=== PATIENT | female | born 1960 | race Caucasian/White ===

== ENCOUNTER → 2018-05-03 07:54 | Outpatient (CLI) | payer OTHER, SELFPAY ==
--- NOTE | 2018-05-03 07:56 | BI_ITS ---
MAMMOGRAPHY - BILATERAL SCREENING REASON FOR EXAM: Female, 57 years old. Routine annual screening examination. PERTINENT HISTORY: Non-contributory. Bilateral breast implants. TECHNIQUE: Digital bilateral breast ariella (3D mammographic acquisition) in the CC and MLO projections. 2-D mediolateral oblique (MLO) and craniocaudad (CC) views of both breasts were obtained. CAD: Full Field Digital Mammography with Computer Added Detection was performed. COMPARISON: Comparison is made with prior examination is March 18, 2017 and July 04, 2015. FINDINGS: Breast Composition: The breasts are heterogeneously dense, which may obscure small masses. There are no dominant masses or suspicious calcifications. Stable appearance of the bilateral breast implants. No other significant abnormalities are identified. There has been no significant change since the prior study. BI/SCREENING MAMM (CAD), BILAT IMPRESSION: Stable bilateral screening mammogram. Yearly follow-up mammogram recommended. (A) ASSESSMENT CATEGORY: BIRADS Category 2: Benign. A letter regarding these results will be sent to the patient by the facility within 30 days. Approximately 10% of breast cancers are not detected by mammography. A normal mammogram should not delay biopsy of a clinically suspicious abnormality. [id number] Electronically Signed: Roe Kaba MD at 9:57 EDT Tel [phone], Service support ,
== END ==
PROVIDERS: Family Provider Internal Medicine; PCP Internal Medicine; Visit Provider Nurse Practitioner Women's Health
DX: Z12.31 Encounter for screening mammogram for malignant neoplasm of breast (principal)
CPT/HCPCS: 77063; 77067

== ENCOUNTER → 2021-07-01 12:15 | Outpatient (CLI) | payer MEDICAID, SELFPAY ==
--- NOTE | 2021-07-01 12:17 | BI_ITS ---
MAMMOGRAPHY - BILATERAL SCREENING 3-D TOMOSYNTHESIS REASON FOR EXAM: Female, 60 years old. screening for breast cancer PERTINENT HISTORY: No significant family history. TECHNIQUE: 2-D mammograms and 3-D Tomosynthesis of the breast (s) were performed. CAD was performed. COMPARISON: 05/03/2018 FINDINGS: The breast composition is heterogeneously dense that can obscure small breast masses. Scattered benign calcifications are seen. No dense spiculated masses or suspicious microcalcifications are identified. No architectural distortion is identified. There is no skin thickening or retraction. Bilateral retroglandular silicone implants appear intact BI/SCRN MAMM (CAD)W/TAMIA BILAT IMPRESSION: No mammographic signs of malignancy. Routine yearly mammograms recommended. ASSESSMENT CATEGORY: BIRADS Category 1: Negative. A letter regarding these results will be sent to the patient by the facility within 30 days. FOLLOW UP RECOMMENDATION: Yearly follow up mammogram recommended. (A) Approximately 10% of breast cancers are not detected by mammography. A normal mammogram should not delay biopsy of a clinically suspicious abnormality. Electronically Signed: Sotero Dale MD at 15:23 EST Tel , Service support ,
== END ==
PROVIDERS: PCP Family Medicine; Visit Provider Nurse Practitioner Women's Health
DX: Z12.31 Encounter for screening mammogram for malignant neoplasm of breast (principal)
CPT/HCPCS: 77063; 77067

== ENCOUNTER → 2022-07-03 | Outpatient (CLI) | payer MEDICAID, SELFPAY ==
--- NOTE | 2022-07-03 13:53 | BI_ITS ---
MAMMOGRAPHY - BILATERAL SCREENING REASON FOR EXAM: Female, 61 years old. Routine annual screening examination. PERTINENT HISTORY: Non-contributory. History of bilateral breast implants. TECHNIQUE: Digital bilateral breast tamia (3D mammographic acquisition) in the CC and MLO projections. 2-D mediolateral oblique (MLO) and craniocaudad (CC) views of both breasts were obtained. CAD: Full Field Digital Mammography with Computer Added Detection was performed. COMPARISON: Comparison is made with prior study dated 07/01/2021 and 05/03/2008. FINDINGS: Breast Composition: The breasts are heterogeneously dense, which may obscure small masses. There are no dominant masses or suspicious calcifications. Stable appearance of the bilateral breast implants with peripheral calcification and slight lobular deformity. No other significant abnormalities are identified. There has been no significant change since the prior study. BI/SCRN MAMM (CAD)W/TAMIA BILAT IMPRESSION: Stable bilateral screening mammogram. Yearly follow-up mammogram recommended. (A) ASSESSMENT CATEGORY: BIRADS Category 2: Benign. A letter regarding these results will be sent to the patient by the facility within 30 days. Approximately 10% of breast cancers are not detected by mammography. A normal mammogram should not delay biopsy of a clinically suspicious abnormality. [id number] Electronically Signed: Roe Kaba MD at 11:17 EST ,
== END | disposition home or self-care (01) ==
LOC: OPBI 13:52
PROVIDERS: PCP Family Medicine; Visit Provider Nurse Practitioner Women's Health
DX: Z12.31 Encounter for screening mammogram for malignant neoplasm of breast (principal); Z98.82 Breast implant status
CPT/HCPCS: 77063; 77067

== ENCOUNTER → 2023-08-02 | Outpatient (CLI) | payer MEDICAID, SELFPAY ==
--- NOTE | 2023-08-02 12:16 | BI_ITS ---
MAMMOGRAPHY - BILATERAL SCREENING REASON FOR EXAM: Female, 62 years old. Routine annual screening examination. PERTINENT HISTORY: Non-contributory. Bilateral breast implants. TECHNIQUE: Digital bilateral breast tamia (3D mammographic acquisition) in the CC and MLO projections. 2-D mediolateral oblique (MLO) and craniocaudad (CC) views of both breasts were obtained. CAD: Full Field Digital Mammography with Computer Added Detection was performed. COMPARISON: Comparison is made with prior study dated April 03, 2022 and July 01, 2021. FINDINGS: Breast Composition: The breasts are heterogeneously dense, which may obscure small masses. There are no dominant masses or suspicious calcifications. Stable appearance of the bilateral breast implants. No other significant abnormalities are identified. There has been no significant change since the prior study. BI/SCRN MAMM (CAD)W/TAMIA BILAT IMPRESSION: Stable bilateral screening mammogram. Yearly follow-up mammogram recommended. (A) ASSESSMENT CATEGORY: BIRADS Category 2: Benign. A letter regarding these results will be sent to the patient by the facility within 30 days. Approximately 10% of breast cancers are not detected by mammography. A normal mammogram should not delay biopsy of a clinically suspicious abnormality. [id number] Electronically Signed: Roe Kaba MD at 13:37 EST ,
--- OUTSIDE RECORDS SUMMARY | 2023-08-02 12:39 | XMS RPT_ITS | CCD ---
Author Name Unknown Address [address] [place] [address] Organization [facility] Care Team Providers Care Cashier Tube Room Name Role Phone Jya ABREU, Kailey Macias Unavailable [phone] Lynn IT CONSULTING MANAGER, Geovanna Josue Unavailable Kelly ABREU, Guillermina Schmitt Unavailable [phone] Sebastian Sol MD Primary Care Provider SEBASTIAN SOL Primary Care Unava ilable KAROL PERALTA Attending Unavaila Sebastian Flaherty MD Primary Care Provider Sebastian Sol MD Primary Care Provider Prebish PRE SALES TECHNICAL ENGINEER.ACADEMY DIRECTOR, Michelle Unavailable [phone] PENNY ONEILL Attending Unavailable PODLOGARLUANA Referring Unavailable SEBASTIAN SOL Primary Care Unavailab EARLE RamosMIT Attending Unavailable SEBASTIAN SOL Primary Care Unavailab le PREBISH, MICHELLE Attending Unavailable PREBISH, MICHELLE Referring Unavailable SEBASTIAN SOL Primary Care Unavailab le PREBISH, MICHELLE Attending Unavailable SEBASTIAN SOL Primary Care Unavailab wilfredo SINGH, BIGG Attending Unavailable SEBASTIAN SOL Primary Care Unavailab PENNY Lee Referring Unavailable SEBASTIAN SOL Primary Care Unavailab PENNY Lee Referring Unavailable SEBASTIAN SOL Primary Care Unavailab PENNY Lee Referring Unavailable SEBASTIAN SOL Primary Care Unavailab PENNY Lee Referring Unavailable SEBASTIAN SOL Primary Care Unavailab PENNY Lee Referring Unavailable BURSLEY, CHRISTOPHER B Primary Care Unavailab le BURSLEY, CHRISTOPHER B Primary Care Unavailab le NINOPENNY ARIAS M Referring Unavailable BURSLEY, CHRISTOPHER B Primary Care Unavailab le NINOPENNY ARIAS M Referring Unavailable NINOPENNY ARIAS M Referring Unavailable BURSLEY, CHRISTOPHER B Primary Care Unavailab le NINOPENNY ARIAS M Referring Unavailable BURSLEY, CHRISTOPHER B Primary Care Unavailab le SINGH, BIGG Referring Unavailable MAX RIVERSA Attending Unavailable BURSLEY, CHRISTOPHER B Primary Care Unavailab le MICHELLE RIVERS Referring Unavailable TOLU FRIEDMAN Attending Unavailable BURSLEY, CHRISTOPHER B Primary Care Unavailab le Sissen PSS, Vineet Unavailable Unavailable Storm Kang MD Unavailable Storm Kang MD Unavailable [phone] Knupp PT, Julio Unavailable Sissen PSS, Vineet Unavailable Unavailable Storm Kang MD Unavailable Storm Kang MD Unavailable [phone] Knupp PT, Julio Unavailable PROVIDER, UNKNOWN Admitting Unavailable BURSLEY, CHRISTOPHER B Primary Care Unavailab MASON Mccoll[employer] Consulting Unavailable PROVIDER, UNKNOWN Attending Unavailable BURSLEY, CHRISTOPHER B Primary Care Unavailab le BURSLEY, CHRISTOPHER B Primary Care Unavailab OLU Pimentel Referring Unavailable BURSLEY, CHRISTOPHER B Primary Care Unavailab le PROVIDER, UNKNOWN Admitting Unavailable BURSLEY, CHRISTOPHER B Primary Care Unavailab MASON Mccollum Consulting Unavailable PROVIDER, UNKNOWN Attending Unavailable NINOPENNY ARIAS M Referring Unavailable BURSLEY, CHRISTOPHER B Primary Care Unavailab le SINGH III, BIGG Referring Unavailable BURSLEY, CHRISTOPHER B Primary Care Unavailab STORM Hinton Referring Unavail able BURSLEY, CHRISTOPHER B Primary Care Unavailab STORM Hinton Referring Unavail able BURSLEY, CHRISTOPHER B Primary Care Unavailab SHADY Chester Attending Unavailable PENNY ONEILL Referring Unavailable BURSLEY, CHRISTOPHER B Primary Care Unavailab STORM Hinton Referring Unavail able TRUNG ROSA Attending Unavailable URBANO, CHRISTOPHER B Primary Care Unavailab SHADY Chester Attending Unavailable OLU ATKINSON Referring Unavailable BURSLEY, CHRISTOPHER B Primary Care Unavailab STORM Hinton Referring Unavail able TRUNG ROSA Attending Unavailable URBANO, CHRISTOPHER B Primary Care Unavailab OLU Pimentel Attending Unavailable MICHELLE RIVERS Referring Unavailable BURSLEY, CHRISTOPHER B Primary Care Unavailab STORM Hinton Referring Unavail able TRUNG ROSA Attending Unavailable BURSLEY, CHRISTOPHER B Primary Care Unavailab le STORM KANG Referring Unavail able URBANO, CHRISTOPHER B Primary Care Unavailab SHADY Chester Attending Unavailable PENNY ONEILL Referring Unavailable BURSLEY, CHRISTOPHER B Primary Care Unavailab PENNY Lee Referring Unavailable BURSLEY, CHRISTOPHER B Primary Care Unavailab SHADY Chester Attending Unavailable PENNY ONEILL Referring Unavailable BURSLEY, CHRISTOPHER B Primary Care Unavailab SHADY Chester Attending Unavailable PENNY ONEILL Referring Unavailable BURSLEY, CHRISTOPHER B Primary Care Unavailab PENNY Lee Referring Unavailable BURSLEY, CHRISTOPHER B Primary Care Unavailab PENNY Lee Referring Unavailable BURSLEY, CHRISTOPHER B Primary Care Unavailab PENNY Lee Referring Unavailable BURSLEY, CHRISTOPHER B Primary Care Unavailab OLU Pimentel Referring Unavailable BURSLEY, CHRISTOPHER B Primary Care Unavailab STORM Hinton Referring Unavail able LUIS FELIPELEY, CHRISTOPHER B Primary Care Unavailab le LUIS FELIPELEY, CHRISTOPHER B Primary Care Unavailab le STORM KANG Referring Unavail able BURSLEY, CHRISTOPHER B Primary Care Unavailab le STORM KANG Attending Unavail able URBANO, CHRISTOPHER B Primary Care Unavailab OLU Pimentel Attending Unavailable URBANO, CHRISTOPHER B Primary Care Unavailab le STORM KANG Referring Unavail able URBANO, CHRISTOPHER B Primary Care Unavailab le BURSLEY, CHRISTOPHER B Primary Care Unavailab SHAHBAZ Lock Referring Unavailable STORM KANG Attending Unavail able BURSLEY, CHRISTOPHER B Primary Care Unavailab le Allergies Allergy Classification Reported Allergen(s) Allergy Type Date of Onset Reaction(s) Facility (1 source) codeine Drug Allergy 05-07-20 16 [facility] Work Phone: (1 source) penicillin Drug Allergy 05-07-20 16 [facility] Work Phone: (1 source) sulfacetamide Drug Allergy 05-07-20 16 [facility] Work Phone: (2 sources) Codeine Drug Allergy 02-18-20 17 [facility] (2 sources) Morphine Drug Allergy 02-18-20 17 [facility] (2 sources) Penicillin V Drug Allergy 02-18-20 17 [facility] (2 sources) Sulfamethoxazole / Trimethoprim Drug Allergy 02-18-20 17 [facility] (20 sources) Codeine; Translations: [CODEINE] Drug Allergy 06-19-20 05 Rash [facility] Work Phone: (20 sources) Morphine; Translations: [MORPHINE] Drug Allergy 08-17-19 06 Itching [facility] Work Phone: (7 sources) Penicillins; Translations: [PENICILLINS] Propensity to adverse reactions 06-19-20 05 [facility] Work Phone: (20 sources) Sulfonamides (Antibiotic); Translations: [SULFA (SULFONAMIDE ANTIBIOTICS)] Propensity to adverse reactions 06-19-20 05 GI Upset [facility] Work Phone: (20 sources) Penicillins Propensity to adverse reactions 06-19-20 05 [facility] Work Phone: Medications Current Medications Medication Drug Class(es) Dates Sig (Normalized) Sig (Original) ascorbic acid 500 mg oral tablet (20 sources) Start: 06-18-2023 End: 07-02-2023 take 1 tablet by mouth twice daily at mealtime ascorbic acid, vitamin C, (VITAMIN C) 500 mg tablet Take 1 tablet by mouth two times a day with meals for 28 doses. 28 tablet 0 06/18/2023 07/02/2023 Active Completed/Discontinued Medications Medication Drug Class(es) Dates Sig (Normalized) Sig (Original) acetaminophen 500 mg oral tablet (20 sources) Start: 04-02-2023 take 2 tablets by mouth every eight hours as needed acetaminophen (TYLENOL) 500 mg tablet Take 2 tablets by mouth every 8 hours as needed for pain. 90 tablet 0 06/18/2023 Active Problems Active Problems Problem Classification Problem Date Documented Da te Episodic/Chronic Abdominal pain (6 sources) Epigastric pain; Translations: [Epigastric pain] Episodic Anxiety disorders (20 sources) Mixed anxiety and depressive disorder; Translations: [Anxiety disorder, unspecified] Onset: 3 03-17-2023 Chronic Complication of device; implant or graft (1 source) Capsular breast contracture of breast implant; Translations: [Capsular contracture of breast implant, initial encounter] Onset: 8 12-20-2017 Episodic Melanomas of skin (2 sources) Malignant melanoma; Translations: [Malignant melanoma of skin, unspecified] Onset: 3 05-31-2023 Chronic Mood disorders (1 source) Mood disorders; Translations: [Anxiety and depression] Onset: 3 Nausea and vomiting (3 sources) Nausea and vomiting; Translations: [Nausea with vomiting, unspecified] Episodic Osteoarthritis (20 sources) Primary coxarthrosis, bilateral; Translations: [Bilateral primary osteoarthritis of hip] Onset: 3 Chronic Other acquired deformities (5 sources) Spondylolisthesis L5/S1 level; Translations: [Spondylolisthesis, lumbosacral region] Episodic Other connective tissue disease (20 sources) History of total hip arthroplasty; Translations: [Presence of left artificial hip joint] Onset: 3 04-02-2023 Chronic Other connective tissue disease (15 sources) History of repair of hip joint; Translations: [Presence of left artificial hip joint] Onset: 3 04-16-2023 Chronic Other connective tissue disease (2 sources) Presence of right artificial hip joint; Translations: [Status post hip replacement, right] Onset: 3 Chronic Other connective tissue disease (4 sources) Presence of left artificial hip joint; Translations: [Status post hip replacement, left] Onset: 3 Chronic Other connective tissue disease (3 sources) Muscle weakness; Translations: [Muscle weakness (generalized)] Episodic Other connective tissue disease (5 sources) Abnormal posture; Translations: [Abnormal posture] Episodic Other gastrointestinal disorders (1 source) Chronic constipation; Translations: [Other constipation] Episodic Other nervous system disorders (5 sources) Difficulty walking; Translations: [Difficulty in walking, not elsewhere classified] Chronic Other nervous system disorders (1 source) Difficulty in walking, not elsewhere classified; Translations: [Difficulty walking] Onset: 3 Chronic Other nervous system disorders (1 source) Other chronic pain; Translations: [Chronic bilateral low back pain with bilateral sciatica] Onset: 3 Chronic Other non-traumatic joint disorders (1 source) Hip pain; Translations: [Pain in left hip] 03-03-2023 Episodic Other non-traumatic joint disorders (9 sources) Pain in right hip joint; Translations: [Pain in right hip] Onset: 3 03-03-2023 Episodic Other non-traumatic joint disorders (1 source) Pain in right hip; Translations: [Pain in right hip] Onset: 3 Episodic Other screening for suspected conditions (not mental disorders or infectious disease) (2 sources) Patient encounter status; Translations: [Encounter for screening mammogram for malignant neoplasm of breast] Episodic Residual codes; unclassified (20 sources) Breast finding ; Translations: [Breast implant status] Onset: 8 01-01-2018 Chronic Spondylosis; intervertebral disc disorders; other back problems (20 sources) Degeneration of lumbar intervertebral disc; Translations: [Other intervertebral disc degeneration, lumbar region] Onset: 0 03-26-2020 Chronic Spondylosis; intervertebral disc disorders; other back problems (14 sources) Chronic low back pain; Translations: [Lumbago with sciatica, left side] Onset: 3 Episodic Past or Other Problems Problem Classification Problem Date Documented Da te Episodic/Chronic Biliary tract disease (20 sources) Biliary sludge; Translations: [Other specified diseases of gallbladder] Onset: 08-29-2020 08-29-2020 Episodic Nonmalignant breast conditions (2 sources) Disorder of breast; Translations: [Ptotic breast] Onset: 05-21-2016 05-21-2016 Episodic Other acquired deformities (2 sources) Spondylolisthesis, lumbosacral region; Translations: [Spondylolisthesis at L5-S1 level] Onset: 08-06-2022 Episodic Other connective tissue disease (1 source) Muscle weakness (generalized); Translations: [Muscle weakness (generalized)] Onset: 10-09-2022 Episodic Other connective tissue disease (1 source) Abnormal posture; Translations: [Posture abnormality] Onset: 10-09-2022 Episodic Other non-traumatic joint disorders (1 source) Pain in left hip; Translations: [Pain in left hip] Onset: 03-03-2023 Episodic Other skin disorders (1 source) Intrinsic aging of skin; Translations: [Other skin changes] Onset: 06-04-2016 06-04-2016 Episodic Other upper respiratory disease (20 sources) Polyp of larynx; Translations: [Polyp of vocal cord and larynx] Onset: 02-08-2018 02-08-2018 Episodic Screening and history of mental health and substance abuse codes (20 sources) Tobacco use and exposure - finding; Translations: [Personal history of nicotine dependence] Onset: 08-29-2020 08-29-2020 Episodic Unclassified (1 source) Problem Results Test Name Value Interpretation Reference Range Facil ity Vital Signs Date Time Vital Sign Value Performing Clinician Facility 06-19-2023 13:15-0500 Diastolic blood pressure 64 mm[Hg] Elisabet Delac PT Work Phone: [facility] 06-19-2023 13:15-0500 Heart rate 96 /min Elisabet Delac PT Work Phone: [facility] 06-19-2023 13:15-0500 Respiratory rate 20 /min Elisabet Delac PT Work Phone: [facility] 06-19-2023 13:15-0500 SaO2% (BldA) [Mass fraction] 96 % Elisabet Delac PT Work Phone: [facility] 06-19-2023 13:15-0500 Systolic blood pressure 104 mm[Hg] Elisabet Delac PT Work Phone: [facility] 06-19-2023 12:53-0500 Body temperature 98.1 [degF] Elisabet Delac PT Work Phone: [facility] 05-31-2023 12:57-0500 Body height 154.9 cm Pacc 1 Work Phone: [facility] 05-31-2023 12:57-0500 Body temperature 98.2 [degF] Pacc 1 Work Phone: [facility] 05-31-2023 12:57-0500 Body weight 67.59 kg Pacc 1 Work Phone: [facility] 05-31-2023 12:57-0500 Diastolic blood pressure 70 mm[Hg] Pacc 1 Work Phone: [facility] 05-31-2023 12:57-0500 Heart rate 76 /min Pacc 1 Work Phone: [facility] 05-31-2023 12:57-0500 Respiratory rate 16 /min Pacc 1 Work Phone: [facility] 05-31-2023 12:57-0500 SaO2% (BldA) [Mass fraction] 97 % Pacc 1 Work Phone: [facility] 05-31-2023 12:57-0500 Systolic blood pressure 108 mm[Hg] Pacc 1 Work Phone: [facility] 04-13-2023 15:27-0400 Body temperature 97.11 [degF] Julio Knupp PT Work Phone: [facility] 04-13-2023 15:27-0400 Diastolic blood pressure 70 mm[Hg] Julio Knupp PT Work Phone: [facility] 04-13-2023 15:27-0400 Heart rate 81 /min Julio Knupp PT Work Phone: [facility] 04-13-2023 15:27-0400 Respiratory rate 18 /min Julio Knupp PT Work Phone: [facility] 04-13-2023 15:27-0400 SaO2% (BldA) [Mass fraction] 97 % Julio Knupp PT Work Phone: [facility] 04-13-2023 15:27-0400 Systolic blood pressure 128 mm[Hg] Julio Knupp PT Work Phone: [facility] 04-08-2023 10:06-0400 Diastolic blood pressure 68 mm[Hg] Julio Knupp PT Work Phone: [facility] 04-08-2023 10:06-0400 Heart rate 84 /min Julio Knupp PT Work Phone: [facility] 04-08-2023 10:06-0400 Respiratory rate 18 /min Julio Knupp PT Work Phone: [facility] 04-08-2023 10:06-0400 SaO2% (BldA) [Mass fraction] 97 % Julio Knupp PT Work Phone: [facility] 04-08-2023 10:06-0400 Systolic blood pressure 110 mm[Hg] Julio Knupp PT Work Phone: [facility] 04-08-2023 09:16-0400 Body temperature 97.39 [degF] Julio Knupp PT Work Phone: [facility] 04-06-2023 12:21-0400 Body temperature 97 [degF] Digna Horschler OT/L Work Phone: [facility] 04-06-2023 12:21-0400 Diastolic blood pressure 64 mm[Hg] Digna Horschler OT/L Work Phone: [facility] 04-06-2023 12:21-0400 Heart rate 77 /min Digna Horschler OT/L Work Phone: [facility] 04-06-2023 12:21-0400 Respiratory rate 18 /min Digna Horschler OT/L Work Phone: [facility] 04-06-2023 12:21-0400 SaO2% (BldA) [Mass fraction] 97 % Digna Horschler OT/L Work Phone: [facility] 04-06-2023 12:21-0400 Systolic blood pressure 120 mm[Hg] Digna Juarez OT/L Work Phone: [facility] 03-15-2023 15:48-0400 Body height 156.8 cm Pacc 1 Work Phone: [facility] 03-15-2023 15:48-0400 Body temperature 97.2 [degF] Pacc 1 Work Phone: [facility] 03-15-2023 15:48-0400 Body weight 66.22 kg Pacc 1 Work Phone: [facility] 03-15-2023 15:48-0400 Diastolic blood pressure 62 mm[Hg] Pacc 1 Work Phone: [facility] 03-15-2023 15:48-0400 Heart rate 69 /min Pacc 1 Work Phone: [facility] 03-15-2023 15:48-0400 Respiratory rate 14 /min Pacc 1 Work Phone: [facility] 03-15-2023 15:48-0400 SaO2% (BldA) [Mass fraction] 94 % Pacc 1 Work Phone: [facility] 03-15-2023 15:48-0400 Systolic blood pressure 102 mm[Hg] Pacc 1 Work Phone: [facility] 03-03-2023 13:21-0400 Body height 155.6 cm Olu Atkinson PA-C Work Phone: [facility] 03-03-2023 13:21-0400 Body weight 66.45 kg Olu UberGrapecindi PA-C Work Phone: [facility] 02-18-2023 10:37-0400 Heart rate 64 /min Michelle Rivers APRN.ACADEMY DIRECTOR Work Phone: [facility] 02-18-2023 10:37-0400 Respiratory rate 16 /min Michelle Prebish PRE SALES TECHNICAL ENGINEER.ACADEMY DIRECTOR Work Phone: [facility] 02-18-2023 10:37-0400 SaO2% (BldA) [Mass fraction] 99 % Michelle Prebish PRE SALES TECHNICAL ENGINEER.ACADEMY DIRECTOR Work Phone: [facility] 12-17-2022 11:18-0400 Diastolic blood pressure 75 mm[Hg] Tolu Friedman MD Work Phone: [facility] 12-17-2022 11:18-0400 Heart rate 67 /min Tolu Friedman MD Work Phone: [facility] 12-17-2022 11:18-0400 Respiratory rate 17 /min Tolu Friedman MD Work Phone: [facility] 12-17-2022 11:18-0400 SaO2% (BldA) [Mass fraction] 97 % Tolu Friedman MD Work Phone: [facility] 12-17-2022 11:18-0400 Systolic blood pressure 119 mm[Hg] Tolu Friedman MD Work Phone: [facility] 12-03-2022 13:47-0400 Heart rate 73 /min Michelle Prebish PRE SALES TECHNICAL ENGINEER.ACADEMY DIRECTOR Work Phone: [facility] 12-03-2022 13:47-0400 Respiratory rate 16 /min Michelle Prebish PRE SALES TECHNICAL ENGINEER.ACADEMY DIRECTOR Work Phone: [facility] 12-03-2022 13:47-0400 SaO2% (BldA) [Mass fraction] 95 % Michelle Prebish PRE SALES TECHNICAL ENGINEER.ACADEMY DIRECTOR Work Phone: [facility] 09-24-2022 11:31-0400 Heart rate 84 /min Bigg Singh MD Work Phone: [facility] 09-24-2022 11:31-0400 Respiratory rate 16 /min Bigg Singh MD Work Phone: [facility] 09-24-2022 11:31-0400 SaO2% (BldA) [Mass fraction] 99 % Bigg Singh MD Work Phone: [facility] 08-27-2022 08:42-0500 Heart rate 56 /min Bigg Singh MD Work Phone: [facility] 08-27-2022 08:42-0500 Respiratory rate 14 /min Bigg Singh MD Work Phone: [facility] 08-27-2022 08:42-0500 SaO2% (BldA) [Mass fraction] 99 % Bigg Singh MD Work Phone: [facility] 08-06-2022 13:50-0500 Heart rate 83 /min Penny Nino PRE SALES TECHNICAL ENGINEER.ACADEMY DIRECTOR Work Phone: [facility] 08-06-2022 13:50-0500 Respiratory rate 16 /min Penny Phoenix PRE SALES TECHNICAL ENGINEER.ACADEMY DIRECTOR Work Phone: [facility] 08-06-2022 13:50-0500 SaO2% (BldA) [Mass fraction] 97 % Penny Phoenix PRE SALES TECHNICAL ENGINEER.ACADEMY DIRECTOR Work Phone: [facility] 03-30-2022 14:06-0400 Body weight 65.27 kg Johnny Newsome MD Work Phone: [facility] 03-30-2022 14:06-0400 Diastolic blood pressure 71 mm[Hg] Johnny Newsome MD Work Phone: [facility] 03-30-2022 14:06-0400 Heart rate 64 /min Johnny Newsome MD Work Phone: [facility] 03-30-2022 14:06-0400 Systolic blood pressure 122 mm[Hg] Johnny Newsome MD Work Phone: [facility] 01-16-2022 11:12-0400 Body weight 62.41 kg Sebastian Sol MD Work Phone: [facility] 01-16-2022 11:12-0400 Diastolic blood pressure 60 mm[Hg] Sebastian Sol MD Work Phone: [facility] 01-16-2022 11:12-0400 Heart rate 76 /min Sebastian Sol MD Work Phone: [facility] 01-16-2022 11:12-0400 Respiratory rate 16 /min Sebastian Sol MD Work Phone: [facility] 01-16-2022 11:12-0400 SaO2% (BldA) [Mass fraction] 97 % Sebastian Sol MD Work Phone: [facility] 01-16-2022 11:12-0400 Systolic blood pressure 102 mm[Hg] Sebastian Sol MD Work Phone: [facility] 09-29-2021 14:32-0400 Body height 154.9 cm Obie Man MD Work Phone: [facility] 09-29-2021 14:32-0400 Body weight 63.5 kg Obie Man MD Work Phone: [facility] 09-29-2021 14:32-0400 Diastolic blood pressure 62 mm[Hg] Obie Man MD Work Phone: [facility] 09-29-2021 14:32-0400 Heart rate 66 /min Obie Man MD Work Phone: [facility] 09-29-2021 14:32-0400 Respiratory rate 19 /min Obie Man MD Work Phone: [facility] 09-29-2021 14:32-0400 Systolic blood pressure 111 mm[Hg] Obie Man MD Work Phone: [facility] 02-17-2017 12:53-0400 BMI (Body Mass Index) 23.46 kg/m2 Geovanna Bailey NP [facility] 02-17-2017 12:53-0400 Body Temperature 97.4 [degF] Geovanna Bailey NP [facility] 02-17-2017 12:53-0400 Body Temperature 97.39 [degF] Geovanna Bailey NP [facility] 02-17-2017 12:53-0400 BP Diastolic 60 mm[Hg] Geovanna Bailey NP [facility] 02-17-2017 12:53-0400 BP Systolic 98 mm[Hg] Geovanna Bailey IT CONSULTING MANAGER [facility] 02-17-2017 12:53-0400 Height 154.94 cm Geovanna Bailey IT CONSULTING MANAGER [facility] 02-17-2017 12:53-0400 Pulse (Heart Rate) 67 /min Geovanna Bailey IT CONSULTING MANAGER [facility] 02-17-2017 12:53-0400 Respiratory Rate 16 /min Geovanna Bailey IT CONSULTING MANAGER [facility] 02-17-2017 12:53-0400 Weight 56.34 kg Geovanna Bailey IT CONSULTING MANAGER [facility] NEGATED: Highlighted [id number] 10:47-0400 BMI (Body Mass Index) 23.32 kg/m2 Abbie Serrilli AIR SHOVEL OPERATOR [facility] Work Phone: NEGATED: Highlighted [id number] 10:47-0400 BP Diastolic 71 mm[Hg] Abbie Serrilli AIR SHOVEL OPERATOR [facility] Work Phone: NEGATED: Highlighted [id number] 10:47-0400 BP Systolic 109 mm[Hg] Abbie Serrilli AIR SHOVEL OPERATOR [facility] Work Phone: NEGATED: Highlighted [id number] 10:47-0400 Height 154.94 cm Abbie Serrilli AIR SHOVEL OPERATOR [facility] Work Phone: NEGATED: Highlighted [id number] 10:47-0400 Height 155 cm Abbie Serrilli AIR SHOVEL OPERATOR [facility] Work Phone: NEGATED: Highlighted [id number] 10:47-0400 Pulse (Heart Rate) 71 /min Abbie Serrilli AIR SHOVEL OPERATOR [facility] Work Phone: NEGATED: Highlighted [id number] 10:47-0400 Weight 55.79 kg Abbie Serrilli AIR SHOVEL OPERATOR [facility] Work Phone: NEGATED: Highlighted [id number] 10:47-0400 Weight 56 kg Abbie Mena LPN [facility] Work Phone: Encounters Encounter Date Encounter Type Care Provider Facility Start: 07-29-2023 End: 07-29-2023 ambulatory STORM KANG Facility:[facility] Start: 07-27-2023 End: 07-27-2023 ambulatory STORM ABDIRAHMAN KANG Facility:[facility] Start: 07-22-2023 End: 07-22-2023 ambulatory STORM ABDIRAHMAN ZANELLIOTA Facility:[facility] Start: 07-19-2023 End: 07-19-2023 ambulatory STORM ABDIRAHMAN KANG Facility:[facility] Start: 07-16-2023 End: 07-16-2023 ambulatory STORM ABDIRAHMAN KANG Facility:[facility] Start: 07-14-2023 End: 07-14-2023 ambulatory STORM KANG Facility:[facility] Start: 07-08-2023 End: 07-08-2023 ambulatory SEBASTIAN SOL Facility:[facility] Start: 06-22-2023 Home visit Kristin Epperson) Stephanie harris RN Work Phone: [facility] Procedures Date Procedure Procedure Detail Performing Clinician Start: 05-24-2023 Antibody screen PENNY ONEILL Plan of Treatment Date Care Activity Detail Author Start: 07-29-2031 Colonoscopy COLONOSCOPY [facility] Start: 07-29-2031 COLORECTAL CANCER SCREENING COLORECTAL CANCER SCREENING [facility] Start: 07-29-2031 Screening for malign ant neoplasm of colon [facility] Start: 01-01-2028 Urine microalbumin profile [facility] Start: 06-16-2027 Lipid 1996 panel - S tom or Plasma Lipid Screening [facility] Start: 06-16-2027 Lipid panel Lipid Screening [facility] Start: 06-16-2027 LIPID SCREEN LIPID SCREEN [facility] Start: 06-18-2026 Diabetes Screening Diabetes Screenin g [facility] Start: 05-24-2026 Diabetes Screening Diabetes Screenin g [facility] Start: 04-02-2026 Diabetes Screening Diabetes Screenin g [facility] Start: 03-05-2026 DIABETES SCREEN DIABETES SCREEN [facility] Start: 03-05-2026 Diabetes Screening Diabetes Screenwill najera [facility] Start: 06-16-2025 DIABETES SCREEN DIABETES SCREEN [facility] Start: 07-01-2024 DIABETES SCREEN DIABETES SCREEN [facility] Start: 06-15-2023 COVID-19 VACCINE (#1) COVID-19 VACCI NE (#1) [facility] Immunizations Immunization Date Immunization Notes Care Provider Fa cilikennedi 12-31-2017 tetanus toxoid, reduced diphtheria toxoid, and acellular pertussis vaccine, adsorbed Obie Man MD Work Phone: [facility] Work Phone: 05-24-2014 influenza, seasonal, injectable Obie Man MD Work Phone: [facility] 05-24-2014 influenza virus vaccine, unspecified formulation [facility] Work Phone: [facility] 07-27-2013 influenza virus vaccine, unspecified formulation Obie Man MD Work Phone: [facility] 05-16-2012 influenza virus vaccine, unspecified formulation Obie Man MD Work Phone: [facility] 05-15-2010 influenza virus vaccine, unspecified formulation Obie Man MD Work Phone: [facility] 04-18-2009 influenza virus vaccine, unspecified formulation Obie Man MD Work Phone: [facility] 06-15-2008 influenza virus vaccine, unspecified formulation Obie Man MD Work Phone: [facility] No information available. Abbie Mena LPN [facility] Work Phone: Payers Date Payer Category Payer Medicaid [place] [employer] [facility] MEDICA[facility] [id number] 2020-Present [phone] [address] [place] [address] Medicaid [id number] 2020 Medicaid [id number] 2020 Unknown [id number] 2005 Unknown [facility] [id number] 2005-Present [phone] [address] [place] [address] [id number] 1958 Unknown [id number] Social History Date Type Detail Facility Start: 12-20-2017 End: 12-20-2017 Assertion Unknown if ever smoked [facility] [place] [facility] [employer] [facility] Work Phone: Start: 02-21-2018 End: 06-15-2022 Tobacco smoking status NHIS Ex-smoker [facility] Work Phone: End: 07-05-2009 History of tobacco use Current smoker [facility] Work Phone: End: 07-05-2009 History of tobacco use Cigarette Smoker [facility] Work Phone: Start: 02-21-2018 End: 12-03-2022 Cigarettes smoked current (pack per day) - Reported 0.5 [facility] Start: 02-21-2018 End: 06-15-2022 Tobacco use and exposure Smokeless tobacco non-user [facility] Work Phone: Start: 09-03-2021 End: 05-31-2023 Alcohol intake Ex-drinker (finding) [facility] Start: 03-26-2020 End: 06-14-2022 History SDOH Alcohol Frequency 3 [facility] Start: 03-26-2020 End: 06-14-2022 History SDOH Alcohol Std Drinks 1 [facility] Start: 1960 Sex Assigned At Female [facility] Start: 09-19-2021 End: 03-30-2022 Exposure to SARS-CoV-2 (event) Not sure [facility] Start: 01-14-2022 End: 06-14-2022 History SDOH Alcohol Frequency 2 [facility] Start: 01-14-2022 End: 06-14-2022 History SDOH Social Connections Phone 5 [facility] Start: 01-14-2022 History SDOH Physical Activity MPS 6 [facility] Start: 06-14-2022 End: 12-03-2022 Social connection and isolation panel [facility] Do you belong to any clubs or organizations such as anabaptism groups, unions, fraternal or athletic groups, or school groups? Yes [facility] Are you now , , , , never or living with a partner? [facility] How often to you hav e a drink containing alcohol? Monthly or less [facility] How many standard dr inks containing alcohol do you have on a typical day? 1 or 2 [facility] How often do you hav e 6 or more drinks on 1 occasion? Never [facility] How hard is it for y ou to pay for the very basics like food, housing, medical care, and heating Not hard at all [facility] Do you feel stress - tense, restless, nervous, or anxious, or unable to sleep at night because your mind is troubled all the time - these days [OSQ] Only a little [facility] (I/We) worried wheth er (my/our) food would run out before (I/we) got money to buy more. Never true [facility] At any time in the p ast 12 months, were you homeless or living in jail [including now]? No [facility] Start: 03-25-2020 Gender identity Identifies as female gender (finding) [facility] Start: 08-29-2020 Sexual orientation Heterosexual (finding) [facility] Medical Equipment Procedure Code Equipment Code Equipment Origin al Text Equipment Identifier Dates Stem Femoral 103 mm Size 4 Standard Offset Insignia Collared - [id number] Start: 04-01-2023 Head V40 36mm -5 mm Offset Taper Biolox Delta Femoral Hip - [id number] Start: 04-01-2023 Screw Trident Ii 6.5mm 25mm Bone Low Profile Hexagonal Sterile - [id number] Start: 04-01-2023 Head 36mm -2.5mm Offset C Taper Biolox Delta Femoral High Performance - [id number] Start: 06-17-2023 Shell Trident Ii 52mm E Tritanium Acetabular 5 Screw Hole Cluster Sterile - [id number] Start: 06-17-2023 Screw Trident Ii 6.5mm 20mm Bone Low Profile Hexagonal Sterile - [id number] Start: 06-17-2023 Clinical Notes 08-09-2012 to 07-29-2023 HH CARE COORDINATION - Kristin PerryRn), RN - 06/22/2023 11:44 AM ESTTelephone Encounter - Elisabet Sanders, ABDIAS - 06/19/2023 5:46 PM EST Note Date & Type Note Facility 07-29-2023 Note HNO ID: [id number] Author: TRUNG ROSA PT Service: ? Author Type: Physical Therapist Type: Progress Notes Filed: 07/30/2023 07:42 Note Text: Episode Visit Count: 6 Therapist That Will Accept/Oversee The Plan Of Care: Trung Rosa PT. Start of Care Date: 07/14/23 Onset Date: 06/17/23 Plan of Care Certification Date: 07/14/23 Next Certification Due Date: 08/20/23 Patient Identified by Name and Date of : Yes REHABILITATION AND SPORTS THERAPY PHYSICAL THERAPY TREATMENT NOTE ASSESSMENT: Acacia Bynum tolerated the session with fatigue and expected muscle soreness. She demonstrated difficulty with SL hip circles due to weakness. The patient will continue to benefit from ongoing skilled physical therapy to progress toward set goals. PLAN FOR NEXT VISIT: Continue advancing R hip strengthening and stability as tolerated. SUBJECTIVE: Pt reports that she is feeling good today. Pt reports muscle soreness. Pain: Pain Pain Level: 0 Pain Location: Hip - Right Post Treatment Pain Post Treatment Pain Level: 0 Post Treatment Pain Location: Hip - Right OBJECTIVE MEASURES WITH LEVEL OF FUNCTION: Good form observed throughout session. TREATMENT: Therapeutic Exercise: 1: R Hip abduction in L SL 2x10 2: R hip marching in L SL 2x10 3: R hip circles forwards and backwards in L SL 2x10 4: *Bridges 2x10 5: R Fwd Step-Ups: 2x15, Blue + Green Box. 6: R Lateral Step-Ups: 2x10, Blue Box, 3#cuff added to RLE). 7: R HS Curls: 2x15, 3#cuff. 8: R Hip Flexion: 2x15, 3#cuff. 9: Scifit Seated stepper x 5 minutes for cool down Skilled Intervention: Patient was educated in proper exercise technique and purpose for exercises. Reviewed and educated patient on additions/changes for home exercise program as above (*). Skilled judgment was used in selection of appropriate interventions. Correct performance of therapeutic exercises was facilitated with verbal and visual cuing. Manual Therapy: 1: PROM for R Hip Flexion AND Hip ABD in Supine: x20 each. 2: PROM R Hip Circumduction: x20. Skilled Intervention: Manual skills to improve joint mobility, ROM, and decrease pain. Utilized anatomy knowledge of the therapist, and assessment of patient's response to intervention. Billing Therapeutic Exercise Treatment Minutes: 33 Manual TherapyTreatment Minutes: 8 Skilled Treatment Time Minutes (timed and untimed codes): 41 Total Session Time (minutes): 41 Session Start Time : 1146 Session Stop Time : 1227 CYNTHIA Recinos PT, DPT. [facility] 07-27-2023 Note HNO ID: [id number] Author: TRUNG ROSA PT Service: ? Author Type: Physical Therapist Type: Progress Notes Filed: 07/27/2023 11:41 Note Text: Episode Visit Count: 5 Therapist That Will Accept/Oversee The Plan Of Care: Trung Rosa PT. Start of Care Date: 07/14/23 Onset Date: 06/17/23 Plan of Care Certification Date: 07/14/23 Next Certification Due Date: 08/20/23 Patient Identified by Name and Date of : Yes REHABILITATION AND SPORTS THERAPY PHYSICAL THERAPY TREATMENT NOTE ASSESSMENT: Acacia Bynum tolerated the session with expected muscle soreness. She demonstrated difficulty with SLR due to weakness. The patient will continue to benefit from ongoing skilled physical therapy to progress toward set goals and to continue with post-operative protocol. PLAN FOR NEXT VISIT: Bridges for HEP; Trial Hip ABD series for warmup; progress ther-ex as able, sci-fit for cool down. SUBJECTIVE: Pt. reports off cane/AD; no pain overall, doing good with HEP. Pain: Pain Pain Level: 0 Pain Location: Hip - Right Post Treatment Pain Post Treatment Symptoms: No c/o of pain, B LEs fatigued. OBJECTIVE MEASURES WITH LEVEL OF FUNCTION: Verbal cues and demonstration needed for lower extremity control during lateral walking and not letting the band lose tension. TREATMENT: Therapeutic Exercise: 1: Scifit Seated Stepper x 5 minutes. (Direct 1:1 subjective and supervision.) 2: R Fwd Step-Ups: 2x10, Blue + Green Box. 3: R Lateral Step-Ups: 2x10, Blue Box, 3#cuff added to RLE). 4: Standing Alternating Hip Marches: 2x15, PTB around feet. 5: *Lateral Monster Walks in // Bars: [address], OTB around feet. 6: R HS Curls: 2x15, 3#cuff. 7: Wall Slide Squats: 2x10. 8: R Hip Flexion: 2x15, 3#cuff. (Straight Leg.) 9: HS Curl Machine: 2x10, 40#. (Position B, Seat #2.) 10: RLE SLR: 2x5. 11: Alt. Hip Flexion over hurdles in // bars: 3 Laps of 6 Hurdles (6x total). Skilled Intervention: Patient was educated in proper exercise technique and purpose for exercises. Reviewed and educated patient on additions/changes for home exercise program as above (*). Skilled judgment was used in selection of appropriate interventions. Provided written instruction for home exercise program to facilitate proper performance and compliance. Correct performance of therapeutic exercises was facilitated with verbal, visual, and tactile cuing. Manual Therapy: 1: PROM for R Hip Flexion AND Hip ABD in Supine: x20 each. 2: PROM R Hip Circumduction: x20. 3: STM to B Hip Flexors and Quads w/ foam roller: Push to tolerance. Skilled Intervention: Manual skills to improve joint mobility, ROM, and decrease pain. Utilized anatomy knowledge of the therapist, and assessment of patient's response to intervention. Billing Therapeutic Exercise Treatment Minutes: 40 Manual TherapyTreatment Minutes: 15 Skilled Treatment Time Minutes (timed and untimed codes): 55 Total Session Time (minutes): 55 Session Start Time : 1027 Session Stop Time : 1122 Trung Rosa PT [facility] 07-22-2023 Note HNO ID: [id number] Author: TRUNG ROSA PT Service: ? Author Type: Physical Therapist Type: Progress Notes Filed: 07/22/2023 15:12 Note Text: Episode Visit Count: 4 Therapist That Will Accept/Oversee The Plan Of Care: Trung Rosa PT. Start of Care Date: 07/14/23 Onset Date: 06/17/23 Plan of Care Certification Date: 07/14/23 Next Certification Due Date: 08/20/23 Patient Identified by Name and Date of : Yes REHABILITATION AND SPORTS THERAPY PHYSICAL THERAPY TREATMENT NOTE ASSESSMENT: Acacia Bynum tolerated the session with fatigue and expected muscle soreness. She demonstrated difficulty with SLR . The patient will continue to benefit from ongoing skilled physical therapy to progress toward set goals. PLAN FOR NEXT VISIT: Continue R Hip Strengthening per Anterior NICHOLE Protocol; watch for precautions. SUBJECTIVE: Pt reports that her R hip is not feeling too bad today. Pain: Pain Pain Level: 0 Pain Location: Hip - Right OBJECTIVE MEASURES WITH LEVEL OF FUNCTION: Decreased tightness with PROM this visit TREATMENT: Therapeutic Exercise: 1: Scifit Seated Stepper x 5 minutes, seat # 9 (1:1 throughout. Discussed progressing B hips without overdoing it.) 2: R Fwd Step-Ups: 2x15, Blue Box. 3: R Lateral Step-Ups: 2x15, Green Box. 4: R Standing Hip ABD: 2x15. 5: Standing hip flexion 2x15 RLE 6: R HS Curls: 2x15, 2#cuff. 7: SLR 1x5 RLE 8: Gluteal squeezes x30 9: R Hooklying ADD Iso, Ball Squeeze: 3x15, 5-sec. Skilled Intervention: Patient was educated in proper exercise technique and purpose for exercises. Skilled judgment was used in selection of appropriate interventions. Correct performance of therapeutic exercises was facilitated with verbal and visual cuing. Manual Therapy: 1: PROM for Hip Flexion AND Hip ABD in Supine: x20 each. Skilled Intervention: Manual skills to improve joint mobility, ROM, and decrease pain. Utilized anatomy knowledge of the therapist, and assessment of patient's response to intervention. Billing Therapeutic Exercise Treatment Minutes: 40 Manual TherapyTreatment Minutes: 5 Skilled Treatment Time Minutes (timed and untimed codes): 45 Total Session Time (minutes): 45 Session Start Time : 1050 Session Stop Time : 1135 CYNTHIA Recinos PT, DPT. [facility] 07-19-2023 Note HNO ID: [id number] Author: TRUNG ROSA PT Service: ? Author Type: Physical Therapist Type: Progress Notes Filed: 07/19/2023 15:17 Note Text: Episode Visit Count: 3 Therapist That Will Accept/Oversee The Plan Of Care: Trung Rosa PT. Start of Care Date: 07/14/23 Onset Date: 06/17/23 Plan of Care Certification Date: 07/14/23 Next Certification Due Date: 08/20/23 Patient Identified by Name and Date of : Yes REHABILITATION AND SPORTS THERAPY PHYSICAL THERAPY TREATMENT NOTE ASSESSMENT: Acacia Bynum tolerated the session with fatigue and expected muscle soreness. She demonstrated improvements in ability to perform AROM SLR . The patient will continue to benefit from ongoing skilled physical therapy to progress toward set goals. PLAN FOR NEXT VISIT: Continue R Hip Strengthening per Anterior NICHOLE Protocol; watch for precautions. Give STS for HEP SUBJECTIVE: Pt reports that she is feeling good today. Pain: Pain Pain Level: 0 Pain Location: Hip - Right Post Treatment Pain Post Treatment Pain Level: No Change Post Treatment Pain Location: Hip - Right OBJECTIVE MEASURES WITH LEVEL OF FUNCTION: Light quad lag w/ R SLR. TREATMENT: Therapeutic Exercise: 1: R Quad Set: 1x15, 5-sec hold. 2: R SAQ: 2x15, 2# cuff. 3: R Hooklying ADD Iso, Ball Squeeze: 2x15, 5-sec. 4: SLR 1x5 RLE 5: R LAQ: 2x15, 3# cuff. 6: R Fwd Step-Ups: 2x15, Blue Box. 7: R Lateral Step-Ups: 2x15, Green Box. 8: R Standing Hip ABD: 2x15. 9: Standing hip flexion 2x15 RLE 10: R HS Curls: 2x15, 2#cuff. 11: STS 2x5 without use of hands Skilled Intervention: Patient was educated in proper exercise technique and purpose for exercises. Skilled judgment was used in selection of appropriate interventions. Correct performance of therapeutic exercises was facilitated with verbal and visual cuing. Manual Therapy: 1: PROM for Hip Flexion AND Hip ABD in Supine: x20 each. Skilled Intervention: Manual skills to improve joint mobility, ROM, and decrease pain. Utilized anatomy knowledge of the therapist, and assessment of patient's response to intervention. Billing Therapeutic Exercise Treatment Minutes: 38 Manual TherapyTreatment Minutes: 4 Skilled Treatment Time Minutes (timed and untimed codes): 42 Total Session Time (minutes): 42 Session Start Time : 1100 Session Stop Time : 1142 Lizzy Donald PTA Trung Rosa, PT, DPT. [facility] 07-16-2023 Note HNO ID: [id number] Author: TRUNG ROSA PT Service: ? Author Type: Physical Therapist Type: Progress Notes Filed: 07/16/2023 14:46 Note Text: Episode Visit Count: 2 Therapist That Will Accept/Oversee The Plan Of Care: Trung Rosa PT. Start of Care Date: 07/14/23 Onset Date: 06/17/23 Plan of Care Certification Date: 07/14/23 Next Certification Due Date: 08/20/23 Patient Identified by Name and Date of : Yes REHABILITATION AND SPORTS THERAPY PHYSICAL THERAPY TREATMENT NOTE ASSESSMENT: Acacia Bynum tolerated the session with expected muscle soreness. She demonstrated good form without compensation of lateral step-ups. The patient will continue to benefit from ongoing skilled physical therapy to progress toward set goals and to continue with post-operative protocol. PLAN FOR NEXT VISIT: Continue R Hip Strengthening per Anterior NICHOLE Protocol; watch for precautions. SUBJECTIVE: Patient reports achiness/stiffness in the R Hip; notes compliance with HEP and states it has loosened up the hip muscles, notes soreness. Pain: Pain Pain Level: 3 Pain Location: Hip - Right Description: Aching, Stiffness Post Treatment Pain Post Treatment Pain Level: No Change Post Treatment Pain Location: Hip - Right Post Treatment Pain Description: Sore OBJECTIVE MEASURES WITH LEVEL OF FUNCTION: Good form observed during session. LE PROM R Hip Flexion: 80 Degrees R Hip ABduction: 35 Degrees TREATMENT: Therapeutic Exercise: 1: R Quad Set: 1x15, 5-sec hold. 2: R SAQ: 2x15, 2# cuff. 3: R Hooklying ADD Iso, Ball Squeeze: 2x15, 5-sec. 4: *R HS Stretch: 3x30 . 5: R LAQ: 2x15, 3# cuff. 6: R Fwd Step-Ups: 2x15, Blue Box. 7: R Lateral Step-Ups: 2x15, Green Box. 8: *R HS Curls: 2x15, 2#cuff. 9: R Standing Hip ABD: 1x15. Skilled Intervention: Patient was educated in proper exercise technique and purpose for exercises. Reviewed and educated patient on additions/changes for home exercise program as above (*). Skilled judgment was used in selection of appropriate interventions. Provided written instruction for home exercise program to facilitate proper performance and compliance. Correct performance of therapeutic exercises was facilitated with verbal, visual, and tactile cuing. Manual Therapy: 1: PROM for Hip Flexion AND Hip ABD in Supine: x20 each. Skilled Intervention: Manual skills to improve joint mobility, ROM, and decrease pain. Utilized anatomy knowledge of the therapist, and assessment of patient's response to intervention. Billing Therapeutic Exercise Treatment Minutes: 38 Manual TherapyTreatment Minutes: 5 Skilled Treatment Time Minutes (timed and untimed codes): 43 Total Session Time (minutes): 43 Session Start Time : 1345 Session Stop Time : 1428 Trung Rosa PT [facility] 07-14-2023 Note HNO ID: [id number] Author: TRUNG ROSA PT Service: ? Author Type: Physical Therapist Type: Progress Notes Filed: 07/14/2023 12:58 Note Text: Episode Visit Count: 1 Therapist That Will Accept/Oversee The Plan Of Care: Trung Roas PT. Start of Care Date: 07/14/23 Onset Date: 06/17/23 Plan of Care Certification Date: 07/14/23 Next Certification Due Date: 08/20/23 Patient Identified by Name and Date of : Yes REHABILITATION AND SPORTS THERAPY PHYSICAL THERAPY EVALUATION PLAN OF CARE: Assessment: Acacia Bynum presents 27 days POST-OP status of R NICHOLE (Anterior Approach) that interferes with sleeping, walking in the community, rising from a chair, physical activities . She presents with impairments in ADL's, flexibility, gait, independence in exercise, joint mobility, overall function, range of motion, soft tissue healing, strength, and tissue tenderness. PROMIS? (Patient-Reported Outcomes Measurement Information System) scores were reviewed and physical function domain and self efficacy domain identified as within normal limits. Prognosis for therapy is Good due to: current objective clinical presentation, good overall health status, positive past response to therapy, within-session changes, good support system/ coping skills . She will benefit from skilled therapy services to meet the goals established for this plan of care as noted below. Goals for Episode of Care: created on 07/14/23 through 10/13/23 Ola in home exercise program. Patient will decrease pain rating by 2 points to meet minimal clinical important difference for numeric pain rating scale. Patient will increase passive ROM of L hip to 120 degrees flexion to allow pt to improve performance of ADLs/IADLs. Patient will demonstrate increase in LLE strength to 4+ to 5/5 during manual muscle testing in order to improve function for basic self-care tasks, home management tasks, and prior functional tasks. Patient will be able to perform walking without pain. 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 Patient Goals: Walking unassisted; working out at home. Planned Interventions, Frequency, and Duration: Current Frequency: 2x/week Duration: 8 weeks Total Number of Visits Planned: 16 Planned Treatment Interventions: Therapeutic exercise (74850), Neuromuscular re-education (91067), Manual therapy (02302), Therapeutic activities (19515), Self-jail management (39559), Gait Training (03574), Patient/Family/Caregiver Education, Body Mechanics Training PLAN FOR NEXT VISIT: Continue R Hip Strengthening per Anterior NICHOLE Protocol; watch for precautions. Patient demonstrates good understanding of plan of care and treatment. The above goals and plan of care were discussed and agreed upon by patient/family. SUBJECTIVE: Acacia presents to Outpatient PT following elective right total hip arthroplasty on 06/17/[address] Storm Kang for R Hip OA. Patient completed HH PT and was discharged on 07/09/23; post-op follow-up on 08/11/23. Was on FWW initially, now presents on standard cane. Patient has limitations in walking unassisted, and community distances, also notes deficits in energy levels and fatigue quickly with exercises. Post-op status has been without comlications. 04/01/23 had L NICHOLE (Anterior). Patient Goals: Walking unassisted; working out at home. Functional Limitations: sleeping, walking in the community, rising from a chair, physical activities Prior Level of Function: Independent without limitations Relevant History Employment: Retired Home Environment Patient Lives With: Spouse Assistance Available: 24-Hour Home Type: Ranch Entry To Home: Stairs, Without Rail Number Of Stairs Into Home: 3 Tub/Shower Type: walk-in shower with bench Laundry: in basement. 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 5 points is clinically meaningfully difference Percentiles provide an indication of how the patient's score ranks in relation to the general population. Higher percentile rankings indicate better function/quality of life. 50th percentile is the average of the general population and indicates half of respondents had a worse score. OBJECTIVE MEASURES WITH LEVEL OF FUNCTION: Hip Ob (more content not included)... [facility] 07-08-2023 Note HNO ID: [id number] Author: MORGAN SALDIVAR RN Service: ? Author Type: Registered Nurse Type: Progress Notes Filed: 07/08/2023 11:21 Note Text: Post-op Office Visit Acacia Bynum 62 year old July 08, 2023 11:20 AM Surgery Date: 06/17/23 History: Acacia Bynum Is now 3 weeks out from Right Anterior-Based NICHOLE. Post-operative course has been without complication. No readmission/complications Subjective: Patient reports 0/10 pain. Overall is doing well. Cane ambulatory aid No opioid pain medication Objective: Ambulates with cane Incision well-approximated, no drainage, normal hansa-incisional erythema Full ROM not tested do to early post-operative period, but smaller arcs of motion fluid and comfortable Distally DP/PT palpable Distally S/S/SP/DP/T intact at baseline Distally DF/EHL/PF intact at baseline Negative brandan/calf tenderness Xrays: Well aligned total hip replacement in appropriate position with no evidence of loosening Assessment and Plan: Acacia Bynum Is here for a first post-op appointment, overall doing well, with daughter at side. -continued ice, rest, and use of non-narcotic analgesia as needed -wean off ambulatory aids -discussed home exercises and therapy -WBAT on operative extremity -reinforced posterior precautions through 8 weeks: avoid extremes of flexion, internal rotation, and adduction -continue ankle pumps and dvt ppx through 4 weeks -discussed driving requirement: 4 weeks post-op, off narcotic pain medication, adequate brake time -will see back at 6 week appointment for clinical exam -discussed red flag symptoms of acutely increasing pain, new erythema, new swelling, drainage, shortness of breath Morgan Saldivar RN Orthopaedic Surgery [facility] 07-08-2023 Note HNO ID: [id number] Author: KARLY GARNETT Tech Service: ? Author Type: Computer Lab Para Professional Type: Progress Notes Filed: 07/08/2023 10:26 Note Text: Radiology Service Progress Note PATIENT NAME: Acacia Bynum DATE OF SERVICE: July 08, 2023 TIME: 10:26 AM PATIENT IDENTITY VERIFICATION COMPLETED USING TWO (2) IDENTIFIERS: Name and Date of confirmed by patient verbally. FALL SCREENING: Has the patient had 2 falls in the last year or 1 fall with injury or currently using an Ambulatory Assistive Device (Walker, Cane, Wheelchair, Crutches, etc.)? No PATIENT GENDER DATA: Female. status: : No status: NO. PATIENT RELEVANT IMPLANT DATA REVIEWED: Not Applicable RADIOLOGY DEPARTMENT: General X-ray: Exam(s) Completed: Pelvis X-Ray: Pelvis with Hip Right and Wt. Bearing PERIPHERAL IV DATA: Not applicable SIGNED BY: Fiorella Quigley July 08, 2023 10:26 AM [facility] 06-22-2023 Miscellaneous Notes Medication review completed. No ineffective drug therapy, significant side effects, duplicate drug therapy noted. PT reported severe interactions. TE sent to PCP and ortho regarding patient reported meds. documented in this encounter [facility] 06-19-2023 Miscellaneous Notes Home PT admission on 06/19/23, plan is 1x1, 3x1, 2x2 to address gait, transfers, funtional mobility and safety, LE strengthening and balance, generalized conditioning, HEP and cg training. Pt declining OT, denying need. Order canceled. During med reconciliation potential severe interaction noted doxycycline hyclate and CALCIUM CITRATE/VITAMIN D3 (CITRACAL ORAL), Magnesium Oxide-Mg Amino Acid Chelate, Zinc. Also discrepancies noted Venlafaxine capsules are 75 mg taking 1 capsule per day (rather than 37.5 mg per discharge instructions) and pt not taking pantaprozole. Please contact pt directly if you have instructions. Supervision of this POC is being transferred to Julio Cevallos PT, upon completion fo this evaluation. Thank you. Please contact me if questions or concerns- Elisabet Sanders PT [phone] documented in this encounter [facility] 06-19-2023 Miscellaneous Notes SITUATION: son and granddtrs intermittently present during today's visit. patient reports swelling is a problem but not as bad as after last surgery. Currently sleeping in the recliner until able to move leg to get into bed. Had L NICHOLE in March and did go to outpt PT. BACKGROUND: Diagnoses (reason for Home Care):admission POWER from 06/17/23 to 06/18/2023 Primary osteoarthritis both hips, pain in right hip S/P ARTHROPLASTY REPLACE JOINT TOTAL HIP ABMS Leighton Insignia (Right) 06/17/23 Past Medical History: Breast Implant Status Laryngeal Polyp Ddd (Degenerative Disc Disease), Lumbar Sludge in Gallbladder History of Tobacco Use Anxiety and Depression S/P Total Left Hip Arthroplasty Status Post Hip Replacement, Left Pain in Right Hip Weight Bearing or Surgical Precautions: Weight bearing status: Right Lower Extremity Weight Bearing Status 50% WB first two weeks until clinic follow-up, then will advance Hip precautions:Anterior Do not step backwards with surgical leg. No hip extension. -Do not allow surgical leg to externally rotate (turn outwards). -Do not cross your legs. Use a pillow between legs when rolling -Do not bend over past 90 degrees Wound location: R Hip, Wound care: Silver impregnated dressing to remain on for 7 days ASSESSMENT: Patient evaluated by [facility] physical therapy. Reviewed and explained homecare services. Plan of care, goals, and visit frequency developed, reviewed, and agreed upon with patient and/or caregiver. Patient Goal: get leg better Patient will benefit from continued physical therapy to address the following deficits: strength, balance, gait, endurance, R hip joint ROM, transfers, stair negotiation and bed mobility. Current Discharge Plan: independent with home exercise program vs outpt PT. Anticipate discharge by 07/10/23. RECOMMENDATION: Next visit to focus on review HEP/add heel slides or seated knee flex as able and instruct bed mobility as able. Agreeable to PT; declining OT, denying need. See intervention summary for intervention/education details. documented in this encounter [facility] 06-18-2023 Note HNO ID: [id number] Author: Jose (Owner Spa Director)Cata Service: Pharmacy Author Type: ? Type: Plan of Care Filed: 06/18/2023 12:05 PM Note Text: PHARMACY BEDSIDE DELIVERY SERVICE Patient Name: Acacia Bynum The marked outpatient medications were Filled at: [facility] and delivered to the patient's bedside to 270 Medication List START taking these medications docusate sodium 100 mg capsule Commonly known as: COLACE Take 1 capsule by mouth two times a day as needed for constipation. X doxycycline hyclate 100 mg capsule Commonly known as: VIBRAMYCIN Take 1 capsule by mouth every 12 hours at 6 am and 6 pm for 7 days. X meloxicam 15 mg tablet Commonly known as: MOBIC Take 1 tablet by mouth once daily for 14 days. X oxyCODONE IR 5 mg immediate release tablet Commonly known as: ROXICODONE Take 1-2 tablets by mouth every 6 hours as needed for pain. X polyethylene glycol 3350 17 gram/dose powder Take 17 g by mouth once daily as needed for constipation for up to 10 days. Dissolve dose in 4 - 8 ounces of liquid and take as directed. X CHANGE how you take these medications ascorbic acid (vitamin C) 500 mg tablet Commonly known as: VITAMIN C Take 1 tablet by mouth two times a day with meals for 28 doses. What changed: when to take this X pantoprazole DR 40 mg tablet Commonly known as: PROTONIX Take 1 tablet by mouth every morning for 14 days. What changed: when to take this X CONTINUE taking these medications acetaminophen 500 mg tablet Commonly known as: TYLENOL Take 2 tablets by mouth every 8 hours as needed for pain. X aspirin, enteric coated 81 mg EC tablet Commonly known as: ECOTRIN LOW STRENGTH Take 1 tablet by mouth two times a day. X CITRACAL ORAL COLLAGEN MISC cyanocobalamin 1,000 mcg Tab Commonly known as: VITAMIN B-12 Take 0.5 tablets by mouth once daily. Magnesium Oxide-Mg Amino Acid Chelate 300 mg Cap venlafaxine 37.5 mg tablet Commonly known as: EFFEXOR Zinc 50 mg Tab You might also be taking other medications not listed above. If you have questions about any of your other medications, talk to the person who prescribed them or your Primary Care Provider. STOP taking these medications mupirocin 2 % ointment Commonly known as: BACTROBAN Cata Garcia ([employer]) PAGER: [phone] June 18, 2023 12:04 PM [facility] 06-18-2023 Note HNO ID: [id number] Author: Mason Aguilar MD Service: General Internal Medicine Author Type: Physician Type: Progress Notes Filed: 06/18/2023 11:19 AM Note Text: INPATIENT CONSULT PROGRESS NOTES Patient Name: Acacia Bynum DATE of SERVICE: 06/18/23 TIME of SERVICE: 8:31 CONSULTING SERVICE: Medicine Plan of care discussed with: Provider, RN, Patient. INTERVAL HPI: Uneventful night, pain is well-controlled. Patient seen and examined: Discussed with RN. Vitals/Meds/Labs/U/O reviewed Alert AND Oriented NO nausea,or vomiting NOlight headedness NOshortness of breathe Dry oral mucosa CVS - RRR Lungs - Clear to auscultation Abdomen - soft,Nontender, normal bowel sounds LLE - Ankle No edema RLE - Ankle No edema MEDICATIONS: Current Facility-Administered Medications Medication Dose Route Frequency scopolamine - VERIFY patch OTHER q 8 H scopolamine - REMOVE PATCH OTHER ONCE venlafaxine 37.5 mg tab(s) (EFFEXOR) 37.5 mg ORAL DAILY ondansetron orally disintegrating 4 mg tab(s) (ZOFRAN ODT) 4 mg ORAL q 6 H PRN Or ondansetron (PF) 4 mg injection (ZOFRAN) 4 mg INTRAVENOUS q 6 H PRN magnesium hydroxide 400 mg/5 mL 30 mL (MOM) 30 mL ORAL DAILY PRN [START ON 06/19/2023] bisacodyl EC 10 mg tab(s) (DULCOLAX) 10 mg ORAL DAILY aluminum-magnesium hydroxide-simethicone 200-200-20 mg/5 mL 30 mL 30 mL ORAL q 2 H PRN ferrous sulfate 325 mg tab(s) 325 mg ORAL DAILY WITH BREAKFAST ascorbic acid (vitamin C) 500 mg tab(s) (VITAMIN C) 500 mg ORAL BID w MEALS senna 17.2 mg tab(s) (SENOKOT) 17.2 mg ORAL AT BEDTIME aspirin, enteric coated 81 mg tab(s) 81 mg ORAL BID NaCl 0.9% iv infusion 100 mL/hr INTRAVENOUS CONTINUOUS acetaminophen 1,000 mg tab(s) (TYLENOL) 1,000 mg ORAL q 8 H oxyCODONE IR 5-10 mg tab(s) (ROXICODONE) 5-10 mg ORAL q 3 H PRN HYDROmorphone 0.4 mg injection (DILAUDID) 0.4 mg INTRAVENOUS q 4 H PRN doxycycline hyclate 100 mg cap(s) (VIBRAMYCIN) 100 mg ORAL q 12 H 6a/6p PHYSICAL EXAM: Patient Vitals for the past 24 hrs: BP Temp Temp src Pulse Resp SpO2 06/18/23 1022 117/66 -- -- 83 -- 99 % 06/18/23 0904 (!) 99/43 -- -- 84 -- 96 % 06/18/23 0754 106/58 36.7 ?C (98.1 ?F) Oral 82 20 94 % 06/18/23 0325 (!) 120/49 36.9 ?C (98.4 ?F) Oral 88 18 94 % 06/17/23 1928 122/52 36.7 ?C (98.1 ?F) Oral 77 18 97 % 06/17/23 1746 91/50 36.5 ?C (97.7 ?F) Oral 62 16 99 % 06/17/23 1408 131/88 -- -- -- -- -- 06/17/23 1246 104/64 36.4 ?C (97.6 ?F) Oral 74 16 99 % 06/17/23 1125 107/68 36.3 ?C (97.4 ?F) Oral -- -- -- 06/17/23 1115 113/60 36.1 ?C (97 ?F) -- 66 21 99 % There is no height or weight on file to calculate BMI. DATA: CBC: Recent Labs 06/18/23 0511 WBC 9.25 RBC 3.27* HB 9.7* HCT 30.0* PLT 239 MCV 91.7 MCH 29.7 MPV 8.8* Coags: No results for input(s): PT , INR , APTT in the last 24 hours. CMP: Recent Labs 06/18/23 0511 NA 138 K 3.7 CHLOR 105 CO2 25 BUN 10 CREAT 0.62 GLUC 116* CA 8.1* ANION 8* ASSESSMENT AND PLAN: A. OA S/P - Total Hip Unilateral: right,DVT prophylaxis with aspirin Continue PT/OT Anxiety/depression, stable Okay to discharge home Home-going meds reviewed SIGNATURE: Mason Aguilar MD [facility] 06-18-2023 Note HNO ID: [id number] Author: Storm Kang MD Service: Orthopaedic Surgery Author Type: Physician Type: Progress Notes Filed: 06/18/2023 8:01 AM Note Text: ORTHOPAEDIC SURGERY PROGRESS NOTE PATIENT NAME: Acacia Bynum A/P: 62 year old yo female POD1 s/p R NICHOLE ABMS - Activity: 50% PWB anterior precuatiosn - Wound: Aquacel Dressing to be removed POD7 - Drain: - Antibiotics: Completing 24 hours of perioperative Ancef then Doxy - Imaging: complete - Pain - PO and IV breakthrough - DVT prophylaxis - SCDs, ASA 81 BID - HLIV when tolerating sufficient PO - Gates: none * Discharge planning - Await PT recs --> consults today - Case Management --> assessment today - Dispo: anticipate DC to home on POD 1 S: Doing well, pain well controlled, denies n/v/cp/sob VITALS: 06/17/23 1746 06/17/23 1928 06/18/23 0325 06/18/23 0754 BP: 91/50 122/52 (!) 120/49 106/58 Pulse: 62 77 88 82 Resp: 16 18 20 Temp: 36.5 ?C (97.7 ?F) 36.7 ?C (98.1 ?F) 36.9 ?C (98.4 ?F) 36.7 ?C (98.1 ?F) TempSrc: Oral Oral Oral Oral SpO2: 99% 97% 94% 94% Intake/Output Summary (Last 24 hours) at 06/18/2023 0801 Last data filed at 06/18/2023 0325 Gross per 24 hour Intake 2600 ml Output 300 ml Net 2300 ml Physical Exam: * Gen: awake, alert, converses appropriately, NAD * Resp: Unlabored on RA, no wheeze * RLE: - dressing c,d,i - 11/06 PF, DF, EHL KE 11/06 - SILT L4-S1 - 2+ PT pulse, toes wwp Labs: CBC: Recent Labs 06/18/23 0511 WBC 9.25 HB 9.7* HCT 30.0* PLT 239 MCV 91.7 RDWCV 14.0 COAG: No results for input(s): APTT , INR in the last 168 hours. BMP: Recent Labs 06/18/23510 GLUC 116* NA 138 K 3.7 CHLOR 105 CO2 25 ANION 8* BUN 10 CREAT 0.62 CHEM: Recent Labs 06/18/23 0511 CA 8.1* URINALYSIS:No results for input(s): PH , SPGR , UGLUC , UBILI , UKET , UHB , UPROT , UROBIL , UWBC , SSA in the last 168 hours. Invalid input(s): JESUSITA Kang MD [facility] 06-17-2023 Miscellaneous Notes No answer on room phone. I left a voice mail on patient . Please ask if this is related to workers comp and document. Confirmation call needs completed. THOMAS Reddy 06/17/2023 5:51 PM documented in this encounter [facility] 06-17-2023 Note HNO ID: [id number] Author: Karly Kong APRN.FIRE TRUCK DRIVER Service: Anesthesiology Author Type: Nurse Hull Molder Type: Anesthesia Procedure Notes Filed: 06/17/2023 8:09 AM Note Text: ANESTHESIOLOGY PROCEDURE NOTE Spinal Block General Information Procedure Start Time/Medication Administration: 06/17/2023 7:46 AM Patient location during procedure: OR Reason for Block: primary surgical anesthetic Staffing Anesthesiologist: Nolberto Roland MD FIRE TRUCK DRIVER: Karly Kong APRN.FIRE TRUCK DRIVER Performed by: FIRE TRUCK DRIVER Preparation Sterility Preparation: hand hygiene performed prior to procedure, sterile gloves, drapes, and procedure tray, surgical cap used, mask used, sterile drape used during line insertion, skin prep agent completely dried prior to procedure Site Prep: Betadine Procedure Details Patient Position: sitting Ultrasound Guided: No Monitoring: Pulse Ox and NIBP Approach: Midline Location: L2-3 Injection Technique: single-shot Needle Needle Type: pencil-tip Needle Gauge: 25 G Needle Length: 3.5 in CSF: adequate CSF flow from spinal needle Assessment Sensory Level: T6 Events: tolerated well Comments Skin localized with 1% lidocaine. Negative heme/paresthesia SIGNATURE: Karly Kong APRN.FIRE TRUCK DRIVER PATIENT NAME: Acacia Bynum DATE: June 17, 2023 TIME: 8:09 AM CSN: [id number] [facility] documented as of this encounter (statuses as of 06/18/2023) [facility] History of Past illness Narrative* Problem Noted Date Diagnosed Date Resolved Date Melanoma 05/31/2023 06/17/2023 Last Assessment & Plan: Assessment: s/p excision Primary osteoarthritis of both hips 05/13/2023 06/18/2023 Primary osteoarthritis of left hip 04/01/2023 04/02/2023 Sebaceous cyst 08/09/2012 12/31/2017 Overactive bladder 11/17/2010 8 Chronic constipation 11/17/2010 018 Closed Colles' fracture 08/17/200511/02 documented as of this encounter (statuses as of 06/19/2023) [facility] History of Past illness Narrative* Problem Noted Date Diagnosed Date Resolved Date Melanoma 05/31/2023 06/17/2023 Last Assessment & Plan: Assessment: s/p excision Primary osteoarthritis of both hips 05/13/2023 06/18/2023 Primary osteoarthritis of left hip 04/01/2023 04/02/2023 Sebaceous cyst 08/09/2012 12/31/2017 Overactive bladder 11/17/2010 8 Chronic constipation 11/17/2010 018 Closed Colles' fracture 08/17/200511/02 documented as of this encounter (statuses as of 06/19/2023) [facility] History of Past illness Narrative* Problem Noted Date Diagnosed Date Resolved Date Melanoma 05/31/2023 06/17/2023 Last Assessment & Plan: Assessment: s/p excision Primary osteoarthritis of both hips 05/13/2023 06/18/2023 Primary osteoarthritis of left hip 04/01/2023 04/02/2023 Sebaceous cyst 08/09/2012 12/31/2017 Overactive bladder 11/17/2010 8 Chronic constipation 11/17/2010 018 Closed Colles' fracture 08/17/200511/02 documented as of this encounter (statuses as of 06/23/2023) [facility] Instructions* Patient Instructions* Shahbaz Wesley, KIM.ACADEMY DIRECTOR - 05/31/2023 1:26 PM EST PATIENT PREOPERATIVE INSTRUCTIONS Storm Kang* has scheduled you for your procedure at this surgery center: [facility]: [phone] -- [address] [address]. Please read below carefully for your personalized instructions. Dietary Restrictions: - No solid food after midnight. - You may have 12 ounces of clear liquids (water, clear juices such as apple juice or gatorade, carbonated beverages, clear tea, black coffee, jello) until 2 hours before scheduled arrival at facility. No red/purple coloring and no creamer/sugar Medications: Unless instructed differently below, stay on all of your medications until your surgery. If you start any new medications after today's visit, please contact your surgeon. Pre-Surgery Med Instructions Medication Instructions pantoprazole DR (PROTONIX) 40 mg tablet Take the day of surgery with a small sip of water acetaminophen (TYLENOL) 500 mg tablet IF needed Zinc 50 mg tab Stop 7 days before surgery COLLAGEN MISC Stop 7 days before surgery cyanocobalamin (VITAMIN B-12) 1,000 mcg tab Stop 7 days before surgery CALCIUM CITRATE/VITAMIN D3 (CITRACAL ORAL) Stop 7 days before surgery ascorbic acid, vitamin C, (VITAMIN C) 500 mg tablet Stop 7 days before surgery Magnesium Oxide-Mg Amino Acid Chelate 300 mg cap Stop 7 days before surgery If you start any new medications after today's visit, please contact the surgeon's office. Blood Thinning Medications: - Stop NSAIDS (Ibuprofen, Advil, Aleve, Motrin, Celebrex, Mobic, etc.) 7 days before surgery, as directed by your surgeon. - Stop Aspirin 7 days before surgery, as directed by your surgeon. - Stop Vitamin E, ALL multi-vitamins, herbals and dietary supplements 7 days before surgery. - You may take Tylenol (Acetaminophen) or any of your pain medications that do not contain aspirin or NSAIDS as needed. Important Reminders: - Candy, mints, and tobacco products are NOT permitted the morning of surgery. - Hearing aids, dentures and glasses may be worn the morning of surgery. - NO jewelry, body piercings, makeup, hairpins or contacts are to be worn the day of surgery. If you develop symptoms such as a fever, cold, or flu, or have other changes to your health within TWO DAYS of scheduled surgery or the morning of surgery, please contact the surgery center above. Personal Belongings: -Please have photo ID and insurance cards. -If you do not have a copy of advance directives on file with us, please bring a copy with you on the day of surgery. - Leave ALL valuables and money at home or with family members. For Outpatient Procedures: - YOU MUST HAVE A RESPONSIBLE LAMP DECORATOR TAKE YOU HOME. A INTERNET ECOMMERCE SPECIALIST OR LEAD DEVELOPER CANNOT BE MADE A RESPONSIBLE LAMP DECORATOR. - We recommend that a responsible person stays with you overnight to take care of you. - You cannot stay in a hotel alone after outpatient surgery. You will not be permitted to have yoursurgery, if you do not have someone to take care of you. Arrival Time for Surgery: - The Surgery Center or hospital where you are having surgery will call the afternoon before surgery (or Wednesday for Wednesday surgery) with a scheduled arrival time. - If you have not heard by 4 pm, please contact the surgery center above. Please be aware that emergency situations arise, which may delay or change your surgical time. If this happens, we will notify you as soon as possible and regret any inconvenience. If you already have an Advance Directive, please fax a copy to [phone] or email to for it to be added to your chart. If you do not have an Advance Directive, you can find the appropriate form and more information at [email or web address]. We recommend that youcomplete the Advance Directive form found on the website and bring it with you the day of your surgery. It can be witnessed and scanned into your chart that day. Shahbaz Wesley APRN.CNP [facility] History and physical note * Shahbaz Wesley APRN.CNP - 05/31/2023 1:24 PM EST HISTORY AND PHYSICAL EXAMINATION SERVICE DATE: 05/31/2023 SERVICE TIME: 1:45 PM PRIMARY CARE PHYSICIAN: Sebastian Sol MD Assessment Patient has the following medical conditions which may affect hansa-operative course: Anxiety and depression Assessment: hx, no current tx, stable without per pt History of tobacco use Assessment: 0.5ppd/20 years, denies asthma or COPD S/P total left hip arthroplasty Assessment: hx 03/2023 Melanoma (HCC) Assessment: s/p excision Colmenares Activity Status Index: METS: Climb a flight of stairs or walk up a hill (5.50 METs) DASI Score: 5.5 Patient denies any chest pain or undue shortness of breath with the above physical activity. Clinical Frailty Scale: 2. Well STOP-Bang Score: Snores loudly Patient over 50 years old Denies feeling tired, fatigued, or sleepy during the daytime Has not been observed to stop breathing or choking/gasping during sleep Denies having high blood pressure BMI less than or equal to 35 kg/m^2 Does not have a large neck Non-male patient STOP-Bang Score: 2 [id number] Score: Age: <65 Sex: female CHF history: No Hypertension history: No Stroke/TIA/thromboembolism history: No Vascular disease history: No Diabetes history: No [id number] Score: 1 ARISCAT Score: Age: 51-80 Preoperative SpO2: 91-95% Respiratory infection in the last month: No Preoperative anemia: No Surgical incision: peripheral Duration of surgery: 2-3 hrs Emergency procedure: No ARISCAT Score: 27 ANESTHESIA FINDINGS: Intubation History: No history of difficult intubation Significant Anesthesia Considerations: none Airway History: No history of difficult airway I - PHYSICAL EVALUATION AIRWAY Patient intubated: No. Tracheostomy tube not present Mallampati: II. TM distance: >3 FB. Neck ROM: full ROM without neurological symptoms. Mouth opening: adequate. Short neck: no. Thick neck: no Leiva present: no Lip Bite Test: I Microretrognathia/Micronagthia/Recessed Chin: No DENTAL Dental findings: teeth intact. II - ANESTHESIA PLAN Anesthetic Plan: other Anesthetic plan additional comments: *PACC/TCI - anesthesia choice. Beta Kinsey Monitoring Plan Post Procedure Analgesic Plan Informed Consent Anesthetic risks, benefits, alternatives, personnel and consent discussed: yes. Patient / Responsible Democrat agrees to proceed: yes Patient / Surrogate agrees to blood products: Yes Discussed the possibility of lip / dental damage: yes REASON FOR VISIT: Acacia Bynum is a 62 year old female who is scheduled for Procedure(s): ARTHROPLASTY REPLACE JOINT TOTAL HIP ABMS Leighton Insignia (Right) at the request of Dr. Storm Kang for consultation. My final recommendation will be communicated back to the requesting physician by way of shared medical record or letter. Subjective The patient has the following: ACTIVE PROBLEM LIST Breast Implant Status Laryngeal Polyp Ddd (Degenerative Disc Disease), Lumbar Sludge in Gallbladder History of Tobacco Use Anxiety and Depression S/P Total Left Hip Arthroplasty Status Post Hip Replacement, Left Pain in Right Hip Primary Osteoarthritis of Both Hips Melanoma (Hcc) COVID-19 Immunization Status Postponed - Covid-19 Vaccine (1) Postponed until 06/15/2023 06/15/2022 Postponed until 06/15/2023 by PodlogarLuana APRN.ACADEMY DIRECTOR (Declined at this time) CHIEF COMPLAINT: Pre-op exam HPI: Acacia Bynum is a 62 year old seen for PAC due to scheduled above surgery because of OA right hip. S/p left NICHOLE 04/01/2023. 03/03/2023, Olu Atkinson PA-C Acacia Bynum is a 62 year old patient here for evaluation and management of Bilateral hip pain. 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 The problem began limiting activities 1-3 years ago. Currently the pain in the joint is rated at 10 out of 10 with minimal activity. The pain is chronicand constant and is located in the left hip, groin, thigh, and radiates to upper legs and right hip, groin, and radiates to upper legs. The pain is described as aching, dull, and sharp. Relieving factors include no relieving factors. There is no specific incident that brought about this pain. Patient has no additional complaints. Total Joint Arthroplasty: Risk Calculator Acacia Bynum has a chance of NOT returning home at discharge for a Primary total Hip replacement. Acacia's estimated Length of Stay is 1 day (Outpatient candidate). Acacia's 30 day chance of readmission is 0.75%. Readmission Probability 0.75 % (within 30 days following surgery) Estimated LOS 1 day These calculations are based on the following factors: - 62 years of age - sex is not male - BMI of 27.46 kg/m2 - NarxCare score of 0 - 0 hospitalizations in the last 12 months - no history of heart disease - no history of diabetes - no history of COPD - no history of anemia - preoperative ambulation: independent community distances - bed location is on the first floor - bath location is on the first floor - caregiver is consistent - home is not more than 150 miles away - PROMIS-10 Mental Health T score 41-49 - Marital status: PREVIOUS TREATMENTS: Medical: RX NSAIDS for 3 Months or Greater (diclofenac (Voltaren, [place]) and meloxicam (Mobic)) Physical Therapy: PT Three Months or Greater 1-2 times per week Bilateral hip intra-articular cortisone injections Risk Factors for Total Joint Arthroplasty (TJA) Obesity normal High: BMI > 40 Moderate: BMI 30-40 Normal: BMI < 30 Diabetes normal High: A1C > 8 Moderate: A1C 7-8 Normal: A1C < 7 Smoking normal High: Current smoker Normal: Non smoker Anemia normal High: Hgb < 11.5 (women) N/A: Hgb >= 11.5 (women) Nutritional Status normal High: Alb<3.4, or prealb<15, or serum transferrin<200, or total lymphocyte count<1500 Normal: normal labs COPD normal High: dx of COPD Normal: no dx of COPD MRSA normal High: dx of MRSA or positive lab test Normal: no MRSA CKD normal High: eGFR<60 Moderate: eGFR 60-89 Normal: eGFR>90 Hx of DVT / PE normal High: dx of DVT / PE Normal: no dx of DVT / PE Narcotics Use normal High:NarxCare >=300 Moderate: 100-299 Normal: 0-99 KILEY normal High: dx of KILEY N/A: no dx of KILEY Coagulation normal High:PT Sec>13, or PT INR>1.3, or APTT>32.4, or Plt ct<150k Moderate: on anticoag but none of the above Normal: none Other Risk Factors None REVIEW OF SYSTEMS: General: No weight loss, malaise or fevers. Neurological: No history of TIA's, stroke, ERP CONSULTANT tumor, impaired sensorium, hemiplegia, paraplegia orquadraplegia. No neurological symptoms or problems. Respiratory: +former smoker. No history of current cough or dyspnea, or pneumonia in the past 6 weeks. No history of respiratory/pulmonary symptoms or problems. Cardiovascular: No history of HTN requiring medication, no history of angina, CHF, MS, cardiac surgery or stents. Denies rest pain, gangrene or revascularization/amputation for PVD. No history of cardiovascular symptoms or problems. GI: Negative for: abdominal pain, dysphagia, GERD, hepatitis, irritable bowel syndrome, inflammatory bowel disease, liver disease, nausea, pancreatitis, history of polyps, vomiting and ETOH >2 drinks/day. : No history of dysuria, frequency or incontinence, stones or chronic kidney disease. No difficulty urinating, nocturia > 1 time per night or hematuria. 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 Endocrine: No history of diabetes. Has not taken steroids within the past 30 days. No history of endocrinological symptoms or problems. Hematology: No history of bleeding or clotting disorder. Patient is not taking anti-coagulation or platelet medications. No history of hematological symptoms or problems. Oncology: +melanoma s/p excision Psych: Positive for: anxiety and depression. Musculoskeletal: See HPI. S/p left NICHOLE 03/2023 Positive for: back pain and joint pain. Skin: +hx eczema PAST MEDICAL HISTORY Diagnosis Date Chronic constipation 11/17/2010 COLLES' FRACTURE-CLOSED 08/17/2005 DDD (degenerative disc disease), lumbar History of tobacco use Internal hemorrhoids without mention of complication Overactive bladder 11/17/2010 PAST SURGICAL HISTORY Procedure Laterality Date ABDOMINAL SURGERY HX BREAST SURGERY HX COLONOSCOPY 07/29/2021 repeat in 10 years COLONOSCOPY FLX DX W/COLLJ SPEC WHEN PFRMD 10/20/2010 EGD 07/29/2021 L'SCOPE CHOLECYSTECTOMY 09/02/2020 LARGSC EXC ANGLE&/STRPG CORDS/EPIGL MCRSCP/TLSCP Left 02/28/2018 removal of polyp PAST SURGICAL HISTORY OF 2004 intersyne for bladder frequency; was surgically removed after PAST SURGICAL HISTORY OF Bilateral 2016 Breast Implants, Dr. Thompson REM LESION NEC,HND,SCAL,FEET,GENITALIA 1.1-2.0CM 09/17/2012 Exc. scalp wens x 3 VAGINAL HYSTERECTOMY VAGINAL HYSTERECTOMY UTERUS 250 GM/< 2000 Hysterectomy, vaginal (endometriosis) FAMILY HISTORY Problem Relation Age of Onset Cancer Mother lung Cancer Father lymphoma None Sister None Brother Diabetes Maternal Grandmother None Sister None Brother None Brother other (Other) Brother accidental No Known Problems Son No Known Problems Daughter Social History Tobacco Use Smoking status: Former Packs/day: 0.50 Years: 20.00 Additional pack years: 0.00 Total pack years: 10.00 Types: Cigarettes Quit date: 07/05/2009 Years since quittin.9 Smokeless tobacco: Never Vaping Use Vaping Use: Never used Substance Use Topics Alcohol use: Not Currently Drug use: No Prior to Admission medications as of 05/31/23 1338 Medication Sig Last Dose Taking pantoprazole DR (PROTONIX) 40 mg tablet Take 1 tablet by mouth once daily for 14 days. Yes acetaminophen (TYLENOL) 500 mg tablet Take 2 tablets by mouth every 8 hours as needed for pain. Taking Yes Zinc 50 mg tab Take 50 mg by mouth once daily. Taking Yes COLLAGEN MISC 1 capsule once daily. Taking Yes cyanocobalamin (VITAMIN B-12) 1,000 mcg tab Take 0.5 tablets by mouth once daily. Taking Yes CALCIUM CITRATE/VITAMIN D3 (CITRACAL ORAL) Take by mouth once daily. Taking Yes ascorbic acid, vitamin C, (VITAMIN C) 500 mg tablet Take 500 mg by mouth once daily. Taking Yes Magnesium Oxide-Mg Amino Acid Chelate 300 mg cap Take 300 mg by mouth once daily. Taking Yes mupirocin (BACTROBAN) 2 % ointment Apply 0.5 inch with cotton swab (Q-tip) to each nostril in the morning and evening for 5 days prior to and including day of surgery. aspirin, enteric coated (ECOTRIN LOW STRENGTH) 81 mg EC tablet Take 1 tablet by mouth two times a day. Patient not taking: Reported on 05/31/2023 Not Taking venlafaxine (EFFEXOR) 37.5 mg tablet Take 37.5 mg by mouth once daily. Patient not taking this medication Patient not taking: Reported on 05/31/2023 Not Taking No medication comments found. ALLERGIES Allergen Reactions Codeine Rash Morphine Itching Penicillins Hives Sulfa (Sulfonamide * GI Upset Objective PHYSICAL EXAM: General: alert and oriented (x3) and healthy appearance. Pertinent negatives noted - not distressed. Antalgic gait. Skin: normal color, no rash or lesions. HEENT: EOM intact and pupils equal round. Pertinent negatives noted - no carotid bruit. Cardiovascular: regular rate and rhythm, normal S1 and S2, no rub, murmurs, or gallop. Respiratory: normal breath sounds, no wheezes or crackles. No chest wall deformity or tenderness. Abdomen: soft. Pertinent negatives noted - not tender. Extremities: no deformity, no edema or tenderness, no joint swelling or clubbing. Neurological: normal cognition and motor skills. Gait normal. No weakness or sensory deficit. PAIN ASSESSMENT: Pain Pain Level: 8 Pain Location: Hip-Right Description: Radiating, Sharp (Deep) Duration Units: Years Frequency: Continuous Intervention/Comfort measure: Medication, Heat, Cold VITALS: BP 108/70 Pulse 76 Temp (Src) 98.2 (Temporal) Resp 16 Ht 5' 1 (1.55m) Wt 149 lb (67.6kg) SpO2 97% BMI 28.17 kg/(m^2). Diagnostic tests reviewed for today's visit: Lab Value Units Date High Low HB 14.3 g/dL 05/24/2023 15.5 11.5 HCT 44.2 % 05/24/2023 46.0 36.0 WBC 8.67 k/uL 05/24/2023 11.00 3.70 PLT 375 k/uL 05/24/2023 400 150 NA 139 mmol/L 05/24/2023 144 136 K 4.2 mmol/L 05/24/2023 5.1 3.7 GLUC 119 mg/dL 05/24/2023 99 74 BUN 14 mg/dL 05/24/2023 21 7 CREAT 0.65 mg/dL 05/24/2023 0.96 0.58 PTSEC No results within date range. INR No results within date range. APTT No results within date range. ALT 18 U/L 05/24/2023 38 7 AST 19 U/L 05/24/2023 35 13 TBILI 0.3 mg/dL 05/24/2023 1.3 0.2 TSH No results within date range. Lab Value Units Date High Low HCGQT No results within date range. UHCG No results within date range. HCG, BODY* No results within date range. Lab Value Units Date High Low ABORHD No results within date range. ABSCREEN No results within date range. Hemoglobin A1C (%) Date Value 03/05/2023 5.6 Recent Results (from the past 8760 hour(s)) ECG COMPLETE Collection Time: 03/15/23 4:04 PM Result Value Ventricular Rate 74 Atrial Rate 74 P-R Interval 158 QRS Duration 76 QT Interval 382 QTC Calculation (Bazett) 424 Calculated P [place] 69 Calculated R [place] 49 Calculated T [place] 53 Impression NORMAL SINUS RHYTHM NORMAL ECG Confirmed by NAKITA RODNEY DO ([id number]) on 03/16/2023 12:55:06 PM No results found for this or any previous visit (from the past 20056 hour(s)). Prepared for Surgery: optimally prepared for surgery. CONSULTS: Patient does not require consults for optimization at this time Planned Anesthetic: other anesthesia choice The Following Tests/Procedures Have Been Initiated: Orders Placed This Encounter mupirocin (BACTROBAN) 2 % ointment Sig: Apply 0.5 inch with cotton swab (Q-tip) to each nostril in the morning and evening for 5 days prior to and including day of surgery. Dispense: 22 g Refill: 0 Instructions Given to Patient: Instructions located in the after visit summary. Patient given verbal and written preop instructions and voices comprehension and compliance. SIGNATURE: Shahbaz Wesley APRN.CNP PATIENT NAME: Acacia Bynum DATE: May 31, 2023 TIME: 1:24 PM PAGER/CONTACT #: documented in this encounter[facility] NoteHNO ID: [id number] Author: Shady Brady PT Service: ? Author Type: Physical Therapist Type: Progress Notes Filed: 05/19/2023 10:35 AM Note Text: Episode Visit Count: 8 Therapist That Will Accept/Oversee The Plan Of Care: Shady Brady Start of Care Date: 04/21/23 Onset Date: 04/01/23 Plan of Care Certification Date: 04/21/23 Next Certification Due Date: 06/21/23 REHABILITATION AND SPORTS THERAPY PHYSICAL THERAPY DISCONTINUANCE OF CARE PLAN OF CARE UPDATE: Assessment: Acacia Bynum is discontinued from Physical Therapy services due to maximal benefit. and Patient/Clinician mutual decision to discontinue current plan of care.. Patient was seen for 8 visits from Start of Care Date: 04/21/23 to 05/19/2023 and treatment included: Therapeutic exercise, Manual therapy, and Gait training. Patient is reaching a max benefit toher current physical function due to the pain and limitations of her right hip. Because of this, she will continue exercises on her own and return to therapy after the right hip has been replaced in late June. Goals updated on 05/19/2023. Goals for Episode of Care: created on 04/21/23 through 07/22/23 Ola in home exercise program. Met Patient will decrease pain rating by 2 points to meet minimal clinical important difference for numeric pain rating scale. Met for left Patient will increase passive ROM of L hip to 120 degrees flexion to allow pt to to improve performance of ADLs. Progressing towards Patient will demonstrate increase in LLE strength to 4+ to 5/5 during manual muscle testing in order to improve function for basic self-care tasks, home management tasks, and prior functional tasks. Met Perform standing, walking without pain. Met for left, not for right Patient will Improve Timed Up and Go to 9 seconds to demonstrate decreased risk of falling. Not met Patient will improve 30 seconds sit to stand to demonstrate improvement in functional lower extremity strength. Met SUBJECTIVE: Right hip is severely limiting patients function and ability to progress exercises, walk, and function on a day to day basis. Left hip is doing really well and no issues holding her back. Pain: Pain Pain Level: 1 Pain Location: Thigh - Left Description: Tightness Frequency: Continuous Additional Pain Information : Location 2 Pain Level 2: 8 Pain Location 2: Hip - Right Description 2: Sharp, Aching, Sore Frequency 2: Continuous PROMIS Scales Higher is Better 05/14/2023 05/08/2023 04/19/2023 Phys Func - Score - 35 (moderate dysfunction) - Phys Func - Percentile - 7 % - Self-Eff Symptom - Score 48 (Average) - 59 (Average) Self-Eff Symptom - Percentile 42 % - 82 % T-scores: mean of general population = 50. 5 points is clinically meaningfully difference Percentiles provide an indication of how the patient's score ranks in relation to the general population. Higher percentile rankings indicate better function/quality of life. 50th percentile is the average of the general population and indicates half of respondents had a worse score. OBJECTIVE MEASURES WITH LEVEL OF FUNCTION: LE AROM R LE AROM: Moderate to major limitations L LE AROM: WNL LE Strength L LE Strength: 4+/5 grossly Functional Performance Test Results 30 Second Chair Stand Test: 9 reps Timed Up and Go (sec): 18 sec TREATMENT: Therapeutic Exercise: 1: SciFit seat 10 x6 min 2: *SL hip abduction 3x10 LLE 3: *SLR 3x10 4: *PiTB clamshells 3x10 5: *Glute birdging 3x10 6: *Calf raises 3x20 Skilled Intervention: Patient was educated in proper exercise technique and purpose for exercises. Skilled judgment was used in selection of appropriate interventions. Provided written instruction for home exercise program to facilitate proper performance and compliance. Correct performance of therapeutic exercises was facilitated with verbal, visual, and tactile cuing. Billing Therapeutic Exercise Treatment Minutes: 30 Skilled Treatment Time Minutes (timed and untimed codes): 30 Total Session Time (minutes): 30 Session Start Time : 0950 Session Stop Time : 1020 Shady Brady [facility]11-15-2023 History of Present illness Narrative* Shady Brady, PT - 05/19/2023 10:27 AM EST Episode Visit Count: 8 Therapist That Will Accept/Oversee The Plan Of Care: Shady Jose Antonio Start of Care Date: 04/21/23 Onset Date: 04/01/23 Plan of Care Certification Date: 04/21/23 Next Certification Due Date: 06/21/23 REHABILITATION AND SPORTS THERAPY PHYSICAL THERAPY DISCONTINUANCE OF CARE PLAN OF CARE UPDATE: Assessment: Acacia Bynum is discontinued from Physical Therapy services due to maximal benefit. and Patient/Clinician mutual decision to discontinue current plan of care.. Patient was seen for 8 visits from Start of Care Date: 04/21/23 to 05/19/2023 and treatment included: Therapeutic exercise, Manualtherapy, and Gait training. Patient is reaching a max benefit toher current physical function due to the pain and limitations of her right hip. Because of this, she will continue exercises on her ownand return to therapy after the right hip has been replaced in late June. Goals updated on 05/19/2023. Goals for Episode of Care: created on 04/21/23 through 07/22/23 Ola in home exercise program. Met Patient will decrease pain rating by 2 points to meet minimal clinical important difference for numeric pain rating scale. Met for left Patient will increase passive ROM of L hip to 120 degrees flexion to allow pt to to improve performance of ADLs. Progressing towards Patient will demonstrate increase in LLE strength to 4+ to 5/5 during manual muscle testing in order to improve function for basic self-care tasks, home management tasks, and prior functional tasks. Met Perform standing, walking without pain. Met for left, not for right Patient will Improve Timed Up and Go to 9 seconds to demonstrate decreased risk of falling. Not met Patient will improve 30 seconds sit to stand to demonstrate improvement in functional lower extremity strength. Met SUBJECTIVE: Right hip is severely limiting patients function and ability to progress exercises, walk, and function on a day to day basis. Left hip is doing really well and no issues holding her back. Pain: Pain Pain Level: 1 Pain Location: Thigh - Left Description: Tightness Frequency: Continuous Additional Pain Information : Location 2 Pain Level 2: 8 Pain Location 2: Hip - Right Description 2: Sharp, Aching, Sore Frequency 2: Continuous PROMIS Scales Higher is Better 05/14/2023 05/08/2023 04/19/2023 Phys Func - Score - 35 (moderate dysfunction) - Phys Func - Percentile - 7 % - Self-Eff Symptom - Score 48 (Average) - 59 (Average) Self-Eff Symptom - Percentile 42 % - 82 % T-scores: mean of general population = 50. 5 points is clinically meaningfully difference Percentiles provide an indication of how the patient's score ranks in relation to the general population. Higher percentile rankings indicate better function/quality of life. 50th percentile is the average of the general population and indicates half of respondents had a worse score. OBJECTIVE MEASURES WITH LEVEL OF FUNCTION: LE AROM R LE AROM: Moderate to major limitations L LE AROM: WNL LE Strength L LE Strength: 4+/5 grossly Functional Performance Test Results 30 Second Chair Stand Test: 9 reps Timed Up and Go (sec): 18 sec TREATMENT: Therapeutic Exercise: 1: SciFit seat 10 x6 min 2: *SL hip abduction 3x10 LLE 3: *SLR 3x10 4: *PiTB clamshells 3x10 5: *Glute birdging 3x10 6: *Calf raises 3x20 Skilled Intervention: Patient was educated in proper exercise technique and purpose for exercises. Skilled judgment was used in selection of appropriate interventions. Provided written instruction for home exercise program to facilitate proper performance and compliance. Correct performance of therapeutic exercises was facilitated with verbal, visual, and tactile cuing. Billing Therapeutic Exercise Treatment Minutes: 30 Skilled Treatment Time Minutes (timed and untimed codes): 30 Total Session Time (minutes): 30 Session Start Time : 0950 Session Stop Time : 1020 Shady Brady PT * Shady Brady PT - 05/19/2023 10:13 AM EST Program_ID:[id number] Access Code: [email or web address] URL: [email or web address] Date: 05-19-2023 Prepared By: Shady Brady Program Notes Exercises - Heel Raises with Counter Support - 1 x daily - 7 x weekly - 3 - 10 - Sidelying Hip Abduction - 1 x daily - 7 x weekly - 3 - 10 - Clam with Resistance - 1 x daily - 7 x weekly - 3 - 10 - Supine Bridge with Gluteal Set and Spinal Articulation - 1 x daily - 7 x weekly - 3 - 10 - Active Straight Leg Raise with Quad Set - 1 x daily - 7 x weekly - 3 - 10 * Shady Brady PT - 05/19/2023 10:12 AM EST Program_ID:[id number] Access Code: [email or web address] URL: [email or web address] Date: 05-19-2023 Prepared By: Shady Brady Program Notes Exercises - Heel Raises with Counter Support - 1 x daily - 7 x weekly - 3 - 10 - Sidelying Hip Abduction - 1 x daily - 7 x weekly - 3 - 10 - Clam with Resistance - 1 x daily - 7 x weekly - 3 - 10 documented in this [facility]Mer[facility]11-13-2023 Miscellaneous Notes* Telephone Encounter - Morgan Saldivar RN - 05/17/2023 2:37 PM EST Patient called in with questions about surgery. Attempted to call her x2 but only got a busy signal. Called daughter Whit, who has been present for all Acacia's visits. She said she needs the blue surgical bag sent to her. Acacia may have had questions about medications to stop and start. Explained she will have a PACC visit and in the packet is the number she can call with those preop questions. She verbalized understanding. Confirmed address. documented in this encounterMer[facility]11-13-2023 NoteHNO ID: [id number] Author: Shady Brady PT Service: ? Author Type: Physical Therapist Type: Progress Notes Filed: 05/17/2023 12:21 PM Note Text: Episode Visit Count: 7 Therapist That Will Accept/Oversee The Plan Of Care: Shady Brady Start of Care Date: 04/21/23 Onset Date: 04/01/23 Plan of Care Certification Date: 04/21/23 Next Certification Due Date: 06/21/23 Patient Identified by Name and Date of : Yes REHABILITATION AND SPORTS THERAPY PHYSICAL THERAPY TREATMENT NOTE ASSESSMENT: Acacia Bynum tolerated the session with fatigue and expected muscle soreness. She demonstrated improvements in endurance with all L hip exercsies. The patient will continue to benefit from ongoing skilled physical therapy to progress toward set goals. PLAN FOR NEXT VISIT: Continue with LLE strengthening in standing as RLE allows, if not continue in SL , supine, and/ or sitting. SUBJECTIVE: Pt reports that her R hip hurt for 3 days after last visit, she could barely walk on it. Pt states that her L hip is feeling good today. Pain: Pain Pain Level: 0 Pain Location: Thigh - Left OBJECTIVE MEASURES WITH LEVEL OF FUNCTION: Improved technique with SLR. TREATMENT: Therapeutic Exercise: 1: SciFit seat 10 x6 min (1:1 time taking sibjective, discussed her upcoming R THR) 2: SL hip abduction 3x10 LLE 3: Clamshells 3x10 LLE 4: Supine SLR 3x10 LLE 5: Supine R hip flexor stretch 3x30 seconds with therapist supporting LE. Skilled Intervention: Patient was educated in proper exercise technique and purpose for exercises. Skilled judgment was used in selection of appropriate interventions. Correct performance of therapeutic exercises was facilitated with verbal and visual cuing. Manual Therapy: 1: STM and CFM to R adductors and glute min with push to tolerance Skilled Intervention: Manual skills to improve joint mobility, ROM, and decrease pain. Utilized anatomy knowledge of the therapist, and assessment of patient's response to intervention. Billing Therapeutic Exercise Treatment Minutes: 25 Manual TherapyTreatment Minutes: 8 Total Session Time (minutes): 33 Session Start Time : 1015 Session Stop Time : 1048 CYNTHIA Recinos, [facility]11-09-[facility]23 NoteHNO ID: [id number] Author: Shady Brady, PT Service: ? Author Type: Physical Therapist Type: Progress Notes Filed: 05/13/2023 1:04 PM Note Text: Episode Visit Count: 6 Therapist That Will Accept/Oversee The Plan Of Care: Shady Brady Start of Care Date: 04/21/23 Onset Date: 04/01/23 Plan of Care Certification Date: 04/21/23 Next Certification Due Date: 06/21/23 REHABILITATION AND SPORTS THERAPY PHYSICAL THERAPY TREATMENT NOTE ASSESSMENT: Acacia Bynum tolerated the session with decreased symptoms and no issues. She demonstrated improvements in R hip pain post session and had improved tolerance for strengthening with LLE. The patient will continue to benefit from ongoing skilled physical therapy to progress toward set goals. PLAN FOR NEXT VISIT: OK Wed with Shady SUBJECTIVE: Pt will be having R THR 06/22 Pain: Pain Pain Level: 0 Pain Location: Thigh - Left OBJECTIVE MEASURES WITH LEVEL OF FUNCTION: Pain in R hip reproduced with palpation to adductors, hip flexor insertion, and glute min TREATMENT: Therapeutic Exercise: 1: SciFit seat 10 x6 min (1:1 time taking sibjective, discussed her upcoming R THR) 4: SL hip abduction 3x10 LLE 5: Clamshells 3x8 LLE 6: Supine SLR 1x10, 2x8 Skilled Intervention: Patient was educated in proper exercise technique and purpose for exercises. Skilled judgment was used in selection of appropriate interventions. Provided written instruction for home exercise program to facilitate proper performance and compliance. Correct performance of therapeutic exercises was facilitated with verbal, visual, and tactile cuing. Manual Therapy: 1: STM and CFM to R adductors and glute min with push to tolerance 2: Manual belt distraction plus PROM flexion and ER to tolerated end range x10 each Skilled Intervention: Manual skills to improve joint mobility, ROM, and decrease pain. Utilized anatomy knowledge of the therapist, and assessment of patient's response to intervention. Billing Therapeutic Exercise Treatment Minutes: 20 Manual TherapyTreatment Minutes: 20 Skilled Treatment Time Minutes (timed and untimed codes): 40 Total Session Time (minutes): 40 Session Start Time : 1045 Session Stop Time : 1125 Shady Brady, [facility]11-09-2023 History of Present illness Narrative* Shady Brady, PT - 05/13/2023 1:01 PM EST Episode Visit Count: 6 Therapist That Will Accept/Oversee The Plan Of Care: Shady Brady Start of Care Date: 04/21/23 Onset Date: 04/01/23 Plan of Care Certification Date: 04/21/23 Next Certification Due Date: 06/21/23 REHABILITATION AND SPORTS THERAPY PHYSICAL THERAPY TREATMENT NOTE ASSESSMENT: Acacia Bynum tolerated the session with decreased symptoms and no issues. She demonstratedimprovements in R hip pain post session and had improved tolerance for strengthening with LLE. The patient will continue to benefit from ongoing skilled physical therapy to progress toward set goals. PLAN FOR NEXT VISIT: OK Wed with Shady SUBJECTIVE: Pt will be having R THR 06/22 Pain: Pain Pain Level: 0 Pain Location: Thigh - Left OBJECTIVE MEASURES WITH LEVEL OF FUNCTION: Pain in R hip reproduced with palpation to adductors, hip flexor insertion, and glute min TREATMENT: Therapeutic Exercise: 1: SciFit seat 10 x6 min (1:1 time taking sibjective, discussed her upcoming R THR) 4: SL hip abduction 3x10 LLE 5: Clamshells 3x8 LLE 6: Supine SLR 1x10, 2x8 Skilled Intervention: Patient was educated in proper exercise technique and purpose for exercises. Skilled judgment was used in selection of appropriate interventions. Provided written instruction for home exercise program to facilitate proper performance and compliance. Correct performance of therapeutic exercises was facilitated with verbal, visual, and tactile cuing. Manual Therapy: 1: STM and CFM to R adductors and glute min with push to tolerance 2: Manual belt distraction plus PROM flexion and ER to tolerated end range x10 each Skilled Intervention: Manual skills to improve joint mobility, ROM, and decrease pain. Utilized anatomy knowledge of the therapist, and assessment of patient's response to intervention. Billing Therapeutic Exercise Treatment Minutes: 20 Manual TherapyTreatment Minutes: 20 Skilled Treatment Time Minutes (timed and untimed codes): 40 Total Session Time (minutes): 40 Session Start Time : 1045 Session Stop Time : 1125 Shady Brady PT [facility] NoteHNO ID: [id number] Author: Storm Kang MD Service: ? Author Type: Physician Type: Progress Notes Filed: 05/12/2023 1:46 PM Note Text: CONSULT ORTHOPAEDIC: HIP PRIMARY CARE PHYSICIAN: Sebastian Sol MD REFERRING PROVIDER: No referring provider defined for this encounter. ASSESSMENT AND PLAN Acacia Bynum is a 62 year old female who presents with right hip pain. . Patient has had hip pain for the last two years that is worse over the last year. She has tried PT and NSAIDS and hip CSI in both hips. She has no significant pmh. No hx of DM DVTs, blood thinners and does not smoke. Left hip XR shows joint space loss and superior joint space narrowing bilaterally with osteophytes formation. Patient recently underwent a left NICHOLE with me 6 weeks ago and is doing well with no issues. No issues with the wound, no signs of infection. No numbness or tingling. No deficits. Walking well without a walker. Overall progressing well Patient has failed conservative treatment for with regards to their R hip degenerative disease. Discussed surgical treatment in the form of a total hip replacement to address their condition. Discussed the benefits of the operation as well as the risks which include infection, dislocation, femoral nerve palsy, sciatic nerve palsy, dislocation, fracture, loosening of the components, DVT/PE, further need for revision surgery, and other complications related to anesthesia. Discussed various approaches used for total hip arthroplasty including posterior and Anterior-Based Muscle Sparing (ABMS). Patient understands the procedure, risks, and benefits and wishes to proceed with a R Anterior-Based Muscle Sparing total hip arthroplasty. Will schedule appointment for Preop Anesthesia Evaluation. The surgery will be scheduled for [facility]. Surgery: R ABMS NICHOLE DVT ppx: ASA Abx: Ancef TXA: IV Left hip 6 weeks out -continued ice, rest, and use of non-narcotic analgesia as needed -wean off ambulatory aids -discussed home exercises and therapy -WBAT on operative extremity -reinforced anterior precautions through 8 weeks -continue ankle pumps and dvt ppx through 4 weeks -discussed driving requirement: 4 weeks post-op, off narcotic pain medication, adequate brake time Storm Kang MD Impression: Right Hip Severe Degenerative Osteoarthritis, Primary 6 weeks out from left NICHOLE AbMS and doing well with no issues Diagnoses: (Z96.642) Status post hip replacement, left (primary encounter diagnosis) (M16.0) Primary osteoarthritis of both hips Based upon the evaluation today and after discussions with Acacia Bynum, Acaciakailey Bynum has significant, worsening pain at the hip. This pain is increased with activity and weight bearing, and interferes with activities of daily living. These symptoms have continued despite a number of non-surgical measures, including a trial of oral pain medication (for at least 12 weeks). At this point, the patient will not benefit from further PT due to the severity of their condition. The patient's physical examination is consistent with limitations in range of motion, pain with passive range of motion, and an antalgic gait. These examination findings are corroborated by imaging findings of joint space narrowing, periarticular osteophyte formation, and subchondral sclerosis. The patient has been treated by the practice and all reasonable treatments have failed to control the disease, which causes significant pain and limits activities of daily living. The patient has failed conservative treatment and joint replacement surgery was discussed and agreed upon by both provider and patient. The patient has elected to proceed with surgical management to improve function and relieve pain refractory to non-surgical measures: Right Primary Total Hip Arthroplasty as evidenced by six months of unsuccessful non-operative treatment as outlined in the HPI below. Surgery Details Date and Location: [facility] on Jun [facility]. Implants: [place] Robotic: No Predicted LOS: 1 day (Outpatient candidate) The risks and benefits of surgery were discussed at length including but not limited to the risks of infection, bleeding, nerve or blood vessel injury, deep venous thrombosis, pulmonary embolism, , paralysis, hip dislocation, leg length discrepancy (including requiring use of permanent shoe lift), bone fracture, component loosening or failure requiring re-operation or amputation. Informed consent was obtained and the patient was scheduled. We also discussed fixation strategies including cement and cementless fixation and modern alternative bearings including metal or ceramic with cross-linked polyethylene, [id number] and vkljp-gt-hjvew as well as advantages and disadvantages of each. We also discussed less invasive surgical approaches and reported benefits and risks of these approaches. The patient has been orde (more content not included)...[facility]11-08-2023 History of Present illness Narrative* Storm Kang MD - 05/12/2023 1:26 PM EST CONSULT ORTHOPAEDIC: HIP PRIMARY CARE PHYSICIAN: Sebastian Sol MD REFERRING PROVIDER: No referring provider defined for this encounter. ASSESSMENT & PLAN Acacia Bynum is a 62 year old female who presents with right hip pain. . Patient has had hip pain for the last two years that is worse over the last year. She has tried PT and NSAIDS and hip CSI in bothhips. She has no significant pmh. No hx of DM DVTs, blood thinners and does not smoke. Left hip XR shows joint space loss and superior joint space narrowing bilaterally with osteophytes formation. Patient recently underwent a left NICHOLE with me 6 weeks ago and is doing well with no issues. No issues with the wound, no signs of infection. No numbness or tingling. No deficits. Walking well withouta walker. Overall progressing well Patient has failed conservative treatment for with regards to their R hip degenerative disease. Discussed surgical treatment in the form of a total hip replacement to address their condition. Discussed the benefits of the operation as well as the risks which include infection, dislocation, femoral nerve palsy, sciatic nerve palsy, dislocation, fracture, loosening of the components, DVT/PE, further need for revision surgery, and other complications related to anesthesia. Discussed various approaches used for total hip arthroplasty including posterior and Anterior-Based Muscle Sparing (ABMS). Patient understands the procedure, risks, and benefits and wishes to proceed with a R Anterior-Based Muscle Sparing total hip arthroplasty. Will schedule appointment for Preop Anesthesia Evaluation. The surgery will be scheduled for [facility]. Surgery: R ABMS NICHOLE DVT ppx: ASA Abx: Ancef TXA: IV Left hip 6 weeks out -continued ice, rest, and use of non-narcotic analgesia as needed -wean off ambulatory aids -discussed home exercises and therapy -WBAT on operative extremity -reinforced anterior precautions through 8 weeks -continue ankle pumps and dvt ppx through 4 weeks -discussed driving requirement: 4 weeks post-op, off narcotic pain medication, adequate brake time Storm Kang MD Impression: Right Hip Severe Degenerative Osteoarthritis, Primary 6 weeks out from left NICHOLE AbMS and doing well with no issues Diagnoses: (Z96.642) Status post hip replacement, left (primary encounter diagnosis) (M16.0) Primary osteoarthritis of both hips Based upon the evaluation today and after discussions with Acacia Bynum, Acacia Bynum has significant, worsening pain at the hip. This pain is increased with activity and weight bearing, and interferes with activities of daily living. These symptoms have continued despite a number of non-surgical measures, including a trial of oral pain medication (for at least 12 weeks). At this point, the patient will not benefit from further PT due to the severity of their condition. The patient's physical examination is consistent with limitations in range of motion, pain with passive range of motion, and an antalgic gait. These examination findings are corroborated by imaging findings of joint space narrowing, periarticular osteophyte formation, and subchondral sclerosis. The patient has been treated by the practice and all reasonable treatments have failed to control the disease, which causes significant pain and limits activities of daily living. The patient has failed conservative treatment and joint replacement surgery was discussed and agreed upon by both provider and patient. The patient has elected to proceed with surgical management to improve function and relieve pain refractory to non-surgical measures: Right Primary Total Hip Arthroplasty as evidenced by six months of unsuccessful non-operative treatment as outlined in the HPI below. Surgery Details Date and Location: [facility] on Jun [facility]. Implants: [place] Robotic: No Predicted LOS: 1 day (Outpatient candidate) The risks and benefits of surgery were discussed at length including but not limited to the risks of infection, bleeding, nerve or blood vessel injury, deep venous thrombosis, pulmonary embolism, , paralysis, hip dislocation, leg length discrepancy (including requiring use of permanent shoe lift), bone fracture, component loosening or failure requiring re-operation or amputation. Informed consent was obtained and the patient was scheduled. We also discussed fixation strategies including cement and cementless fixation and modern alternative bearings including metal or ceramic with cross-linked polyethylene, ptiakjp-hq-hgpydpg and ktdgp-rx-mvxoy as well as advantages and disadvantages of each. We also discussed less invasive surgical approaches and reported benefits and risks of these approaches. The patient has been ordered: No orders found for this visit on 05/12/23. Albumin Level HbA1C ts CONSULTS: IMPACT/PACE Consult for preoperative clearance. Total Joint Arthroplasty: Risk Calculator Acacia Bynum has a 7.65% chance of NOT returning home at discharge for a Primary total Hip replacement. Acacia's estimated Length of Stay is 1 day (Outpatient candidate). Acacia's 30 day chance of readmission is 0.81%. Readmission Probability 0.81 % (within 30 days following surgery) Estimated LOS 1 day Discharge Disposition Probability D/C to Home 92.35 % D/C to SNF 7.65 % These calculations are based on the following factors: - 62 years of age - sex is not male - BMI of 27 kg/m2 - NarxCare score of 170 - 1 hospitalizations in the last 12 months - no history of heart disease - no history of diabetes - no history of COPD - no history of anemia - preoperative ambulation: impaired community distances - 1 step(s) to enter home - bed location is NOT on the first floor - bath location is on the first floor - caregiver is consistent - home is not more than 150 miles away - PROMIS-10 Mental Health T score 50+ - Marital status: Risk Factors for Total Hip Arthroplasty (NICHOLE) Major Risk Factors Obesity normal High: BMI > 40 Moderate: BMI 30-40 Normal: BMI < 30 Diabetes normal High: A1C > 8 Moderate: A1C 7-8 Normal: A1C < 7 Smoking normal High: Current smoker Normal: Non smoker Narcotics Use Moderate Risk High:NarxCare >=300 Moderate: 100-299 Normal: 0-99 Depression normal High: PHQ-9 >14 Moderate: PHQ-9 5-14 Normal: PHQ-9 < 5 Area Deprivation Index (RENETTA) Moderate Risk High: RENETTA Score > 75 Moderate: RENETTA 50-75 Normal: RENETTA < 50 Area Deprivation Index (RENETTA) RENETTA Score 01/14/2022 12/03/2022 National Score 54 51 Patient Health Questionnaire (PHQ-9) PHQ-9 08/06/2022 04/14/2023 05/08/2023 PHQ-2 Score 0 1 1 PHQ-9 Score 4 - - (0-4) minimal depression, (5-9) mild depression, (10-14) moderate depression, (15-19) moderately severe depression, (20-27) severe depression Bone Density Risk Screen Acacia Bynum is low risk for bone loss based on her age and having no previous diagnoses of osteopenia, osteoporosis, Paget's disease of bone, or cancer of bone. Other risk factors are listed below to determine if they pose a significant risk for bone loss, andif so, recommend ordering a bone densitometry and, upon receiving a result, as needed, order a consult to a bone health specialist (Rheumatology, Endocrinology, or Women's Health) for bone assessment. Risk Factors: Use of Proton Pump Inhibitors History of falls Prednisone or use of systemic steroids Additional Risk Factors NarxCare score NARX Narcotics: 170 (05/12/2023 1:12 PM) Past Orthopaedic Surgery: Acacia had hip surgery on 04/01/2023 with Storm Kang. ACTIVE PROBLEM LIST Breast Implant Status Laryngeal Polyp Ddd (Degenerative Disc Disease), Lumbar Sludge in Gallbladder History of Tobacco Use Anxiety and Depression S/P Total Left Hip Arthroplasty Status Post Hip Replacement, Left SUBJECTIVE CHIEF COMPLAINT: Hip Pain HPI: Acacia Bynum is a 62 year old patient with the presenting complaint of Hip Replacement and Post Op of the Left Hip. Acacia Bynum has had progressive problems with the hip(s) most of the day over the past 3year(s) interfering with activities which include walking 2 blocks, enjoying hobbies, rising from a sitting position, getting in and out of a car, and climbing stairs. The problem began limiting activities 1-3 years ago. Acacia reports a current pain level of 1 (Hip-Left). She describes the pain as Aching. The pain is Continuous, and has lasted for 6 Weeks. Interventions tried include Medication, Pillow support. believes she is compensating on left side because of pain from her right hip. FALL RISK: Acacia is at risk for falls. She has had either 2 falls in the last year or at least 1 fall with injury and/or is currently using an ambulatory assitive device (walker, cane, wheelchair, crutches, etc.) The following interventions were put in place to prevent falls this visit: Placed Falling Man Sign on Door PROMIS Physical Function Score PROMIS CAT Physical Function 10/31/2022 04/14/2023 05/08/2023 T-Score 41 (mild dysfunction) 40 (mild dysfunction) 35 (moderate dysfunction) Percentile 18* 16* 7 FUNCTIONAL STATUS: Walk indoors, such as around the house (1.75 METs) Do light work around the house, such as dusting or washing dishes (2.70 METs) Walk a block or two on level ground (2.75 METs) Do moderate work around the house such as vacuuming, sweeping floors, or carrying in groceries (3.50 METs) Do yardwork, such as raking leaves, weeding,or pushing a power mower (4.50 METs) PREVIOUS TREATMENTS: Last hip-related PT visit: 10/12/2022 Last Hip Surgery: 04/01/2023 with Storm Kang Past anti-inflammatory medications (not necessarily for this reason for visit): celecoxib, dexamethasone sodium phosphate, diclofenac sodium, ibuprofen, ketorolac tromethamine, meloxicam, methylprednisolone acetate, prednisone REVIEW OF SYSTEMS: GENERAL: Denies fever, chills malaise and weight loss.. PAIN ASSESSMENT: See HPI. CARDIOVASCULAR: Denies chest pain, history of A-fib, valvular disease, hypertension, CHF or pacemaker/ICD.. RESPIRATORY: Denies SOB, sputum production, dyspnea, COPD and hemoptysis.. GI: Denies GI ulcers, inflammatory disease, ascites or liver disease.. MUSCULOSKELETAL: See HPI. NEURO: Denies CVA, seizures, headaches.. ENDOCRINE: Denies diabetes, thyroid disease.. Malnutrition Screening Tool (MST) 04/01/2023 Lost Weight Recently Without Trying? If Yes, Amount of Weight Loss(lbs) 0:No Eating Poorly Because of a Decreased Appetite 0:No Weight Loss Score (Calculated) 0 Appetite Score (Calculated) 0 Total MST Score (Calculated) 0 PAST MEDICAL HISTORY Diagnosis Date Chronic constipation 11/17/2010 COLLES' FRACTURE-CLOSED 08/17/2005 DDD (degenerative disc disease), lumbar History of tobacco use Internal hemorrhoids without mention of complication Overactive bladder 11/17/2010 PAST SURGICAL HISTORY Procedure Laterality Date ABDOMINAL SURGERY HX BREAST SURGERY HX COLONOSCOPY 07/29/2021 repeat in 10 years COLONOSCOPY FLX DX W/COLLJ SPEC WHEN PFRMD 10/20/2010 EGD 07/29/2021 L'SCOPE CHOLECYSTECTOMY 09/02/2020 LARGSC EXC ANGLE&/STRPG CORDS/EPIGL MCRSCP/TLSCP Left 02/28/2018 removal of polyp PAST SURGICAL HISTORY OF 2004 intersyne for bladder frequency; was surgically removed after PAST SURGICAL HISTORY OF Bilateral 2016 Breast Implants, Dr. Thompson REM LESION NEC,HND,SCAL,FEET,GENITALIA 1.1-2.0CM 09/17/2012 Exc. scalp wens x 3 VAGINAL HYSTERECTOMY VAGINAL HYSTERECTOMY UTERUS 250 GM/< 2000 Hysterectomy, vaginal (endometriosis) FAMILY HISTORY Problem Relation Age of Onset Cancer Mother lung Cancer Father lymphoma None Sister None Brother Diabetes Maternal Grandmother None Sister None Brother None Brother other (Other) Brother accidental No Known Problems Son No Known Problems Daughter Social History Tobacco Use Smoking status: Former Packs/day: 0.50 Years: 20.00 Additional pack years: 0.00 Total pack years: 10.00 Types: Cigarettes Quit date: 07/05/2009 Years since quittin.8 Smokeless tobacco: Never Vaping Use Vaping Use: Never used Substance Use Topics Alcohol use: Not Currently Drug use: No ALLERGIES: Codeine, Morphine, Penicillins, and Sulfa (Sulfonamide Antibiotics) MEDICATIONS: acetaminophen (TYLENOL) 500 mg tablet Take 2 tablets by mouth every 8 hours as needed for pain. dicyclomine (BENTYL) 10 mg capsule Take 2 capsules by mouth before meals and at bedtime. Zinc 50 mg tab Take 50 mg by mouth once daily. COLLAGEN MISC 1 capsule once daily. venlafaxine (EFFEXOR) 37.5 mg tablet Take 37.5 mg by mouth once daily. Patient not taking this medication cyanocobalamin (VITAMIN B-12) 1,000 mcg tab Take 0.5 tablets by mouth once daily. CALCIUM CITRATE/VITAMIN D3 (CITRACAL ORAL) Take by mouth once daily. ascorbic acid, vitamin C, (VITAMIN C) 500 mg tablet Take 500 mg by mouth once daily. Magnesium Oxide-Mg Amino Acid Chelate 300 mg cap Take 300 mg by mouth once daily. aspirin, enteric coated (ECOTRIN LOW STRENGTH) 81 mg EC tablet Take 1 tablet by mouth two times a day. pantoprazole DR (PROTONIX) 40 mg tablet Take 1 tablet by mouth once daily for 14 days. OBJECTIVE PHYSICAL EXAM There were no vitals taken for this visit. All other systems deferred. GENERAL: Appears healthy, well-nourished, no deformities. HABITUS: Normal GAIT: Normal, the patient did not have trouble getting onto the exam table. HIP EXAM: Left: incision well healed no erythema or drainage ROM: Extension: Normal Flexion: 110 degrees Internal Rotation: 30 degrees External Rotation: 30 degrees Abduction: 40 degrees Adduction: 30 degrees Strength: Abduction 5/5 and Flexion 5/5 Palpation: No tenderness Log roll: non-painful. Straight leg raise: Negative Neurovascular Status: Sensation Intact and Moves foot and ankle up & down Right: ROM: Extension: 10 degree flexion contracture Flexion: 90 degrees Internal Rotation: 5 degrees External Rotation: 15 degrees Abduction: 25 degrees Adduction: 15 degrees Strength: Abduction 5/5 and Flexion 4/5 Palpation: ttp groin Log roll: painful. Straight leg raise: Positive, reproducing hip symptoms Neurovascular Status: Sensation Intact, Moves foot and ankle up & down, and 2+ dorsalis pedis DATA: She was last seen in orthopaedic clinic for her hip on 04/16/2023 with Olu Atkinson. Most recent hip imaging was completed on 04/19/2023 (XR HIP GENERAL 3V PELV/AP/LAT LEFT) . The last hip-related PT visit was completed on 10/12/2022. Acacia had hip surgery on 04/01/2023 with Storm Kang. Diagnostic tests reviewed for today's visit: Right hip X-Ray: Severe degenerative changes and Complete loss of superior joint space Left hip X-Ray: Post op xray: Implants are well fixed. and There is no evidence of loosening. The following conditions were addressed during the office visit today: SIGNATURE: Storm Kang MD PATIENT NAME: Acacia Bynum DATE: May 12, 2023 TIME: 1:26 PM [facility] NoteHNO ID: [id number] Author: Shady Brady PT Service: ? Author Type: Physical Therapist Type: Progress Notes Filed: 05/05/2023 3:28 PM Note Text: Episode Visit Count: 5 Therapist That Will Accept/Oversee The Plan Of Care: Shady Brady Start of Care Date: 04/21/23 Onset Date: 04/01/23 Plan of Care Certification Date: 04/21/23 Next Certification Due Date: 06/21/23 Patient Identified by Name and Date of : Yes REHABILITATION AND SPORTS THERAPY PHYSICAL THERAPY TREATMENT NOTE ASSESSMENT: Acacia Bynum tolerated the session with fatigue and expected muscle soreness. She demonstrated improvements in forward step ups on 6 inch step. The patient will continue to benefit from ongoing skilled physical therapy to progress toward set goals. PLAN FOR NEXT VISIT: Continue with LLE strengthening in standing as RLE allows, if not continue in SL , supine, and/ or sitting. SUBJECTIVE: Pt reports that she can't even enjoy her L hip feeling better due to the pain in the R hip. Pain: Pain Pain Level: 0 Pain Location: Thigh - Left OBJECTIVE MEASURES WITH LEVEL OF FUNCTION: Extensor lag with SLR. TREATMENT: Therapeutic Exercise: 1: SciFit seat 10 x6 min (1:1 throughout. Discussed modifying exercise to avoid increase in R hip pain.) 2: Step ups on 6 inch step 2x10 LLE 3: Lateral step ups on 4 inch step 2x10 LLE (6 inch attempted, too painful on R hip) 4: SL hip abduction 3x8 LLE 5: Clamshells 2x5 LLE 6: Supine SLR 3x5 in small range 7: SAQ 3x10 with 5# ankle weight 8: LAQ 3x10 LLE 9: Hooklying L hip abduction with OTB 3x10 Skilled Intervention: Patient was educated in proper exercise technique and purpose for exercises. Skilled judgment was used in selection of appropriate interventions. Correct performance of therapeutic exercises was facilitated with verbal and visual cuing. Billing Therapeutic Exercise Treatment Minutes: 34 Skilled Treatment Time Minutes (timed and untimed codes): 34 Total Session Time (minutes): 34 Session Start Time : 1400 Session Stop Time : 1434 Lizzy Donald, MONITORING TECH Shady Brady, [facility]11-01-2023 History of Present illness Narrative* Jaime Bradyn, PT - 05/05/2023 2:05 PM EDT Episode Visit Count: 5 Therapist That Will Accept/Oversee The Plan Of Care: Shady Jose Antonio Start of Care Date: 04/21/23 Onset Date: 04/01/23 Plan of Care Certification Date: 04/21/23 Next Certification Due Date: 06/21/23 Patient Identified by Name and Date of : Yes REHABILITATION AND SPORTS THERAPY PHYSICAL THERAPY TREATMENT NOTE ASSESSMENT: Acacia Bynum tolerated the session with fatigue and expected muscle soreness. She demonstrated improvements in forward step ups on 6 inch step. The patient will continue to benefit from ongoing skilled physical therapy to progress toward set goals. PLAN FOR NEXT VISIT: Continue with LLE strengthening in standing as RLE allows, if not continue in SL , supine, and/ or sitting. SUBJECTIVE: Pt reports that she can't even enjoy her L hip feeling better due to the pain in the R hip. Pain: Pain Pain Level: 0 Pain Location: Thigh - Left OBJECTIVE MEASURES WITH LEVEL OF FUNCTION: Extensor lag with SLR. TREATMENT: Therapeutic Exercise: 1: SciFit seat 10 x6 min (1:1 throughout. Discussed modifying exercise to avoid increase in R hip pain.) 2: Step ups on 6 inch step 2x10 LLE 3: Lateral step ups on 4 inch step 2x10 LLE (6 inch attempted, too painful on R hip) 4: SL hip abduction 3x8 LLE 5: Clamshells 2x5 LLE 6: Supine SLR 3x5 in small range 7: SAQ 3x10 with 5# ankle weight 8: LAQ 3x10 LLE 9: Hooklying L hip abduction with OTB 3x10 Skilled Intervention: Patient was educated in proper exercise technique and purpose for exercises. Skilled judgment was used in selection of appropriate interventions. Correct performance of therapeutic exercises was facilitated with verbal and visual cuing. Billing Therapeutic Exercise Treatment Minutes: 34 Skilled Treatment Time Minutes (timed and untimed codes): 34 Total Session Time (minutes): 34 Session Start Time : 1400 Session Stop Time : 1434 CYNTHIA Recinos PT [facility] NoteHNO ID: [id number] Author: Shady Brady PT Service: ? Author Type: Physical Therapist Type: Progress Notes Filed: 05/04/2023 11:24 AM Note Text: Episode Visit Count: 4 Therapist That Will Accept/Oversee The Plan Of Care: Shady Brady Start of Care Date: 04/21/23 Onset Date: 04/01/23 Plan of Care Certification Date: 04/21/23 Next Certification Due Date: 06/21/23 Patient Identified by Name and Date of : Yes REHABILITATION AND SPORTS THERAPY PHYSICAL THERAPY TREATMENT NOTE ASSESSMENT: Acacia Bynum tolerated the session with decreased activity tolerance in standing due to pain of R hip with weight bearing. She demonstrated difficulty with SLR and improvements in hip abduction in SL. The patient will continue to benefit from ongoing skilled physical therapy to progress toward set goals. PLAN FOR NEXT VISIT: Continue with LLE strengthening in standing as RLE allows, if not continue in SL , supine, and/ or sitting. SUBJECTIVE: Pt reports that her RLE is bohtering her today, but LLE seems to be getting better. Pt states that her exercises are being hindered due to the RLE. Pain: Pain Pain Level: 0 Pain Location: Thigh - Left Frequency: Intermittent OBJECTIVE MEASURES WITH LEVEL OF FUNCTION: Decreased hip abduction ROM in standing on LLE due to pain in RLE. TREATMENT: Therapeutic Exercise: 1: SciFit seat 10 x6 min (1:1 throughout. Discussed current HEP and subjective collected.) 2: Standing hip abduction LLE only 3x10 (small range due to pain in R hip) 3: SAQ 3x10 with 5# ankle weight 4: Supine SLR 2x8 in small range (still challenging per pt) 5: *SL hip abduction 3x5 LLE (given for HEP when RLE is too painful to perform in standing) 6: LAQ 3x10 7: Seated hip adduction squeeze with ball 3x10 Skilled Intervention: Patient was educated in proper exercise technique and purpose for exercises. Reviewed and educated patient on additions/changes for home exercise program as above (*). Skilled judgment was used in selection of appropriate interventions. Correct performance of therapeutic exercises was facilitated with verbal and visual cuing. Billing Therapeutic Exercise Treatment Minutes: 38 Skilled Treatment Time Minutes (timed and untimed codes): 38 Total Session Time (minutes): 38 Session Start Time : 1055 Session Stop Time : 1133 Lizzy Donald, MONITORING TECH Shady Brady, [facility]10-30-2023 History of Present illness Narrative* Shady Brady, PT - 05/03/2023 11:00 AM EDT Episode Visit Count: 4 Therapist That Will Accept/Oversee The Plan Of Care: Shady Brady Start of Care Date: 04/21/23 Onset Date: 04/01/23 Plan of Care Certification Date: 04/21/23 Next Certification Due Date: 06/21/23 Patient Identified by Name and Date of : Yes REHABILITATION AND SPORTS THERAPY PHYSICAL THERAPY TREATMENT NOTE ASSESSMENT: Acacia Bynum tolerated the session with decreased activity tolerance in standing due to pain of R hip with weight bearing. She demonstrated difficulty with SLR and improvements in hip abduction in SL. The patient will continue to benefit from ongoing skilled physical therapy to progress toward set goals. PLAN FOR NEXT VISIT: Continue with LLE strengthening in standing as RLE allows, if not continue in SL , supine, and/ or sitting. SUBJECTIVE: Pt reports that her RLE is bohtering her today, but LLE seems to be getting better. Pt states that her exercises are being hindered due to the RLE. Pain: Pain Pain Level: 0 Pain Location: Thigh - Left Frequency: Intermittent OBJECTIVE MEASURES WITH LEVEL OF FUNCTION: Decreased hip abduction ROM in standing on LLE due to pain in RLE. TREATMENT: Therapeutic Exercise: 1: SciFit seat 10 x6 min (1:1 throughout. Discussed current HEP and subjective collected.) 2: Standing hip abduction LLE only 3x10 (small range due to pain in R hip) 3: SAQ 3x10 with 5# ankle weight 4: Supine SLR 2x8 in small range (still challenging per pt) 5: *SL hip abduction 3x5 LLE (given for HEP when RLE is too painful to perform in standing) 6: LAQ 3x10 7: Seated hip adduction squeeze with ball 3x10 Skilled Intervention: Patient was educated in proper exercise technique and purpose for exercises. Reviewed and educated patient on additions/changes for home exercise program as above (*). Skilled judgment was used in selection of appropriate interventions. Correct performance of therapeutic exercises was facilitated with verbal and visual cuing. Billing Therapeutic Exercise Treatment Minutes: 38 Skilled Treatment Time Minutes (timed and untimed codes): 38 Total Session Time (minutes): 38 Session Start Time : 1055 Session Stop Time : 1133 CYNTHIA Recinos PT [facility]-2023 NoteHNO ID: [id number] Author: Shady Brady PT Service: ? Author Type: Physical Therapist Type: Progress Notes Filed: 04/28/2023 9:44 AM Note Text: Episode Visit Count: 3 Therapist That Will Accept/Oversee The Plan Of Care: Shady Brady Start of Care Date: 04/21/23 Onset Date: 04/01/23 Plan of Care Certification Date: 04/21/23 Next Certification Due Date: 06/21/23 Patient Identified by Name and Date of : Yes REHABILITATION AND SPORTS THERAPY PHYSICAL THERAPY TREATMENT NOTE ASSESSMENT: Acacia Bynum tolerated the session with fatigue and expected muscle soreness. She demonstrated difficulty with SLR . The patient will continue to benefit from ongoing skilled physical therapy to progress toward set goals. PLAN FOR NEXT VISIT: Continue strengthening per Anterior NICHOLE protocol SUBJECTIVE: Pt reports that her L hip is feeling good today. Pt reports that her R hip is really bothering her today. Pain: Pain Pain Level: 0 Pain Location: Thigh - Left Frequency: Intermittent OBJECTIVE MEASURES WITH LEVEL OF FUNCTION: Tightness with L hip abduction. TREATMENT: Therapeutic Exercise: 1: SciFit seat 10 x6 min (1:1 throughout. DIscussed use of cane on L side, due to pt's R hip feeling like its going to go out on her.) 2: Standing hip abduction LLE only 3x10 3: Step ups onto 1 blue step 2x10 B 4: SLR 2x8 in small range 5: SAQ 1x10, no weight, 2x10 5# 6: LAQ 3x10 7: STS 2x10 8: OTB hip abduction seated Skilled Intervention: Patient was educated in proper exercise technique and purpose for exercises. Skilled judgment was used in selection of appropriate interventions. Correct performance of therapeutic exercises was facilitated with verbal and visual cuing. Gait Trainin: Gait training with cane in LUE with step-through pattern to decrease risk of falling due to R hip feeling like it's going to give out. Skilled Intervention: Patient was provided supervision during pre-gait/gait training to prevent falls and insure safety. Gait belt utilized during session for safety. Billing Gait Training Treatment Minutes: 3 Total Session Time (minutes): 44 Session Start Time : 1143 Session Stop Time : 1227 Lizzy Donald, CYNTHIA Brady, [facility]10-20-2023 NoteHNO ID: [id number] Author: Shady Brady PT Service: ? Author Type: Physical Therapist Type: Progress Notes Filed: 04/23/2023 3:26 PM Note Text: Episode Visit Count: 2 Therapist That Will Accept/Oversee The Plan Of Care: Shady Brady Start of Care Date: 04/21/23 Onset Date: 04/01/23 Plan of Care Certification Date: 04/21/23 Next Certification Due Date: 06/21/23 REHABILITATION AND SPORTS THERAPY PHYSICAL THERAPY TREATMENT NOTE ASSESSMENT: Acacia Bynum tolerated the session with fatigue and no issues. She demonstrated improvements in tolerance for exercises and gait. The patient will continue to benefit from ongoing skilled physical therapy to progress toward set goals. PLAN FOR NEXT VISIT: Continue gentle strengthening progression SUBJECTIVE: Pt doing well today, notes exercises went well without issue Pain: Pain Pain Level: 2 Pain Location: Thigh - Left Description: Sore Frequency: Continuous OBJECTIVE MEASURES WITH LEVEL OF FUNCTION: TREATMENT: Therapeutic Exercise: 1: SciFit seat 10 x6 min (discussed HEP, follow through, and function around home) 2: SAQ 3x10 5# ankle weight 3: *OTB hooklying or sitting hip abduction 3x10 4: Calf rasies at // bars 3x20 5: Standing hip abduction 3x10/side 6: Step ups onto 1 blue step 3x10/side (pt does not have step at home to perform) Skilled Intervention: Patient was educated in proper exercise technique and purpose for exercises. Skilled judgment was used in selection of appropriate interventions. Provided written instruction for home exercise program to facilitate proper performance and compliance. Correct performance of therapeutic exercises was facilitated with verbal, visual, and tactile cuing. Billing Therapeutic Exercise Treatment Minutes: 43 Skilled Treatment Time Minutes (timed and untimed codes): 43 Total Session Time (minutes): 43 Session Start Time : 0947 Session Stop Time : 1030 Shady Brady [facility]10-18-2023 NoteHNO ID: [id number] Author: Shady Brady PT Service: ? Author Type: Physical Therapist Type: Progress Notes Filed: 04/23/2023 11:52 AM Note Text: Episode Visit Count: 1 Therapist That Will Accept/Oversee The Plan Of Care: Shady Brady Start of Care Date: 04/21/23 Onset Date: 04/01/23 Plan of Care Certification Date: 04/21/23 Next Certification Due Date: 06/21/23 Patient Identified by Name and Date of : Yes REHABILITATION AND SPORTS THERAPY PHYSICAL THERAPY EVALUATION PLAN OF CARE: Assessment: Acacia Bynum presents with diagnosis of L NICHOLE that interferes with standing, walking, rising from a chair, stair negotiation, bending, physical activities, sleeping . She presents with impairments in ADL's, gait, overall function, range of motion, soft tissue healing, strength, and symptom management. PROMIS? (Patient-Reported Outcomes Measurement Information System) scores were reviewed and all domains identified as within normal limits. Prognosis for therapy is Good due to: current objective clinical presentation, good overall health status, positive past response to therapy, within-session changes, good support system/ coping skills . She will benefit from skilled therapy services to meet the goals established for this plan of care as noted below. Goals for Episode of Care: created on 04/21/23 through 07/22/23 Ola in home exercise program. Patient will decrease pain rating by 2 points to meet minimal clinical important difference for numeric pain rating scale. Patient will increase passive ROM of L hip to 120 degrees flexion to allow pt to to improve performance of ADLs. Patient will demonstrate increase in LLE strength to 4+ to 5/5 during manual muscle testing in order to improve function for basic self-care tasks, home management tasks, and prior functional tasks. Perform standing, walking without pain. Patient will Improve Timed Up and Go to 9 seconds to demonstrate decreased risk of falling. Patient will improve 30 seconds sit to stand to demonstrate improvement in functional lower extremity strength. Planned Interventions, Frequency, and Duration: Current Frequency: 2x/week Duration: 8 weeks Total Number of Visits Planned: 16 Planned Treatment Interventions: Therapeutic exercise (73762), Neuromuscular re-education (32303), Manual therapy (42918), Therapeutic activities (81034), Self-jail management (65785), Gait Training (90990), Patient/Family/Caregiver Education, Body Mechanics Training PLAN FOR NEXT VISIT: Continue strengthening per Anterior NICHOLE protocol Patient demonstrates good understanding of plan of care and treatment. The above goals and plan of care were discussed and agreed upon by patient/family. SUBJECTIVE: L NICHOLE 04/01/2023. Both hips are bad, but left was worse and she had that hip replaced first. Would like to function around her home, climb stairs, walk, and garden with less pain. Staying a sleep an issue due to right leg pain Functional Limitations: standing, walking, rising from a chair, stair negotiation, bending, physical activities, sleeping Prior Level of Function: Independent without limitations Home Environment Patient Lives With: Spouse Assistance Available: 24-Hour Home Type: Ranch Tub/Shower Type: walk in shower with bench Laundry: downstairs Equipment Owned: Cane, Walker- Standard, Elevated Toilet Seat Intake Information: Prescription present Pain: Pain Pain Level: 3 Pain Location: Thigh - Left Description: Sore Frequency: Continuous PROMIS Scales Higher is Better 04/19/2023 04/14/2023 10/31/2022 Phys Func - Score - 40 (mild dysfunction) 41 (mild dysfunction) Phys Func - Percentile - 16 % 18 % Self-Eff Symptom - Score 59 (Average) - 41 (Average) Self-Eff Symptom - Percentile 82 % - 18 % T-scores: mean of general population = 50. 5 points is clinically meaningfully difference Percentiles provide an indication of how the patient's score ranks in relation to the general population. Higher percentile rankings indicate better function/quality of life. 50th percentile is the average of the general population and indicates half of respondents had a worse score. OBJECTIVE MEASURES WITH LEVEL OF FUNCTION: LE AROM R LE AROM: WFL L LE AROM: WFL LE Strength R LE Strength: grossly 4/5 L LE Strength: grossly 3+ to 4-/5 Functional Performance Test Results Assistive Device: Cane 30 Second Chair Stand Test: 8 reps Timed Up and Go (sec): 17.75 sec Education: Education Learning/educational needs: Home exercise program, Plan of Care, Changes in Plan of Care, Body Mechanics TREATMENT: PT Treatment Interventions: Therapeutic Exercise Evaluation Therapeutic Exercise: 1: *OTB hooklying or sitting hip abduction 2x10 (issued patient yellow for home, this is now = to orange) 2: *Calf raises 3x20 3: *Standing hip abduction 3x10 4: *LAQ 3x10 5: *SAQ 3x10 6: SciFit seat 10 x6 (more content not included)...[facility] 04-21-2023 History of Present illness Narrative* Shady Brady, PT - 04/21/2023 1:47 PM EDT Episode Visit Count: 1 Therapist That Will Accept/Oversee The Plan Of Care: Shady Brady Start of Care Date: 04/21/23 Onset Date: 04/01/23 Plan of Care Certification Date: 04/21/23 Next Certification Due Date: 06/21/23 Patient Identified by Name and Date of : Yes REHABILITATION AND SPORTS THERAPY PHYSICAL THERAPY EVALUATION PLAN OF CARE: Assessment: Acacia Bynum presents with diagnosis of L NICHOLE that interferes with standing, walking, rising from a chair, stair negotiation, bending, physical activities, sleeping . She presents with impairments in ADL's, gait, overall function, range of motion, soft tissue healing, strength, and symptommanagement. PROMIS (Patient-Reported Outcomes Measurement Information System) scores were reviewed and all domains identified as within normal limits. Prognosis for therapy is Good due to: current objective clinical presentation, good overall health status, positive past response to therapy, within-session changes, good support system/ coping skills . She will benefit from skilled therapy services to meet the goals established for this plan of care as noted below. Goals for Episode of Care: created on 04/21/23 through 07/22/23 Ola in home exercise program. Patient will decrease pain rating by 2 points to meet minimal clinical important difference for numeric pain rating scale. Patient will increase passive ROM of L hip to 120 degrees flexion to allow pt to to improve performance of ADLs. Patient will demonstrate increase in LLE strength to 4+ to 5/5 during manual muscle testing in order to improve function for basic self-care tasks, home management tasks, and prior functional tasks. Perform standing, walking without pain. Patient will Improve Timed Up and Go to 9 seconds to demonstrate decreased risk of falling. Patient will improve 30 seconds sit to stand to demonstrate improvement in functional lower extremity strength. Planned Interventions, Frequency, and Duration: Current Frequency: 2x/week Duration: 8 weeks Total Number of Visits Planned: 16 Planned Treatment Interventions: Therapeutic exercise (24012), Neuromuscular re- education (39862), Manual therapy (26506), Therapeutic activities (03806), Self- jail management (09076), Gait Training (63999), Patient/Family/Caregiver Education, Body Mechanics Training PLAN FOR NEXT VISIT: Continue strengthening per Anterior NICHOLE protocol Patient demonstrates good understanding of plan of care and treatment. The above goals and plan of care were discussed and agreed upon by patient/family. SUBJECTIVE: L NICHOLE 04/01/2023. Both hips are bad, but left was worse and she had that hip replaced first. Would like to function around her home, climb stairs, walk, and garden with less pain. Staying a sleep an issue due to right leg pain Functional Limitations: standing, walking, rising from a chair, stair negotiation, bending, physical activities, sleeping Prior Level of Function: Independent without limitations Home Environment Patient Lives With: Spouse Assistance Available: 24-Hour Home Type: Ranch Tub/Shower Type: walk in shower with bench Laundry: downstairs Equipment Owned: Cane, Walker- Standard, Elevated Toilet Seat Intake Information: Prescription present Pain: Pain Pain Level: 3 Pain Location: Thigh - Left Description: Sore Frequency: Continuous PROMIS Scales Higher is Better 04/19/2023 04/14/2023 10/31/2022 Phys Func - Score - 40 (mild dysfunction) 41 (mild dysfunction) Phys Func - Percentile - 16 % 18 % Self-Eff Symptom - Score 59 (Average) - 41 (Average) Self-Eff Symptom - Percentile 82 % - 18 % T-scores: mean of general population = 50. 5 points is clinically meaningfully difference Percentiles provide an indication of how the patient's score ranks in relation to the general population. Higher percentile rankings indicate better function/quality of life. 50th percentile is the average of the general population and indicates half of respondents had a worse score. OBJECTIVE MEASURES WITH LEVEL OF FUNCTION: LE AROM R LE AROM: WFL L LE AROM: WFL LE Strength R LE Strength: grossly 4/5 L LE Strength: grossly 3+ to 4-/5 Functional Performance Test Results Assistive Device: Cane 30 Second Chair Stand Test: 8 reps Timed Up and Go (sec): 17.75 sec Education: Education Learning/educational needs: Home exercise program, Plan of Care, Changes in Plan of Care, Body Mechanics TREATMENT: PT Treatment Interventions: Therapeutic Exercise Evaluation Therapeutic Exercise: 1: *OTB hooklying or sitting hip abduction 2x10 (issued patient yellow for home, this is now = to orange) 2: *Calf raises 3x20 3: *Standing hip abduction 3x10 4: *LAQ 3x10 5: *SAQ 3x10 6: SciFit seat 10 x6 min (discussed purpose, progression of this exercise, and went over HEP while performing) Skilled Intervention: Patient was educated in proper exercise technique and purpose for exercises. Skilled judgment was used in selection of appropriate interventions. Provided written instruction for home exercise program to facilitate proper performance and compliance. Correct performance of therapeutic exercises was facilitated with verbal, visual, and tactile cuing. Billing * Evaluation Low Complexity: 1 Unit Therapeutic Exercise Treatment Minutes: 25 Skilled Treatment Time Minutes (timed and untimed codes): 42 Total Session Time (minutes): 42 Session Start Time : 1118 Session Stop Time : 1200 Shady Brady PT [facility] NoteHNO ID: [id number] Author: Note, Interface Service: ? Author Type: ? Type: Progress Notes Filed: 04/17/2023 3:01 AM Note Text: Epic Scheduled Downtime: 04/17/2023 1:00:00 AM to 04/17/2023 1:28:00 AMTrinity [facility] [id number] NoteHNO ID: [id number] Author: Olu Atkinson PA-C Service: ? Author Type: Physician Prepleater Type: Progress Notes Filed: 04/16/2023 12:08 PM Note Text: Ortho Hip Follow Up Note Narrative Referring Provider: No referring provider defined for this encounter. PCP: Sebastian Sol MD IMPRESSION/PLAN: Impressions indicate: 62 year old s/p Left Total Hip Replacement completed on 04/01/2023. Recent Surgeries this specialty 04/01/2023 (2w, 1d) TOTAL HIP ARTHROPLASTY-ANTERIOR APPROACH-[place] (Left) Storm Kang MD; Edwin Clark MD - Posted PAIN EVALUATION 04/12/2023 1740 04/16/2023 1148 Pain Level: 3 3 Pain Location: -- Hip-Left Description: Aching Aching;Sore Duration Amount of Time: -- 2 Duration Units: -- Weeks Frequency: -- Continuous Intervention/Comfort measure: -- Cold;Medication;Positioning;Pillow support IMPRESSION: Excellent early outcomes., No complaints or limitations., and At normal post-operative stage of recovery. PLAN: No new treatment indicated: Routine follow-up. Continue current conservative treatment. Rest, Ice, Compression, Elevation PRN. Discussed signs of DVT and follow up. Patient Reassurance: Normal post-operative course discussed with patient. Progress appears to be with the normal speed of recovery. Patient reassured and supported. All questions answered. Follow up 4 weeks No X-Rays Needed ACTIVE PROBLEM LIST Breast Implant Status Laryngeal Polyp Ddd (Degenerative Disc Disease), Lumbar Sludge in Gallbladder History of Tobacco Use Anxiety and Depression S/P Total Left Hip Arthroplasty HPI: Acacia Bynum presents today for a routine 1st post-op visit. STATUS POST: BMI: There is no height or weight on file to calculate BMI. Post operative recovery was complicated by uneventful/none. Readmission(s) since surgery (90 days post)? No ED Visits AND Hospitalizations - Last 180 days 04/01/23 Storm Kang MD, ME2E Primary osteoarthritis of left hip ..., Admission (Discharged) Patient rates their condition as improving. Does the patient still experience pain? 3/10 pain mostly lateral hip. Post Op discharge patient location: in home. Functional Assessment is as follows: is ready to begin outpatient PT. Functional difficulties: Stair climbing and Walking. Pain Medication: Non-narcotic, tylenol Physical Therapy Data 10/09/2022 10/12/2022 11/02/2022 AROM R comment - - - AROM L comment - - - Therapist that will oversee plan of care - - - Prognosis Good - - Prognosis fair - - - Frequency 2x/week - - Duration 8 weeks - - Total number of visits 16 - - Planned treatment interventions Therapeutic exercise (70764);Neuromuscular re-education (96079);Therapeutic activities (17471);Manual therapy (14928);Gait Training (01446) - - Plan for next visit re-assess sit to stand technique continue to progress squatting as tolerated Re-assess new HEP, increase function as tolerated. discharge patient with instruction to continue with HEP. EXAM: POST OP HIP LEFT POST-OPERATIVE HIP SKIN: Appropriate postop appearance, No evidence of erythema, warmth, discharge or drainage, No evidence of warmth or erythema, and Incision clean/dry/intact. Range of Motion: Pain Free Neurovascular Status: Sensation Intact, Moves foot and ankle up AND down, 2+ dorsalis pedis, and negative homans sign Gait: Antalgic to the left HIP EXAM: Left: ROM: Extension: full extension Flexion: 100 degrees Internal Rotation: 20 degrees External Rotation: 30 degrees Abduction: 25 degrees Adduction: 20 degrees Strength: Abduction 4/5 and Flexion 4/5 Palpation: Tenderness over left greater trochanter Log roll: non-painful. Limb length: clinically equal Straight leg raise: Negative Neurovascular Status: Sensation Intact, Moves foot and ankle up AND down, and 2+ dorsalis pedis IMAGING: X-ray Hips: Post op Implants are well fixed. and There is no evidence of loosening. Provider: Olu Atkinson PA-C Completed by: FLOYD [facility]10-13-2023 NoteHNO ID: [id number] Author: Adelita Leal Tech Service: Radiology Author Type: Computer Lab Para Professional Type: Progress Notes Filed: 04/16/2023 12:06 PM Note Text: Radiology Service Progress Note PATIENT NAME: Acacia Bynum DATE OF SERVICE: April 16, 2023 TIME: 12:06 PM PATIENT IDENTITY VERIFICATION COMPLETED USING TWO (2) IDENTIFIERS: Name and Date of confirmed by patient verbally. FALL SCREENING: Has the patient had 2 falls in the last year or 1 fall with injury or currently using an Ambulatory Assistive Device (Walker, Cane, Wheelchair, Crutches, etc.)? No PATIENT GENDER DATA: Female. status: : No status: NO. PATIENT RELEVANT IMPLANT DATA REVIEWED: Not Applicable RADIOLOGY DEPARTMENT: General X-ray: Exam(s) Completed: Pelvis X-Ray: Pelvis with Hip Left and Wt. Bearing PERIPHERAL IV DATA: Not applicable SIGNED BY: Fiorella Pagan April 16, 2023 12:06 PMTrinity Health System West [id number] History of Present illness Narrative* Olu Atkinson PA-C - 04/16/2023 11:42 AM EDT Ortho Hip Follow Up Note Narrative Referring Provider: No referring provider defined for this encounter. PCP: Sebastian Sol MD IMPRESSION/PLAN: Impressions indicate: 62 year old s/p Left Total Hip Replacement completed on 04/01/2023. Recent Surgeries this specialty 04/01/2023 (2w, 1d) TOTAL HIP ARTHROPLASTY-ANTERIOR APPROACH-LEIGHTON (Left) Storm Kang MD; Edwin Clark MD - Posted PAIN EVALUATION 04/12/2023 1740 04/16/2023 1148 Pain Level: 3 3 Pain Location: -- Hip-Left Description: Aching Aching;Sore Duration Amount of Time: -- 2 Duration Units: -- Weeks Frequency: -- Continuous Intervention/Comfort measure: -- Cold;Medication;Positioning;Pillow support IMPRESSION: Excellent early outcomes., No complaints or limitations., and At normal post- operative stage of recovery. PLAN: No new treatment indicated: Routine follow-up. Continue current conservative treatment. Rest, Ice, Compression, Elevation PRN. Discussed signs of DVT and follow up. Patient Reassurance: Normal post-operative course discussed with patient. Progress appears to be with the normal speed of recovery. Patient reassured and supported. All questions answered. Follow up 4 weeks No X-Rays Needed ACTIVE PROBLEM LIST Breast Implant Status Laryngeal Polyp Ddd (Degenerative Disc Disease), Lumbar Sludge in Gallbladder History of Tobacco Use Anxiety and Depression S/P Total Left Hip Arthroplasty HPI: Acacia Bynum presents today for a routine 1st post-op visit. STATUS POST: BMI: There is no height or weight on file to calculate BMI. Post operative recovery was complicated by uneventful/none. Readmission(s) since surgery (90 days post)? No ED Visits & Hospitalizations - Last 180 days 04/01/23 Storm Kang MD, ME2E Primary osteoarthritis of left hip ..., Admission (Discharged) Patient rates their condition as improving. Does the patient still experience pain? 3/10 pain mostly lateral hip. Post Op discharge patient location: in home. Functional Assessment is as follows: is ready to begin outpatient PT. Functional difficulties: Stair climbing and Walking. Pain Medication: Non-narcotic, tylenol Physical Therapy Data 10/09/2022 10/12/2022 11/02/2022 AROM R comment - - - AROM L comment - - - Therapist that will oversee plan of care - - - Prognosis Good - - Prognosis fair - - - Frequency 2x/week - - Duration 8 weeks - - Total number of visits 16 - - Planned treatment interventions Therapeutic exercise (40335);Neuromuscular re- education (96960);Therapeutic activities (81384);Manual therapy (78091);Gait Training (52925) - - Plan for next visit re-assess sit to stand technique continue to progress squatting as tolerated Re-assess new HEP, increase function as tolerated. discharge patient with instruction to continue withHEP. EXAM: POST OP HIP LEFT POST-OPERATIVE HIP SKIN: Appropriate postop appearance, No evidence of erythema, warmth, discharge or drainage, No evidence of warmth or erythema, and Incision clean/dry/intact. Range of Motion: Pain Free Neurovascular Status: Sensation Intact, Moves foot and ankle up & down, 2+ dorsalis pedis, and negative homans sign Gait: Antalgic to the left HIP EXAM: Left: ROM: Extension: full extension Flexion: 100 degrees Internal Rotation: 20 degrees External Rotation: 30 degrees Abduction: 25 degrees Adduction: 20 degrees Strength: Abduction 4/5 and Flexion 4/5 Palpation: Tenderness over left greater trochanter Log roll: non-painful. Limb length: clinically equal Straight leg raise: Negative Neurovascular Status: Sensation Intact, Moves foot and ankle up & down, and 2+ dorsalis pedis IMAGING: X-ray Hips: Post op Implants are well fixed. and There is no evidence of loosening. Provider: Olu Atkinson PA-C Completed by: Olu Atkinson PA-C documented in this encounterMer[facility]10-10-2023 Miscellaneous Notes* PT ROUTINE/REASSESSMENT/RECERT/CASE GRETEL - Julio Cevallos PT - 04/13/2023 3:16 PM EDT SITUATION: spouse present during today's visit. patient reports the following since the last homecare visit: medications/allergies--no changes, no fall. patient reports she is feeling well today and is completing her HEP. BACKGROUND: Diagnoses (reason for Home Care): L NICHOLE Weight Bearing/Precaution Changes: no changes ASSESSMENT: Focus of visit transfers. ambulation, stair negotiation, and HEP Plan of care, goals, and visit frequency reviewed and agreed upon with patient and/or caregiver. Current Discharge Plan: independent with home exercise program Anticipate discharge by 04/24/23 RECOMMENDATION: Next visit to focus on DC from homecare See intervention summary for intervention/education details. documented in this encounterMer[facility]10-05-2023 Miscellaneous Notes* PT ROUTINE/REASSESSMENT/RECERT/CASE MGMT - Julio Cevallos PT - 04/08/2023 9:09 AM EDT SITUATION: only patient present during today's visit. patient reports the following since the last homecare visit: medications/allergies--no changes, no fall. patient reports she is feeling well today. BACKGROUND: Diagnoses (reason for Home Care): Primary osteoarthritis left hip S/P TOTAL HIP ARTHROPLASTY-ANTERIOR APPROACH-LEIGHTON (Left) 04/01/23 Weight Bearing/Precaution Changes: no changes ASSESSMENT: Focus of visit ambulation, transfers, supine HEP, bandage removal and photo uploaded with patient consent to her chart Plan of care, goals, and visit frequency reviewed and agreed upon with patient and/or caregiver. Current Discharge Plan: independent with home exercise program Anticipate discharge by 04/24/23 RECOMMENDATION: Next visit to focus on standing tolerance, ambulation, supine HEP See intervention summary for intervention/education details. documented in this encounterMer[facility]10-04-2023 Miscellaneous Notes* CARE COORDINATION - Heide Fulton, SOFÍA - 04/07/2023 3:04 PM EDT Medication review completed. No ineffective drug therapy, significant side effects, duplicate drug therapy, or noncompliance with drug therapy noted. SOC clinician reported severe interactions to provider Heide Fulton RN documented in this encounterMer[facility]10-03-2023 Miscellaneous Notes* OT EVALUATION/REASSESSMENT/RECERT - Digna Juarez OT/Veronica - 04/06/2023 12:41 PM EDT SITUATION: daughter present during today's visit. patient reports the following since the last homecare visit:medications/allergies--no changes, no fall. BACKGROUND: Diagnoses (reason for Home Care): L NICHOLE Past Medical History: Breast Implant Status Laryngeal Polyp Ddd (Degenerative Disc Disease), LumbarSludge in Gallbladder History of Tobacco Use Anxiety and Depression S/P Total Left Hip Arthroplasty Weight Bearing or Surgical Precautions: 50% PWB L LE; anterior hip dislocation precautions ASSESSMENT: [facility] Reviewed and explained homecare services. Plan of care, goals and visit frequency developed, reviewed, and agreed upon with patient and/or caregiver. Patient identified goals: to be able to take care of myself . Patient will benefit from continued occupational therapy to address the following deficits functional activity including I/ADLs as evidenced by score on Modified Jayden Index 65/100. Pt instructed in safe transfer to shower stall while maintaining WB/hip precuations. Pt does not want to learn to use LB dressing - choose to have fm complete. Current Discharge Plan:remain in community with/without caregiver support. Anticipate discharge by 04/06/23 RECOMMENDATION: No further OT at this time. See intervention summary for intervention/education details. documented in this encounterMer[facility]10-03-2023 Miscellaneous Notes* HH CARE COORDINATION - Janet Michele LSW - 04/06/2023 9:45 AM EDT 04/06/23 9:50 AM - 9:52 AM DINING ROOM COORDINATOR received a phone call back from the pt. and she stated she does want the Living Will and Medical POA forms mailed to her. She does not have a PO Box and address confirmed. She stated she was doing good and no other needs for DINING ROOM COORDINATOR at this time. DINING ROOM COORDINATOR provided the pt. with her name and phone number to call with any needs. 04/06/23 DINING ROOM COORDINATOR mailed the pt. the Living Will and Medical POA forms and About Advanced Directives pamphlet. 04/06/[address] Sebastian Sol - [place] spoke to the patient today and she stated she does want the Living Will and Medical POA forms mailed to her. She stated she was doing good and no other needs for DINING ROOM COORDINATOR at this time. DINING ROOM COORDINATOR provided the pt. with her name and phone number to call with any needs. DINING ROOM COORDINATOR mailed the pt. the Living Will and Medical POA forms and About Advanced Directives pamphlet. Thank You, documented in this encounterMer[facility]09-30-2023 NoteHNO ID: [id number] Author: Mason Aguilar MD Service: General Internal Medicine Author Type: Physician Type: Progress Notes Filed: 04/03/2023 10:51 AM Note Text: INPATIENT CONSULT PROGRESS NOTES Patient Name: Acacia Bynum DATE of SERVICE: 04/03/2023 CONSULTING SERVICE: Medicine Plan of care discussed with: Provider, RN, Patient. INTERVAL HPI: Uneventful night, pain is well controlled. Patient seen and examined: Discussed with RN. Vitals/Meds/Labs/U/O reviewed Alert AND Oriented NO N/V NO light headedness, NO shortness of breathe CVS - RRR Lungs - CTAB Abdomen - soft, NT, + BS LLE - Ankle No edema RLE - Ankle No edema MEDICATIONS: Current Facility-Administered Medications Medication Dose Route Frequency venlafaxine 37.5 mg tab(s) (EFFEXOR) 37.5 mg ORAL DAILY ondansetron orally disintegrating 4 mg tab(s) (ZOFRAN ODT) 4 mg ORAL q 6 H PRN Or ondansetron (PF) 4 mg injection (ZOFRAN) 4 mg INTRAVENOUS q 6 H PRN magnesium hydroxide 400 mg/5 mL 30 mL (MOM) 30 mL ORAL DAILY PRN bisacodyl EC 10 mg tab(s) (DULCOLAX) 10 mg ORAL DAILY aluminum-magnesium hydroxide-simethicone 200-200-20 mg/5 mL 30 mL 30 mL ORAL q 2 H PRN ferrous sulfate 325 mg tab(s) 325 mg ORAL DAILY WITH BREAKFAST ascorbic acid (vitamin C) 500 mg tab(s) (VITAMIN C) 500 mg ORAL BID w MEALS senna 17.2 mg tab(s) (SENOKOT) 17.2 mg ORAL AT BEDTIME aspirin, enteric coated 81 mg tab(s) 81 mg ORAL BID NaCl 0.9% iv flush bag 20 mL INTRAVENOUS PRN acetaminophen 1,000 mg tab(s) (TYLENOL) 1,000 mg ORAL q 8 H keTORolac 15 mg injection (Toradol) 15 mg INTRAVENOUS q 6 H oxyCODONE IR 5-10 mg tab(s) (ROXICODONE) 5-10 mg ORAL q 3 H PRN HYDROmorphone 0.4 mg injection (DILAUDID) 0.4 mg INTRAVENOUS q 4 H PRN doxycycline hyclate 100 mg cap(s) (VIBRAMYCIN) 100 mg ORAL q 12 H 6a/6p PHYSICAL EXAM: Blood pressure 96/56, pulse 98, temperature 36.7 ?C (98.1 ?F), temperature source Oral, resp. rate 16, SpO2 95 %. There is no height or weight on file to calculate BMI. ASSESSMENT AND PLAN: A. OA S/P - Total Hip Unilateral: left,DVT prophylaxis with aspirin Continue PT/OT Anxiety/depression, continue Effexor Irritable bowel syndrome currently on Bentyl discharge today Home-going meds reviewed SIGNATURE: Mason Aguilar, [facility] [id number] NoteHNO ID: [id number] Author: Timothy Rojas MD Service: Orthopaedic Surgery Author Type: Physician Type: Progress Notes Filed: 04/03/2023 6:46 AM Note Text: Progress NOTE ORTHOPAEDIC SURGERY IMPRESSION/PLAN: S/P Procedure(s) (LRB): TOTAL HIP ARTHROPLASTY-ANTERIOR APPROACH-LEIGHTON (Left) on 04/01/2023 Physical Therapy recommending Home PT PWB 50% LLE, anterior hip precautions DVT prophylaxis: Intermittent pneumatic compression device (IPCD) and ASA 81 BID Pain control Antibiotics: Doxy 100 mg BID x 1 week Case Management for discharge planning Plan of care discussed with: Provider, RN, Patient. Patient Active Hospital Problem List: Primary osteoarthritis of left hip (04/01/2023) S/P total left hip arthroplasty (04/02/2023) POST OPERATIVE COMPLICATIONS: Complicated by uneventful/none SUBJECTIVE: Doing well this AM, feeling ready for DC today. No chest pain or abdominal pain, tolerating diet. OBJECTIVE: VITAL SIGNS: BP 103/59 Pulse 83 Temp 37.3 ?C (99.1 ?F) (Oral) Resp 18 SpO2 96% INTAKE AND OUTPUT: Intake/Output Summary (Last 24 hours) at 04/03/2023 0644 Last data filed at 04/02/2023 0830 Gross per 24 hour Intake 240 ml Output -- Net 240 ml LABS: Hemoglobin Date Value Ref Range Status 04/02/2023 10.5 (L) 11.5 - 15.5 g/dL Final 03/05/2023 13.7 11.5 - 15.5 g/dL Final Hematocrit Date Value Ref Range Status 04/02/2023 32.6 (L) 36.0 - 46.0 % Final 03/05/2023 41.9 36.0 - 46.0 % Final Platelet Count Date Value Ref Range Status 04/02/2023 244 150 - 400 k/uL Final 03/05/2023 285 150 - 400 k/uL Final WBC Date Value Ref Range Status 04/02/2023 12.59 (H) 3.70 - 11.00 k/uL Final 03/05/2023 7.83 3.70 - 11.00 k/uL Final Creatinine Date Value Ref Range Status 04/02/2023 0.91 0.58 - 0.96 mg/dL Final 03/05/2023 0.67 0.58 - 0.96 mg/dL Final Potassium Date Value Ref Range Status 04/02/2023 3.8 3.7 - 5.1 mmol/L Final 03/05/2023 4.1 3.7 - 5.1 mmol/L Final VTE Prophylaxis: Active VTE Risk Category Order: 04/01/23 1400 VTE RISK CATEGORY: SURGICAL MODERATE RISK ([place]) Active VTE Medication Orders: Anticoagulant AND Antiplatelet Medications (From admission, onward) Start Dose Route Frequency Last Action Ordered Stop 04/02/23 0900 aspirin, enteric coated 81 mg tab(s) 81 mg ORAL 2 TIMES DAILY Given, 04/02 210004/01/23 0624 -- Active VTE Prophylaxis Orders: 04/01/23 1400 VTE CURRENT ANTICOAG THERAPY ([place]) 04/01/23 1400 ACTIVITY - MOBILIZE PATIENT ([place]) PHYSICAL EXAMINATION: Left Lower Extremity: Dorsalis pedis pulses palpable. Posterior tibial pulses palpable. Dorsi flexion 5/5. Plantar flexion 5/5. Extensor hallucis extension: 5/5. Sensory intact to light touch L1-S1. Dressing clean, dry, and intact. Surgical site no drainage and Aquacell intact. Thigh is not swollen, calf is not tender, no signs of DVT or infection DATA: Diagnostic tests reviewed for today's visit: Most recent labs and imaging results. Timothy Rojas MD Adult Recon Fellow The patient has undergone major orthopedic surgery and participating in therapy. Pain cannot be managed within an average of 30 MED per day. Patient requiring average of higher than 30 MED per day in order to control pain and allow patient to actively and safely participate in therapy and this is the lowest dose consistent with patient's medical condition. Non-narcotic medication options have been discussed. In addition, the patient has been advised of the benefits and risks of the opioid (including the potential for addiction). Patient demonstrated understanding of risks versus benefits.[facility] [id number] NoteHNO ID: [id number] Author: Jose (Owner Spa Director)Cata Service: Pharmacy Author Type: ? Type: Plan of Care Filed: 04/02/2023 1:32 PM Note Text: PHARMACY BEDSIDE DELIVERY SERVICE Patient Name: Acacia Bynum The marked outpatient medications were Filled at: [place] and delivered to the patient's bedside to 290 Medication List START taking these medications acetaminophen 500 mg tablet Commonly known as: TYLENOL Take 2 tablets by mouth every 8 hours as needed for pain. X aspirin, enteric coated 81 mg EC tablet Commonly known as: ECOTRIN LOW STRENGTH Take 1 tablet by mouth two times a day. X docusate sodium 100 mg capsule Commonly known as: COLACE Take 1 capsule by mouth two times a day as needed for constipation. X doxycycline 100 mg tablet Commonly known as: vibra-tabs Take 1 tablet by mouth two times a day for 7 days. X meloxicam 7.5 mg tablet Commonly known as: MOBIC Take 1 tablet by mouth once daily for 14 days. X oxyCODONE IR 5 mg immediate release tablet Commonly known as: ROXICODONE Take 1-2 tablets by mouth every 6 hours as needed for pain for up to [address] 40 mg tablet Commonly known as: PROTONIX Take 1 tablet by mouth once daily for 14 days. X CHANGE how you take these medications polyethylene glycol 3350 17 gram/dose powder Commonly known as: MIRALAX Take 17 g by mouth once daily as needed for constipation for up to 10 days. Dissolve dose in 4 - 8 ounces of liquid and take as directed. What changed: when to take this reasons to take this X CONTINUE taking these medications ascorbic acid (vitamin C) 500 mg tablet Commonly known as: VITAMIN C CITRACAL ORAL COLLAGEN MISC cyanocobalamin 1,000 mcg Tab Commonly known as: VITAMIN B-12 Take 0.5 tablets by mouth once daily. dicyclomine 10 mg capsule Commonly known as: BENTYL Take 2 capsules by mouth before meals and at bedtime. Magnesium Oxide-Mg Amino Acid Chelate 300 mg Cap venlafaxine 37.5 mg tablet Commonly known as: EFFEXOR Zinc 50 mg Tab You might also be taking other medications not listed above. If you have questions about any of your other medications, talk to the person who prescribed them or your Primary Care Provider. STOP taking these medications diclofenac (EC) 75 mg EC tablet Commonly known as: ELEAZAR Garcia (Owner Spa Director) PAGER: [phone] April 02, 2023 1:31 PMTrinity Health System West [id number] Miscellaneous Notes* Telephone Encounter - Page, Jovanna Hawkins, PSS - 04/02/2023 1:10 PM EDT Welcome Home Call: a. Date and Time: 1:10 PM 04/02/2023 b. Contact name/relationship: Patient, Acacia. Confirmed this is not related to workers comp, that claim is old and was for her arm. c. Have you been active with any Home Care company in the last 60 days (such as help with bathing, filling medications, checking your blood pressure, or assistance with an exercise program)? No. d. [facility] will be providing your care, are you agreeable to starting these services? YES (yes or no) e. Do you have any upcoming appointments in the next few days, or restrictions to your schedule? NO- She prefers SOC on Sat 04/02 she does not want Wednesday SOC. f. Caregiver: Patient is able to manage care independently g. Confirmed Visited Location and preferred #: Address: [address] [place] [id number] Phone: Spouse Braydon [phone] Please keep our your medications both over the counter and prescribed out for the home care to review, your hospital discharge instructions and write down any questions you might have. While we focus on providing safe care, in support of this mission, we ask you to: Be respectful of our caregivers. Do not raise your voice or use profanity. You and your family/caregivers must be considerate of our organization's staff and property. Promote a safe and respectful environment. We will not tolerate any form of threatening or aggressive behaviors towards our caregiver team. This includes verbal, physical or sexual behaviors: - Examples include acts or threats of physical violence, harassment, intimidation, abusive or foul language, or other aggressive, disruptive or discriminatory behavior. Any firearms or weapons in the home must be stored and locked in a separate room from where care istaking place. Firearms or other weapons should not be easily accessible or in plain view; when available, firearms should be stored and locked in a firearm safe. - Weapons of any kind include: firearms, knives, tasers and all other things that can inflict bodily or physical harm. Pets/animals must be moved to a separate closed room or placed in a crate/cage while caregivers arein the home. (Service animals excluded). Substance Use (illegal drugs, alcohol, cigarettes) including Medical marijuana in a vaporized or inhaled form is not permitted for use by a patient or caregiver/family member while our caregivers arein the home. Taking photos or videos of our caregivers without permission is not permitted. Our clinicians will call you the night before or the morning of the appointment. Their # may come up restricted but they'll leave a VM for you. In case you have any questions or concerns in the meantime, our # is [phone], option 5 Thank you for your time and have a great day. THOMAS Reddy documented in this encounterMer[facility]09-29-2023 NoteHNO ID: [id number] Author: Mason Aguilar MD Service: General Internal Medicine Author Type: Physician Type: Progress Notes Filed: 04/02/2023 10:27 AM Note Text: INPATIENT CONSULT PROGRESS NOTES Patient Name: Acacia Bynum DATE of SERVICE: 04/02/23 TIME of SERVICE: 7:05 CONSULTING SERVICE: Medicine Plan of care discussed with: Provider, RN, Patient. INTERVAL HPI: Uneventful night, pain is well controlled. Patient seen and examined: Discussed with RN. Vitals/Meds/Labs/U/O reviewed Alert AND Oriented NO nausea, or vomiting NO light headedness, NO shortness of breathe Dry oral mucosa CVS - RRR Lungs - Clear to auscultation Abdomen - soft, NT, + BS LLE - Ankle No edema RLE - Ankle No edema MEDICATIONS: Current Facility-Administered Medications Medication Dose Route Frequency scopolamine - VERIFY patch OTHER q 8 H scopolamine - REMOVE PATCH OTHER ONCE venlafaxine 37.5 mg tab(s) (EFFEXOR) 37.5 mg ORAL DAILY ondansetron orally disintegrating 4 mg tab(s) (ZOFRAN ODT) 4 mg ORAL q 6 H PRN Or ondansetron (PF) 4 mg injection (ZOFRAN) 4 mg INTRAVENOUS q 6 H PRN magnesium hydroxide 400 mg/5 mL 30 mL (MOM) 30 mL ORAL DAILY PRN [START ON 04/03/2023] bisacodyl EC 10 mg tab(s) (DULCOLAX) 10 mg ORAL DAILY aluminum-magnesium hydroxide-simethicone 200-200-20 mg/5 mL 30 mL 30 mL ORAL q 2 H PRN ferrous sulfate 325 mg tab(s) 325 mg ORAL DAILY WITH BREAKFAST ascorbic acid (vitamin C) 500 mg tab(s) (VITAMIN C) 500 mg ORAL BID w MEALS senna 17.2 mg tab(s) (SENOKOT) 17.2 mg ORAL AT BEDTIME aspirin, enteric coated 81 mg tab(s) 81 mg ORAL BID NaCl 0.9% iv flush bag 20 mL INTRAVENOUS PRN NaCl 0.9% iv infusion 100 mL/hr INTRAVENOUS CONTINUOUS acetaminophen 1,000 mg tab(s) (TYLENOL) 1,000 mg ORAL q 8 H keTORolac 15 mg injection (Toradol) 15 mg INTRAVENOUS q 6 H oxyCODONE IR 5-10 mg tab(s) (ROXICODONE) 5-10 mg ORAL q 3 H PRN HYDROmorphone 0.4 mg injection (DILAUDID) 0.4 mg INTRAVENOUS q 4 H PRN doxycycline hyclate 100 mg cap(s) (VIBRAMYCIN) 100 mg ORAL q 12 H 6a/6p PHYSICAL EXAM: Patient Vitals for the past 24 hrs: BP Temp Temp src Pulse Resp SpO2 04/02/23 0842 102/57 36.8 ?C (98.2 ?F) Oral 78 16 -- 04/02/23 0428 93/61 36.8 ?C (98.2 ?F) Oral 82 18 94 % 04/01/23 2310 102/70 37 ?C (98.6 ?F) Oral 85 16 96 % 04/01/23 1956 101/61 37.1 ?C (98.8 ?F) Oral 80 16 96 % 04/01/23 1535 102/59 36.8 ?C (98.2 ?F) Axillary 66 14 98 % 04/01/23 1447 121/64 36.6 ?C (97.9 ?F) Oral 63 16 99 % 04/01/23 1341 112/57 36.4 ?C (97.5 ?F) Oral 71 18 99 % 04/01/23 1315 118/59 -- -- 60 16 98 % 04/01/23 1215 112/64 -- -- 61 14 97 % 04/01/23 1130 113/57 -- -- 68 19 98 % 04/01/23 1115 111/55 -- -- 65 16 96 % 04/01/23 1100 116/58 -- -- 74 18 97 % 04/01/23 1045 113/73 36.2 ?C (97.2 ?F) Temporal Art 81 18 96 % There is no height or weight on file to calculate BMI. DATA: CBC: Recent Labs 04/02/23 0359 WBC 12.59* RBC 3.46* HB 10.5* HCT 32.6* PLT 244 MCV 94.2 MCH 30.3 MPV 8.9* Coags: No results for input(s): PT , INR , APTT in the last 24 hours. CMP: Recent Labs 04/02/23 0359 NA 138 K 3.8 CHLOR 104 CO2 27 BUN 19 CREAT 0.91 GLUC 118* CA 8.2* ANION 7* ASSESSMENT AND PLAN: A. OA S/P - Total Hip Unilateral: left,DVT prophylaxis with aspirin Continue PT/OT Anxiety/depression, continue Effexor Irritable bowel syndrome currently on Bentyl Possible discharge today Home-going meds reviewed SIGNATURE: Mason Aguilar MD DATE: April 02, 2023 TIME: 10:20 AMTr[facility] [id number] NoteHNO ID: [id number] Author: Mo Marquez PA-C Service: Orthopaedic Surgery Author Type: Physician Prepleater Type: Progress Notes Filed: 04/02/2023 9:14 AM Note Text: POSTOP NOTE ORTHOPAEDIC SURGERY SERVICE DATE: 04/02/2023 SERVICE TIME: 9:12 AM IMPRESSION/PLAN: S/P Procedure(s) (LRB): TOTAL HIP ARTHROPLASTY-ANTERIOR APPROACH-LEIGHTON (Left) on 04/01/2023 Physical Therapy recommending Home PT PWB 50% LLE, anterior hip precautions DVT prophylaxis: Intermittent pneumatic compression device (IPCD) and ASA 81 BID Pain control Antibiotics: Doxy 100 mg BID x 1 week Case Management for discharge planning Plan of care discussed with: Provider, RN, Patient. Patient Active Hospital Problem List: Primary osteoarthritis of left hip (04/01/2023) POST OPERATIVE COMPLICATIONS: Complicated by uneventful/none SUBJECTIVE: Patient states that they are comfortable Well Controlled hip pain. Denies incisional pain. OBJECTIVE: VITAL SIGNS: BP 102/57 Pulse 78 Temp 36.8 ?C (98.2 ?F) (Oral) Resp 16 SpO2 94% INTAKE AND OUTPUT: Intake/Output Summary (Last 24 hours) at 04/02/2023 0912 Last data filed at 04/02/2023 0830 Gross per 24 hour Intake 3568 ml Output 850 ml Net 2718 ml LABS: Hemoglobin Date Value Ref Range Status 04/02/2023 10.5 (L) 11.5 - 15.5 g/dL Final 03/05/2023 13.7 11.5 - 15.5 g/dL Final Hematocrit Date Value Ref Range Status 04/02/2023 32.6 (L) 36.0 - 46.0 % Final 03/05/2023 41.9 36.0 - 46.0 % Final Platelet Count Date Value Ref Range Status 04/02/2023 244 150 - 400 k/uL Final 03/05/2023 285 150 - 400 k/uL Final WBC Date Value Ref Range Status 04/02/2023 12.59 (H) 3.70 - 11.00 k/uL Final 03/05/2023 7.83 3.70 - 11.00 k/uL Final Creatinine Date Value Ref Range Status 04/02/2023 0.91 0.58 - 0.96 mg/dL Final 03/05/2023 0.67 0.58 - 0.96 mg/dL Final Potassium Date Value Ref Range Status 04/02/2023 3.8 3.7 - 5.1 mmol/L Final 03/05/2023 4.1 3.7 - 5.1 mmol/L Final VTE Prophylaxis: Active VTE Risk Category Order: 04/01/23 1400 VTE RISK CATEGORY: SURGICAL MODERATE RISK ([place], [place]) Active VTE Medication Orders: Anticoagulant AND Antiplatelet Medications (From admission, onward) Start Dose Route Frequency Last Action Ordered Stop 04/02/23 0900 aspirin, enteric coated 81 mg tab(s) 81 mg ORAL 2 TIMES DAILY Given, 04/02 0822 04/01/23 0624 -- Active VTE Prophylaxis Orders: 04/01/23 1400 VTE CURRENT ANTICOAG THERAPY ([place], [place]) 04/01/23 1400 ACTIVITY - MOBILIZE PATIENT ([place]) PHYSICAL EXAMINATION: Left Lower Extremity: Dorsalis pedis pulses palpable. Posterior tibial pulses palpable. Dorsi flexion 5/5. Plantar flexion 5/5. Extensor hallucis extension: 5/5. Sensory intact to light touch L1-S1. Dressing clean, dry, and intact. Surgical site no drainage and Aquacell intact. Thigh is not swollen, calf is not tender, no signs of DVT or infection Problem Review and Assessment: Skin and Abdominal Wall: Patient monitored, no new events overnight Cardiovascular and Vascular: Patient monitored, no new events overnight Respiratory: Patient monitored, no new events overnight Endocrine and Metabolic: Patient monitored, no new events overnight Gastrointestinal: Patient monitored, no new events overnight Genitourinary and Nephrology: Patient monitored, no new events overnight Behavioral, Cerebrovascular and Nervous: Patient monitored, no new events overnight Infectious: Patient monitored, no new events overnight DATA: Diagnostic tests reviewed for today's visit: Most recent labs and imaging results. SIGNATURE: Mo Marquez PA-C PATIENT NAME: Acacia Bynum DATE: April 02, 2023 TIME: 9:12 AM The patient has undergone major orthopedic surgery and participating in therapy. Pain cannot be managed within an average of 30 MED per day. Patient requiring average of higher than 30 MED per day in order to control pain and allow patient to actively and safely participate in therapy and this is the lowest dose consistent with patient's medical condition. Non-narcotic medication options have been discussed. In addition, the patient has been advised of the benefits and risks of the opioid (including the potential for addiction). Patient demonstrated understanding of risks versus benefits.[facility] [id number] NoteHNO ID: [id number] Author: Storm Kang MD Service: Orthopaedic Surgery Author Type: Physician Type: Progress Notes Filed: 04/01/2023 5:21 PM Note Text: ORTHOPAEDIC SURGERY PROGRESS NOTE PATIENT NAME: Acacia Bynum A/P: 62 year old yo female POD1 s/p Left ABMS NICHOLE - Activity: 50% PWB LLE - Wound: Aquacel Dressing to be removed POD7 - Drain: - Antibiotics: Completing 24 hours of perioperative Ancef then Doxy for one week - Imaging: Complete - Pain - PO and IV breakthrough - DVT prophylaxis - SCDs, ASA 81 BID - HLIV when tolerating sufficient PO - Gates: none * Discharge planning - Await PT recs --> consults today - Case Management --> assessment today - Dispo: anticipate DC to home on POD1 S: Doing well, pain well controlled, denies n/v/cp/sob VITALS: 04/01/23 1315 04/01/23 1341 04/01/23 1447 04/01/23 1535 BP: 118/59 112/57 121/64 102/59 Pulse: 60 71 63 66 Resp: 16 18 16 14 Temp: 36.4 ?C (97.5 ?F) 36.6 ?C (97.9 ?F) 36.8 ?C (98.2 ?F) TempSrc: Oral Oral Axillary SpO2: 98% 99% 99% 98% Intake/Output Summary (Last 24 hours) at 04/01/2023 1720 Last data filed at 04/01/2023 1535 Gross per 24 hour Intake 1800 ml Output 350 ml Net 1450 ml Physical Exam: * Gen: awake, alert, converses appropriately, NAD * Resp: Unlabored on RA, no wheeze * LLE: - dressing c,d,i - 11/06 PF, DF, EHL, KE 11/06 - SILT L4-S1 - 2+ PT pulse, toes wwp Labs: CBC:No results for input(s): WBC , HB , HCT , PLT , MCV , RDWCV , NEUTP , ABSNEUT , LYMPHP , MONOP , EODINP in the last 168 hours. COAG: No results for input(s): APTT , INR in the last 168 hours. BMP: No results for input(s): GLUC , NA , K , CHLOR , CO2 , ANION , BUN , CREAT in the last 168 hours. CHEM: No results for input(s): ALB , TPROT , CA , MG in the last 168 hours. URINALYSIS:No results for input(s): PH , SPGR , UGLUC , UBILI , UKET , UHB , UPROT , UROBIL , UWBC , SSA in the last 168 hours. Invalid input(s): JESUSITA Kang MD Associate Staff Physician [facility] Department of Orthopedic Surgery [phone] [id number] History of Past illness Narrative* Problem Noted Date Diagnosed Date Resolved Date Primary osteoarthritis of left hip 04/01/2023 04/02/2023 Sebaceous cyst 08/09/2012 12/31/2017 Overactive bladder 11/17/2010 8 Chronic constipation 11/17/2010 018 Closed Colles' fracture 08/17/200511/02 documented as of this encounter (statuses as of 04/02/2023) [facility]09-28-2023 History of Past illness Narrative* Problem Noted Date Diagnosed Date Resolved Date Primary osteoarthritis of left hip 04/01/2023 04/02/2023 Sebaceous cyst 08/09/2012 12/31/2017 Overactive bladder 11/17/2010 8 Chronic constipation 11/17/2010 018 Closed Colles' fracture 08/17/200511/02 documented as of this encounter (statuses as of 04/07/2023) [facility]09-28-2023 History of Past illness Narrative* Problem Noted Date Diagnosed Date Resolved Date Primary osteoarthritis of left hip 04/01/2023 04/02/2023 Sebaceous cyst 08/09/2012 12/31/2017 Overactive bladder 11/17/2010 8 Chronic constipation 11/17/2010 018 Closed Colles' fracture 08/17/200511/02 documented as of this encounter (statuses as of 04/08/2023) [facility]09-[facility]-20[facility] History of Past illness Narrative* Problem Noted Date Diagnosed Date Resolved Date Primary osteoarthritis of left hip 04/01/2023 04/02/2023 Sebaceous cyst 08/09/2012 12/31/2017 Overactive bladder 11/17/2010 8 Chronic constipation 11/17/2010 018 Closed Colles' fracture 08/17/200511/02 documented as of this encounter (statuses as of 04/09/2023) [address]28-2023 History of Past illness Narrative* Problem Noted Date Diagnosed Date Resolved Date Primary osteoarthritis of left hip 04/01/2023 04/02/2023 Sebaceous cyst 08/09/2012 12/31/2017 Overactive bladder 11/17/2010 8 Chronic constipation 11/17/2010 018 Closed Colles' fracture 08/17/200511/02 documented as of this encounter (statuses as of 04/10/2023) [address]28-2023 History of Past illness Narrative* Problem Noted Date Diagnosed Date Resolved Date Primary osteoarthritis of left hip 04/01/2023 04/02/2023 Sebaceous cyst 08/09/2012 12/31/2017 Overactive bladder 11/17/2010 8 Chronic constipation 11/17/2010 018 Closed Colles' fracture 08/17/200511/02 documented as of this encounter (statuses as of 04/13/2023) [address]28-2023 History of Past illness Narrative* Problem Noted Date Diagnosed Date Resolved Date Primary osteoarthritis of left hip 04/01/2023 04/02/2023 Sebaceous cyst 08/09/2012 12/31/2017 Overactive bladder 11/17/2010 8 Chronic constipation 11/17/2010 018 Closed Colles' fracture 08/17/200511/02 documented as of this encounter (statuses as of 04/14/2023) [address]28-2023 History of Past illness Narrative* Problem Noted Date Diagnosed Date Resolved Date Primary osteoarthritis of left hip 04/01/2023 04/02/2023 Sebaceous cyst 08/09/2012 12/31/2017 Overactive bladder 11/17/2010 8 Chronic constipation 11/17/2010 018 Closed Colles' fracture 08/17/200511/02 documented as of this encounter (statuses as of 04/16/2023) [address]28-2023 History of Past illness Narrative* Problem Noted Date Diagnosed Date Resolved Date Primary osteoarthritis of left hip 04/01/2023 04/02/2023 Sebaceous cyst 08/09/2012 12/31/2017 Overactive bladder 11/17/2010 8 Chronic constipation 11/17/2010 018 Closed Colles' fracture 08/17/200511/02 documented as of this encounter (statuses as of 04/23/2023) [facility]09-28-20[facility] History of Past illness Narrative* Problem Noted Date Diagnosed Date Resolved Date Primary osteoarthritis of left hip 04/01/2023 04/02/2023 Sebaceous cyst 08/09/2012 12/31/2017 Overactive bladder 11/17/2010 8 Chronic constipation 11/17/2010 018 Closed Colles' fracture 08/17/200511/02 documented as of this encounter (statuses as of 05/04/2023) [facility] History of Past illness Narrative* Problem Noted Date Diagnosed Date Resolved Date Primary osteoarthritis of left hip 04/01/2023 04/02/2023 Sebaceous cyst 08/09/2012 12/31/2017 Overactive bladder 11/17/2010 8 Chronic constipation 11/17/2010 018 Closed Colles' fracture 08/17/200511/02 documented as of this encounter (statuses as of 05/06/2023) [facility]09[facility] History of Past illness Narrative* Problem Noted Date Diagnosed Date Resolved Date Primary osteoarthritis of left hip 04/01/2023 04/02/2023 Sebaceous cyst 08/09/2012 12/31/2017 Overactive bladder 11/17/2010 8 Chronic constipation 11/17/2010 018 Closed Colles' fracture 08/17/200511/02 documented as of this encounter (statuses as of 05/13/2023) [place] [id number] History of Past illness Narrative* Problem Noted Date Diagnosed Date Resolved Date Primary osteoarthritis of left hip 04/01/2023 04/02/2023 Sebaceous cyst 08/09/2012 12/31/2017 Overactive bladder 11/17/2010 8 Chronic constipation 11/17/2010 018 Closed Colles' fracture 08/17/200511/02 documented as of this encounter (statuses as of 05/14/2023) [facility] History of Past illness Narrative* Problem Noted Date Diagnosed Date Resolved Date Primary osteoarthritis of left hip 04/01/2023 04/02/2023 Sebaceous cyst 08/09/2012 12/31/2017 Overactive bladder 11/17/2010 8 Chronic constipation 11/17/2010 018 Closed Colles' fracture 08/17/200511/02 documented as of this encounter (statuses as of 05/18/2023) [facility] History of Past illness Narrative* Problem Noted Date Diagnosed Date Resolved Date Primary osteoarthritis of left hip 04/01/2023 04/02/2023 Sebaceous cyst 08/09/2012 12/31/2017 Overactive bladder 11/17/2010 8 Chronic constipation 11/17/2010 018 Closed Colles' fracture 08/17/200511/02 documented as of this encounter (statuses as of 05/19/2023) [facility] History of Past illness Narrative* Problem Noted Date Diagnosed Date Resolved Date Primary osteoarthritis of left hip 04/01/2023 04/02/2023 Sebaceous cyst 08/09/2012 12/31/2017 Overactive bladder 11/17/2010 8 Chronic constipation 11/17/2010 018 Closed Colles' fracture 08/17/200511/02 documented as of this encounter (statuses as of 06/01/2023) [facility]09-28-2023 NoteHNO ID: [id number] Author: Shadi Gutiérrez RN Service: Nursing Author Type: Registered Nurse Type: Nursing Progress Note Filed: 04/01/2023 11:46 AM Note Text: Bladderscan = 250mlMedina [id number] NoteHNO ID: [id number] Author: Shadi Gutiérrez RN Service: Nursing Author Type: Registered Nurse Type: Nursing Progress Note Filed: 04/01/2023 11:09 AM Note Text: Pelvis film completeTrinity Health System West [id number] NoteHNO ID: [id number] Author: Karly Kong APRN.FIRE TRUCK DRIVER Service: Anesthesiology Author Type: Nurse Hull Molder Type: Anesthesia Procedure Notes Filed: 04/01/2023 8:19 AM Note Text: ANESTHESIOLOGY PROCEDURE NOTE Spinal Block General Information Procedure Start Time/Medication Administration: 04/01/2023 7:47 AM Patient location during procedure: OR Reason for Block: primary surgical anesthetic Staffing Anesthesiologist: Obie Sargent DO FIRE TRUCK DRIVER: Karly Kong APRN.FIRE TRUCK DRIVER Performed by: FIRE TRUCK DRIVER Preparation Sterility Preparation: hand hygiene performed prior to procedure, sterile gloves, drapes, and procedure tray, surgical cap used, mask used, sterile drape used during line insertion, skin prep agent completely dried prior to procedure Site Prep: Betadine Procedure Details Patient Position: sitting Ultrasound Guided: No Monitoring: Pulse Ox and NIBP Approach: Midline Location: L2-3 Injection Technique: single-shot Needle Needle Type: pencil-tip Needle Gauge: 25 G Needle Length: 3.5 in Assessment Sensory Level: T4 Events: tolerated well Comments Skin localized with 1% lido - Negative heme/paresthesia SIGNATURE: Karly Kong APRN.FIRE TRUCK DRIVER PATIENT NAME: Acacia Bynum DATE: April 01, 2023 TIME: 8:18 AM CSN: [id number] NoteHNO ID: [id number] Author: Storm Kang MD Service: ? Author Type: Physician Type: Progress Notes Filed: 03/29/2023 2:00 PM Note Text: CONSULT ORTHOPAEDIC: HIP PRIMARY CARE PHYSICIAN: Sebastian Sol MD REFERRING PROVIDER: No referring provider defined for this encounter. ASSESSMENT AND PLAN Acacia Bynum is a 62 year old female who presents with left hip pain. She was seen by Olu BARRIENTOS a few weeks ago for a left NICHOLE. Patient has had hip pain for the last two years that is worse over the last year. She has tried PT and NSAIDS and hip CSI in both hips. She has no significant pmh. No hx of DM DVTs, blood thinners and does not smoke. Left hip XR shows joint space loss and superior joint space narrowing bilaterally with osteophytes formation. Patient has failed conservative treatment for with regards to her left hip degenerative disease. Discussed surgical treatment in the form of a total hip replacement to address her condition. Discussed the benefits of the operation as well as the risks which include infection, dislocation, femoral nerve palsy, sciatic nerve palsy, dislocation, fracture, loosening of the components, DVT/PE, further need for revision surgery, and other complications related to anesthesia. Discussed various approaches used for total hip arthroplasty including posterior and Anterior-Based Muscle Sparing (ABMS). Patient understands the procedure, risks, and benefits and wishes to proceed with a left Anterior-Based Muscle Sparing total hip arthroplasty. Will schedule appointment for Preop Anesthesia Evaluation. The surgery will be scheduled for [facility]. Surgery: left ABMS NICHOLE DVT ppx: ASA 81mg bid Abx: Ancef TXA: IV I spent a total of approximately 25 minutes on the date of the service which included preparing to see the patient, [id number] patient care, completing clinical documentation, obtaining and/or reviewing separately obtained history, performing a medically appropriate examination, counseling and educating the patient/family/caregiver, ordering medications, tests, or procedures, independently interpreting results (not separately reported), communicating results to the patient/family/caregiver, and care coordination (not separately reported). Storm Kang MD Impression: Bilateral Hip Severe Degenerative Osteoarthritis, Primary Diagnoses: No diagnosis found. Based upon the evaluation today and after discussions with Acacia Bynum, Acacia Bynum has significant, worsening pain at the hip. This pain is increased with activity and weight bearing, and interferes with activities of daily living. These symptoms have continued despite a number of non-surgical measures, including a trial of oral pain medication (for at least 12 weeks). At this point, the patient will not benefit from further PT due to the severity of their condition. The patient's physical examination is consistent with limitations in range of motion, pain with passive range of motion, and an antalgic gait. These examination findings are corroborated by imaging findings of joint space narrowing, periarticular osteophyte formation, and subchondral sclerosis. The patient has been treated by the practice and all reasonable treatments have failed to control the disease, which causes significant pain and limits activities of daily living. The patient has failed conservative treatment and joint replacement surgery was discussed and agreed upon by both provider and patient. The patient has elected to proceed with surgical management to improve function and relieve pain refractory to non-surgical measures: Left Primary Total Hip Arthroplasty as evidenced by six months of unsuccessful non-operative treatment as outlined in the HPI below. Surgery Details Date and Location: At 04/01 on [place]. Implants: [place] Robotic: No Predicted LOS: 1 day (Outpatient candidate) The risks and benefits of surgery were discussed at length including but not limited to the risks of infection, bleeding, nerve or blood vessel injury, deep venous thrombosis, pulmonary embolism, , paralysis, hip dislocation, leg length discrepancy (including requiring use of permanent shoe lift), bone fracture, component loosening or failure requiring re-operation or amputation. Informed consent was obtained and the patient was scheduled. We also discussed fixation strategies including cement and cementless fixation and modern alternative bearings including metal or ceramic with cross-linked polyethylene, vurjlmz-[id number]-yabqpau and derji-jc-fiurw as well as advantages and disadvantages of each. We also discussed less invasive surgical approaches and reported benefits and risks of these approaches. The patient has been ordered: No orders found for this visit on 03/29/23. No orders placed today. CONSULTS: Patient does not require consults for optimization at this time. C (more content not included)...[facility]09-25-2023 History of Present illness Narrative* Storm Kang MD - 03/29/2023 1:40 PM EDT CONSULT ORTHOPAEDIC: HIP PRIMARY CARE PHYSICIAN: Sebastian Sol MD REFERRING PROVIDER: No referring provider defined for this encounter. ASSESSMENT & PLAN Acacia Bynum is a 62 year old female who presents with left hip pain. She was seen by Olu Borges a few weeks ago for a left NICHOLE. Patient has had hip pain for the last two years that is worse over the last year. She has tried PT and NSAIDS and hip CSI in both hips. She has no significant pmh. No hx of DM DVTs, blood thinners and does not smoke. Left hip XR shows joint space loss and superiorjoint space narrowing bilaterally with osteophytes formation. Patient has failed conservative treatment for with regards to her left hip degenerative disease. Discussed surgical treatment in the form of a total hip replacement to address her condition. Discussed the benefits of the operation as well as the risks which include infection, dislocation, femoral nerve palsy, sciatic nerve palsy, dislocation, fracture, loosening of the components, DVT/PE, furtherneed for revision surgery, and other complications related to anesthesia. Discussed various approaches used for total hip arthroplasty including posterior and Anterior-Based Muscle Sparing (ABMS). Patient understands the procedure, risks, and benefits and wishes to proceed with a left Anterior-Based Muscle Sparing total hip arthroplasty. Will schedule appointment for Preop Anesthesia Evaluation. The surgery will be scheduled for [facility]. Surgery: left ABMS NICHOLE DVT ppx: ASA 81mg bid Abx: Ancef TXA: IV I spent a total of approximately 25 minutes on the date of the service which included preparing to see the patient, [id number] patient care, completing clinical documentation, obtaining and/or reviewing separately obtained history, performing a medically appropriate examination, counseling and educating the patient/family/caregiver, ordering medications, tests, or procedures, independently interpreting results (not separately reported), communicating results to the patient/family/caregiver, and care coordination (not separately reported). Storm Kang MD Impression: Bilateral Hip Severe Degenerative Osteoarthritis, Primary Diagnoses: No diagnosis found. Based upon the evaluation today and after discussions with Acacia Fletcher, Acacia Bynum has significant, worsening pain at the hip. This pain is increased with activity and weight bearing, and interferes with activities of daily living. These symptoms have continued despite a number of non-surgical measures, including a trial of oral pain medication (for at least 12 weeks). At this point, the patient will not benefit from further PT due to the severity of their condition. The patient's physical examination is consistent with limitations in range of motion, pain with passive range of motion, and an antalgic gait. These examination findings are corroborated by imaging findings of joint space narrowing, periarticular osteophyte formation, and subchondral sclerosis. The patient has been treated by the practice and all reasonable treatments have failed to control the disease, which causes significant pain and limits activities of daily living. The patient has failed conservative treatment and joint replacement surgery was discussed and agreed upon by both provider and patient. The patient has elected to proceed with surgical management to improve function and relieve pain refractory to non-surgical measures: Left Primary Total Hip Arthroplasty as evidenced by six months of unsuccessful non-operative treatment as outlined in the HPI below. Surgery Details Date and Location: At 04/01 on [place]. Implants: Leighton Robotic: No Predicted LOS: 1 day (Outpatient candidate) The risks and benefits of surgery were discussed at length including but not limited to the risks of infection, bleeding, nerve or blood vessel injury, deep venous thrombosis, pulmonary embolism, , paralysis, hip dislocation, leg length discrepancy (including requiring use of permanent shoe lift), bone fracture, component loosening or failure requiring re-operation or amputation. Informed consent was obtained and the patient was scheduled. We also discussed fixation strategies including cement and cementless fixation and modern alternative bearings including metal or ceramic with cross-linked polyethylene, [id number] and [id number] as well as advantages and disadvantages of each. We also discussed less invasive surgical approaches and reported benefits and risks of these approaches. The patient has been ordered: No orders found for this visit on 03/29/23. No orders placed today. CONSULTS: Patient does not require consults for optimization at this time. Cleared 03/15 Total Joint Arthroplasty: Risk Calculator Acacia Bynum has a 4.52% chance of NOT returning home at discharge for a Primary total Hip replacement. Acacia's estimated Length of Stay is 1 day (Outpatient candidate). Acacia's 30 day chance of readmission is 0.62%. Readmission Probability 0.62 % (within 30 days following surgery) Estimated LOS 1 day Discharge Disposition Probability D/C to Home 95.48 % D/C to SNF 4.52 % These calculations are based on the following factors: - 62 years of age - sex is not male - BMI of 27 kg/m2 - NarxCare score of 0 - 0 hospitalizations in the last 12 months - no history of heart disease - no history of diabetes - no history of COPD - no history of anemia - preoperative ambulation: independent community distances - 1 step(s) to enter home - bed location is on the first floor - bath location is on the first floor - caregiver is consistent - home is not more than 150 miles away - PROMIS-10 Mental Health T score 50+ - Marital status: Risk Factors for Total Hip Arthroplasty (NICHOLE) Major Risk Factors Obesity normal High: BMI > 40 Moderate: BMI 30-40 Normal: BMI < 30 Diabetes normal High: A1C > 8 Moderate: A1C 7-8 Normal: A1C < 7 Smoking normal High: Current smoker Normal: Non smoker Narcotics Use normal High:NarxCare >=300 Moderate: 100-299 Normal: 0-99 Depression normal High: PHQ-9 >14 Moderate: PHQ-9 5-14 Normal: PHQ-9 < 5 Area Deprivation Index (RENETTA) Moderate Risk High: RENETTA Score > 75 Moderate: RENETTA 50-75 Normal: RENETTA < 50 Area Deprivation Index (RENETTA) RENETTA Score 01/14/2022 12/03/2022 National Score 54 51 Patient Health Questionnaire (PHQ-9) PHQ-9 09/08/2018 06/15/2022 08/06/2022 PHQ-2 Score 0 0 0 PHQ-9 Score - - 4 (0-4) minimal depression, (5-9) mild depression, (10-14) moderate depression, (15-19) moderately severe depression, (20-27) severe depression Bone Density Risk Screen Acacia Bynum is low risk for bone loss based on her age and having no previous diagnoses of osteopenia, osteoporosis, Paget's disease of bone, or cancer of bone. Other risk factors are listed below to determine if they pose a significant risk for bone loss, andif so, recommend ordering a bone densitometry and, upon receiving a result, as needed, order a consult to a bone health specialist (Rheumatology, Endocrinology, or Women's Health) for bone assessment. Risk Factors: Use of Proton Pump Inhibitors Prednisone or use of systemic steroids Additional Risk Factors Malnutrition: No Malnutrition Screening Tool (MST) score on file- please complete the MST screeningtool (click here to open) and refresh the note. ACTIVE PROBLEM LIST Breast Implant Status Laryngeal Polyp Ddd (Degenerative Disc Disease), Lumbar Sludge in Gallbladder History of Tobacco Use Anxiety and Depression SUBJECTIVE CHIEF COMPLAINT: Hip Pain HPI: Acacia Bynum is a 62 year old patient . 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 The problem began limiting activities 1-3 years ago. FUNCTIONAL STATUS: Walk indoors, such as around the house (1.75 METs) Do light work around the house, such as dusting or washing dishes (2.70 METs) Take care of self, that is eating, dressing, bathing, using the toilet (2.75 METs) Do moderate work around the house such as vacuuming, sweeping floors, or carrying in groceries (3.50 METs) PREVIOUS TREATMENTS: Last hip-related PT visit: 10/12/2022 (Hip - Right) Current Anti-Inflammatory medications: diclofenac sodium Past anti-inflammatory medications (not necessarily for this reason for visit): dexamethasone sodium phosphate, diclofenac sodium, ibuprofen, ketorolac tromethamine, meloxicam, methylprednisolone acetate, prednisone Attempted Weight Loss Medical: OTC NSAIDS for 3 Months or Greater (Ibuprofen), Steroid Injections Left Hip, Steroid Injections Right Hip REVIEW OF SYSTEMS: GENERAL: Denies fever, chills malaise and weight loss.. PAIN ASSESSMENT: See HPI. CARDIOVASCULAR: Denies chest pain, history of A-fib, valvular disease, hypertension, CHF or pacemaker/ICD.. RESPIRATORY: Denies SOB, sputum production, dyspnea, COPD and hemoptysis.. GI: Denies GI ulcers, inflammatory disease, ascites or liver disease.. MUSCULOSKELETAL: See HPI. PSYCHOLOGICAL: Denies uncontrolled depression or anxiety.. NEURO: Denies CVA, seizures, headaches.. No flowsheet data found. PAST MEDICAL HISTORY Diagnosis Date Chronic constipation 11/17/2010 COLLES' FRACTURE-CLOSED 08/17/2005 DDD (degenerative disc disease), lumbar History of tobacco use Internal hemorrhoids without mention of complication Overactive bladder 11/17/2010 PAST SURGICAL HISTORY Procedure Laterality Date ABDOMINAL SURGERY HX BREAST SURGERY HX COLONOSCOPY 07/29/2021 repeat in 10 years COLONOSCOPY FLX DX W/COLLJ SPEC WHEN PFRMD 10/20/2010 EGD 07/29/2021 L'SCOPE CHOLECYSTECTOMY 09/02/2020 LARGSC EXC ANGLE&/STRPG CORDS/EPIGL MCRSCP/TLSCP Left 02/28/2018 removal of polyp PAST SURGICAL HISTORY OF 2004 intersyne for bladder frequency; was surgically removed after PAST SURGICAL HISTORY OF Bilateral 2016 Breast Implants, Dr. Thompson REM LESION NEC,HND,SCAL,FEET,GENITALIA 1.1-2.0CM 09/17/2012 Exc. scalp wens x 3 VAGINAL HYSTERECTOMY VAGINAL HYSTERECTOMY UTERUS 250 GM/< 2000 Hysterectomy, vaginal (endometriosis) FAMILY HISTORY Problem Relation Age of Onset Cancer Mother lung Cancer Father lymphoma None Sister None Brother Diabetes Maternal Grandmother None Sister None Brother None Brother other (Other) Brother accidental No Known Problems Son No Known Problems Daughter Social History Tobacco Use Smoking status: Former Packs/day: 0.50 Years: 20.00 Additional pack years: 0.00 Total pack years: 10.00 Types: Cigarettes Quit date: 07/05/2009 Years since quittin.7 Smokeless tobacco: Never Vaping Use Vaping Use: Never used Substance Use Topics Alcohol use: Not Currently Drug use: No ALLERGIES: Codeine, Morphine, Penicillins, and Sulfa (Sulfonamide Antibiotics) MEDICATIONS: dicyclomine (BENTYL) 10 mg capsule Take 2 capsules by mouth before meals and at bedtime. diclofenac, EC, (VOLTAREN) 75 mg EC tablet Take 1 tablet by mouth twice daily. Take with food polyethylene glycol 3350 (MIRALAX) 17 gram/dose powder Take 17 g by mouth once daily. Dissolve dosein 4 - 8 ounces of liquid and take as directed. Zinc 50 mg tab Take 50 mg by mouth once daily. COLLAGEN MISC 1 capsule once daily. venlafaxine (EFFEXOR) 37.5 mg tablet Take 37.5 mg by mouth once daily. cyanocobalamin (VITAMIN B-12) 1,000 mcg tab Take 0.5 tablets by mouth once daily. CALCIUM CITRATE/VITAMIN D3 (CITRACAL ORAL) Take by mouth once daily. ascorbic acid, vitamin C, (VITAMIN C) 500 mg tablet Take 500 mg by mouth once daily. Magnesium Oxide-Mg Amino Acid Chelate 300 mg cap Take 300 mg by mouth once daily. OBJECTIVE PHYSICAL EXAM There were no vitals taken for this visit. All other systems deferred. GENERAL: Appears healthy, well-nourished, no deformities. HABITUS: Normal GAIT: Antalgic to the left HIP EXAM: Leg length equal Left: ROM: Extension: 10 degree flexion contracture Flexion: 90 degrees Internal Rotation: 5 degrees External Rotation: 15 degrees Abduction: 30 degrees Adduction: 10 degrees Strength: Abduction 5/5 Palpation: TTP over groin Log roll: painful. Straight leg raise: Positive, reproducing hip symptoms Neurovascular Status: Sensation Intact, Moves foot and ankle up & down, and 2+ dorsalis pedis DATA: Diagnostic tests reviewed for today's visit: Right hip X-Ray: Severe degenerative changes Left hip X-Ray: Severe degenerative changes and Complete loss of superior joint space The following conditions were addressed during the office visit today: SIGNATURE: Storm Kang MD PATIENT NAME: Acacia Bynum DATE: March 28, 2023 TIME: 4:48 PM [facility] NotePatient Outreach (INTMMN) ACACIA BYNUM ([id number]) 1960 F Date Time Provider Department 03/17/23 SEBASTIAN SOL INTMMN During your visit today, we recorded the following information about you: Allergies As of Date: 03/17/2023 Noted Allergy Reaction CODEINE 06/19/2005 2 - Rash MORPHINE 08/17/2005 9 - Itching PENICILLINS 06/19/2005 4 - Hives SULFA (SULFONAMIDE ANTIBIOTICS) 06/19/2005 8 - GI Upset Date Reviewed: 03/15/2023 Reviewed by: Shahbaz Wesley, KIM.ACADEMY DIRECTOR - Fully Assessed Visit Diagnosis:Encounter for screening mammogram for breast cancer [Z12.31] Order(s):[facility] SCREENING [[id number]] Order #: [id number] FUTURE Prescriptions as of 03/22/2023 - dicyclomine (BENTYL) 10 mg capsule Take 2 capsules by mouth before meals and at bedtime. - diclofenac, EC, (VOLTAREN) 75 mg EC tablet Take 1 tablet by mouth twice daily. Take with food - polyethylene glycol 3350 (MIRALAX) 17 gram/dose powder Take 17 g by mouth once daily. Dissolve dose in 4 - 8 ounces of liquid and take as directed. - Zinc 50 mg tab Take 50 mg by mouth once daily. - COLLAGEN MISC 1 capsule once daily. - venlafaxine (EFFEXOR) 37.5 mg tablet Take 37.5 mg by mouth once daily. - cyanocobalamin (VITAMIN B-12) 1,000 mcg tab Take 0.5 tablets by mouth once daily. - CALCIUM CITRATE/VITAMIN D3 (CITRACAL ORAL) Take by mouth once daily. - ascorbic acid, vitamin C, (VITAMIN C) 500 mg tablet Take 500 mg by mouth once daily. - Magnesium Oxide-Mg Amino Acid Chelate 300 mg cap Take 300 mg by mouth once daily. 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 Please read below carefully for your personalized instructions. Dietary Restrictions: - No solid food after midnight. - You may have 12 ounces of clear liquids (water, clear juices such as apple juice or gatorade, carbonated beverages, clear tea, black coffee, jello) until 2 hours before scheduled arrival at facility. Medications: Unless instructed differently below, stay on all of your medications until your surgery. If you start any new medications after today's visit, please contact your surgeon. Pre-Surgery Med Instructions Medication Instructions dicyclomine (BENTYL) 10 mg capsule If needed diclofenac, EC, (VOLTAREN) 75 mg EC tablet Stop 7 days before surgery polyethylene glycol 3350 (MIRALAX) 17 gram/dose powder Take the day of surgery with a small sip of water Zinc 50 mg tab Stop 7 days before surgery COLLAGEN MISC Stop 7 days before surgery venlafaxine (EFFEXOR) 37.5 mg tablet Take the day of surgery with a small sip of water cyanocobalamin (VITAMIN B-12) 1,000 mcg tab Stop 7 days before surgery CALCIUM CITRATE/VITAMIN D3 (CITRACAL ORAL) Stop 7 days before surgery ascorbic acid, vitamin C, (VITAMIN C) 500 mg tablet Stop 7 days before surgery Magnesium Oxide-Mg Amino Acid Chelate 300 mg cap Stop 7 days before surgery If you start any new medications after today's visit, please contact the surgeon's office. Blood Thinning Medications: - Stop NSAIDS (Ibuprofen, Advil, Aleve, Motrin, Celebrex, Mobic, etc.) 7 days before surgery, as directed by your surgeon. - Stop Aspirin 7 days before surgery, as directed by your surgeon. - Stop Vitamin E, ALL multi-vitamins, herbals and dietary supplements 7 days before surgery. - You may take Tylenol (Acetaminophen) or any of your pain medications that do not contain aspirin or NSAIDS as needed. Important Reminders: - If you use CPAP/BIPAP, bring the machine with you to the surgery center. - If you are prescribed inhalers for breathing, continue using them. - Candy, mints, and tobacco products are NOT permitted the morning of surgery. - Hearing aids, dentures and glasses may be worn the morning of surgery. - NO jewelry, body piercings, makeup, hairpins or contacts are to be worn the day of surgery. If you develop symptoms such as a fever, cold, or flu, or have other changes to your health within TWO DAYS of scheduled surgery or the morning of surgery, please contact the surgery center above. Personal Belongings: -Please have photo ID and insurance cards. -If you do not have a copy of advance directives on file with us, please bring a copy with you on the day of surgery. - Leave ALL valuables and money at home or with family members. For Outpatient Procedures: - YOU MUST HAVE A RESPONSIBLE LAMP DECORATOR TAKE YOU HOME. A INTERNET ECOMMERCE SPECIALIST OR LEAD DEVELOPER CANNOT BE MADE A RESPONSIBLE LAMP DECORATOR. - We recommend that a responsible person stays with you overnight to take care of you. - You cannot stay in a hotel alone after outpatient surgery. You will not be permitted to have yoursurgery, if you do not have someone to take care of you. Arrival Time for Surgery: - The Surgery Center or hospital where you are having surgery will call the afternoon before surgery (or Wednesday for Wednesday surgery) with a scheduled arrival time. - If you have not heard by 4 pm, please contact the surgery center above. Please be aware that emergency situations arise, which may delay or change your surgical time. If this happens, we will notify you as soon as possible and regret any inconvenience. If you already have an Advance Directive, please fax a copy to [phone] or email to for it to be added to your chart. If you do not have an Advance Directive, you can find the appropriate form and more information at [email or web address]. We recommend that youcomplete the Advance Directive form found on the website and bring it with you the day of your surgery. It can be witnessed and scanned into your chart that day. Shahbaz Wesley APRN.CNP documented in this encounterMer[facility] History and physical note * Shahbaz Wesley APRN.CNP - 03/15/2023 3:57 PM EDT HISTORY AND PHYSICAL EXAMINATION SERVICE DATE: 03/15/2023 SERVICE TIME: 6:25 AM PRIMARY CARE PHYSICIAN: Sebastian Sol MD REASON FOR VISIT: Acacia Bynum is a 62 year old female who is scheduled for Procedure(s) with comments: ARTHROPLASTY ACETABULAR AND PROX FEM PROSTH TOTAL HIP ANTERIOR APPROACH W/W/O AUTOGRAFT (Left) - Styrker Insignia femoral stem, Trident 2 acetabular cup at the request of Dr. Storm Kang for consultation. My final recommendation will be communicated back to the requesting physician by way of shared medical record or letter. Subjective The patient has the following: ACTIVE PROBLEM LIST Breast Implant Status Laryngeal Polyp Ddd (Degenerative Disc Disease), Lumbar Sludge in Gallbladder History of Tobacco Use Anxiety and Depression COVID-19 Immunization Status Postponed - Covid-19 Vaccine (1) Postponed until 06/15/2023 06/15/2022 Postponed until 06/15/2023 by PodlogarLuana APRN.ACADEMY DIRECTOR (Declined at this time) CHIEF COMPLAINT: Pre-op exam HPI: Acacia Bynum is a 62 year old seen for PAC due to scheduled above surgery because of OA left hip. 03/03/2023, Olu Atkinson PA-C Acacia Bynum is a 62 year old patient here for evaluation and management of Bilateral hip pain. 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 The problem began limiting activities 1-3 years ago. Currently the pain in the joint is rated at 10 out of 10 with minimal activity. The pain is chronicand constant and is located in the left hip, groin, thigh, and radiates to upper legs and right hip, groin, and radiates to upper legs. The pain is described as aching, dull, and sharp. Relieving factors include no relieving factors. There is no specific incident that brought about this pain. Patient has no additional complaints. Total Joint Arthroplasty: Risk Calculator Acacia Bynum has a chance of NOT returning home at discharge for a Primary total Hip replacement. Acacia's estimated Length of Stay is 1 day (Outpatient candidate). Acacia's 30 day chance of readmission is 0.75%. Readmission Probability 0.75 % (within 30 days following surgery) Estimated LOS 1 day These calculations are based on the following factors: - 62 years of age - sex is not male - BMI of 27.46 kg/m2 - NarxCare score of 0 - 0 hospitalizations in the last 12 months - no history of heart disease - no history of diabetes - no history of COPD - no history of anemia - preoperative ambulation: independent community distances - bed location is on the first floor - bath location is on the first floor - caregiver is consistent - home is not more than 150 miles away - PROMIS-10 Mental Health T score 41-49 - Marital status: PREVIOUS TREATMENTS: Medical: RX NSAIDS for 3 Months or Greater (diclofenac (Voltaren, [place]) and meloxicam (Mobic)) Physical Therapy: PT Three Months or Greater 1-2 times per week Bilateral hip intra-articular cortisone injections Risk Factors for Total Joint Arthroplasty (TJA) Obesity normal High: BMI > 40 Moderate: BMI 30-40 Normal: BMI < 30 Diabetes normal High: A1C > 8 Moderate: A1C 7-8 Normal: A1C < 7 Smoking normal High: Current smoker Normal: Non smoker Anemia normal High: Hgb < 11.5 (women) N/A: Hgb >= 11.5 (women) Nutritional Status normal High: Alb<3.4, or prealb<15, or serum transferrin<200, or total lymphocyte count<1500 Normal: normal labs COPD normal High: dx of COPD Normal: no dx of COPD MRSA normal High: dx of MRSA or positive lab test Normal: no MRSA CKD normal High: eGFR<60 Moderate: eGFR 60-89 Normal: eGFR>90 Hx of DVT / PE normal High: dx of DVT / PE Normal: no dx of DVT / PE Narcotics Use normal High:NarxCare >=300 Moderate: 100-299 Normal: 0-99 KILEY normal High: dx of KILEY N/A: no dx of KILEY Coagulation normal High:PT Sec>13, or PT INR>1.3, or APTT>32.4, or Plt ct<150k Moderate: on anticoag but none of the above Normal: none Other Risk Factors None REVIEW OF SYSTEMS: General: No weight loss, malaise or fevers. Neurological: No history of TIA's, stroke, ERP CONSULTANT tumor, impaired sensorium, hemiplegia, paraplegia orquadraplegia. No neurological symptoms or problems. Respiratory: +former smoker. No history of current cough or dyspnea, or pneumonia in the past 6 weeks. No history of respiratory/pulmonary symptoms or problems. Cardiovascular: No history of HTN requiring medication, no history of angina, CHF, MS, cardiac surgery or stents. Denies rest pain, gangrene or revascularization/amputation for PVD. No history of cardiovascular symptoms or problems. GI: Positive for: history of polyps : No history of dysuria, frequency or incontinence, stones or chronic kidney disease. No difficulty urinating, nocturia > 1 time per night or hematuria. 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 Endocrine: No history of diabetes. Has not taken steroids within the past 30 days. No history of endocrinological symptoms or problems. Hematology: No history of bleeding or clotting disorder. Patient is not taking anti-coagulation or platelet medications. No history of hematological symptoms or problems. Oncology: +melanoma s/p excision Psych: Positive for: anxiety and depression. Musculoskeletal: See HPI. Positive for: back pain and joint pain. Skin: +hx eczema PAST MEDICAL HISTORY Diagnosis Date Chronic constipation 11/17/2010 COLLES' FRACTURE-CLOSED 08/17/2005 DDD (degenerative disc disease), lumbar History of tobacco use Internal hemorrhoids without mention of complication Overactive bladder 11/17/2010 PAST SURGICAL HISTORY Procedure Laterality Date ABDOMINAL SURGERY HX BREAST SURGERY HX COLONOSCOPY 07/29/2021 repeat in 10 years COLONOSCOPY FLX DX W/COLLJ SPEC WHEN PFRMD 10/20/2010 EGD 07/29/2021 L'SCOPE CHOLECYSTECTOMY 09/02/2020 LARGSC EXC ANGLE&/STRPG CORDS/EPIGL MCRSCP/TLSCP Left 02/28/2018 removal of polyp PAST SURGICAL HISTORY OF 2004 intersyne for bladder frequency; was surgically removed after PAST SURGICAL HISTORY OF Bilateral 2016 Breast Implants, Dr. Thompson REM LESION NEC,HND,SCAL,FEET,GENITALIA 1.1-2.0CM 09/17/2012 Exc. scalp wens x 3 VAGINAL HYSTERECTOMY VAGINAL HYSTERECTOMY UTERUS 250 GM/< 2000 Hysterectomy, vaginal (endometriosis) FAMILY HISTORY Problem Relation Age of Onset Cancer Mother lung Cancer Father lymphoma None Sister None Brother Diabetes Maternal Grandmother None Sister None Brother None Brother other (Other) Brother accidental No Known Problems Son No Known Problems Daughter Social History Tobacco Use Smoking status: Former Packs/day: 0.50 Years: 20.00 Additional pack years: 0.00 Total pack years: 10.00 Types: Cigarettes Quit date: 07/05/2009 Years since quittin.7 Smokeless tobacco: Never Vaping Use Vaping Use: Never used Substance Use Topics Alcohol use: Not Currently Drug use: No Prior to Admission medications as of 03/15/23 1619 Medication Sig Last Dose Taking dicyclomine (BENTYL) 10 mg capsule Take 2 capsules by mouth before meals and at bedtime. Taking Yes diclofenac, EC, (VOLTAREN) 75 mg EC tablet Take 1 tablet by mouth twice daily. Take with food Taking Yes polyethylene glycol 3350 (MIRALAX) 17 gram/dose powder Take 17 g by mouth once daily. Dissolve dosein 4 - 8 ounces of liquid and take as directed. Taking Yes Zinc 50 mg tab Take 50 mg by mouth once daily. Taking Yes COLLAGEN MISC 1 capsule once daily. Taking Yes venlafaxine (EFFEXOR) 37.5 mg tablet Take 37.5 mg by mouth once daily. Taking Yes cyanocobalamin (VITAMIN B-12) 1,000 mcg tab Take 0.5 tablets by mouth once daily. Taking Yes CALCIUM CITRATE/VITAMIN D3 (CITRACAL ORAL) Take by mouth once daily. Taking Yes ascorbic acid, vitamin C, (VITAMIN C) 500 mg tablet Take 500 mg by mouth once daily. Taking Yes Magnesium Oxide-Mg Amino Acid Chelate 300 mg cap Take 300 mg by mouth once daily. Taking Yes mupirocin (BACTROBAN) 2 % ointment Apply 0.5 inch with cotton swab (Q-tip) to each nostril in the morning and evening for 5 days prior to and including day of surgery. No medication comments found. ALLERGIES Allergen Reactions Codeine Rash Morphine Itching Penicillins Hives Sulfa (Sulfonamide * GI Upset Objective PHYSICAL EXAM: General: alert and oriented (x3) and healthy appearance. Pertinent negatives noted - not distressed. Skin: normal color, no rash or lesions. HEENT: EOM intact and pupils equal round. Pertinent negatives noted - no carotid bruit. Cardiovascular: regular rate and rhythm, normal S1 and S2, no rub, murmurs, or gallop. Respiratory: normal breath sounds, no wheezes or crackles. No chest wall deformity or tenderness. Abdomen: soft. Pertinent negatives noted - not tender. Extremities: no deformity, no edema or tenderness, no joint swelling or clubbing. Neurological: normal cognition and motor skills. Gait normal. No weakness or sensory deficit. PAIN ASSESSMENT: Pain Pain Level: 10 Pain Location: Hip-Left (groin) Description: Throbbing, Stabbing Duration Units: Years Frequency: Continuous Intervention/Comfort measure: Medication VITALS: BP 102/62 Pulse 69 Temp (Src) 97.2 (Temporal) Resp 14 Ht 5' 1.75 (1.57m) Wt 146 lb (66.2kg) SpO2 94% BMI 26.94 kg/(m^2). Diagnostic tests reviewed for today's visit: Lab Value Units Date High Low HB 13.7 g/dL 03/05/2023 15.5 11.5 HCT 41.9 % 03/05/2023 46.0 36.0 WBC 7.83 k/uL 03/05/2023 11.00 3.70 PLT 285 k/uL 03/05/2023 400 150 NA 139 mmol/L 03/05/2023 144 136 K 4.1 mmol/L 03/05/2023 5.1 3.7 GLUC 112 mg/dL 03/05/2023 99 74 BUN 18 mg/dL 03/05/2023 21 7 CREAT 0.67 mg/dL 03/05/2023 0.96 0.58 PTSEC No results within date range. INR No results within date range. APTT No results within date range. ALT 38 U/L 03/05/2023 38 7 AST 33 U/L 03/05/2023 35 13 TBILI 0.3 mg/dL 03/05/2023 1.3 0.2 TSH No results within date range. Lab Value Units Date High Low HCGQT No results within date range. UHCG No results within date range. HCG, BODY* No results within date range. Lab Value Units Date High Low ABORHD No results within date range. ABSCREEN No results within date range. Hemoglobin A1C (%) Date Value 03/05/2023 5.6 Recent Results (from the past 8760 hour(s)) ECG COMPLETE Collection Time: 03/15/23 4:04 PM Result Value Ventricular Rate 74 Atrial Rate 74 P-R Interval 158 QRS Duration 76 QT Interval 382 QTC Calculation (Bazett) 424 Calculated P [place] 69 Calculated R [place] 49 Calculated T [place] 53 Impression NORMAL SINUS RHYTHM NORMAL ECG Confirmed by NAKITA RODNEY DO ([id number]) on 03/16/2023 12:55:06 PM No results found for this or any previous visit (from the past 65252 hour(s)). Assessment Patient has the following medical conditions which may affect hansa-operative course: History of tobacco use Assessment: 0.5ppd/20 years, denies asthma or COPD Anxiety and depression Assessment: stable on rx [place] Activity Status Index: METS: Climb a flight of stairs or walk up a hill (5.50 METs) DASI Score: 5.5 Patient denies any chest pain or undue shortness of breath with the above physical activity. Clinical Frailty Scale: 1. Very fit STOP-Bang Score: Snores loudly Patient over 50 years old Denies feeling tired, fatigued, or sleepy during the daytime Has not been observed to stop breathing or choking/gasping during sleep Denies having high blood pressure BMI less than or equal to 35 kg/m^2 Does not have a large neck Non-male patient STOP-Bang Score: 2 [id number] Score: Age: <65 Sex: female CHF history: No Hypertension history: No Stroke/TIA/thromboembolism history: No Vascular disease history: No Diabetes history: No [id number] Score: 1 ARISCAT Score: Age: 51-80 Preoperative SpO2: 91-95% Respiratory infection in the last month: No Preoperative anemia: No Surgical incision: peripheral Duration of surgery: 2-3 hrs Emergency procedure: No ARISCAT Score: 27 ANESTHESIA FINDINGS: Intubation History: No history of difficult intubation Significant Anesthesia Considerations: none Airway History: No history of difficult airway I - PHYSICAL EVALUATION AIRWAY Patient intubated: No. Tracheostomy tube not present Mallampati: II. TM distance: >3 FB. Neck ROM: full ROM without neurological symptoms. Mouth opening: adequate. Short neck: no. Thick neck: no Leiva present: no Lip Bite Test: I Microretrognathia/Micronagthia/Recessed Chin: No DENTAL Dental findings: teeth intact. II - ANESTHESIA PLAN Anesthetic Plan: other Anesthetic plan additional comments: *PACC/TCI - anesthesia choice. Beta Kinsey Monitoring Plan Post Procedure Analgesic Plan Informed Consent Anesthetic risks, benefits, alternatives, personnel and consent discussed: yes. Patient / Responsible Democrat agrees to proceed: yes Patient / Surrogate agrees to blood products: Yes Discussed the possibility of lip / dental damage: yes Prepared for Surgery: optimally prepared for surgery, pending [see comment]. Labs and EKG CONSULTS: Patient does not require consults for optimization at this time Planned Anesthetic: other anesthesia choice The Following Tests/Procedures Have Been Initiated: Orders Placed This Encounter mupirocin (BACTROBAN) 2 % ointment Sig: Apply 0.5 inch with cotton swab (Q-tip) to each nostril in the morning and evening for 5 days prior to and including day of surgery. Dispense: 22 g Refill: 0 ECG COMPLETE Order Comments: Ordered by an unspecified provider ECG COMPLETE Standing Status: Future Number of Occurrences: 1 Standing Expiration Date: 03/15/2024 Instructions Given to Patient: Instructions located in the after visit summary. Patient given verbal and written preop instructions and voices comprehension and compliance. SIGNATURE: Shahbaz Wesley APRN.CNP PATIENT NAME: Acacia Bynum DATE: March 15, 2023 TIME: 3:57 PM PAGER/CONTACT #: documented in this encounterMer[facility] Miscellaneous Notes* Telephone Encounter - Vineet Duran PSS - 03/10/2023 9:11 AM EDT TOTAL JOINT COMPLETE CARE PROGRAM PRE-OPERATIVE TEACHING Service Date: 03/10/2023 Service Time: 9:43 AM Date of : 1960 Gender: female Date of Surgery: 04/01/23 Procedure: Left Total Hip Replacement (anterior approach) Complete Care Program was discussed with the patient: Tree Driller Identification: Patient identified a day care home mother to help when discharged to home: and daughter Home Environment: Home Layout: 2 story, Entry Steps: 3 with rail, Bedroom Location: 1st floor, Bathroom Location: 1stfloor, and walk in shower. Pt owns cane, walker, bench in shower Discussed with patient importance of attending joint education class and provided date and times ofclass: YES declined Patient received Joint Education Binder: Yes Patient plans discharge home with [facility]. Went over patients ant hip precautions: extension, external rotation, crossing and twisting. SIGNATURE: THOMAS Conway PATIENT NAME: Acacia Bynum DATE: March 10, 2023 TIME: 9:12 AM documented in this encounterMer[facility]08-30-2023 NoteHNO ID: [id number] Author: Olu Atkinson PA-C Service: ? Author Type: Physician Prepleater Type: Progress Notes Filed: 03/03/2023 2:38 PM Note Text: Established Patient Ortho Hip Consult Note ASSESSMENT AND PLAN: Impression: Bilateral Hip Severe Degenerative Osteoarthritis, Primary Acacia Bynum has radiograph and physical exam evidence of degenerative joint disease and wishes to pursue surgery. This patient appears to have sufficient symptoms to warrant surgical intervention and is an appropriate candidate for staged left and right Primary Total Hip Arthroplasty as evidenced by six months of unsuccessful non-operative treatment as outlined in the HPI below and progressive symptoms. Progressive symptoms include: Pain impacting sleep or causing fatigue Pain impacting work Pain worsened by weight bearing Pain limiting ability to stay fit and healthy Unable to ambulate 2 blocks without significant pain and dysfunction. We had a lengthy discussion regarding the risk and benefit of surgery, the alternatives, limitations and personnel involved. These included but were not limited to infection, persistent pain, instability, nerve injury, blood clots, and medical complications. We also discussed the pre-operative course, surgery itself and rehabilitation. Hansa-operative blood management and transfusion issues were discussed, and options clearly outlined. The patient has consented to the use of the banked allogenic blood if medically necessary. The patient has elected to schedule surgery at this time or intends to call the office with a surgical date. Shared decision making occurred while obtaining informed consent. The patient will be scheduled for a pre-operative education class at which time they will have their nasal swab completed and will be given CHG cloths along with the verbal and written instructions for their use. Patient has been instructed and has been scheduled or will call to schedule attendence in one of the total joint perioperative classes offered prior to proceeding with NICHOLE.. The patient has been ordered: HbA1C CBC, CMP, type AND screen, vitamin D CONSULTS: IMPACT/PACE Consult for preoperative clearance. ACTIVE PROBLEM LIST Breast Implant Status Laryngeal Polyp Ddd (Degenerative Disc Disease), Lumbar Sludge in Gallbladder History of Tobacco Use SUBJECTIVE CHIEF COMPLAINT: Hip Pain HPI: Acacia Bynum is a 62 year old patient here for evaluation and management of Bilateral hip pain. 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 The problem began limiting activities 1-3 years ago. Currently the pain in the joint is rated at 10 out of 10 with minimal activity. The pain is chronic and constant and is located in the left hip, groin, thigh, and radiates to upper legs and right hip, groin, and radiates to upper legs. The pain is described as aching, dull, and sharp. Relieving factors include no relieving factors. There is no specific incident that brought about this pain. Patient has no additional complaints. Total Joint Arthroplasty: Risk Calculator Acacia Bynum has a chance of NOT returning home at discharge for a Primary total Hip replacement. Acacia's estimated Length of Stay is 1 day (Outpatient candidate). Acacia's 30 day chance of readmission is 0.75%. Readmission Probability 0.75 % (within 30 days following surgery) Estimated LOS 1 day These calculations are based on the following factors: - 62 years of age - sex is not male - BMI of 27.46 kg/m2 - NarxCare score of 0 - 0 hospitalizations in the last 12 months - no history of heart disease - no history of diabetes - no history of COPD - no history of anemia - preoperative ambulation: independent community distances - bed location is on the first floor - bath location is on the first floor - caregiver is consistent - home is not more than 150 miles away - PROMIS-10 Mental Health T score 41-49 - Marital status: PREVIOUS TREATMENTS: Medical: RX NSAIDS for 3 Months or Greater (diclofenac (Voltaren, Cataflem) and meloxicam (Mobic)) Physical Therapy: PT Three Months or Greater 1-2 times per week Bilateral hip intra-articular cortisone injections Risk Factors for Total Joint Arthroplasty (TJA) Obesity normal High: BMI > 40 Moderate: BMI 30-40 Normal: BMI < 30 Diabetes normal High: A1C > 8 Moderate: A1C 7-8 Normal: A1C < 7 Smoking normal High: Current smoker Normal: Non smoker Anemia normal High: Hgb < 11.5 (women) N/A: Hgb >= 11.5 (women) Nutritional Status normal High: Alb<3.4, or prealb<15, or serum transferrin<200, or total lymphocyte count<1500 Normal: normal labs COPD no (more content not included)...[facility]08-30-2023 Note HNO ID: [id number] Author: Adelita Leal Tech Service: Radiology Author Type: Computer Lab Para Professional Type: Progress Notes Filed: 03/03/2023 1:10 PM Note Text: Radiology Service Progress Note PATIENT NAME: Acacia Bynum DATE OF SERVICE: March 03, 2023 TIME: 1:10 PM PATIENT IDENTITY VERIFICATION COMPLETED USING TWO (2) IDENTIFIERS: Name and Date of confirmed by patient verbally. FALL SCREENING: Has the patient had 2 falls in the last year or 1 fall with injury or currently using an Ambulatory Assistive Device (Walker, Cane, Wheelchair, Crutches, etc.)? No PATIENT GENDER DATA: Female. status: : No status: NO. PATIENT RELEVANT IMPLANT DATA REVIEWED: Not Applicable RADIOLOGY DEPARTMENT: General X-ray: Exam(s) Completed: Pelvis X-Ray: Pelvis with Hip Bilateral and Wt. Bearing PERIPHERAL IV DATA: Not applicable SIGNED BY: Fiorella Pagan March 03, 2023 1:10 PMTrinity Health System West [id number] History of Present illness Narrative* Olu Atkinson PA-C - 03/03/2023 1:56 PM EDT Established Patient Ortho Hip Consult Note ASSESSMENT & PLAN: Impression: Bilateral Hip Severe Degenerative Osteoarthritis, Primary Acacia Bynum has radiograph and physical exam evidence of degenerative joint disease and wishes to pursue surgery. This patient appears to have sufficient symptoms to warrant surgical intervention and is an appropriate candidate for staged left and right Primary Total Hip Arthroplasty as evidenced by six months of unsuccessful non-operative treatment as outlined in the HPI below and progressive symptoms. Progressive symptoms include: Pain impacting sleep or causing fatigue Pain impacting work Pain worsened by weight bearing Pain limiting ability to stay fit and healthy Unable to ambulate 2 blocks without significant pain and dysfunction. We had a lengthy discussion regarding the risk and benefit of surgery, the alternatives, limitations and personnel involved. These included but were not limited to infection, persistent pain, instability, nerve injury, blood clots, and medical complications. We also discussed the pre-operative course, surgery itself and rehabilitation. Hansa-operative blood management and transfusion issues were discussed, and options clearly outlined. The patient has consented to the use of the banked allogenic blood if medically necessary. The patient has elected to schedule surgery at this time or intends to call the office with a surgical date. Shared decision making occurred while obtaining informed consent. The patient will be scheduled for a pre-operative education class at which time they will have their nasal swab completed and will be given CHG cloths along with the verbal and written instructions for their use. Patient has been instructed and has been scheduled or will call to schedule attendence in one of the total joint perioperative classes offered prior to proceeding with NICHOLE.. The patient has been ordered: HbA1C CBC, CMP, type & screen, vitamin D CONSULTS: IMPACT/PACE Consult for preoperative clearance. ACTIVE PROBLEM LIST Breast Implant Status Laryngeal Polyp Ddd (Degenerative Disc Disease), Lumbar Sludge in Gallbladder History of Tobacco Use SUBJECTIVE CHIEF COMPLAINT: Hip Pain HPI: Acacia Bynum is a 62 year old patient here for evaluation and management of Bilateral hip pain. 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 The problem began limiting activities 1-3 years ago. Currently the pain in the joint is rated at 10 out of 10 with minimal activity. The pain is chronicand constant and is located in the left hip, groin, thigh, and radiates to upper legs and right hip, groin, and radiates to upper legs. The pain is described as aching, dull, and sharp. Relieving factors include no relieving factors. There is no specific incident that brought about this pain. Patient has no additional complaints. Total Joint Arthroplasty: Risk Calculator Acacia Bynum has a chance of NOT returning home at discharge for a Primary total Hip replacement. Acacia's estimated Length of Stay is 1 day (Outpatient candidate). Acacia's 30 day chance of readmission is 0.75%. Readmission Probability 0.75 % (within 30 days following surgery) Estimated LOS 1 day These calculations are based on the following factors: - 62 years of age - sex is not male - BMI of 27.46 kg/m2 - NarxCare score of 0 - 0 hospitalizations in the last 12 months - no history of heart disease - no history of diabetes - no history of COPD - no history of anemia - preoperative ambulation: independent community distances - bed location is on the first floor - bath location is on the first floor - caregiver is consistent - home is not more than 150 miles away - PROMIS-10 Mental Health T score 41-49 - Marital status: PREVIOUS TREATMENTS: Medical: RX NSAIDS for 3 Months or Greater (diclofenac (Voltaren, Cataflem) and meloxicam (Mobic)) Physical Therapy: PT Three Months or Greater 1-2 times per week Bilateral hip intra-articular cortisone injections Risk Factors for Total Joint Arthroplasty (TJA) Obesity normal High: BMI > 40 Moderate: BMI 30-40 Normal: BMI < 30 Diabetes normal High: A1C > 8 Moderate: A1C 7-8 Normal: A1C < 7 Smoking normal High: Current smoker Normal: Non smoker Anemia normal High: Hgb < 11.5 (women) N/A: Hgb >= 11.5 (women) Nutritional Status normal High: Alb<3.4, or prealb<15, or serum transferrin<200, or total lymphocyte count<1500 Normal: normal labs COPD normal High: dx of COPD Normal: no dx of COPD MRSA normal High: dx of MRSA or positive lab test Normal: no MRSA CKD normal High: eGFR<60 Moderate: eGFR 60-89 Normal: eGFR>90 Hx of DVT / PE normal High: dx of DVT / PE Normal: no dx of DVT / PE Narcotics Use normal High:NarxCare >=300 Moderate: 100-299 Normal: 0-99 KILEY normal High: dx of KILEY N/A: no dx of KILEY Coagulation normal High:PT Sec>13, or PT INR>1.3, or APTT>32.4, or Plt ct<150k Moderate: on anticoag but none of the above Normal: none Other Risk Factors None PHYSICAL EXAM Ht 155.6 cm (5' 1.25 ) Wt 66.5 kg (146 lb 8 oz) BMI 27.46 kg/m All other systems deferred. GENERAL: Appears healthy, well-nourished, no deformities. HABITUS: Normal GAIT: Antalgic to the left HIP EXAM: Left: ROM: Extension: slight flexion contracture Flexion: 95 Internal Rotation: 5 degrees External Rotation: 20 degrees Abduction: 15 degrees Adduction: 10 degrees Strength: Abduction 5/5, Flexion 5/5, and Pain with resisted hip flexion Palpation: Tenderness over left greater trochanter Log roll: painful. Straight leg raise: Positive, reproducing hip symptoms Neurovascular Status: Sensation Intact, Moves foot and ankle up & down, and 2+ dorsalis pedis Right: ROM: Extension: slight flexion contracture Flexion: 100 degrees Internal Rotation: 10 degrees External Rotation: 25 degrees Abduction: 20 degrees Adduction: 20 degrees Strength: Abduction 5/5, Flexion 5/5, and Pain with resisted hip flexion Palpation: No TTP Log roll: painful. Straight leg raise: Positive, reproducing hip symptoms Neurovascular Status: Sensation Intact, Moves foot and ankle up & down, and 2+ dorsalis pedis DATA: Diagnostic tests reviewed for today's visit: Right hip X-Ray: Severe degenerative changes and Complete loss of superior joint space Left hip X-Ray: Severe degenerative changes and Complete loss of superior joint space SIGNATURE: Olu Atkinson PA-C PATIENT NAME: Acacia Bynum DATE: March 03, 2023 TIME: 1:56 PM documented in this encounterMer[facility]08-28-2023 Miscellaneous Notes* Telephone Encounter - Sheila Vyas LPN - 03/01/2023 11:02 AM EDT Patient phones requesting refills as follows: Requested Prescriptions Pending Prescriptions Disp Refills dicyclomine (BENTYL) 10 mg capsule 240 capsule 2 Sig: Take 2 capsules by mouth before meals and at bedtime. YESSY 06/15/22 NOV 06/16/23 Please review and advise. Sheila Vyas LPN * Telephone Encounter - Shannon Barney - 03/01/2023 10:25 AM EDT Patient is calling asking for a refill of dicyclomine to tide her over until her 06/16/23 appointment with Luana Koch. Patient uses pharmacy on file. Please advise and call patient. documented in this encounterMercy Health [facility]08-25-2023 Miscellaneous Notes* Telephone Encounter - Sanford Weston - 02/26/2023 3:53 PM EDT Called patient and left a message regarding this message. Left the number for patient to call back * Telephone Encounter - Rajan Cross - 02/26/2023 2:07 PM EDT Pt called stating she was supposed to have a consult/ follow up with a recommended doctor from 's nurse, for her spine. Please advise and contact pt documented in this encounterMercy Health [facility]08-17-2023 Miscellaneous Notes* Telephone Encounter - Michelle Rivers APRN.CNP - 02/18/2023 2:30 PM EDT Yes oral, and stop the topical * Telephone Encounter - Mk Arvizu MA - 02/18/2023 2:27 PM EDT Patient left a message stating that it was discussed today that she would be stopping the diclofenac cream and begin taking the oral diclofenac. Patient is requesting confirmation that she is to be taking the oral diclofenac. Please advise. Mk Arvizu MA documented in this encounterMercy Health [facility]08-17-2023 Miscellaneous Notes* Telephone Encounter - Nora Metzger - 02/18/2023 1:14 PM EDT Duplicate documented in this encounterMercy Health [facility]08-17-2023 NoteHNO ID: [id number] Author: Sheila Saab MA Service: ? Author Type: Operational Assistant Type: Progress Notes Filed: 02/18/2023 12:47 PM Note Text: Review of Systems Constitutional: Negative for activity change, chills, fever and unexpected weight change. Gastrointestinal: Negative for bowel retention or incontinence Genitourinary: Negative for difficulty urinating. Negative for bladder retention or incontinence Musculoskeletal: Positive for arthralgias, back pain, gait problem, joint swelling and myalgias. Negative for neck pain and neck stiffness. Neurological: Positive for weakness and numbness. Negative for headaches. Psychiatric/Behavioral: Positive for dysphoric mood and sleep disturbance. Negative for suicidal ideas. The patient is not nervous/anxious.[facility]08-17-2023 NoteHNO ID: [id number] Author: Michelle Rivers APRN.ERIC Service: ? Author Type: Nurse Practitioner Type: Progress Notes Filed: 02/18/2023 12:47 PM Note Text: [facility] Today's Date:02/18/2023 Last Visit: 12/31/2022 Name: Acacia Bynum : 1960 Purpose: Established Patient Encounter Patient presents with: Follow Up Hip Pain: Left Back Pain History of Present Illness: Acacia Bynum 62 year old female with complaints of chronic bilateral hip pain. Patient stating the hip injection she had done helped her immensely with her pain states she was doing really well until about a month month and a half after the injections and the pain came back with a vengeance states her pain is worse now states it starts in both hips radiates into her groin and goes down to above her knee on the right side and on the left side right below her knee. Patient states she is having a difficult time with her activities of daily living due to the pain. Patient states she does not feel the Mobic is helping as much as it did in the past. Is wondering if there is another NSAID that could potentially be tried. New Problems: none Pertinent Past Medical History: DDD, osteoporisis Plan from Previous Office Visit: Plan: Acacia Bynum would benefit from the following to reach personal goals for decreasing pain, improving function and work participation, and/or improving quality of life: Medication(s): continue mobic as it is working well. Additional Studies: ordered a MRI as the pt has attempted 6 weeks of therapy and has taken an nsaid, mobic, to help with the pain however, continues to have back pain. Ordered a bilateral intra articular hip steroid injection under ultrasound guidance. Pt to continue to do PT exercises Additional Education: on the importance of PT and on the procedure. Depending on response to the above plan, consider: MBNB vs caudal if needed -Follow-up: 2 months Pain Procedures: Date Procedure relief 12/17/2022 B/L hip I/A 80-90% INTAKE PAIN ASSESSMENT 12/17/2022 02/14/2023 Are you having pain associated with your visit today? Yes, Provider notified Yes, Provider notified Pain Scales Verbal (Numeric Rating or Visual Analog Scale) - Pain Level 5 10 Pain Location Hip-Right - Description Stabbing Aching;Sharp;Stabbing;Stiffness Duration Amount of Time - - Duration Units Years Months Frequency Continuous Continuous Intervention/Comfort measure Reposition;Relaxation;Therapeutic techniques-CPRP Medication;Pillow support;Reposition;Relaxation Comments - - Pain Assessment - - Pain Description: Timing: constant Character: sharp and burning especially at night Primary Location: bilateral hips, pt also has low back pain without radiation Radiation: into groin, and down the front of the thigh to the knee Exacerbating factors: lying down, walking, and interferes with sleep Relieving factors: medications and changing position Interferes with: physical activity, sleep The patient denies numbness or tingling. CURRENT Pain Medications: Membrane Stabilizers: none NSAIDS: Mobic (Meloxicam) Opioids: none Muscle Relaxants: none Topicals: none Other Prescription or OTC Pain Medications: Tylenol (Acetaminophen) Anti-depressants: Effexor Non-Pain Meds of Note: none Compliance: PDMP website checked and validated. All prescriptions have been APPROPRIATELY filled. No suspicious activity was identified. 02/18/2023 by Michelle Rivers APRN.ERIC Last Drug screen: Not Applicable Pill Count: No question data found. Risk Assessment: Opioid Risk Tool: Opioid Risk Tool: (0-3, low risk or no risk; 4-7, moderate risk, 8+, high risk) LUZ MARIA-7: LUZ MARIA - 7 SCORES 08/06/2022 LUZ MARIA-7 Score 2 (0-4) minimal anxiety, (5-9) mild anxiety, (10-14) moderate anxiety, (15-21) severe anxiety PHQ-9: PHQ-9 08/06/2022 Score 4 (0-4) minimal depression, (5-9) mild depression, (10-14) moderate depression, (15-19) moderately severe depression, (20-27) severe depression Diagnostic Studies: XR PELVIS 1V AP Narrative: * * *Final Report* * * DATE OF EXAM: Sep 24 2022 12:33PM [id number] - XR PELVIS 1V AP / PROCEDURE REASON: Primary osteoarthritis of both hips * * * * Physician Interpretation * * * * Examination: XR PELVIS 1V AP, XR KNEE 4V AP/PA/LAT/MERCH BHARTI History: Primary osteoarthritis of both hips Evaluate for osteoarthritis. Technique: XR PELVIS 1V AP, XR KNEE 4V AP/PA/LAT/MERCH BHARTI Comparison: Knee films of 09/08/2018. CT scans of the abdomen and pelvis dated 09/08/2021 RESULT: AP pelvis reveals moderate degenerative change and joint space narrowing involving both hips. Most pronounced in the superior lateral aspect of the joint. Mild osteophytosis. SI joints appear unremarkable. Normal mineralization and alignment. Mild lower lumbar degenerative change and osteophytosis. 4 views of each knee show no eviden (more content not included)...[facility]08-17-2023 Miscellaneous Notes* Telephone Encounter - Nahed Chand - 02/18/2023 11:27 AM EDT The referral to Orthopedics for Bilateral hip pain has been submitted via the [facility] Internal ReferralRequest form on the [facility] Appointment Portal. Confirmation # [id number] Nahed Chand documented in this encounterMer[facility]08-17-[facility]23 History of Present illness Narrative* Sheila Saab MA - 02/18/2023 10:36 AM EDT Review of Systems Constitutional: Negative for activity change, chills, fever and unexpected weight change. Gastrointestinal: Negative for bowel retention or incontinence Genitourinary: Negative for difficulty urinating. Negative for bladder retention or incontinence Musculoskeletal: Positive for arthralgias, back pain, gait problem, joint swelling and myalgias. Negative for neck pain and neck stiffness. Neurological: Positive for weakness and numbness. Negative for headaches. Psychiatric/Behavioral: Positive for dysphoric mood and sleep disturbance. Negative for suicidal ideas. The patient is not nervous/anxious. * Michelle Rivers APRN.ACADEMY DIRECTOR - 02/18/2023 10:30 AM EDT Images from the original note were not included. [facility] General Today's Date:02/18/2023 Last Visit: 12/31/2022 Name: Acacia Bynum : 1960 Purpose: Established Patient Encounter Patient presents with: Follow Up Hip Pain: Left Back Pain History of Present Illness: Acacia Bynum 62 year old female with complaints of chronic bilateral hip pain. Patient stating the hip injection she had done helped her immensely with her pain states she was doing really well until about a month month and a half after the injections and the pain came backwith a vengeance states her pain is worse now states it starts in both hips radiates into her groinand goes down to above her knee on the right side and on the left side right below her knee. Patient states she is having a difficult time with her activities of daily living due to the pain. Patient states she does not feel the Mobic is helping as much as it did in the past. Is wondering if there is another NSAID that could potentially be tried. New Problems: none Pertinent Past Medical History: DDD, osteoporisis Plan from Previous Office Visit: Plan: Acacia Bynum would benefit from the following to reach personalgoals for decreasing pain, improving function and work participation, and/or improving quality of life: Medication(s): continue mobic as it is working well. Additional Studies: ordered a MRI as the pt has attempted 6 weeks of therapy and has taken an nsaid, mobic, to help with the pain however, continues to have back pain. Ordered a bilateral intra articular hip steroid injection under ultrasound guidance. Pt to continue to do PT exercises Additional Education: on the importance of PT and on the procedure. Depending on response to the above plan, consider: MBNB vs caudal if needed -Follow-up: 2 months Pain Procedures: Date Procedure relief 12/17/2022 B/L hip I/A 80-90% INTAKE PAIN ASSESSMENT 12/17/2022 02/14/2023 Are you having pain associated with your visit today? Yes, Provider notified Yes, Provider notified Pain Scales Verbal (Numeric Rating or Visual Analog Scale) - Pain Level 5 10 Pain Location Hip-Right - Description Stabbing Aching;Sharp;Stabbing;Stiffness Duration Amount of Time - - Duration Units Years Months Frequency Continuous Continuous Intervention/Comfort measure Reposition;Relaxation;Therapeutic techniques-CPRP Medication;Pillow support;Reposition;Relaxation Comments - - Pain Assessment - - Pain Description: Timing: constant Character: sharp and burning especially at night Primary Location: bilateral hips, pt also has low back pain without radiation Radiation: into groin, and down the front of the thigh to the knee Exacerbating factors: lying down, walking, and interferes with sleep Relieving factors: medications and changing position Interferes with: physical activity, sleep The patient denies numbness or tingling. CURRENT Pain Medications: Membrane Stabilizers: none NSAIDS: Mobic (Meloxicam) Opioids: none Muscle Relaxants: none Topicals: none Other Prescription or OTC Pain Medications: Tylenol (Acetaminophen) Anti-depressants: Effexor Non-Pain Meds of Note: none Compliance: PDMP website checked and validated. All prescriptions have been APPROPRIATELY filled. No suspiciousactivity was identified. 02/18/2023 by Michelle Rivers APRN.ACADEMY DIRECTOR Last Drug screen: Not Applicable Pill Count: No question data found. Risk Assessment: Opioid Risk Tool: Opioid Risk Tool: (0-3, low risk or no risk; 4-7, moderate risk, 8+, high risk) LUZ MARIA-7: LUZ MARIA - 7 SCORES 08/06/2022 LUZ MARIA-7 Score 2 (0-4) minimal anxiety, (5-9) mild anxiety, (10-14) moderate anxiety, (15-21) severe anxiety PHQ-9: PHQ-9 08/06/2022 Score 4 (0-4) minimal depression, (5-9) mild depression, (10-14) moderate depression, (15-19) moderately severe depression, (20-27) severe depression Diagnostic Studies: XR PELVIS 1V AP Narrative: * * *Final Report* * * DATE OF EXAM: Sep 24 2022 12:33PM [id number] - XR PELVIS 1V AP / PROCEDURE REASON: Primary osteoarthritis of both hips * * * * Physician Interpretation * * * * Examination: XR PELVIS 1V AP, XR KNEE 4V AP/PA/LAT/MERCH BHARTI History: Primary osteoarthritis of both hips Evaluate for osteoarthritis. Technique: XR PELVIS 1V AP, XR KNEE 4V AP/PA/LAT/MERCH BHARTI Comparison: Knee films of 09/08/2018. CT scans of the abdomen and pelvis dated 09/08/2021 RESULT: AP pelvis reveals moderate degenerative change and joint space narrowing involving both hips. Most pronounced in the superior lateral aspect of the joint. Mild osteophytosis. SI joints appear unremarkable. Normal mineralization and alignment. Mild lower lumbar degenerative change and osteophytosis. 4 views of each knee show no evidence of suprapatellar effusion. Normal mineralization and alignment. No fracture or focal bony abnormality. Chondrocalcinosis bilaterally. Mild medial joint space narrowing on both sides. Impression: IMPRESSION: MODERATE JOINT SPACE NARROWING INVOLVING BOTH HIPS WITH OSTEOPHYTOSIS. MILD MEDIAL JOINT SPACE NARROWING INVOLVING BOTH KNEES. NO EFFUSION. 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 Technique: XR PELVIS 1V AP, XR KNEE 4V AP/PA/LAT/MERCH BHARTI Comparison: Knee films of 09/08/2018. CT scans of the abdomen and pelvis dated 09/08/2021 RESULT: AP pelvis reveals moderate degenerative change and joint space narrowing involving both hips. Most pronounced in the superior lateral aspect of the joint. Mild osteophytosis. SI joints appear unremarkable. Normal mineralization and alignment. Mild lower lumbar degenerative change and osteophytosis. 4 views of each knee show no evidence of suprapatellar effusion. Normal mineralization and alignment. No fracture or focal bony abnormality. Chondrocalcinosis bilaterally. Mild medial joint space narrowing on both sides. Impression: IMPRESSION: MODERATE JOINT SPACE NARROWING INVOLVING BOTH HIPS WITH OSTEOPHYTOSIS. MILD MEDIAL JOINT SPACE NARROWING INVOLVING BOTH KNEES. NO EFFUSION. 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: [employer] Transcribe Date/Time: Sep 29 2022 3:42P Dictated by : SUSANNA GUERRERO MD This examination was interpreted and the report reviewed and electronically signed by: SUSANNA GUERRERO MD on Sep 29 2022 3:45PM EST Recent Labs: Glucose (mg/dL) Date Value 06/16/2022 97 07/01/2021 96 Potassium (mmol/L) Date Value 06/16/2022 5.1 07/01/2021 4.2 Sodium (mmol/L) Date Value 06/16/2022 141 07/01/2021 138 Chloride (mmol/L) Date Value 06/16/2022 103 07/01/2021 102 CO2 (mmol/L) Date Value 06/16/2022 29 07/01/2021 25 Creatinine (mg/dL) Date Value 06/16/2022 0.67 07/01/2021 0.69 BUN (mg/dL) Date Value 06/16/2022 14 07/01/2021 13 Anion Gap (mmol/L) Date Value 06/16/2022 9 07/01/2021 11 Calcium (mg/dL) Date Value 07/01/2021 9.4 Calcium, Total (mg/dL) Date Value 06/16/2022 9.4 Protein, Total (g/dL) Date Value 06/16/2022 7.1 07/01/2021 6.7 Albumin (g/dL) Date Value 06/16/2022 4.2 07/01/2021 4.3 Bilirubin, Total (mg/dL) Date Value 06/16/2022 0.3 07/01/2021 0.4 Alkaline Phosphatase (U/L) Date Value 06/16/2022 113 07/01/2021 125 AST (U/L) Date Value 06/16/2022 29 07/01/2021 20 ALT (U/L) Date Value 06/16/2022 30 07/01/2021 13 Electrodiagnostic Study (EMG): None Current Medications, Past Medical History, Past Surgical History, Family History, Social History and Review of Systems: On today's date, noted above, I have confirmed and edited as necessary, the PFSH and ROS obtained by others. Physical Exam: 02/18/23 1037 Pulse: 64 Resp: 16 SpO2: 99% Physical Exam Vitals reviewed. Constitutional: General: She is not in acute distress. Appearance: She is not ill-appearing. HENT: Head: Normocephalic and atraumatic. Eyes: Conjunctiva/sclera: Conjunctivae normal. Cardiovascular: Pulses: Normal pulses. Pulmonary: Effort: Pulmonary effort is normal. No respiratory distress. Musculoskeletal: Right hip: Tenderness and bony tenderness present. Decreased range of motion. Decreased strength. Left hip: Tenderness and bony tenderness present. Decreased range of motion. Decreased strength. Skin: General: Skin is warm and dry. Neurological: Mental Status: She is alert and oriented to person, place, and time. Gait: Gait abnormal. Deep Tendon Reflexes: Reflex Scores: Patellar reflexes are 1+ on the right side and 1+ on the left side. Psychiatric: Mood and Affect: Mood and affect normal. Behavior: Behavior normal. Behavior is cooperative. Diagnoses: (M16.0) Primary osteoarthritis of both hips (primary encounter diagnosis) Impression: 62 year old female presents with complaint(s) of Bilateral hip pain. Patient reporting an increase in pain since the bilateral hip injections wore off. Patient denying any pain in her lowback at this point. Discussed options with the patient, will refer patient to orthopedics due to the hip pain positive results from injections that did not last. Patient is content with this decision. Patient is aware this does not mean she is a surgical candidate we want to get their opinion. Plan: Acacia Bynum would benefit from the following to reach personal goals for decreasing pain, improving function and work participation, and/or improving quality of life: Medication(s): Requested Prescriptions Signed Prescriptions Disp Refills diclofenac, EC, (VOLTAREN) 75 mg EC tablet 60 tablet 0 Sig: Take 1 tablet by mouth twice daily. Take with food Stop Mobic as it is not effective and we will try diclofenac. Considered a Medrol Dosepak to bring the patient's pain level down we will refrain at this point due to the osteoporosis diagnosis. Additional Studies: none Referrals: Surgical Referrals Will refer to orthopedic due to hip pain and short acting relief frombilateral hip injections. Functional Rastafari: Pt to continue activity as tolerated Depending on response to the above plan, consider: -Follow-up: 1 month Attribution: In addition to reviewing the information noted above, some elements copied from my most recent clinical note(s), including the physical exam (completed in entirety today), and the impression and plan sections, have been updated where appropriate. All reflect current medical decision making from today's date. Michelle Rivers CNP. Pain Management [facility] documented in this encounterMer[facility]07-06-2023 Miscellaneous Notes* Telephone Encounter - Sonia Nuñez - 01/07/2023 10:26 AM EDT I have attempted to contact this patient by phone, Left brief message on cell voicemail stating to give me a call back at [phone] to [place] Sonia Nu[place]ez documented in this encounterMercy [facility]06-29-2023 NoteHNO ID: [id number] Author: Michelle Rivers APRN.ERIC Service: ? Author Type: Nurse Practitioner Type: Progress Notes Filed: 12/31/2022 3:43 PM Note Text: VIRTUAL VISIT PROGRESS NOTE This is a virtual visit using [employer] video visit. It required patient-provider interaction for the medical decision making as documented below. I have communicated my name and active licensure. The patient's identity and physical location were verified at the time of this visit. Either the patient or their legal passenger representative has been informed of the risks and benefits of -- and alternatives to -- treatment through a remote evaluation and consents to proceed with the evaluation remotely. Acacia Bynum is a 62 year old female seen after having bilateral hip intra articular steroid injections. Pt reporting she received >85% relief. Pt states she is moving better and is doing better at this time. States she wishes she had this injection years ago. Date Procedure relief 12/17/2022 B/L hip I/A 80-90% HISTORY REVIEWED (electronic chart updated): PAST MEDICAL HISTORY Diagnosis Date Chronic constipation 11/17/2010 COLLES' FRACTURE-CLOSED 08/17/2005 DDD (degenerative disc disease), lumbar History of tobacco use Internal hemorrhoids without mention of complication Overactive bladder 11/17/2010 PAST SURGICAL HISTORY Procedure Laterality Date ABDOMINAL SURGERY HX BREAST SURGERY HX COLONOSCOPY 07/29/2021 repeat in 10 years COLONOSCOPY FLX DX W/COLLJ SPEC WHEN PFRMD 10/20/2010 EGD 07/29/2021 L'SCOPE CHOLECYSTECTOMY 09/02/2020 LARGSC EXC TUMAND/STRPG CORDS/EPIGL MCRSCP/TLSCP Left 02/28/2018 removal of polyp PAST SURGICAL HISTORY OF 2004 intersyne for bladder frequency; was surgically removed after PAST SURGICAL HISTORY OF Bilateral 2016 Breast Implants, Dr. Thompson REM LESION NEC,HND,SCAL,FEET,GENITALIA 1.1-2.0CM 09/17/2012 Exc. scalp wens x 3 VAGINAL HYSTERECTOMY VAGINAL HYSTERECTOMY UTERUS 250 GM/< 2000 Hysterectomy, vaginal (endometriosis) FAMILY HISTORY Problem Relation Age of Onset Cancer Mother lung Cancer Father lymphoma None Sister None Brother Diabetes Maternal Grandmother None Sister None Brother None Brother other (Other) Brother accidental No Known Problems Son No Known Problems Daughter Social History Tobacco Use Smoking status: Former Packs/day: 0.50 Years: 20.00 Pack years: 10.00 Types: Cigarettes Quit date: 07/05/2009 Years since quittin.4 Smokeless tobacco: Never Vaping Use Vaping Use: Never used Substance Use Topics Alcohol use: Not Currently Drug use: No Current Outpatient Medications Medication Sig meloxicam (MOBIC) 15 mg tablet Take 1 tablet by mouth once daily as needed for pain (with food). Cholecalciferol, Vitamin D3, 25 mcg (1,000 unit) cap Take 1 capsule by mouth once daily. polyethylene glycol 3350 (MIRALAX) 17 gram/dose powder Take 17 g by mouth once daily. Dissolve dose in 4 - 8 ounces of liquid and take as directed. Zinc 50 mg tab Take 50 mg by mouth once daily. COLLAGEN MISC 1 capsule once daily. venlafaxine (EFFEXOR) 37.5 mg tablet Take 37.5 mg by mouth once daily. cyanocobalamin (VITAMIN B-12) 1,000 mcg tab Take 0.5 tablets by mouth once daily. CALCIUM CITRATE/VITAMIN D3 (CITRACAL ORAL) Take by mouth once daily. ascorbic acid, vitamin C, (VITAMIN C) 500 mg tablet Take 500 mg by mouth once daily. Magnesium Oxide-Mg Amino Acid Chelate 300 mg cap Take 300 mg by mouth once daily. No current facility-administered medications for this visit. 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, no vaginal discharge, no breast mass/tenderness MUSCULOSKELETAL: denies any painful or swollen joints, no muscle aches SKIN: no rash PSYCH: denies depressed or anxious mood, sleep is normal HEMATOLOGY/LYMPHOLOGY: negative for prolonged bleeding, no swollen lymph nodes ENDOCRINE: denies cold/heat intolerance, denies polyuria or polydipsia, no goiter NEURO: no numbness or paresthesias and no weakness of the extremities PHYSICAL EXAMINATION: VIDEO EXAM: (if completed, performed via video enabled technology) GENERAL: alert and appropriate, in no distress, well-hydrated, well nourished, and happy, smiling, interactive SKIN: no rash noted HEAD: normocephalic, no abnormality or lesion noted EYES: no injection and visual acuity is grossly normal EARS: hearing grossly normal NOSE: external nose n (more content not included)...[facility] 12-31-2022 Instructions* Patient Instructions* Michelle Rivers APRN.CNP - 12/31/2022 3:38 PM EDT Ice and heat as tolerated Activity as tolerated documented in this encounterMer[facility]06-29-2023 History of Present illness Narrative* Michelle Rivers APRN.CNP - 12/31/2022 3:30 PM EDT VIRTUAL VISIT PROGRESS NOTE This is a virtual visit using [employer] video visit. It required patient-provider interaction for themedical decision making as documented below. I have communicated my name and active licensure. The patient's identity and physical location wereverified at the time of this visit. Either the patient or their legal passenger representative has been informed of the risks and benefits of -- and alternatives to -- treatment through a remote evaluation andconsents to proceed with the evaluation remotely. Acacia Bynum is a 62 year old female seen after having bilateral hip intra articular steroid injections. Pt reporting she received >85% relief. Pt states she is moving better and is doing better at this time. States she wishes she had this injection years ago. Date Procedure relief 12/17/2022 B/L hip I/A 80-90% HISTORY REVIEWED (electronic chart updated): PAST MEDICAL HISTORY Diagnosis Date Chronic constipation 11/17/2010 COLLES' FRACTURE-CLOSED 08/17/2005 DDD (degenerative disc disease), lumbar History of tobacco use Internal hemorrhoids without mention of complication Overactive bladder 11/17/2010 PAST SURGICAL HISTORY Procedure Laterality Date ABDOMINAL SURGERY HX BREAST SURGERY HX COLONOSCOPY 07/29/2021 repeat in 10 years COLONOSCOPY FLX DX W/COLLJ SPEC WHEN PFRMD 10/20/2010 EGD 07/29/2021 L'SCOPE CHOLECYSTECTOMY 09/02/2020 LARGSC EXC ANGLE&/STRPG CORDS/EPIGL MCRSCP/TLSCP Left 02/28/2018 removal of polyp PAST SURGICAL HISTORY OF 2004 intersyne for bladder frequency; was surgically removed after PAST SURGICAL HISTORY OF Bilateral 2016 Breast Implants, Dr. Thompson REM LESION NEC,HND,SCAL,FEET,GENITALIA 1.1-2.0CM 09/17/2012 Exc. scalp wens x 3 VAGINAL HYSTERECTOMY VAGINAL HYSTERECTOMY UTERUS 250 GM/< 2000 Hysterectomy, vaginal (endometriosis) FAMILY HISTORY Problem Relation Age of Onset Cancer Mother lung Cancer Father lymphoma None Sister None Brother Diabetes Maternal Grandmother None Sister None Brother None Brother other (Other) Brother accidental No Known Problems Son No Known Problems Daughter Social History Tobacco Use Smoking status: Former Packs/day: 0.50 Years: 20.00 Pack years: 10.00 Types: Cigarettes Quit date: 07/05/2009 Years since quittin.4 Smokeless tobacco: Never Vaping Use Vaping Use: Never used Substance Use Topics Alcohol use: Not Currently Drug use: No Current Outpatient Medications Medication Sig meloxicam (MOBIC) 15 mg tablet Take 1 tablet by mouth once daily as needed for pain (with food). Cholecalciferol, Vitamin D3, 25 mcg (1,000 unit) cap Take 1 capsule by mouth once daily. polyethylene glycol 3350 (MIRALAX) 17 gram/dose powder Take 17 g by mouth once daily. Dissolve dosein 4 - 8 ounces of liquid and take as directed. Zinc 50 mg tab Take 50 mg by mouth once daily. COLLAGEN MISC 1 capsule once daily. venlafaxine (EFFEXOR) 37.5 mg tablet Take 37.5 mg by mouth once daily. cyanocobalamin (VITAMIN B-12) 1,000 mcg tab Take 0.5 tablets by mouth once daily. CALCIUM CITRATE/VITAMIN D3 (CITRACAL ORAL) Take by mouth once daily. ascorbic acid, vitamin C, (VITAMIN C) 500 mg tablet Take 500 mg by mouth once daily. Magnesium Oxide-Mg Amino Acid Chelate 300 mg cap Take 300 mg by mouth once daily. No current facility-administered medications for this visit. 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, no vaginal discharge, no breast mass/tenderness MUSCULOSKELETAL: denies any painful or swollen joints, no muscle aches SKIN: no rash PSYCH: denies depressed or anxious mood, sleep is normal HEMATOLOGY/LYMPHOLOGY: negative for prolonged bleeding, no swollen lymph nodes ENDOCRINE: denies cold/heat intolerance, denies polyuria or polydipsia, no goiter NEURO: no numbness or paresthesias and no weakness of the extremities PHYSICAL EXAMINATION: VIDEO EXAM: (if completed, performed via video enabled technology) GENERAL: alert and appropriate, in no distress, well-hydrated, well nourished, and happy, smiling, interactive SKIN: no rash noted HEAD: normocephalic, no abnormality or lesion noted EYES: no injection and visual acuity is grossly normal EARS: hearing grossly normal NOSE: external nose normal without rhinorrhea OROPHARYNX: moist mucus membranes NECK: full ROM, no cervical LNs noted RESPIRATORY: breathing non-labored CHEST: equal chest rise with normal respiratory effort HEART: no obvious deficit ABDOMEN: soft and non-tender BACK: back normal in appearance, spine with FROM EXTREMITIES: denies deficit NEUROLOGIC: no obvious deficit ASSESSMENT: (M16.0) Primary osteoarthritis of both hips (primary encounter diagnosis) PLAN: Pt is currently on mobic encouraged pt to attempt to decrease use to see if she can continue to be managed without use of mobic. Pt to continue her HEP. Pt to follow up in 2 months Patient Instructions Ice and heat as tolerated Activity as tolerated I spent a total of 15 minutes on the date of the service which included preparing to see the patient, [id number] patient care, and completing clinical documentation Michelle Rivers APRN.CNP I have communicated my name and active licensure. The patient's identity and physical location wereverified at the time of this visit. Either the patient or their legal passenger representative has been informed of the risks and benefits of -- and alternatives to -- treatment through a remote evaluation andconsents to proceed with the evaluation remotely. documented in this encounterMer[facility]23 NoteHNO ID: [id number] Author: Tolu Friedman MD Service: ? Author Type: Physician Type: Procedures Filed: 12/17/2022 12:40 PM Note Text: PROCEDURE: BILATERAL INTRA-ARTICULAR ACETABULOFEMORAL JOINT INJECTION DIAGNOSIS: Primary osteoarthritis of both hips (primary encounter diagnosis) DESCRIPTION OF PROCEDURE: The patient was brought to the [facility] procedure room and placed in the supine position onto the fluoroscopy table. The right anterior hip area was prepped and draped in the usual sterile fashion using Chloroprep and a fenestrated drape. The fluoroscope was brought into the field and an oblique image was obtained to identify the left and right hip joint. The skin overlying the proposed needle entry site was marked. The skin and subcutaneous tissues overlying the proposed needle entry sites were anesthetized with 3 ml of 2% lidocaine. A 25-gauge 3.5-inch spinal needle was placed through the skin and advanced coaxially towards the hip joint under AP fluoroscopy. Correct final needle position was confirmed with visualization of the needle into the acetabulofemoral joint capsule with circumferential contrast spread on fluoroscopic imaging. A solution containing a total of 4ml of normal saline with 40mg of DepoMedrol was made and injected following negative aspiration for heme, CSF, or air. After completion of the injection, the needle were removed. The injection site were cleaned and dried. A sterile dressing was applied. The procedure was completed without complications and was tolerated well. The patient was monitored after the procedure. The patient (or responsible alliance party) was given post-procedure and discharge instructions to follow at home. The patient was discharged in stable condition. A follow up appointment was made. Please see the nursing note for exact times (time out, procedure start, procedure end).[facility]06-15-2023 NoteHNO ID: [id number] Author: Tolu Friedman MD Service: ? Author Type: Physician Type: Progress Notes Filed: 12/17/2022 12:40 PM Note Text: [facility] [place] [facility] MARYAM Bynum is a 62 year old female who presents for BL hip CSI. Review of Systems Per nursing documentation PAST MEDICAL HISTORY Diagnosis Date Chronic constipation 11/17/2010 COLLES' FRACTURE-CLOSED 08/17/2005 DDD (degenerative disc disease), lumbar History of tobacco use Internal hemorrhoids without mention of complication Overactive bladder 11/17/2010 PAST SURGICAL HISTORY Procedure Laterality Date ABDOMINAL SURGERY HX BREAST SURGERY HX COLONOSCOPY 07/29/2021 repeat in 10 years COLONOSCOPY FLX DX W/COLLJ SPEC WHEN PFRMD 10/20/2010 EGD 07/29/2021 L'SCOPE CHOLECYSTECTOMY 09/02/2020 LARGSC EXC TUMAND/STRPG CORDS/EPIGL MCRSCP/TLSCP Left 02/28/2018 removal of polyp PAST SURGICAL HISTORY OF 2004 intersyne for bladder frequency; was surgically removed after PAST SURGICAL HISTORY OF Bilateral 2016 Breast Implants, Dr. Thompson REM LESION NEC,HND,SCAL,FEET,GENITALIA 1.1-2.0CM 09/17/2012 Exc. scalp wens x 3 VAGINAL HYSTERECTOMY VAGINAL HYSTERECTOMY UTERUS 250 GM/< 2000 Hysterectomy, vaginal (endometriosis) Family History Problem Relation Age of Onset Cancer Mother lung Cancer Father lymphoma None Sister None Brother Diabetes Maternal Grandmother None Sister None Brother None Brother other (Other) Brother accidental No Known Problems Son No Known Problems Daughter Social History Tobacco Use Smoking status: Former Packs/day: 0.50 Years: 20.00 Pack years: 10.00 Types: Cigarettes Quit date: 07/05/2009 Years since quittin.4 Smokeless tobacco: Never Vaping Use Vaping Use: Never used Substance Use Topics Alcohol use: Not Currently Drug use: No Current Outpatient Medications Medication Sig Dispense Refill meloxicam (MOBIC) 15 mg tablet Take 1 tablet by mouth once daily as needed for pain (with food). 30 tablet 5 Cholecalciferol, Vitamin D3, 25 mcg (1,000 unit) cap Take 1 capsule by mouth once daily. polyethylene glycol 3350 (MIRALAX) 17 gram/dose powder Take 17 g by mouth once daily. Dissolve dose in 4 - 8 ounces of liquid and take as directed. Zinc 50 mg tab Take 50 mg by mouth once daily. COLLAGEN MISC 1 capsule once daily. venlafaxine (EFFEXOR) 37.5 mg tablet Take 37.5 mg by mouth once daily. cyanocobalamin (VITAMIN B-12) 1,000 mcg tab Take 0.5 tablets by mouth once daily. CALCIUM CITRATE/VITAMIN D3 (CITRACAL ORAL) Take by mouth once daily. ascorbic acid, vitamin C, (VITAMIN C) 500 mg tablet Take 500 mg by mouth once daily. Magnesium Oxide-Mg Amino Acid Chelate 300 mg cap Take 300 mg by mouth once daily. Current Facility-Administered Medications Medication Dose Route Frequency Provider Last Rate Last Admin lidocaine 10 mg/mL (1 %) 100 mg injection (XYLOCAINE) 100 mg OTHER ONCE Tolu Friedman MD methylPREDNISolone acetate 40 mg injection (DEPO-Medrol) 40 mg OTHER ONCE Tolu Friedman MD iohexol 1 mL IV injection (OMNIPAQUE 300) 1 mL OTHER ONCE Tolu Friedman MD Attestation Information obtained by others were confirmed and edited as necessary on 12/17/2022 by Tolu Friedman MD. Objective Exam: There were no vitals taken for this visit. Constitutional: normal appearance, AANDO x3 Head: atraumatic, normocephalic Eyes: conjunctiva clear. Cardiovascular: appears well-perfused Pulmonary: non-labored Abdominal: non-distended Skin: no visible rashes or ecchymosis Psychiatric: mood appropriate Neurological: no focal deficits Assessment and Plan: We discussed their current plan and the pathology responsible for the patient's pain. Specific counseling related to the procedure was provided regarding the risks, benefits and alternatives. The patient wishes to proceed with the plan as follows: Encounter Diagnosis ICD-10-CM 1. Primary osteoarthritis of both hips M16.0 DRAIN/INJECT LARGE JOINT/BURSA lidocaine 10 mg/mL (1 %) 100 mg injection (XYLOCAINE) methylPREDNISolone acetate 40 mg injection (DEPO-Medrol) iohexol 1 mL IV injection (OMNIPAQUE 300) Time out to confirm patient name, date of , procedure site, laterality, and allergies performed by physician. Please see nursing note for exact times (time out, procedure start, procedure end). [place] protocol documentation / Pre-Procedure checklist: Unless stated otherwise in the procedure note, the risks include but are not limited to infection, allergic reaction, increased pain, lack of therapeutic benefit, steroid reaction, nerve damage, paralysis, stroke, epidural hematoma, syncope, headache, respiratory or cardiac arrest, pneumothorax, and scar formation Time Out was led by the physician in the procedure room, with the patient and all staff present and participating The following information was ve (more content not included)...[facility]06-15-2023 NoteHNO ID: [id number] Author: Royal Crabtree LPN Service: ? Author Type: LICENSED NURSE Type: Progress Notes Filed: 12/17/2022 12:40 PM Note Text: Review of Systems Constitutional: Negative for activity change, chills, fever and unexpected weight change. Genitourinary: Negative for difficulty urinating. Musculoskeletal: Positive for arthralgias, back pain and myalgias. Negative for gait problem, joint swelling, neck pain and neck stiffness. Neurological: Positive for weakness. Negative for numbness and headaches. Psychiatric/Behavioral: Positive for sleep disturbance. Negative for dysphoric mood and suicidal ideas. The patient is not nervous/anxious.[facility]06-15-2023 Nurse Note* Adry Titus LPN - 12/17/2022 11:16 AM EDT Order has been placed in the patient's chart with the following parameters for discharge from the physician: Patient is alert and oriented Vitals: Diastolic/Systolic +/- 20mmHg Respirations: 12-18 Pulse: 60-100 SpO2 is greater than or equal to 90% Patient has no nausea or vomiting Patient has no dizziness Pain level is +/- 2 from initial evaluation Dressing, dry and intact with no evidence of bleeding Criteria has been met, patient is okay to be discharged per the physician. Physician has gone in and evaluated the patient. Dressing dry and intact. No drainage noted. The patient denies nausea, numbness, tingling, weakness, shortness of breath, dizziness, or headache. Pain level 0/10. Vital signs within normal limits. Patient denied needing walked out by clinical staff and denied needing a wheelchair. Patient given discharge instructions and sent to transportation via ambulatory method. Patient left in good condition. * Nancy Reilly MA - 12/17/2022 10:51 AM EDT Procedure to be performed: Bilateral Intra Articular Hip Steroid Injection Patient was wheeled on stretcher from pre op bay to procedure room and assisted onto the procedure tablePatient s procedure was performed in an [facility] Procedure room. Pause completed at each level by provider to verify correct level and laterality placement Pressure was applied to patient s injection site(s) and bleeding was minimal. Patient had no complaint of shortness of breath, dizziness, headache, numbness, tingling, weakness or complications from procedure. Patient was assisted from the procedure table onto the stretcher and wheeled into a post op bay. Patient was advised a clinician will be to obtain another set of vitals. Time Out: 1107 Confirmed patient name, date of , procedure site, laterality, and allergies Procedure Start: 1110 Procedure End: 1114 * Royal Crabtree LPN - 12/17/2022 10:12 AM EDT [employer] Operator's Name: aaron Are you on a blood thinner: n If yes, is a hold required: n Last dose of blood thinner: n INR Result today: n Do you require a Lovenox bridge:n Are you a diabetic:n Are you/or could you be : n Are you taking Xanax for the procedure: n Are you currently on a steroid? n Are you currently on an antibiotic: n Have you had a COVID-19 vaccine in the last 14 days Or are you scheduled to receive one? n documented in this encounterMer[facility]06-15-2023 History of Present illness Narrative* Tolu Friedman MD - 12/17/2022 11:02 AM EDT [facility] [place] [facility] HPI Acacia Bynum is a 62 year old female who presents for BL hip CSI. Review of Systems Per nursing documentation PAST MEDICAL HISTORY Diagnosis Date Chronic constipation 11/17/2010 COLLES' FRACTURE-CLOSED 08/17/2005 DDD (degenerative disc disease), lumbar History of tobacco use Internal hemorrhoids without mention of complication Overactive bladder 11/17/2010 PAST SURGICAL HISTORY Procedure Laterality Date ABDOMINAL SURGERY HX BREAST SURGERY HX COLONOSCOPY 07/29/2021 repeat in 10 years COLONOSCOPY FLX DX W/COLLJ SPEC WHEN PFRMD 10/20/2010 EGD 07/29/2021 L'SCOPE CHOLECYSTECTOMY 09/02/2020 LARGSC EXC ANGLE&/STRPG CORDS/EPIGL MCRSCP/TLSCP Left 02/28/2018 removal of polyp PAST SURGICAL HISTORY OF 2004 intersyne for bladder frequency; was surgically removed after PAST SURGICAL HISTORY OF Bilateral 2016 Breast Implants, Dr. Thompson REM LESION NEC,HND,SCAL,FEET,GENITALIA 1.1-2.0CM 09/17/2012 Exc. scalp wens x 3 VAGINAL HYSTERECTOMY VAGINAL HYSTERECTOMY UTERUS 250 GM/< 2000 Hysterectomy, vaginal (endometriosis) Family History Problem Relation Age of Onset Cancer Mother lung Cancer Father lymphoma None Sister None Brother Diabetes Maternal Grandmother None Sister None Brother None Brother other (Other) Brother accidental No Known Problems Son No Known Problems Daughter Social History Tobacco Use Smoking status: Former Packs/day: 0.50 Years: 20.00 Pack years: 10.00 Types: Cigarettes Quit date: 07/05/2009 Years since quittin.4 Smokeless tobacco: Never Vaping Use Vaping Use: Never used Substance Use Topics Alcohol use: Not Currently Drug use: No Current Outpatient Medications Medication Sig Dispense Refill meloxicam (MOBIC) 15 mg tablet Take 1 tablet by mouth once daily as needed for pain (with food). 30tablet 5 Cholecalciferol, Vitamin D3, 25 mcg (1,000 unit) cap Take 1 capsule by mouth once daily. polyethylene glycol 3350 (MIRALAX) 17 gram/dose powder Take 17 g by mouth once daily. Dissolve dosein 4 - 8 ounces of liquid and take as directed. Zinc 50 mg tab Take 50 mg by mouth once daily. COLLAGEN MISC 1 capsule once daily. venlafaxine (EFFEXOR) 37.5 mg tablet Take 37.5 mg by mouth once daily. cyanocobalamin (VITAMIN B-12) 1,000 mcg tab Take 0.5 tablets by mouth once daily. CALCIUM CITRATE/VITAMIN D3 (CITRACAL ORAL) Take by mouth once daily. ascorbic acid, vitamin C, (VITAMIN C) 500 mg tablet Take 500 mg by mouth once daily. Magnesium Oxide-Mg Amino Acid Chelate 300 mg cap Take 300 mg by mouth once daily. Current Facility-Administered Medications Medication Dose Route Frequency Provider Last Rate Last Admin lidocaine 10 mg/mL (1 %) 100 mg injection (XYLOCAINE) 100 mg OTHER ONCE Tolu Friedman MD methylPREDNISolone acetate 40 mg injection (DEPO-Medrol) 40 mg OTHER ONCE Tolu Friedman MD iohexol 1 mL IV injection (OMNIPAQUE 300) 1 mL OTHER ONCE Tolu Friedman MD Attestation Information obtained by others were confirmed and edited as necessary on 12/17/2022 by Tolu Friedman MD. Objective Exam: There were no vitals taken for this visit. Constitutional: normal appearance, A&O x3 Head: atraumatic, normocephalic Eyes: conjunctiva clear. Cardiovascular: appears well-perfused Pulmonary: non-labored Abdominal: non-distended Skin: no visible rashes or ecchymosis Psychiatric: mood appropriate Neurological: no focal deficits Assessment and Plan: We discussed their current plan and the pathology responsible for the patient's pain. Specific counseling related to the procedure was provided regarding the risks, benefits and alternatives. The patient wishes to proceed with the plan as follows: Encounter Diagnosis ICD-10-CM 1. Primary osteoarthritis of both hips M16.0 DRAIN/INJECT LARGE JOINT/BURSA lidocaine 10 mg/mL (1 %) 100 mg injection (XYLOCAINE) methylPREDNISolone acetate 40 mg injection (DEPO-Medrol) iohexol 1 mL IV injection (OMNIPAQUE 300) Time out to confirm patient name, date of , procedure site, laterality, and allergies performed by physician. Please see nursing note for exact times (time out, procedure start, procedure end). [place] protocol documentation / Pre-Procedure checklist: Unless stated otherwise in the procedure note, the risks include but are not limited to infection, allergic reaction, increased pain, lack of therapeutic benefit, steroid reaction, nerve damage, paralysis, stroke, epidural hematoma, syncope, headache, respiratory or cardiac arrest, pneumothorax, and scar formation Time Out was led by the physician in the procedure room, with the patient and all staff present andparticipating The following information was verified: name, date of , procedure site (marked), laterality, anticoagulants and allergies UNIVERSAL PROTOCOL / SAFETY CHECKLIST Sign In: A Moment of CARE was completed. Personnel directly involved with the procedure wore the appropriate PPE (Personal Protective Equipment). Patient/Surrogate Stated/Verified: patient name, date of , relevant allergies and intended procedure Time Out Communication: Intended patient and procedure match the source documents. Consent documented and matches the intended procedure. Sign Out: SIGN OUT (optional for EMERGENT procedures): No specimen collected. Tolu Friedman MD [facility] [place] [facility] * Royal Crabtree LPN - 12/17/2022 10:15 AM EDT Review of Systems Constitutional: Negative for activity change, chills, fever and unexpected weight change. Genitourinary: Negative for difficulty urinating. Musculoskeletal: Positive for arthralgias, back pain and myalgias. Negative for gait problem, jointswelling, neck pain and neck stiffness. Neurological: Positive for weakness. Negative for numbness and headaches. Psychiatric/Behavioral: Positive for sleep disturbance. Negative for dysphoric mood and suicidal ideas. The patient is not nervous/anxious. documented in this encounterMer[facility]06-15-2023 Procedure note* Tolu Friedman MD - 12/17/2022 11:02 AM EDT PROCEDURE: BILATERAL INTRA-ARTICULAR ACETABULOFEMORAL JOINT INJECTION DIAGNOSIS: Primary osteoarthritis of both hips (primary encounter diagnosis) DESCRIPTION OF PROCEDURE: The patient was brought to the [facility] procedure room and placed in the supineposition onto the fluoroscopy table. The right anterior hip area was prepped and draped in the usual sterile fashion using Chloroprep and a fenestrated drape. The fluoroscope was brought into the field and an oblique image was obtained to identify the left and right hip joint. The skin overlying the proposed needle entry site was marked. The skin and subcutaneous tissues overlying the proposed needle entry sites were anesthetized with 3 ml of 2% lidocaine. A 25-gauge 3.5-inch spinal needle was placed through the skin and advanced coaxially towards the hip joint under AP fluoroscopy. Correct final needle position was confirmed with visualization of the needle into the acetabulofemoral joint capsule with circumferential contrast spread on fluoroscopic imaging. A solution containing a total of 4ml of normal saline with 40mg of DepoMedrol was made and injected following negative aspiration for heme, CSF, or air. After completion of the injection, the needle were removed. The injection site were cleaned and dried. A sterile dressing was applied. The procedure was completed without complications and was tolerated well. The patient was monitoredafter the procedure. The patient (or responsible alliance party) was given post-procedure and discharge instructions to follow at home. The patient was discharged in stable condition. A follow up appointment was made. Please see the nursing note for exact times (time out, procedure start, procedure end). documented in this encounterMer[facility]06-15-2023 Instructions* Patient Instructions* Adry Titus LPN - 12/17/2022 10:32 AM EDT PROCEDURE DISCHARGE INSTRUCTIONS 12/17/2022 Acacia Bynum 1960 Physician: Tolu Friedman MD Procedure: Other: Bilateral intra articular hip injection Post Procedure Instructions: If sedation not given, no driving for 3 hours after the procedure., Rest the day of the procedure.,You may resume normal activities the day after the procedure, as tolerated., Pain should gradually subside over the next 2-3 weeks., Avoid movements that may aggravate pain., Apply cold compresses toinjection site if needed., If medically acceptable, take over the counter anti-inflammatories such as ibuprofen or Aleve if needed for post procedure discomfort., and No hot baths, hot tubs or hot compresses for 24 hours. If you have any of the following signs or symptoms, please call our office at Fever and/or chills Swelling and/or drainage from injection site New pain that is different than your normal pain (other than soreness at the site of the procedure) Stiff neck Shortness of breath Severe increase in pain Motor dysfunctions, such as difficulty walking, bowel or bladder dysfunction and/or incontinence Headache that is severe, light sensitive or develops when changing positions (positional headache) Nausea and/or vomiting accompanied by headache that started 24-48 hours after the procedure If you have any emergent concerns, please call 911 or go to your local emergency room. Please also contact our office to let us know you will be seeking emergency care and why. documented in this encounterMercy [facility]06-01-2023 NoteHNO ID: [id number] Author: Michelle Rivers APRN.ACADEMY DIRECTOR Service: ? Author Type: Nurse Practitioner Type: Progress Notes Filed: 12/03/2022 2:39 PM Note Text: [facility] Today's Date: 12/03/2022 Last Visit: 09/24/2022 Name: Acacia Bynum : 1960 Purpose: Established Patient Encounter Patient presents with: Follow Up: Discuss getting MRI Back Pain Hip Pain Knee Pain History of Present Illness: Acacia Bynum 62 year old female with complaints of chronic bilateral lower limb pain. Pt states the pain is mostly in her right hip with pain into her groin and down the front of her thigh and ending at the knee. Left hip with pain groin and down the front of her thigh to her knee. States the right leg is worse then the left. Pt went to physical therapy which helped to make the pain not as intense but it is still there. States she finished at PT. Pt states the pain is a stabbing pressure, aching pain. Pt states the pain keeps her from sleeping. Pt is taking mobic which is helping with her pain New Problems: none Pertinent Past Medical History: DDD Plan from Previous Office Visit: : 61 year old female with no significant past medical history, who presents with complaint(s) of chronic low back pain and leg pain pain. 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 Reports difficulty with ambulation due to her leg pain and weakness. Her most recent lumbar XR from 2019 demonstrates multilevel DDD and degenerative changes, Grade I spondylolisthesis with PARS defect L5/S1. Updated x-ray confirmed ongoing spondylolisthesis at L5-S1 and also at L4-5. 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 Acacia Bynum would benefit from the following to decrease pain, improve function and/or work participation, and improve quality of life: Medications: Continue OTC Tylenol arthritis prn pain Mobic - increase from 7.5mg daily to 15mg daily PRN (advised no other NSAIDS while taking Mobic) Effexor XR 37.5mg - continue (PCP) INTAKE PAIN ASSESSMENT 12/02/2022 12/03/2022 Are you having pain associated with your visit today? Yes, Provider notified Yes, Provider notified Pain Scales - Verbal (Numeric Rating or Visual Analog Scale) Pain Level - 4 Pain Location - Back-Lower Description - Aching;Stabbing;Sore;Tingling;Numbness;Throbbing Duration Amount of Time - - Duration Units - Years Frequency - Continuous Intervention/Comfort measure - Reposition;Relaxation;Positioning;Exercise Comments - - Pain Assessment - - Pain Description: Timing: constant Character: sharp and burning especially at night Primary Location: bilateral hips, pt also has low back pain without radiation Radiation: into groin, and down the front of the thigh to the knee Exacerbating factors: lying down, walking, and interferes with sleep Relieving factors: medications and changing position Interferes with: physical activity, sleep The patient denies numbness or tingling. Current Medications: Current Outpatient Medications Medication Sig Dispense Refill meloxicam (MOBIC) 15 mg tablet Take 1 tablet by mouth once daily as needed for pain (with food). 30 tablet 5 Cholecalciferol, Vitamin D3, 25 mcg (1,000 unit) cap Take 1 capsule by mouth once daily. polyethylene glycol 3350 (MIRALAX) 17 gram/dose powder Take 17 g by mouth once daily. Dissolve dose in 4 - 8 ounces of liquid and take as directed. Zinc 50 mg tab Take 50 mg by mouth once daily. COLLAGEN MISC 1 capsule once daily. venlafaxine (EFFEXOR) 37.5 mg tablet Take 37.5 mg by mouth once daily. cyanocobalamin (VITAMIN B-12) 1,000 mcg tab Take 0.5 tablets by mouth once daily. CALCIUM CITRATE/VITAMIN D3 (CITRACAL ORAL) Take by mouth once daily. ascorbic acid, vitamin C, (VITAMIN C) 500 mg tablet Take 500 mg by mouth once daily. Magnesium Oxide-Mg Amino Acid Chelate 300 mg cap Take 300 mg by mouth once daily. No current facility-administered medications for this visit. Non-Pain Meds of Note: none Allergies: ALLERGIES Allergen Reactions Codeine Rash Morphine Itching Penicillins Hives Sulfa (Sulfonamide * GI Upset Compliance: PDMP website checked and validated. All prescriptions have been APPROPRIATELY filled. No suspicious activity was identified. 12/03/2022 by Michelle Rivers APRN.ACADEMY DIRECTOR Last Drug screen: Not Applicable Pill Count: No question data found. Risk Assessment: Opioid Risk Tool: Opioid Risk Tool: (0-3, low risk or no risk; 4-7, moderate risk, 8+, high risk) LUZ MARIA-7: LUZ MARIA - 7 SCORES 08/06/2022 LUZ MARIA-7 Score 2 (0-4) minimal anxiety, (5-9) mild anxiety, (10-14) moderate anxiety, (15-21) severe anxiety PHQ-9: PHQ-9 08/06/2022 Score 4 (0-4) minimal depression, (5-9) mild depression, (10-14) moderate depression, (15-19) moderately severe depression, (20-27) severe depression Diagnostic Studies: XR PELVIS 1V AP Narrative: * * *Final Report* * * DATE OF EXAM: Anny (more content not included)...[facility] 12-03-2022 NoteHNO ID: [id number] Author: Sheila Saab MA Service: ? Author Type: Operational Assistant Type: Progress Notes Filed: 12/03/2022 2:39 PM Note Text: Review of Systems Constitutional: Negative for activity change, chills, fever and unexpected weight change. Gastrointestinal: Negative for bowel retention or incontinence Genitourinary: Negative for difficulty urinating. Negative for bladder retention or incontinence Musculoskeletal: Positive for arthralgias, back pain, gait problem and myalgias. Negative for joint swelling, neck pain and neck stiffness. Neurological: Positive for weakness. Negative for numbness and headaches. Psychiatric/Behavioral: Positive for sleep disturbance. Negative for dysphoric mood and suicidal ideas. The patient is not nervous/anxious.[facility]06-01-2023 Miscellaneous Notes* Telephone Encounter - Shantell New - 12/03/2022 2:21 PM EDT Procedure(s) being scheduled: 1.Are you diabetic No 2. Are you on any blood thinners? No If yes, does it require a hold? No If yes, was approval letter sent? No 3. Are you taking any aspirin? No 4. Are you currently taking any antibiotics? No If yes, is it prophylactic or for treatment of an infection? 5. Do you have any allergies to latex? No 6. Do you have any allergies to seafood or shellfish? No 7. Do you have any allergies to x-ray dye? No 8. Did the physician instruct you to take any medication prior to your procedure? no 9. Does this procedure require a bulk truck driver? No If yes, has patient been notified that a bulk truck driver is needed and must be present at check in? 10. Were the pre-procedure instructions explained and provided to the patient? Yes 11. Do you have a pacemaker? No 12. Do you have an internal stimulator of any kind? No If yes, please bring the remote with you to your procedure visit. 13. Have you received the COVID-19 Vaccine? No. If yes, date(s) received: (Patient should not receive a procedure including steroids 14 days prior to their first dose of theCOVID vaccine. They should not receive any procedure containing steroids in the time frame between their 1st and 2nd doses of the COVID vaccine. They should not receive a procedure containing steroids 14 days after their 2nd dose of the COVID vaccine.) Shantell New [facility] of Present illness Narrative* Michelle Rivers APRN.CNP - 12/03/2022 2:00 PM EDT Images from the original note were not included. [facility] Today's Date: 12/03/2022 Last Visit: 09/24/2022 Name: Acacia Bynum : 1960 Purpose: Established Patient Encounter Patient presents with: Follow Up: Discuss getting MRI Back Pain Hip Pain Knee Pain History of Present Illness: Acacia Bynum 62 year old female with complaints of chronic bilateral lowerlimb pain. Pt states the pain is mostly in her right hip with pain into her groin and down the front of her thigh and ending at the knee. Left hip with pain groin and down the front of her thigh to her knee. States the right leg is worse then the left. Pt went to physical therapy which helped to make the pain not as intense but it is still there. States she finished at PT. Pt states the pain is astabbing pressure, aching pain. Pt states the pain keeps her from sleeping. Pt is taking mobic which is helping with her pain New Problems: none Pertinent Past Medical History: DDD Plan from Previous Office Visit: : 61 year old female with no significant past medical history, who presents with complaint(s) of chronic low back pain and leg pain pain. 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 Reports difficulty with ambulation due to her leg pain and weakness. Her most recent lumbar XR from 2019 demonstrates multilevel DDD and degenerative changes, Grade I spondylolisthesis with PARS defect L5/S1. Updated x-ray confirmed ongoing spondylolisthesis at L5-S1 and also at L4-5. 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 Acacia Bynum would benefit from the following to decrease pain, improve function and/or work participation, and improve quality of life: Medications: Continue OTC Tylenol arthritis prn pain Mobic - increase from 7.5mg daily to 15mg daily PRN (advised no other NSAIDS while taking Mobic) Effexor XR 37.5mg - continue (PCP) INTAKE PAIN ASSESSMENT 12/02/2022 12/03/2022 Are you having pain associated with your visit today? Yes, Provider notified Yes, Provider notified Pain Scales - Verbal (Numeric Rating or Visual Analog Scale) Pain Level - 4 Pain Location - Back-Lower Description - Aching;Stabbing;Sore;Tingling;Numbness;Throbbing Duration Amount of Time - - Duration Units - Years Frequency - Continuous Intervention/Comfort measure - Reposition;Relaxation;Positioning;Exercise Comments - - Pain Assessment - - Pain Description: Timing: constant Character: sharp and burning especially at night Primary Location: bilateral hips, pt also has low back pain without radiation Radiation: into groin, and down the front of the thigh to the knee Exacerbating factors: lying down, walking, and interferes with sleep Relieving factors: medications and changing position Interferes with: physical activity, sleep The patient denies numbness or tingling. Current Medications: Current Outpatient Medications Medication Sig Dispense Refill meloxicam (MOBIC) 15 mg tablet Take 1 tablet by mouth once daily as needed for pain (with food). 30tablet 5 Cholecalciferol, Vitamin D3, 25 mcg (1,000 unit) cap Take 1 capsule by mouth once daily. polyethylene glycol 3350 (MIRALAX) 17 gram/dose powder Take 17 g by mouth once daily. Dissolve dosein 4 - 8 ounces of liquid and take as directed. Zinc 50 mg tab Take 50 mg by mouth once daily. COLLAGEN MISC 1 capsule once daily. venlafaxine (EFFEXOR) 37.5 mg tablet Take 37.5 mg by mouth once daily. cyanocobalamin (VITAMIN B-12) 1,000 mcg tab Take 0.5 tablets by mouth once daily. CALCIUM CITRATE/VITAMIN D3 (CITRACAL ORAL) Take by mouth once daily. ascorbic acid, vitamin C, (VITAMIN C) 500 mg tablet Take 500 mg by mouth once daily. Magnesium Oxide-Mg Amino Acid Chelate 300 mg cap Take 300 mg by mouth once daily. No current facility-administered medications for this visit. Non-Pain Meds of Note: none Allergies: ALLERGIES Allergen Reactions Codeine Rash Morphine Itching Penicillins Hives Sulfa (Sulfonamide * GI Upset Compliance: PDMP website checked and validated. All prescriptions have been APPROPRIATELY filled. No suspiciousactivity was identified. 12/03/2022 by Michelle Rivers APRN.ACADEMY DIRECTOR Last Drug screen: Not Applicable Pill Count: No question data found. Risk Assessment: Opioid Risk Tool: Opioid Risk Tool: (0-3, low risk or no risk; 4-7, moderate risk, 8+, high risk) LUZ MARIA-7: LUZ MARIA - 7 SCORES 08/06/2022 LUZ MARIA-7 Score 2 (0-4) minimal anxiety, (5-9) mild anxiety, (10-14) moderate anxiety, (15-21) severe anxiety PHQ-9: PHQ-9 08/06/2022 Score 4 (0-4) minimal depression, (5-9) mild depression, (10-14) moderate depression, (15-19) moderately severe depression, (20-27) severe depression Diagnostic Studies: XR PELVIS 1V AP Narrative: * * *Final Report* * * DATE OF EXAM: Sep 24 2022 12:33PM [id number] - XR PELVIS 1V AP / PROCEDURE REASON: Primary osteoarthritis of both hips * * * * Physician Interpretation * * * * Examination: XR PELVIS 1V AP, XR KNEE 4V AP/PA/LAT/MERCH BHARTI History: Primary osteoarthritis of both hips Evaluate for osteoarthritis. Technique: XR PELVIS 1V AP, XR KNEE 4V AP/PA/LAT/MERCH BHARTI Comparison: Knee films of 09/08/2018. CT scans of the abdomen and pelvis dated 09/08/2021 RESULT: AP pelvis reveals moderate degenerative change and joint space narrowing involving both hips. Most pronounced in the superior lateral aspect of the joint. Mild osteophytosis. SI joints appear unremarkable. Normal mineralization and alignment. Mild lower lumbar degenerative change and osteophytosis. 4 views of each knee show no evidence of suprapatellar effusion. Normal mineralization and alignment. No fracture or focal bony abnormality. Chondrocalcinosis bilaterally. Mild medial joint space narrowing on both sides. Impression: IMPRESSION: MODERATE JOINT SPACE NARROWING INVOLVING BOTH HIPS WITH OSTEOPHYTOSIS. MILD MEDIAL JOINT SPACE NARROWING INVOLVING BOTH KNEES. NO EFFUSION. 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: [facility] Transcribe Date/Time: Sep 29 2022 3:42P Dictated by : SUSANNA GUERRERO MD This examination was interpreted and the report reviewed and electronically signed by: SUSANNA GUERRERO MD on Sep 29 2022 3:45PM EST XR KNEE GENERAL 4V AP BOTH/PA BOTH/LAT/MERC BILAT Narrative: * * *Final Report* * * DATE OF EXAM: Sep 24 2022 12:33PM [id number] - XR KNEE 4V AP/PA/LAT/MERCH BHARTI / PROCEDURE REASON: knee pain * * * * Physician Interpretation * * * * Examination: XR PELVIS 1V AP, XR KNEE 4V AP/PA/LAT/MERCH BHARTI History: Primary osteoarthritis of both hips Evaluate for osteoarthritis. Technique: XR PELVIS 1V AP, XR KNEE 4V AP/PA/LAT/MERCH BHARTI Comparison: Knee films of 09/08/2018. CT scans of the abdomen and pelvis dated 09/08/2021 RESULT: AP pelvis reveals moderate degenerative change and joint space narrowing involving both hips. Most pronounced in the superior lateral aspect of the joint. Mild osteophytosis. SI joints appear unremarkable. Normal mineralization and alignment. Mild lower lumbar degenerative change and osteophytosis. 4 views of each knee show no evidence of suprapatellar effusion. Normal mineralization and alignment. No fracture or focal bony abnormality. Chondrocalcinosis bilaterally. Mild medial joint space narrowing on both sides. Impression: IMPRESSION: MODERATE JOINT SPACE NARROWING INVOLVING BOTH HIPS WITH OSTEOPHYTOSIS. MILD MEDIAL JOINT SPACE NARROWING INVOLVING BOTH KNEES. NO EFFUSION. 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: [facility] Transcribe Date/Time: Sep 29 2022 3:42P Dictated by : SUSANNA GUERRERO MD This examination was interpreted and the report reviewed and electronically signed by: SUSANNA GUERRERO MD on Sep 29 2022 3:45PM EST Recent Labs: Glucose (mg/dL) Date Value 06/16/2022 97 07/01/2021 96 Potassium (mmol/L) Date Value 06/16/2022 5.1 07/01/2021 4.2 Sodium (mmol/L) Date Value 06/16/2022 141 07/01/2021 138 Chloride (mmol/L) Date Value 06/16/2022 103 07/01/2021 102 CO2 (mmol/L) Date Value 06/16/2022 29 07/01/2021 25 Creatinine (mg/dL) Date Value 06/16/2022 0.67 07/01/2021 0.69 BUN (mg/dL) Date Value 06/16/2022 14 07/01/2021 13 Anion Gap (mmol/L) Date Value 06/16/2022 9 07/01/2021 11 Calcium (mg/dL) Date Value 07/01/2021 9.4 Calcium, Total (mg/dL) Date Value 06/16/2022 9.4 Protein, Total (g/dL) Date Value 06/16/2022 7.1 07/01/2021 6.7 Albumin (g/dL) Date Value 06/16/2022 4.2 07/01/2021 4.3 Bilirubin, Total (mg/dL) Date Value 06/16/2022 0.3 07/01/2021 0.4 Alkaline Phosphatase (U/L) Date Value 06/16/2022 113 07/01/2021 125 AST (U/L) Date Value 06/16/2022 29 07/01/2021 20 ALT (U/L) Date Value 06/16/2022 30 07/01/2021 13 Electrodiagnostic Study (EMG): None Pain Procedures: None at this practice Current Medications, Past Medical History, Past Surgical History, Family History, Social History and Review of Systems: On today's date, noted above, I have confirmed and edited as necessary, the PFSH and ROS obtained by others. Physical Exam: 12/03/22 1347 Pulse: 73 Resp: 16 SpO2: 95% Physical Exam Vitals reviewed. Constitutional: General: She is not in acute distress. Appearance: She is not ill-appearing. HENT: Head: Normocephalic and atraumatic. Eyes: Conjunctiva/sclera: Conjunctivae normal. Cardiovascular: Pulses: Normal pulses. Pulmonary: Effort: Pulmonary effort is normal. No respiratory distress. Musculoskeletal: Thoracic back: No tenderness or bony tenderness. No scoliosis. Lumbar back: Tenderness present. Decreased range of motion. Positive right straight leg raise test and positive left straight leg raise test. No scoliosis. Right hip: Tenderness present. Left hip: Tenderness present. Comments: Hip Flexion: Right- 4/5; Left- 4/5 Knee Extension: Right- 5/5; Left- 5/5 Dorsiflexion: Right- 5/5; Left- 5/5 Plantarflexion: Right- 5/5; Left- 5/5 EHL: Right- 5/5; Left- 5/5 Special Tests- Facet Loading: Right-Positive; Left Positive SI Compression:Negative ALFRED:Right-Positive; Left Positive Skin: General: Skin is warm and dry. Neurological: Mental Status: She is alert and oriented to person, place, and time. Motor: No weakness. Gait: Gait abnormal (antalgic). Tandem walk normal. Deep Tendon Reflexes: Reflexes are normal and symmetric. Reflex Scores: Patellar reflexes are 2+ on the right side and 2+ on the left side. Achilles reflexes are 2+ on the right side and 2+ on the left side. Comments: Psychiatric: Mood and Affect: Mood and affect normal. Behavior: Behavior normal. Behavior is cooperative. Diagnoses: (M16.0) Primary osteoarthritis of both hips (primary encounter diagnosis) (M48.061) Spinal stenosis of lumbar region without neurogenic claudication (M47.816) Lumbar spondylosis (M54.42, M54.41, G89.29) Chronic bilateral low back pain with bilateral sciatica Impression: 62 year old female presents with complaints of bilateral hip pain with radiation into groin and down the front of the legs ending at the knee and also low back pain. Patient made it clearthe pain in her groin especially the right is worse than the left groin or the low back. Patient did finish physical therapy which did not decrease the intensity of the pain in her back and hips but she continues to have this pain. Reviewed imaging, recent x-rays of her pelvis, which shows moderatejoint space narrowing and osteophyte formation. Discussed at length the next plan of care with the patient due to the fact the patient's hips are interfering with her life more than her lower back pain is we will proceed with bilateral hip intra-articular steroid injections into her hips and if needed afterwards may consider an intervention to help with her back pain. Plan: Acacia Bynum would benefit from the following to reach personal goals for decreasing pain, improving function and work participation, and/or improving quality of life: Medication(s): continue mobic as it is working well. Additional Studies: ordered a MRI as the pt has attempted 6 weeks of therapy and has taken an nsaid, mobic, to help with the pain however, continues to have back pain. Ordered a bilateral intra articular hip steroid injection under ultrasound guidance. Pt to continue to do PT exercises Additional Education: on the importance of PT and on the procedure. Depending on response to the above plan, consider: MBNB vs caudal if needed -Follow-up: 2 months Attribution: In addition to reviewing the information noted above, some elements copied from my most recent clinical note(s), including the physical exam (completed in entirety today), and the impression and plan sections, have been updated where appropriate. All reflect current medical decision making from today's date. Michelle Rivers, ACADEMY DIRECTOR. Pain Management [facility] * Sheila Saab MA - 12/03/2022 1:46 PM EDT Review of Systems Constitutional: Negative for activity change, chills, fever and unexpected weight change. Gastrointestinal: Negative for bowel retention or incontinence Genitourinary: Negative for difficulty urinating. Negative for bladder retention or incontinence Musculoskeletal: Positive for arthralgias, back pain, gait problem and myalgias. Negative for jointswelling, neck pain and neck stiffness. Neurological: Positive for weakness. Negative for numbness and headaches. Psychiatric/Behavioral: Positive for sleep disturbance. Negative for dysphoric mood and suicidal ideas. The patient is not nervous/anxious. [facility] NoteHNO ID: [id number] Author: Hermann Fuentes PT Service: ? Author Type: Physical Therapist Type: Progress Notes Filed: 11/02/2022 12:10 PM Note Text: Episode Visit Count: 9 Therapist That Will Accept/Oversee The Plan Of Care: Hermann Fuentes Start of Care Date: 09/04/22 Onset Date: 02/03/20 Plan of Care Certification Date: 09/04/22 Next Certification Due Date: 11/03/22 Patient Identified by Name and Date of : Yes REHABILITATION AND SPORTS THERAPY PHYSICAL THERAPY DISCONTINUANCE OF CARE PLAN OF CARE UPDATE: Assessment: Acacia Bynum is discontinued from Physical Therapy services due to goal achievement.. Patient was seen for 9 visits from Start of Care Date: 09/04/22 to 11/02/2022 and treatment included: Therapeutic exercise and Manual therapy. Pt was seen to improve hip strength and mobility and she responded very well. Goals for Episode of Care: created on 09/04/22 through 11/03/22 Modified 10/09/2022 updated 11/02/2022 Patient will decrease pain to 2/10 with walking to allow patient to improve community activities.M Patient will increase active ROM of hip extension to 20 degrees to allow pt to to improve postural alignment and to improve performance of ADLs.M Patient will demonstrate increase in hip strength to 5/5 during manual muscle testing in order to improve function for home management tasks and leisure / recreation skills.M Perform Pt will be able to sit without pain.M Patient Goals: Pt would like to try therapy to decrease pain and if it doesn't work then she would like to have an MRI to see exactly what is causing her pain. SUBJECTIVE: Patient Reason for Visit: Pt feels she has been doing well. She has been working in the yard and back to functional activities with only complaint of mild 2/10 pain in B groin areas after. Overall she feels the exercise keeps her loose and she feels much better. Pain: Pain Pain Level: 0 Post Treatment Pain Post Treatment Pain Level: 0 PROMIS Scales Higher is Better 10/31/2022 09/27/2022 04/23/2020 Phys Func - Score 41 (mild dysfunction) 41 (mild dysfunction) 50 (within normal limits) Phys Func - Percentile 18 % 18 % 50 % Self-Eff Symptom - Score 41 (Average) 48 (Average) 48 (Average) Self-Eff Symptom - Percentile 18 % 42 % 42 % T-scores: mean of general population = 50. 5 points is clinically meaningfully difference Percentiles provide an indication of how the patient's score ranks in relation to the general population. Higher percentile rankings indicate better function/quality of life. 50th percentile is the average of the general population and indicates half of respondents had a worse score. OBJECTIVE MEASURES WITH LEVEL OF FUNCTION: Lumbar Spine AROM Lumbar Extension: Normal LE Flexibility R Hip Internal Rotation Flexibility: 15 degrees LE Strength R Hip Extension: 5/5 R Hip Flexion (L2): 5/5 R Hip ABduction: 4+/5 R Ankle Dorsiflexion (L4): 5/5 R Ankle Plantar Flexion: 5/5 L Hip Extension: 5/5 L Hip Flexion (L2): 5/5 Functional Performance Test Results 10 Meter Walk Test Trial 1 (seconds): 5.48 10 Meter Walk Test Trial 2 (seconds): 5.51 10 Meter Walk Test Average (m/sec): 1.09 Timed Up and Go (sec): 9.28 sec TREATMENT: Therapeutic Exercise: 1: sidelying hip ex stretching manual assist 2: *supine alt leg/arm 3: sidelying hip circles R, L 10x each side 6: *prone SLR 7: Pt ambulated clinic 1x for rechech after every set of exercise for pain re-assessment. Skilled Intervention: Patient was educated in proper exercise technique and purpose for exercises. Reviewed and educated patient on additions/changes for home exercise program as above (*). Billing Therapeutic Exercise Treatment Minutes: 30 Total Treatment Time Minutes (timed/untimed): 30 Hermann Fuentes [facility]05-01-2023 History of Present illness Narrative* Hermann Fuentes, PT - 11/02/2022 12:05 PM EDT Episode Visit Count: 9 Therapist That Will Accept/Oversee The Plan Of Care: Hermann Fuentes Start of Care Date: 09/04/22 Onset Date: 02/03/20 Plan of Care Certification Date: 09/04/22 Next Certification Due Date: 11/03/22 Patient Identified by Name and Date of : Yes REHABILITATION AND SPORTS THERAPY PHYSICAL THERAPY DISCONTINUANCE OF CARE PLAN OF CARE UPDATE: Assessment: Acacia Bynum is discontinued from Physical Therapy services due to goal achievement.. Patient was seen for 9 visits from Start of Care Date: 09/04/22 to 11/02/2022 and treatment included: Therapeutic exercise and Manual therapy. Pt was seen to improve hip strength and mobility and she responded very well. Goals for Episode of Care: created on 09/04/22 through 11/03/22 Modified 10/09/2022 updated 11/02/2022 Patient will decrease pain to 2/10 with walking to allow patient to improve community activities.M Patient will increase active ROM of hip extension to 20 degrees to allow pt to to improve postural alignment and to improve performance of ADLs.M Patient will demonstrate increase in hip strength to 5/5 during manual muscle testing in order to improve function for home management tasks and leisure / recreation skills.M Perform Pt will be able to sit without pain.M Patient Goals: Pt would like to try therapy to decrease pain and if it doesn't work then she would like to have an MRI to see exactly what is causing her pain. SUBJECTIVE: Patient Reason for Visit: Pt feels she has been doing well. She has been working in [employer] and back to functional activities with only complaint of mild 2/10 pain in B groin areas after. Overall she feels the exercise keeps her loose and she feels much better. Pain: Pain Pain Level: 0 Post Treatment Pain Post Treatment Pain Level: 0 PROMIS Scales Higher is Better 10/31/2022 09/27/2022 04/23/2020 Phys Func - Score 41 (mild dysfunction) 41 (mild dysfunction) 50 (within normal limits) Phys Func - Percentile 18 % 18 % 50 % Self-Eff Symptom - Score 41 (Average) 48 (Average) 48 (Average) Self-Eff Symptom - Percentile 18 % 42 % 42 % T-scores: mean of general population = 50. 5 points is clinically meaningfully difference Percentiles provide an indication of how the patient's score ranks in relation to the general population. Higher percentile rankings indicate better function/quality of life. 50th percentile is the average of the general population and indicates half of respondents had a worse score. OBJECTIVE MEASURES WITH LEVEL OF FUNCTION: Lumbar Spine AROM Lumbar Extension: Normal LE Flexibility R Hip Internal Rotation Flexibility: 15 degrees LE Strength R Hip Extension: 5/5 R Hip Flexion (L2): 5/5 R Hip ABduction: 4+/5 R Ankle Dorsiflexion (L4): 5/5 R Ankle Plantar Flexion: 5/5 L Hip Extension: 5/5 L Hip Flexion (L2): 5/5 Functional Performance Test Results 10 Meter Walk Test Trial 1 (seconds): 5.48 10 Meter Walk Test Trial 2 (seconds): 5.51 10 Meter Walk Test Average (m/sec): 1.09 Timed Up and Go (sec): 9.28 sec TREATMENT: Therapeutic Exercise: 1: sidelying hip ex stretching manual assist 2: *supine alt leg/arm 3: sidelying hip circles R, L 10x each side 6: *prone SLR 7: Pt ambulated clinic 1x for rechech after every set of exercise for pain re-assessment. Skilled Intervention: Patient was educated in proper exercise technique and purpose for exercises. Reviewed and educated patient on additions/changes for home exercise program as above (*). Billing Therapeutic Exercise Treatment Minutes: 30 Total Treatment Time Minutes (timed/untimed): 30 Hermann Fuentes PT documented [facility] NoteHNO ID: [id number] Author: Hermann Fuentes PT Service: ? Author Type: Physical Therapist Type: Progress Notes Filed: 10/12/2022 4:45 PM Note Text: Episode Visit Count: 8 Therapist That Will Accept/Oversee The Plan Of Care: Hermann Fuentes Start of Care Date: 09/04/22 Onset Date: 02/03/20 Plan of Care Certification Date: 09/04/22 Next Certification Due Date: 11/03/22 Patient Identified by Name and Date of : Yes REHABILITATION AND SPORTS THERAPY PHYSICAL THERAPY TREATMENT NOTE ASSESSMENT: Acacia Bynum tolerated the session with decreased symptoms. She demonstrated improvements in pain. The patient will continue to benefit from ongoing skilled physical therapy to progress toward set goals. PLAN FOR NEXT VISIT: Re-assess new HEP, increase function as tolerated. SUBJECTIVE: Patient Reason for Visit: Pt sore today after increased activity at home this weekend. The weather is improving and pt is doing more at home and her back and leg pain is coming back. Pain: Pain Pain Level: 6 Pain Location: Hip - Right Description: Aching Post Treatment Pain Post Treatment Pain Level: 0 OBJECTIVE MEASURES WITH LEVEL OF FUNCTION: TREATMENT: Therapeutic Exercise: 1: sidelying hip ex stretching manual assist 2: *supine alt leg/arm over a pillow 3: *quadruped alt leg 4: supine abdominal isometric with heel slide 10x4 5: supine abdominal contract with [id number] 6: *prone hip extension stretch R, L one minute hold. 7: Pt ambulated clinic 1x for rechech after every set of exercise for pain re-assessment. Skilled Intervention: Patient was educated in proper exercise technique and purpose for exercises. Reviewed and educated patient on additions/changes for home exercise program as above (*). Skilled judgment was provided in selection of appropriate interventions. Additional time necessary for recheck of pain after exercise due to pt significant increase in pain pre-appt today. Billing Therapeutic Exercise Treatment Minutes: 45 Total Treatment Time Minutes (timed/untimed): 45 Hermann Fuentes [facility]04-10-2023 History of Present illness Narrative* Hermann Fuentes, PT - 10/12/2022 4:42 PM EDT Episode Visit Count: 8 Therapist That Will Accept/Oversee The Plan Of Care: Hermann Fuentes Start of Care Date: 09/04/22 Onset Date: 02/03/20 Plan of Care Certification Date: 09/04/22 Next Certification Due Date: 11/03/22 Patient Identified by Name and Date of : Yes REHABILITATION AND SPORTS THERAPY PHYSICAL THERAPY TREATMENT NOTE ASSESSMENT: Acacia Bynum tolerated the session with decreased symptoms. She demonstrated improvements in pain. The patient will continue to benefit from ongoing skilled physical therapy to progress toward set goals. PLAN FOR NEXT VISIT: Re-assess new HEP, increase function as tolerated. SUBJECTIVE: Patient Reason for Visit: Pt sore today after increased activity at home this weekend. The weather is improving and pt is doing more at home and her back and leg pain is coming back. Pain: Pain Pain Level: 6 Pain Location: Hip - Right Description: Aching Post Treatment Pain Post Treatment Pain Level: 0 OBJECTIVE MEASURES WITH LEVEL OF FUNCTION: TREATMENT: Therapeutic Exercise: 1: sidelying hip ex stretching manual assist 2: *supine alt leg/arm over a pillow 3: *quadruped alt leg 4: supine abdominal isometric with heel slide 10x4 5: supine abdominal contract with [id number] 6: *prone hip extension stretch R, L one minute hold. 7: Pt ambulated clinic 1x for rechech after every set of exercise for pain re-assessment. Skilled Intervention: Patient was educated in proper exercise technique and purpose for exercises. Reviewed and educated patient on additions/changes for home exercise program as above (*). Skilled judgment was provided in selection of appropriate interventions. Additional time necessary for recheck of pain after exercise due to pt significant increase in painpre-appt today. Billing Therapeutic Exercise Treatment Minutes: 45 Total Treatment Time Minutes (timed/untimed): 45 Hermann Fuentes PT documented in this [facility]Mer[facility]04-[facility]23 NoteHNO ID: [id number] Author: Hermann Fuentes PT Service: ? Author Type: Physical Therapist Type: Progress Notes Filed: 10/09/2022 3:17 PM Note Text: Episode Visit Count: 7 Therapist That Will Accept/Oversee The Plan Of Care: Hermann Fuentes Start of Care Date: 09/04/22 Onset Date: 02/03/20 Plan of Care Certification Date: 09/04/22 Next Certification Due Date: 11/03/22 REHABILITATION AND SPORTS THERAPY PHYSICAL THERAPY PROGRESS REPORT PLAN OF CARE UPDATE: Assessment: Acacia Bynum demonstrates significant improvement in sitting and walking . She has progressed toward goals. Patient continues to present with impairments in overall function, range of motion, and strength that interfere with ADL's . Current prognosis is good . She will benefit from continued skilled therapy services to meet the updated goals for this plan of care as noted below. Goals for Episode of Care: created on 09/04/22 through 11/03/22 Modified 10/09/2022 Patient will decrease pain to 2/10 with walking to allow patient to improve community activities.M Patient will increase active ROM of hip extension to 20 degrees to allow pt to to improve postural alignment and to improve performance of ADLs.PM Patient will demonstrate increase in hip strength to 5/5 during manual muscle testing in order to improve function for home management tasks and leisure / recreation skills.PM Perform Pt will be able to sit without pain.PM Patient Goals: Pt would like to try therapy to decrease pain and if it doesn't work then she would like to have an MRI to see exactly what is causing her pain. Planned Interventions, Frequency, and Duration: 2x/week, 8 weeks Total Number of Visits Planned: 16 Patient to be seen for Therapeutic exercise (81949), Neuromuscular re-education (59018), Therapeutic activities (82470), Manual therapy (36135), Gait Training (56068) PLAN FOR NEXT VISIT: re-assess sit to stand technique continue to progress squatting as tolerated SUBJECTIVE: Patient Reason for Visit: Pt was sore after last treatment for 2 days but better after going back to original HEP.. Pain: Pain Pain Level: 0 Post Treatment Pain Post Treatment Pain Level: 0 PROMIS Scales Higher is Better 09/27/2022 04/23/2020 03/25/2020 Phys Func - Score 41 (mild dysfunction) 50 (within normal limits) 46 (within normal limits) Phys Func - Percentile 18 % 50 % 34 % Self-Eff Symptom - Score 48 (Average) 48 (Average) 59 (Average) Self-Eff Symptom - Percentile 42 % 42 % 82 % T-scores: mean of general population = 50. 5 points is clinically meaningfully difference Percentiles provide an indication of how the patient's score ranks in relation to the general population. Higher percentile rankings indicate better function/quality of life. 50th percentile is the average of the general population and indicates half of respondents had a worse score. OBJECTIVE MEASURES WITH LEVEL OF FUNCTION: Lumbar Spine AROM Lumbar Extension: Minimal limitation LE Flexibility R Hip External Rotation Flexibility: normal LE Strength R Hip Extension: 4/5 R Hip Flexion (L2): 4+/5 R Hip ABduction: 4-/5 R Knee Extension (L3): 5/5 L Hip Extension: 4+/5 L Hip Flexion (L2): 4+/5 Functional Performance Test Results 10 Meter Walk Test Trial 1 (seconds): 6.3 10 Meter Walk Test Trial 2 (seconds): 6.4 10 Meter Walk Test Average (m/sec): 0.94 Timed Up and Go (sec): 9.38 sec TREATMENT: Therapeutic Exercise: 1: sidelying hip ex stretching manual assist 2: *sidelying SLR count to ten x 3 R, L 3: Prone alt leg arm 10x2 4: *Prone hip abduction with extension 10x2 R, L 5: sit to stand at standard chair 6: sit to stand off 4inch step to table 5x2 Skilled Intervention: Patient was educated in proper exercise technique and purpose for exercises. Reviewed and educated patient on additions/changes for home exercise program as above (*). Billing Therapeutic Exercise Treatment Minutes: 30 Total Treatment Time Minutes (timed/untimed): 30 Hermann Fuentes [facility]04-07-2023 History of Present illness Narrative* Hermann Fuentes, PT - 10/09/2022 2:20 PM EDT Episode Visit Count: 7 Therapist That Will Accept/Oversee The Plan Of Care: Hermann Fuentes Start of Care Date: 09/04/22 Onset Date: 02/03/20 Plan of Care Certification Date: 09/04/22 Next Certification Due Date: 11/03/22 REHABILITATION AND SPORTS THERAPY PHYSICAL THERAPY PROGRESS REPORT PLAN OF CARE UPDATE: Assessment: Acacia Bynum demonstrates significant improvement in sitting and walking . She has progressed toward goals. Patient continues to present with impairments in overall function, range of motion, and strength that interfere with ADL's . Current prognosis is good . She will benefit from continued skilled therapy services to meet the updated goals for this plan of care as noted below. Goals for Episode of Care: created on 09/04/22 through 11/03/22 Modified 10/09/2022 Patient will decrease pain to 2/10 with walking to allow patient to improve community activities.M Patient will increase active ROM of hip extension to 20 degrees to allow pt to to improve postural alignment and to improve performance of ADLs.PM Patient will demonstrate increase in hip strength to 5/5 during manual muscle testing in order to improve function for home management tasks and leisure / recreation skills.PM Perform Pt will be able to sit without pain.PM Patient Goals: Pt would like to try therapy to decrease pain and if it doesn't work then she would like to have an MRI to see exactly what is causing her pain. Planned Interventions, Frequency, and Duration: 2x/week, 8 weeks Total Number of Visits Planned: 16 Patient to be seen for Therapeutic exercise (63503), Neuromuscular re-education (99283), Therapeutic activities (99336), Manual therapy (34214), Gait Training (42154) PLAN FOR NEXT VISIT: re-assess sit to stand technique continue to progress squatting as tolerated SUBJECTIVE: Patient Reason for Visit: Pt was sore after last treatment for 2 days but better after going back to original HEP.. Pain: Pain Pain Level: 0 Post Treatment Pain Post Treatment Pain Level: 0 PROMIS Scales Higher is Better 09/27/2022 04/23/2020 03/25/2020 Phys Func - Score 41 (mild dysfunction) 50 (within normal limits) 46 (within normal limits) Phys Func - Percentile 18 % 50 % 34 % Self-Eff Symptom - Score 48 (Average) 48 (Average) 59 (Average) Self-Eff Symptom - Percentile 42 % 42 % 82 % T-scores: mean of general population = 50. 5 points is clinically meaningfully difference Percentiles provide an indication of how the patient's score ranks in relation to the general population. Higher percentile rankings indicate better function/quality of life. 50th percentile is the average of the general population and indicates half of respondents had a worse score. OBJECTIVE MEASURES WITH LEVEL OF FUNCTION: Lumbar Spine AROM Lumbar Extension: Minimal limitation LE Flexibility R Hip External Rotation Flexibility: normal LE Strength R Hip Extension: 4/5 R Hip Flexion (L2): 4+/5 R Hip ABduction: 4-/5 R Knee Extension (L3): 5/5 L Hip Extension: 4+/5 L Hip Flexion (L2): 4+/5 Functional Performance Test Results 10 Meter Walk Test Trial 1 (seconds): 6.3 10 Meter Walk Test Trial 2 (seconds): 6.4 10 Meter Walk Test Average (m/sec): 0.94 Timed Up and Go (sec): 9.38 sec TREATMENT: Therapeutic Exercise: 1: sidelying hip ex stretching manual assist 2: *sidelying SLR count to ten x 3 R, L 3: Prone alt leg arm 10x2 4: *Prone hip abduction with extension 10x2 R, L 5: sit to stand at standard chair 6: sit to stand off 4inch step to table 5x2 Skilled Intervention: Patient was educated in proper exercise technique and purpose for exercises. Reviewed and educated patient on additions/changes for home exercise program as above (*). Billing Therapeutic Exercise Treatment Minutes: 30 Total Treatment Time Minutes (timed/untimed): 30 Hermann Fuentes PT documented in this encounterMer[facility]03-29-2023 NoteHNO ID: [id number] Author: Hermann Fuentes PT Service: ? Author Type: Physical Therapist Type: Progress Notes Filed: 09/30/2022 4:30 PM Note Text: Episode Visit Count: 6 Therapist That Will Accept/Oversee The Plan Of Care: Hermann Fuentes Start of Care Date: 09/04/22 Onset Date: 02/03/20 Plan of Care Certification Date: 09/04/22 Next Certification Due Date: 11/03/22 Patient Identified by Name and Date of : Yes REHABILITATION AND SPORTS THERAPY PHYSICAL THERAPY TREATMENT NOTE ASSESSMENT: Acacia Bynum tolerated the session with increased symptoms. She demonstrated difficulty with Pain in r hip after exercise. The patient will continue to benefit from ongoing skilled physical therapy to progress toward set goals. PLAN FOR NEXT VISIT: reassess posture and tolerance to prone alt leg arm SUBJECTIVE: Patient Reason for Visit: Pt has some pain today, not sure what from. She stands SB r with more forward bend than normal. Pain: Pain Pain Level: 1 Pain Location: Hip - Right Post Treatment Pain Post Treatment Pain Level: 1 Post Treatment Pain Location: Hip - Right OBJECTIVE MEASURES WITH LEVEL OF FUNCTION: TREATMENT: Therapeutic Exercise: 1: sidelying hip ex stretching manual assist 2: *sidelying SLR count to ten x 3 R, L 3: Prone alt leg arm 10x2 4: sidelying quad stretch 5: Prone LAQ turcios t band 6: shuttle 4 bands leg press, alt df, toe raise, Skilled Intervention: Patient was educated in proper exercise technique and purpose for exercises. Reviewed and educated patient on additions/changes for home exercise program as above (*). Skilled judgment was provided in selection of appropriate interventions. Billing Therapeutic Exercise Treatment Minutes: 45 Total Treatment Time Minutes (timed/untimed): 45 [facility] History of Present illness Narrative* Hermann Fuentes PT - 09/30/2022 4:28 PM EDT Episode Visit Count: 6 Therapist That Will Accept/Oversee The Plan Of Care: Hermann Fuentes Start of Care Date: 09/04/22 Onset Date: 02/03/20 Plan of Care Certification Date: 09/04/22 Next Certification Due Date: 11/03/22 Patient Identified by Name and Date of : Yes REHABILITATION AND SPORTS THERAPY PHYSICAL THERAPY TREATMENT NOTE ASSESSMENT: Acacia Bynum tolerated the session with increased symptoms. She demonstrated difficulty with Pain in r hip after exercise. The patient will continue to benefit from ongoing skilled physical therapy to progress toward set goals. PLAN FOR NEXT VISIT: reassess posture and tolerance to prone alt leg arm SUBJECTIVE: Patient Reason for Visit: Pt has some pain today, not sure what from. She stands SB r with more forward bend than normal. Pain: Pain Pain Level: 1 Pain Location: Hip - Right Post Treatment Pain Post Treatment Pain Level: 1 Post Treatment Pain Location: Hip - Right OBJECTIVE MEASURES WITH LEVEL OF FUNCTION: TREATMENT: Therapeutic Exercise: 1: sidelying hip ex stretching manual assist 2: *sidelying SLR count to ten x 3 R, L 3: Prone alt leg arm 10x2 4: sidelying quad stretch 5: Prone LAQ turcios t band 6: shuttle 4 bands leg press, alt df, toe raise, Skilled Intervention: Patient was educated in proper exercise technique and purpose for exercises. Reviewed and educated patient on additions/changes for home exercise program as above (*). Skilled judgment was provided in selection of appropriate interventions. Billing Therapeutic Exercise Treatment Minutes: 45 Total Treatment Time Minutes (timed/untimed): 45 Hermann Fuentes PT documented in this encounterMer[facility]03-27-2023 NoteHNO ID: [id number] Author: Hermann Fuentes PT Service: ? Author Type: Physical Therapist Type: Progress Notes Filed: 09/28/2022 4:26 PM Note Text: Episode Visit Count: 5 Therapist That Will Accept/Oversee The Plan Of Care: Hermann Fuentes Start of Care Date: 09/04/22 Onset Date: 02/03/20 Plan of Care Certification Date: 09/04/22 Next Certification Due Date: 11/03/22 Patient Identified by Name and Date of : Yes REHABILITATION AND SPORTS THERAPY PHYSICAL THERAPY TREATMENT NOTE ASSESSMENT: Acacia Bynum tolerated the session with no issues. She demonstrated improvements in hip extension ROM and strength. The patient will continue to benefit from ongoing skilled physical therapy to progress toward set goals. PLAN FOR NEXT VISIT: Continue with hip extension stretching and core strengthening. SUBJECTIVE: Patient Reason for Visit: Pt was sick over the weekend but that was unrelated. Pt states her legs and knees are no longer hurting and she is doing much better overall. Her chief complaint now is stiffness in the AM. Pain: Pain Pain Level: 0 Post Treatment Pain Post Treatment Pain Level: 0 OBJECTIVE MEASURES WITH LEVEL OF FUNCTION: TREATMENT: Therapeutic Exercise: 1: sidelying hip ex stretching manual assist 2: *sidelying SLR count to ten x 3 R, L 3: hamstring stretch 1 min R, L 4: supine glut stretch R L 1 min 6: Prone alt leg 10x2 7: single leg stance 30 seconds x 3 R, L Skilled Intervention: Patient was educated in proper exercise technique and purpose for exercises. Reviewed and educated patient on additions/changes for home exercise program as above (*). Skilled judgment was provided in selection of appropriate interventions. Billing Therapeutic Exercise Treatment Minutes: 35 Total Treatment Time Minutes (timed/untimed): 35 Hermann Fuentes [facility]03-23-2023 NoteHNO ID: [id number] Author: Sruthi Barraza, RT(R) Service: Nuclear Medicine Author Type: Technologist Type: Progress Notes Filed: 09/24/2022 12:33 PM Note Text: Radiology Service Progress Note PATIENT NAME: Acacia Bynum DATE OF SERVICE: September 24, 2022 TIME: 12:20 PM PATIENT IDENTITY VERIFICATION COMPLETED USING TWO (2) IDENTIFIERS: Name and Date of confirmed by patient verbally. FALL SCREENING: Has the patient had 2 falls in the last year or 1 fall with injury or currently using an Ambulatory Assistive Device (Walker, Cane, Wheelchair, Crutches, etc.)? No PATIENT GENDER DATA: Female. status: : No status: NO. PATIENT RELEVANT IMPLANT DATA REVIEWED: Not Applicable RADIOLOGY DEPARTMENT: General X-ray: Exam(s) Completed: Pelvis X-Ray: Pelvis General AP Lower Extremity X-Ray(s): Knee, AP / Lat / Tunne / Merchant Bilateral and Wt. Bearing PERIPHERAL IV DATA: Not applicable SIGNED BY: RT Gabriela(R) September 24, 2022 12:20 [facility]03-23-2023 NoteHNO ID: [id number] Author: Sheila Saab MA Service: ? Author Type: Operational Assistant Type: Progress Notes Filed: 09/24/2022 12:01 PM Note Text: Review of Systems Constitutional: Negative for activity change, chills, fever and unexpected weight change. Gastrointestinal: Negative for bowel retention or incontinence Genitourinary: Negative for difficulty urinating. Negative for bladder retention or incontinence Musculoskeletal: Positive for arthralgias, back pain, gait problem and myalgias. Negative for joint swelling, neck pain and neck stiffness. Neurological: Negative for weakness, numbness and headaches. Psychiatric/Behavioral: Positive for sleep disturbance. Negative for dysphoric mood and suicidal ideas. The patient is not nervous/anxious.[facility]03-23-2023 Miscellaneous Notes* Addendum Note - Bigg Singh MD - 09/24/2022 12:11 PM EDTAddended by: BIGG SINGH on: 09/24/2022 12:11 PM Modules accepted: Orders documented in this encounterMer[facility]03-23-2023 History of Present illness Narrative* Sruthi Barraza RT(R) - 09/24/2022 12:10 PM EDT Radiology Service Progress Note PATIENT NAME: Acacia Bynum DATE OF SERVICE: September 24, 2022 TIME: 12:20 PM PATIENT IDENTITY VERIFICATION COMPLETED USING TWO (2) IDENTIFIERS: Name and Date of confirmedby patient verbally. FALL SCREENING: Has the patient had 2 falls in the last year or 1 fall with injury or currently using an Ambulatory Assistive Device (Walker, Cane, Wheelchair, Crutches, etc.)? No PATIENT GENDER DATA: Female. status: : No status: NO. PATIENT RELEVANT IMPLANT DATA REVIEWED: Not Applicable RADIOLOGY DEPARTMENT: General X-ray: Exam(s) Completed: Pelvis X-Ray: Pelvis General AP Lower Extremity X-Ray(s): Knee, AP / Lat / Tunne / Merchant Bilateral and Wt. Bearing PERIPHERAL IV DATA: Not applicable SIGNED BY: RT Gabriela(R) September 24, 2022 12:20 PM documented in this encounterMercy [facility]03-23-2023 History of Present illness Narrative* Sheila Saab MA - 09/24/2022 11:30 AM EDT Review of Systems Constitutional: Negative for activity change, chills, fever and unexpected weight change. Gastrointestinal: Negative for bowel retention or incontinence Genitourinary: Negative for difficulty urinating. Negative for bladder retention or incontinence Musculoskeletal: Positive for arthralgias, back pain, gait problem and myalgias. Negative for jointswelling, neck pain and neck stiffness. Neurological: Negative for weakness, numbness and headaches. Psychiatric/Behavioral: Positive for sleep disturbance. Negative for dysphoric mood and suicidal ideas. The patient is not nervous/anxious. * Bigg Singh MD - 09/16/2022 8:27 AM EDT [facility] [place] [facility] Name: Acacia Bynum : 1960 Purpose: 2 month follow-up Today's Date: 09/24/2022 Last Visit: 08/27/2022 Chief complaint: Bilateral Lower limb pain Interval History: Acacia Bynum returns today for a follow-up encounter, reporting that since last encounter, the overall pain and functional disability arising from the chief complaint has improved. She reports that she has had less pain since starting PT. Her PT is also concerned about her hips. She reports she is walking differently since starting PT. Leg pain has resolved, pain now just in the knees and hips. Pain Description: Timing: constant Character: Sharp and Aching Primary Location: hips and knees Radiation: none Exacerbating factors: unable to pinpoint exacerbating factors/positions Relieving factors: medications, ice , and heat Interferes with: physical activity, work, walking, sleeping, and ability to participate in ADL's The patient reports 2 hours of uninterrupted sleep per night Reports BL Leg weakness, RIGHT > LEFT The patient denies difficulty with bowel or bladder control Regarding medications: The following medication(s) were started or modified: Mobic - increased from 7.5mg daily PRN to 15mg daily PRN - this has helped improve her pain control The following medication(s) were discontinued: none The following medication(s) were continued: Tylenol arthritis OTC PRN Pain Effexor XR 37.5mg (PCP) Overall, the medication(s) have helped improve pain and ADL's. They are well-tolerated. The following procedures were performed: DATE PROCEDURE IMPROVEMENT none Physical Therapy consult. 4 visits have been attended between 09/04/2022 and 09/24/2022 Encouraged to attend regularly. The following new imaging or diagnostic tests were obtained, with relevant findings reported below:none Notable Events During Course of Treatment: Initial HPI: (Obtained on 08/06/2022) Acacia Bynum is a 61 year old year-old female; who presents havingbeen referred by Luana Podlogar, for evaluation and management of the above-mentioned chief complaint. This has been present for the past couple of years. The onset of symptoms was gradual onset and waswithout associated trauma. States she has had PT in the past, she continues the HEP with no relief. Pain is constant. States occasionally she has some low back pain. Reports she has difficulty ambulating, RIGHT leg gives out on her with ambulation. Denies previous spine, hip or knee surgeries. Treatments to date include the following: Medications (See below) and Physical Therapy . She did therapy in 2020, about 6 weeks of therapy. Current Status: INTAKE PAIN ASSESSMENT 09/04/2022 09/07/2022 Are you having pain associated with your visit today? - - Pain Scales - - Pain Level 5 4 Pain Location - - Description Aching Aching Duration Amount of Time - - Duration Units - - Frequency - - Intervention/Comfort measure - - Comments - - Pain Assessment - - Current Anti-Coagulant Use: No PAST Pain Medications (for the chief complaint(s)): None Allergies: ALLERGIES Allergen Reactions Codeine Rash Morphine Itching Penicillins Hives Sulfa (Sulfonamide * GI Upset Data Reviewed: Reviewed personally on today's date Relevant Imaging: X-ray Lumbar Spine 08/2022 No acute fracture or destructive osseous lesion. Grade 1 anterolisthesis of L4 on L5 and L5 on S1. No subluxation with flexion and extension. There is degenerative disc disease at multiple levels of the lumbar spine with endplate sclerosis, intervertebral disc space narrowing and osteophyte formation. Sacroiliac joints appear normal. Vascular calcifications are noted. X-ray Lumbar Spine 12/2019 Counting reference: Lumbosacral junction. For the purposes of this report, L5-S1 is considered the last lumbar-type disc space and L4-5 is considered the level of the iliac crest. 3 Views of the lumbosacral spine with AP, lateral and cone-down radiographs demonstrate scoliotic curvature and multilevel degenerative change with vertebral body osteophytosis. There is intervertebral disc space narrowing at all lumbar levels. There is hypertrophic facet change at the lower 2 levels. There is grade 1 anterior spondylolisthesis of L4 with respect to L5 and L5 on S1. There is no associated pars interarticularis defects and the findings are likely degenerative in etiology. There are no compression fractures and alignment is otherwise well maintained. The soft tissues demonstrate large laminated calcification in the right upper quadrant likely gallstone. X-ray Knee Rt. 09/2018 Standing frontal radiographs of the bilateral knees with a lateral view the right knee show no acute osseous, articular or soft tissue abnormality. Joint spaces are preserved and there is no significant joint fluid. Recent labs: CMP: Glucose 97 06/16/2022 BUN 14 06/16/2022 Creatinine 0.67 06/16/2022 Sodium 141 06/16/2022 Potassium 5.1 06/16/2022 Chloride 103 06/16/2022 CO2 29 06/16/2022 Protein, Total 7.1 06/16/2022 Albumin 4.2 06/16/2022 Calcium 9.4 06/16/2022 Alkaline Phosphatase 113 06/16/2022 Bilirubin, Total 0.3 06/16/2022 AST 29 06/16/2022 ALT 30 06/16/2022 Pain Procedures: DATE PROCEDURE IMPROVEMENT None to date at this practice Compliance: PDMP website checked and validated. All prescriptions have been APPROPRIATELY filled. No suspiciousactivity was identified. By Bigg Singh MD 09/24/2022 Risk Assessment: LUZ MARIA-7: LUZ MARIA - 7 SCORES 08/06/2022 LUZ MARIA-7 Score 2 (0-4) minimal anxiety, (5-9) mild anxiety, (10-14) moderate anxiety, (15-21) severe anxiety PHQ-9: PHQ-9 08/06/2022 Score 4 (0-4) minimal depression, (5-9) mild depression, (10-14) moderate depression, (15-19) moderately severe depression, (20-27) severe depression Opioid Risk Tool: Family History of Substance Abuse: 0 - No Personal History of Substance Abuse: 0 - No Age between 16-45: 0 - No History of Pre-Adolescence Sexual Abuse: 0 - No Psychological Disease: 0 - No Risk Total: 0 Total Score Risk Category: Low Risk 0-3 (0-3, low risk or no risk; 4-7, moderate risk, 8+, high risk) Current Medications, Past Medical History, Past Surgical History, Family History, Social History and Review of Systems: On today's date noted above, I have confirmed and edited as necessary, the PFSHand ROS obtained by others. Physical Exam: 09/24/22 1131 Pulse: 84 Resp: 16 SpO2: 99% Constitutional:overweight HEENT: Normal Cephalic, Atraumatic, Non-icteric sclera Eyes: Conjunctiva clear. No discharge from eyes Cardiovascular: Appears well perfused Lymphatic: No visible regional lymphadenopathy Skin: No visible rashes or ecchymosis Psychiatric: Full affect, Alert, Pleasant Neuro-Lower: Neural Tension Signs: Negative slump in Bilateral lower limbs Sensation: intact to light touch in the L2-S2 Bilateral lower limb dermatomes Muscle Tone: Normal and symmetric throughout without clonus Strength: Iliopsoas (L2): 5 Left, 5 Right Quadriceps (L3) 5 Left, 5 Right Anterior Tibialis (L4): 5 Left, 5 Right Extensor Hallucis Longus (L5): 5 Left, 5 Right Gastrocnemius (S1): 5 Left, 5 Right Musculoskeletal-Lower: Inspection: Symmetric without atrophy Palpation: Lumbar Paraspinal Tenderness: None on Bilateral side(s) Paraspinal Spasms: None PSIS Tenderness: None on Bilateral side(s) Greater Trochanter Tenderness: None on Bilateral side(s) Spine Range of Motion: Flexion: Decreased 50% Without end range pain Extension: Decreased 50% With end range pain Combination extension and rotation pain: None Hip Range of Motion: Right Hip: Internal Rotation: Decreased 50%; Pain at end range: None (previously concordant) External Rotation: Normal; Pain at end range: None Left Hip: Internal Rotation: Decreased 50%; Pain at end range: None (previously concordant) External Rotation: Normal; Pain at end range: None Sacroiliac Maneuvers: Deferred Diagnoses: (M47.816) Lumbar spondylosis (primary encounter diagnosis) (M43.17) Spondylolisthesis at L5-S1 level (M48.062) Spinal stenosis of lumbar region with neurogenic claudication (M54.42, M54.41, G89.29) Chronic bilateral low back pain with bilateral sciatica (M16.0) Primary osteoarthritis of both hips (M17.0) Primary osteoarthritis of both knees Impression & Plan: 61 year old female with no significant past medical history, who presents with complaint(s) of chronic low back pain and leg pain pain. 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 Reports difficulty with ambulation due to her leg pain and weakness. Her most recent lumbar XR from 2019 demonstrates multilevel DDD and degenerative changes, Grade I spondylolisthesis with PARS defect L5/S1. Updated x-ray confirmed ongoing spondylolisthesis at L5-S1 and also at L4-5. 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 Acacia Bynum would benefit from the following to decrease pain, improve function and/or work participation, and improve quality of life: Medications: Continue OTC Tylenol arthritis prn pain Mobic - increase from 7.5mg daily to 15mg daily PRN (advised no other NSAIDS while taking Mobic) Effexor XR 37.5mg - continue (PCP) LUZ MARIA-7/PHQ-2, and ORT: 08/06/2022 Completed and reviewed, low risk Functional Rastafari:None Additional Studies: X-ray bilateral hips and knees Referrals: None Additional: NSAIDS use(s), side effects and risks of long-term side effects were reviewed today. Recommend use of OTC famotidine or PPI if not already taking while using any NSAIDS. Patient with verbalized understanding. Patient is happy and agreeable with this plan. All questions were answered and patient verbalized understanding. Depending on response to the above plan, consider: Plan for lumbar MRI after PT has been completed,Consider IESI vs Spine Surgery consult depending on her MRI results; Consider increasing Effexor. Follow-up: 2 months Attribution: In addition to reviewing the information noted above, some elements copied from my most recent clinical note(s), including the physical exam (completed in entirety today), and the impression and plan sections, have been updated where appropriate. All reflect current medical decision making from today's date. Bigg Singh MD, MBA Pain Management [facility] documented in this encounterMer[facility]03[facility]23 NoteHNO ID: [id number] Author: Hermann Fuentes PT Service: ? Author Type: Physical Therapist Type: Progress Notes Filed: 09/23/2022 4:21 PM Note Text: Episode Visit Count: 4 Therapist That Will Accept/Oversee The Plan Of Care: Hermann Fuentes Start of Care Date: 09/04/22 Onset Date: 02/03/20 Plan of Care Certification Date: 09/04/22 Next Certification Due Date: 11/03/22 Patient Identified by Name and Date of : Yes REHABILITATION AND SPORTS THERAPY PHYSICAL THERAPY TREATMENT NOTE ASSESSMENT: Acacia Bynum tolerated the session with decreased symptoms. She demonstrated improvements in ability to stay erect when ambulating. The patient will continue to benefit from ongoing skilled physical therapy to progress toward set goals. PLAN FOR NEXT VISIT: assess new HEP of prone alt leg arm. If pt is doing well progress to standing exercise. SUBJECTIVE: Patient Reason for Visit: Pt doing well overall. She still has issues with walking endurance and hip mobiity. When she walks for a while she feels herself leaning forward due to pain in her low back. Pain: Pain Pain Level: 0 Post Treatment Pain Post Treatment Pain Level: 0 OBJECTIVE MEASURES WITH LEVEL OF FUNCTION: TREATMENT: Therapeutic Exercise: 1: sidelying hip ex stretching manual assist 2: supine bridge 5x3 4: supine lying leg press into table 10x2 5: supine shoulder press 10x2 6: Prone alt leg 5x2 7: Prone alt leg arm 5x2 Skilled Intervention: Patient was educated in proper exercise technique and purpose for exercises. Reviewed and educated patient on additions/changes for home exercise program as above (*). Skilled judgment was provided in selection of appropriate interventions. Billing Therapeutic Exercise Treatment Minutes: 25 Total Treatment Time Minutes (timed/untimed): 25 [facility] of Present illness Narrative* Hermann Fuentes PT - 09/23/2022 4:16 PM EDT Episode Visit Count: 4 Therapist That Will Accept/Oversee The Plan Of Care: Hermann Fuentes Start of Care Date: 09/04/22 Onset Date: 02/03/20 Plan of Care Certification Date: 09/04/22 Next Certification Due Date: 11/03/22 Patient Identified by Name and Date of : Yes REHABILITATION AND SPORTS THERAPY PHYSICAL THERAPY TREATMENT NOTE ASSESSMENT: Acacia Bynum tolerated the session with decreased symptoms. She demonstrated improvements in ability to stay erect when ambulating. The patient will continue to benefit from ongoing skilled physical therapy to progress toward set goals. PLAN FOR NEXT VISIT: assess new HEP of prone alt leg arm. If pt is doing well progress to standing exercise. SUBJECTIVE: Patient Reason for Visit: Pt doing well overall. She still has issues with walking endurance and hip mobiity. When she walks for a while she feels herself leaning forward due to pain in her low back. Pain: Pain Pain Level: 0 Post Treatment Pain Post Treatment Pain Level: 0 OBJECTIVE MEASURES WITH LEVEL OF FUNCTION: TREATMENT: Therapeutic Exercise: 1: sidelying hip ex stretching manual assist 2: supine bridge 5x3 4: supine lying leg press into table 10x2 5: supine shoulder press 10x2 6: Prone alt leg 5x2 7: Prone alt leg arm 5x2 Skilled Intervention: Patient was educated in proper exercise technique and purpose for exercises. Reviewed and educated patient on additions/changes for home exercise program as above (*). Skilled judgment was provided in selection of appropriate interventions. Billing Therapeutic Exercise Treatment Minutes: 25 Total Treatment Time Minutes (timed/untimed): 25 Hermann Fuentes PT documented in this encounterMer[facility]03-20-2023 NoteHNO ID: [id number] Author: Hermann Fuentes PT Service: ? Author Type: Physical Therapist Type: Progress Notes Filed: 09/21/2022 4:18 PM Note Text: Episode Visit Count: 3 Therapist That Will Accept/Oversee The Plan Of Care: Hermann Fuentes Start of Care Date: 09/04/22 Onset Date: 02/03/20 Plan of Care Certification Date: 09/04/22 Next Certification Due Date: 11/03/22 Patient Identified by Name and Date of : Yes REHABILITATION AND SPORTS THERAPY PHYSICAL THERAPY TREATMENT NOTE ASSESSMENT: Acacia Bynum tolerated the session with no issues. She demonstrated improvements in ability to tolerate supine position.. The patient will continue to benefit from ongoing skilled physical therapy to progress toward set goals. 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 discontinue supine exercise as pt stiffened up after those exercises were performed. SUBJECTIVE: Patient Reason for Visit: Pt overall is doing well. New complaint of knee pain at night time. No known reason. Overall pt feels she is improving with little to no leg or back symptoms today. She purchased a set of arch supports and feels they have really helped as well. Pain: Pain Pain Level: 0 Post Treatment Pain Post Treatment Pain Level: 0 OBJECTIVE MEASURES WITH LEVEL OF FUNCTION: TREATMENT: Therapeutic Exercise: 1: sidelying hip ex stretching manual assist 3: sidelying abduction R L 30 second hold 4: supine lying leg press into table 10x2 5: supine shoulder press 10x2 6: casing wringer operator 3x 7: *ounder with counterbalance 5 x 2 breaths Skilled Intervention: Patient was educated in proper exercise technique and purpose for exercises. Reviewed and educated patient on additions/changes for home exercise program as above (*). Skilled judgment was provided in selection of appropriate interventions. Billing Therapeutic Exercise Treatment Minutes: 25 Total Treatment Time Minutes (timed/untimed): 25 Hermann Fuentes [facility]03-20-2023 History of Present illness Narrative* Hermann Fuentes PT - 09/21/2022 4:11 PM EDT Episode Visit Count: 3 Therapist That Will Accept/Oversee The Plan Of Care: Hermann Fuentes Start of Care Date: 09/04/22 Onset Date: 02/03/20 Plan of Care Certification Date: 09/04/22 Next Certification Due Date: 11/03/22 Patient Identified by Name and Date of : Yes REHABILITATION AND SPORTS THERAPY PHYSICAL THERAPY TREATMENT NOTE ASSESSMENT: Acacia Bynum tolerated the session with no issues. She demonstrated improvements in ability to tolerate supine position.. The patient will continue to benefit from ongoing skilled physical therapy to progress toward set goals. 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 discontinue supine exercise as pt stiffened up after those exercises were performed. SUBJECTIVE: Patient Reason for Visit: Pt overall is doing well. New complaint of knee pain at nighttime. No known reason. Overall pt feels she is improving with little to no leg or back symptoms today. She purchased a set of arch supports and feels they have really helped as well. Pain: Pain Pain Level: 0 Post Treatment Pain Post Treatment Pain Level: 0 OBJECTIVE MEASURES WITH LEVEL OF FUNCTION: TREATMENT: Therapeutic Exercise: 1: sidelying hip ex stretching manual assist 3: sidelying abduction R L 30 second hold 4: supine lying leg press into table 10x2 5: supine shoulder press 10x2 6: casing wringer operator 3x 7: *ounder with counterbalance 5 x 2 breaths Skilled Intervention: Patient was educated in proper exercise technique and purpose for exercises. Reviewed and educated patient on additions/changes for home exercise program as above (*). Skilled judgment was provided in selection of appropriate interventions. Billing Therapeutic Exercise Treatment Minutes: 25 Total Treatment Time Minutes (timed/untimed): 25 Hermann Fuentes PT documented in this encounterMer[facility]03-15-2023 NoteHNO ID: [id number] Author: Bigg Singh MD Service: ? Author Type: Physician Type: Progress Notes Filed: 09/24/2022 12:01 PM Note Text: [facility] Renetta General Name: Acacia Bynum : 1960 Purpose: 2 month follow-up Today's Date: 09/24/2022 Last Visit: 08/27/2022 Chief complaint: Bilateral Lower limb pain Interval History: Acacia Bynum returns today for a follow-up encounter, reporting that since last encounter, the overall pain and functional disability arising from the chief complaint has improved. She reports that she has had less pain since starting PT. Her PT is also concerned about her hips. She reports she is walking differently since starting PT. Leg pain has resolved, pain now just in the knees and hips. Pain Description: Timing: constant Character: Sharp and Aching Primary Location: hips and knees Radiation: none Exacerbating factors: unable to pinpoint exacerbating factors/positions Relieving factors: medications, ice , and heat Interferes with: physical activity, work, walking, sleeping, and ability to participate in ADL's The patient reports 2 hours of uninterrupted sleep per night Reports BL Leg weakness, RIGHT > LEFT The patient denies difficulty with bowel or bladder control Regarding medications: The following medication(s) were started or modified: Mobic - increased from 7.5mg daily PRN to 15mg daily PRN - this has helped improve her pain control The following medication(s) were discontinued: none The following medication(s) were continued: Tylenol arthritis OTC PRN Pain Effexor XR 37.5mg (PCP) Overall, the medication(s) have helped improve pain and ADL's. They are well-tolerated. The following procedures were performed: DATE PROCEDURE IMPROVEMENT none Physical Therapy consult. 4 visits have been attended between 09/04/2022 and 09/24/2022 Encouraged to attend regularly. The following new imaging or diagnostic tests were obtained, with relevant findings reported below: none Notable Events During Course of Treatment: Initial HPI: (Obtained on 08/06/2022) Acacia Bynum is a 61 year old year-old female; who presents having been referred by Luana Podlogar, for evaluation and management of the above-mentioned chief complaint. This has been present for the past couple of years. The onset of symptoms was gradual onset and was without associated trauma. States she has had PT in the past, she continues the HEP with no relief. Pain is constant. States occasionally she has some low back pain. Reports she has difficulty ambulating, RIGHT leg gives out on her with ambulation. Denies previous spine, hip or knee surgeries. Treatments to date include the following: Medications (See below) and Physical Therapy . She did therapy in 2020, about 6 weeks of therapy. Current Status: INTAKE PAIN ASSESSMENT 09/04/2022 09/07/2022 Are you having pain associated with your visit today? - - Pain Scales - - Pain Level 5 4 Pain Location - - Description Aching Aching Duration Amount of Time - - Duration Units - - Frequency - - Intervention/Comfort measure - - Comments - - Pain Assessment - - Current Anti-Coagulant Use: No PAST Pain Medications (for the chief complaint(s)): None Allergies: ALLERGIES Allergen Reactions Codeine Rash Morphine Itching Penicillins Hives Sulfa (Sulfonamide * GI Upset Data Reviewed: Reviewed personally on today's date Relevant Imaging: X-ray Lumbar Spine 08/2022 No acute fracture or destructive osseous lesion. Grade 1 anterolisthesis of L4 on L5 and L5 on S1. No subluxation with flexion and extension. There is degenerative disc disease at multiple levels of the lumbar spine with endplate sclerosis, intervertebral disc space narrowing and osteophyte formation. Sacroiliac joints appear normal. Vascular calcifications are noted. X-ray Lumbar Spine 12/2019 Counting reference: Lumbosacral junction. For the purposes of this report, L5-S1 is considered the last lumbar-type disc space and L4-5 is considered the level of the iliac crest. 3 Views of the lumbosacral spine with AP, lateral and cone-down radiographs demonstrate scoliotic curvature and multilevel degenerative change with vertebral body osteophytosis. There is intervertebral disc space narrowing at all lumbar levels. There is hypertrophic facet change at the lower 2 levels. There is grade 1 anterior spondylolisthesis of L4 with respect to L5 and L5 on S1. There is no associated pars interarticularis defects and the findings are likely degenerative in etiology. There are no compression fractures and alignment is otherwise well maintained. The soft tissues demonstrate large laminated calcification in the right upper quadrant likely gallstone. X-ray Knee Rt. 09/2018 Standing frontal radiographs of the bilateral knees with a lateral view the right knee show no acute osseous, articular or soft tissue (more content not included)...[facility]03-06-2023 NoteHNO ID: [id number] Author: Hermann Fuentes PT Service: ? Author Type: Physical Therapist Type: Progress Notes Filed: 09/07/2022 3:40 PM Note Text: Episode Visit Count: 2 Therapist That Will Accept/Oversee The Plan Of Care: Hermann Fuentes Start of Care Date: 09/04/22 Onset Date: 02/03/20 Plan of Care Certification Date: 09/04/22 Next Certification Due Date: 11/03/22 Patient Identified by Name and Date of : Yes REHABILITATION AND SPORTS THERAPY PHYSICAL THERAPY TREATMENT NOTE ASSESSMENT: Acacia Bynum tolerated the session with decreased symptoms. She demonstrated improvements in gait speed and decreased pain with gait. The patient will continue to benefit from ongoing skilled physical therapy to progress toward set goals. PLAN FOR NEXT VISIT: Re-assess sidelying hip abduction, progress hip extension stretching, continue to stress maintaining B arch with weight bearing. SUBJECTIVE: Patient Reason for Visit: Pt did well after last treatment. She was able to do the hip stretch at home 1x/day. Pt is going to help her mom in [place] next week. We will see pt when she returns. Pain: Pain Pain Level: 4 Pain Location: Hip - Right Description: Aching Post Treatment Pain Post Treatment Pain Level: 4 OBJECTIVE MEASURES WITH LEVEL OF FUNCTION: TREATMENT: Therapeutic Exercise: 1: sidelying hip ex stretching manual assist 2: *kneeling hip extension stretch 3: *sidelying abduction hip R 20 second hold x3 Skilled Intervention: Patient was educated in proper exercise technique and purpose for exercises. Reviewed and educated patient on additions/changes for home exercise program as above (*). Skilled judgment was provided in selection of appropriate interventions. Therapeutic Activity: 1: arch taping to B feet to address flat feet. 2: pt advised to purchase arch supports. Skilled Intervention: Education educated pt on importance of proper arch to hip alignment. Billing Therapeutic Exercise Treatment Minutes: 15 Therapeutic Activity Treatment Minutes: 10 Total Treatment Time Minutes (timed/untimed): 25 Hermann Fuentes [facility]03-03-2023 NoteHNO ID: [id number] Author: Hermann Fuentes PT Service: ? Author Type: Physical Therapist Type: Progress Notes Filed: 09/04/2022 4:26 PM Note Text: Episode Visit Count: 1 Therapist That Will Accept/Oversee The Plan Of Care: Hermann Fuentes Start of Care Date: 09/04/22 Onset Date: 02/03/20 Plan of Care Certification Date: 09/04/22 Next Certification Due Date: 11/03/22 Patient Identified by Name and Date of : Yes REHABILITATION AND SPORTS THERAPY PHYSICAL THERAPY EVALUATION PLAN OF CARE: Assessment: Acacia Bynum presents with diagnosis of low back pain that interferes with walking, standing, rising from a chair, sitting . She presents with impairments in ADL's, flexibility, gait, overall function, and posture. Patient did not complete the PROMIS? (Patient Reported Outcome Measures Information System). Prognosis for therapy is Fair due to: clinical presentation (Pt has two seperate conditions with spondylolisthesis in the back and poor hip extension which decreases ability to perform exercise and is the reason for fair prognosis.) . She will benefit from skilled therapy services to meet the goals established for this plan of care as noted below. Goals for Episode of Care: created on 09/04/22 through 11/03/22 Patient will decrease pain to 2/10 with walking to allow patient to improve community activities. Patient will increase active ROM of hip extension to 20 degrees to allow pt to to improve postural alignment and to improve performance of ADLs. Patient will demonstrate increase in hip strength to 5/5 during manual muscle testing in order to improve function for home management tasks and leisure / recreation skills. Perform Pt will be able to sit without pain. Patient Goals: Pt would like to try therapy to decrease pain and if it doesn't work then she would like to have an MRI to see exactly what is causing her pain. Planned Interventions, Frequency, and Duration: Current Frequency: 2x/week Duration: 8 weeks Total Number of Visits Planned: 16 Planned Treatment Interventions: Therapeutic exercise (15842), Neuromuscular re-education (50500), Therapeutic activities (86667), Manual therapy (28667), Gait Training (61878) PLAN FOR NEXT VISIT: See pt to re-assess HEP and progress hip extension stretching as able without increase in pain in RLE. Patient demonstrates good understanding of plan of care and treatment. The above goals and plan of care were discussed and agreed upon by patient/family. SUBJECTIVE: Acacia Bynum is a 61 year old female seen today for Pt states pain in BLE severe then she was put on arthritis meds which have helped the LE pain but still has pain in hips and knees. As well as pain in the low back. Patient Goals: Pt would like to try therapy to decrease pain and if it doesn't work then she would like to have an MRI to see exactly what is causing her pain. Functional Limitations: walking, standing, rising from a chair, sitting Prior Level of Function: Independent without limitations Relevant History Past Relevant Medical Conditions: Osteoporosis Intake Information: Prescription present Previous Treatment: Physical Therapy Spine History Symptoms Location at Onset: Calf, Thigh Pain is Worse Always: Walking Pain is Worse Sometimes: Sitting Pain is Better Sometimes: Lying Previous Episodes: Yes Pain: Pain Pain Level: 5 Pain Location: Low Back/Lumbar Spine- Midline Description: Aching Post Treatment Pain Post Treatment Pain Level: 5 Post Treatment Pain Location: Hip - Right PROMIS Scales Higher is Better 04/23/2020 03/25/2020 Phys Func - Score 50 (within normal limits) 46 (within normal limits) Phys Func - Percentile 50 % 34 % Self-Eff Symptom - Score 48 (Average) 59 (Average) Self-Eff Symptom - Percentile 42 % 82 % T-scores: mean of general population = 50. 5 points is clinically meaningfully difference Percentiles provide an indication of how the patient's score ranks in relation to the general population. Higher percentile rankings indicate better function/quality of life. 50th percentile is the average of the general population and indicates half of respondents had a worse score. OBJECTIVE MEASURES WITH LEVEL OF FUNCTION: Posture / Alignment Posture: Increased lumbar lordosis Lumbo - Pelvic Alignment: Pt ambulates with increased lordosis of lumbar spine and decreased pelvic tilt due to lack ofhip extension on R Reflexes - Lower Extremity R Patellar: 2+ L Patellar: 2+ Lumbar Spine AROM Lumbar Flexion: Normal Lumbar Extension: Moderate limitation LE Flexibility Flexibility: Hip Internal Rotation Flexibility, Hip External Rotation Flexibility R Hip Internal Rotation Flexibility: less than 10 degrees with pain L Hip Internal Rotation Flexibility: wfl R Hip External Rotation Flexibility: minimal limitation L Hip External Rotation Flexibility: wfl LE Strength R Hip Extension: 3+/5 R Hip Flexi (more content not included)...[facility]03-03-2023 History of Present illness Narrative* Hermann Fuentes, PT - 09/04/2022 4:08 PM EST Episode Visit Count: 1 Therapist That Will Accept/Oversee The Plan Of Care: Hermann Fuentes Start of Care Date: 09/04/22 Onset Date: 02/03/20 Plan of Care Certification Date: 09/04/22 Next Certification Due Date: 11/03/22 Patient Identified by Name and Date of : Yes REHABILITATION AND SPORTS THERAPY PHYSICAL THERAPY EVALUATION PLAN OF CARE: Assessment: Acacia Bynum presents with diagnosis of low back pain that interferes with walking, standing, rising from a chair, sitting . She presents with impairments in ADL's, flexibility, gait, overall function, and posture. Patient did not complete the PROMIS (Patient Reported Outcome Measures Information System). Prognosis for therapy is Fair due to: clinical presentation (Pt has two seperate conditions with spondylolisthesis in the back and poor hip extension which decreases ability to perform exercise and is the reason for fair prognosis.) . She will benefit from skilled therapy services to meet the goals established for this plan of care as noted below. Goals for Episode of Care: created on 09/04/22 through 11/03/22 Patient will decrease pain to 2/10 with walking to allow patient to improve community activities. Patient will increase active ROM of hip extension to 20 degrees to allow pt to to improve postural alignment and to improve performance of ADLs. Patient will demonstrate increase in hip strength to 5/5 during manual muscle testing in order to improve function for home management tasks and leisure / recreation skills. Perform Pt will be able to sit without pain. Patient Goals: Pt would like to try therapy to decrease pain and if it doesn't work then she would like to have an MRI to see exactly what is causing her pain. Planned Interventions, Frequency, and Duration: Current Frequency: 2x/week Duration: 8 weeks Total Number of Visits Planned: 16 Planned Treatment Interventions: Therapeutic exercise (39302), Neuromuscular re- education (89166), Therapeutic activities (17553), Manual therapy (46187), Gait Training (11481) PLAN FOR NEXT VISIT: See pt to re-assess HEP and progress hip extension stretching as able without increase in pain in RLE. Patient demonstrates good understanding of plan of care and treatment. The above goals and plan of care were discussed and agreed upon by patient/family. SUBJECTIVE: Acacia Bynum is a 61 year old female seen today for Pt states pain in BLE severe then she was put on arthritis meds which have helped the LE pain but still has pain in hips and knees. As well as pain in the low back. Patient Goals: Pt would like to try therapy to decrease pain and if it doesn't work then she would like to have an MRI to see exactly what is causing her pain. Functional Limitations: walking, standing, rising from a chair, sitting Prior Level of Function: Independent without limitations Relevant History Past Relevant Medical Conditions: Osteoporosis Intake Information: Prescription present Previous Treatment: Physical Therapy Spine History Symptoms Location at Onset: Calf, Thigh Pain is Worse Always: Walking Pain is Worse Sometimes: Sitting Pain is Better Sometimes: Lying Previous Episodes: Yes Pain: Pain Pain Level: 5 Pain Location: Low Back/Lumbar Spine- Midline Description: Aching Post Treatment Pain Post Treatment Pain Level: 5 Post Treatment Pain Location: Hip - Right PROMIS Scales Higher is Better 04/23/2020 03/25/2020 Phys Func - Score 50 (within normal limits) 46 (within normal limits) Phys Func - Percentile 50 % 34 % Self-Eff Symptom - Score 48 (Average) 59 (Average) Self-Eff Symptom - Percentile 42 % 82 % T-scores: mean of general population = 50. 5 points is clinically meaningfully difference Percentiles provide an indication of how the patient's score ranks in relation to the general population. Higher percentile rankings indicate better function/quality of life. 50th percentile is the average of the general population and indicates half of respondents had a worse score. OBJECTIVE MEASURES WITH LEVEL OF FUNCTION: Posture / Alignment Posture: Increased lumbar lordosis Lumbo - Pelvic Alignment: Pt ambulates with increased lordosis of lumbar spine and decreased pelvictilt due to lack ofhip extension on R Reflexes - Lower Extremity R Patellar: 2+ L Patellar: 2+ Lumbar Spine AROM Lumbar Flexion: Normal Lumbar Extension: Moderate limitation LE Flexibility Flexibility: Hip Internal Rotation Flexibility, Hip External Rotation Flexibility R Hip Internal Rotation Flexibility: less than 10 degrees with pain L Hip Internal Rotation Flexibility: wfl R Hip External Rotation Flexibility: minimal limitation L Hip External Rotation Flexibility: wfl LE Strength R Hip Extension: 3+/5 R Hip Flexion (L2): 3+/5 R Hip ABduction: 3+/5 R Knee Extension (L3): 4+/5 R Ankle Dorsiflexion (L4): 4+/5 R Ankle Plantar Flexion: 4+/5 R Great Toes Extension (L5, S1): 5/5 L Hip Extension: 4/5 L Hip Flexion (L2): 4+/5 L Knee Extension (L3): 5/5 L Ankle Dorsiflexion (L4): 5/5 L Ankle Plantar Flexion: 5/5 L Great Toes Extension (L5, S1): 5/5 Functional Performance Test Results 10 Meter Walk Test Trial 1 (seconds): 7.08 10 Meter Walk Test Trial 2 (seconds): 8.06 10 Meter Walk Test Average (m/sec): 0.79 Timed Up and Go (sec): 10.3 sec Education: Education Learning/educational needs: Home exercise program Education Provided: Yes, see treatment interventions for education provided Education Provided To: Patient Education Mode/Type: Demonstration, Explanation/Discussion Response to Education/Teach Back: States/Identifies TREATMENT: PT Treatment Interventions: Therapeutic Activity Evaluation Evaluation Therapeutic Activity: 1: educated pt on symptoms and complication of having limited mobility in the R hip combined with aknown diagnosis of spondylolisthesis. Then gave pt supine hip extension stretching for HEP and reviewed what the patient should be feeling with this exercise. Skilled Intervention: Educated on proper/safe technique for activities performed today. Activity progression based on professional judgment. Billing * Evaluation Low Complexity: 1 Unit Therapeutic Activity Treatment Minutes: 12 Hermann Fuentes PT [facility] NoteHNO ID: [id number] Author: Nancy Reilly MA Service: ? Author Type: Operational Assistant Type: Progress Notes Filed: 08/27/2022 9:05 AM Note Text: Review of Systems Constitutional: Negative for activity change, appetite change, chills, fever and unexpected weight change. Genitourinary: Negative for difficulty urinating. Musculoskeletal: Positive for back pain. Negative for arthralgias, gait problem, joint swelling, myalgias, neck pain and neck stiffness. Neurological: Positive for weakness and numbness. Negative for headaches. Psychiatric/Behavioral: Negative for dysphoric mood, sleep disturbance and suicidal ideas. The patient is not nervous/anxious.[facility]02-23-2023 History of Present illness Narrative* Nancy Reilly MA - 08/27/2022 8:41 AM EST Review of Systems Constitutional: Negative for activity change, appetite change, chills, fever and unexpected weight change. Genitourinary: Negative for difficulty urinating. Musculoskeletal: Positive for back pain. Negative for arthralgias, gait problem, joint swelling, myalgias, neck pain and neck stiffness. Neurological: Positive for weakness and numbness. Negative for headaches. Psychiatric/Behavioral: Negative for dysphoric mood, sleep disturbance and suicidal ideas. The patient is not nervous/anxious. * Bigg Singh MD - 08/18/2022 10:22 AM EST [facility] General Today's Date: 08/27/2022 Last Visit: 08/06/2022 Name: Acacia Bynum : 1960 Purpose: 2 month follow-up Chief complaint: Bilateral Lower limb pain Interval History: Acacia Bnyum returns today for a follow-up encounter, reporting that since last encounter, the overall pain and functional disability arising from the chief complaint has unchanged. Pain Description: Timing: constant Character: Sharp and Aching Primary Location: BL legs, hips and knees Radiation: BL Posterior legs to her feet Exacerbating factors: unable to pinpoint exacerbating factors/positions Relieving factors: medications, ice , and heat Interferes with: physical activity, work, walking, sleeping, and ability to participate in ADL's The patient reports 2 hours of uninterrupted sleep per night Reports BL Leg weakness, RIGHT > LEFT The patient denies difficulty with bowel or bladder control. Regarding medications: The following medication(s) were started or modified: Mobic 7.5mg daily PRN basis - this has been helping in combination with Tylenol. She is interested in increasing this medication The following medication(s) were discontinued: none The following medication(s) were continued: Tylenol arthritis OTC PRN Pain Overall, the medication(s) have helped improve pain and ADL's. They are well-tolerated. The following procedures were performed: DATE PROCEDURE IMPROVEMENT none Physical Therapy consult. 0 visits have been attended between 08/06/2022 and 08/27/2022 There have been difficulties scheduling reported. The following new imaging or diagnostic tests were obtained, with relevant findings reported below:X-ray lumbar Notable Events During Course of Treatment: Initial HPI: (Obtained on 08/06/2022) Acacia Bynum is a 61 year old year-old female; who presents havingbeen referred by Luana Podlogion, for evaluation and management of the above-mentioned chief complaint. This has been present for the past couple of years. The onset of symptoms was gradual onset and waswithout associated trauma. States she has had PT in the past, she continues the HEP with no relief. Pain is constant. States occasionally she has some low back pain. Reports she has difficulty ambulating, RIGHT leg gives out on her with ambulation. Denies previous spine, hip or knee surgeries. Treatments to date include the following: Medications (See below) and Physical Therapy . She did therapy in 2020, about 6 weeks of therapy. Current Status: INTAKE PAIN ASSESSMENT 08/25/2022 08/27/2022 Are you having pain associated with your visit today? Yes, Provider notified Yes, Provider notified Pain Scales - Verbal (Numeric Rating or Visual Analog Scale) Pain Level 7 7 Pain Location Back-Lower Back-Lower Description Shooting;Stiffness Sharp;Aching Duration Amount of Time - - Duration Units - Years Frequency Continuous Continuous Intervention/Comfort measure Medication;Exercise Medication Comments - - Pain Assessment - - Current Anti-Coagulant Use: No PAST Pain Medications (for the chief complaint(s)): None Allergies: ALLERGIES Allergen Reactions Codeine Rash Morphine Itching Penicillins Hives Sulfa (Sulfonamide * GI Upset Data Reviewed: Reviewed personally on today's date Relevant Imaging: X-ray Lumbar Spine 08/2022 No acute fracture or destructive osseous lesion. Grade 1 anterolisthesis of L4 on L5 and L5 on S1. No subluxation with flexion and extension. There is degenerative disc disease at multiple levels of the lumbar spine with endplate sclerosis, intervertebral disc space narrowing and osteophyte formation. Sacroiliac joints appear normal. Vascular calcifications are noted. X-ray Lumbar Spine 12/2019 Counting reference: Lumbosacral junction. For the purposes of this report, L5-S1 is considered the last lumbar-type disc space and L4-5 is considered the level of the iliac crest. 3 Views of the lumbosacral spine with AP, lateral and cone-down radiographs demonstrate scoliotic curvature and multilevel degenerative change with vertebral body osteophytosis. There is intervertebral disc space narrowing at all lumbar levels. There is hypertrophic facet change at the lower 2 levels. There is grade 1 anterior spondylolisthesis of L4 with respect to L5 and L5 on S1. There is no associated pars interarticularis defects and the findings are likely degenerative in etiology. There are no compression fractures and alignment is otherwise well maintained. The soft tissues demonstrate large laminated calcification in the right upper quadrant likely gallstone. X-ray Knee Rt. 09/2018 Standing frontal radiographs of the bilateral knees with a lateral view the right knee show no acute osseous, articular or soft tissue abnormality. Joint spaces are preserved and there is no significant joint fluid. Recent labs: CMP: Glucose 97 06/16/2022 BUN 14 06/16/2022 Creatinine 0.67 06/16/2022 Sodium 141 06/16/2022 Potassium 5.1 06/16/2022 Chloride 103 06/16/2022 CO2 29 06/16/2022 Protein, Total 7.1 06/16/2022 Albumin 4.2 06/16/2022 Calcium 9.4 06/16/2022 Alkaline Phosphatase 113 06/16/2022 Bilirubin, Total 0.3 06/16/2022 AST 29 06/16/2022 ALT 30 06/16/2022 Pain Procedures: DATE PROCEDURE IMPROVEMENT None to date at this practice Compliance: PDMP website checked and validated. All prescriptions have been APPROPRIATELY filled. No suspiciousactivity was identified. By iBgg Singh MD 08/27/2022 Risk Assessment: LUZ MARIA-7: LUZ MARIA - 7 SCORES 08/06/2022 LUZ MARIA-7 Score 2 (0-4) minimal anxiety, (5-9) mild anxiety, (10-14) moderate anxiety, (15-21) severe anxiety PHQ-9: PHQ-9 08/06/2022 Score 4 (0-4) minimal depression, (5-9) mild depression, (10-14) moderate depression, (15-19) moderately severe depression, (20-27) severe depression Opioid Risk Tool: Family History of Substance Abuse: 0 - No Personal History of Substance Abuse: 0 - No Age between 16-45: 0 - No History of Pre-Adolescence Sexual Abuse: 0 - No Psychological Disease: 0 - No Risk Total: 0 Total Score Risk Category: Low Risk 0-3 (0-3, low risk or no risk; 4-7, moderate risk, 8+, high risk) Current Medications, Past Medical History, Past Surgical History, Family History, Social History and Review of Systems: On today's date noted above, I have confirmed and edited as necessary, the PFSHand ROS obtained by others. Physical Exam: 08/27/22 0842 Pulse: (!) 56 Resp: 14 SpO2: 99% Constitutional:overweight HEENT: Normal Cephalic, Atraumatic, Non-icteric sclera Eyes: Conjunctiva clear. No discharge from eyes Cardiovascular: Appears well perfused Lymphatic: No visible regional lymphadenopathy Skin: No visible rashes or ecchymosis Psychiatric: Full affect, Alert, Pleasant Neuro-Lower: Neural Tension Signs: Negative slump in Bilateral lower limbs Sensation: intact to light touch in the L2-S2 Bilateral lower limb dermatomes Muscle Tone: Normal and symmetric throughout without clonus Strength: Iliopsoas (L2): 5 Left, 5 Right Quadriceps (L3) 5 Left, 5 Right Anterior Tibialis (L4): 5 Left, 5 Right Extensor Hallucis Longus (L5): 5 Left, 5 Right Gastrocnemius (S1): 5 Left, 5 Right Musculoskeletal-Lower: Inspection: Symmetric without atrophy Palpation: Lumbar Paraspinal Tenderness: None on Bilateral side(s) Paraspinal Spasms: None PSIS Tenderness: None on Bilateral side(s) Greater Trochanter Tenderness: None on Bilateral side(s) Spine Range of Motion: Flexion: Decreased 50% Without end range pain Extension: Decreased 50% With end range pain Combination extension and rotation pain: None Hip Range of Motion: Right Hip: Internal Rotation: Decreased 50%; Pain at end range: Concordant External Rotation: Normal; Pain at end range: None Left Hip: Internal Rotation: Decreased 50%; Pain at end range: Concordant External Rotation: Normal; Pain at end range: None Sacroiliac Maneuvers: Deferred Diagnoses: (M47.816) Lumbar spondylosis (primary encounter diagnosis) (M43.17) Spondylolisthesis at L5-S1 level (M48.062) Spinal stenosis of lumbar region with neurogenic claudication Impression & Plan: 61 year old female with no significant past medical history, who presents with complaint(s) of chronic low back pain and leg pain pain. 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 Reports difficulty with ambulation due to her leg pain and weakness. Her most recent lumbar XR from 2020 demonstrates multilevel DDD and degenerative changes, Grade I spondylolisthesis with PARS defect L5/S1. Updated x-ray confirmed ongoing spondylolisthesis at L5-S1 and also at L4-5. 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 Acacia Bynum would benefit from the following to decrease pain, improve function and/or work participation, and improve quality of life: Medications: Continue OTC Tylenol arthritis prn pain Mobic - increase from 7.5mg daily to 15mg daily PRN (advised no other NSAIDS while taking Mobic) Effexor XR 37.5mg - continue (PCP) LUZ MARIA-7/PHQ-2, and ORT: 08/06/2022 Completed and reviewed, low risk Functional Rastafari: Physical Therapy (Land-based) - we discussed methods of scheduling. Encouraged to attend regularly Additional Studies: None Referrals: None Additional: NSAIDS use(s), side effects and risks of long-term side effects were reviewed today. Recommend use of OTC famotidine or PPI if not already taking while using any NSAIDS. Patient with verbalized understanding. Patient is happy and agreeable with this plan. All questions were answered and patient verbalized understanding. Depending on response to the above plan, consider: Plan for lumbar MRI after PT has been completed,Consider IESI vs Spine Surgery consult depending on her MRI results; Consider increasing Effexor Follow-up: 2 months Attribution: In addition to reviewing the information noted above, some elements copied from my most recent clinical note(s), including the physical exam (completed in entirety today), and the impression and plan sections, have been updated where appropriate. All reflect current medical decision making from today's date. Bigg [facility] documented in this [facility]23 NoteHNO ID: [id number] Author: Bigg Singh MD Service: ? Author Type: Physician Type: Progress Notes Filed: 08/27/2022 9:05 AM Note Text: [facility] Today's Date: 08/27/2022 Last Visit: 08/06/2022 Name: Acacia Bynum : 1960 Purpose: 2 month follow-up Chief complaint: Bilateral Lower limb pain Interval History: Acacia Bynum returns today for a follow-up encounter, reporting that since last encounter, the overall pain and functional disability arising from the chief complaint has unchanged. Pain Description: Timing: constant Character: Sharp and Aching Primary Location: BL legs, hips and knees Radiation: BL Posterior legs to her feet Exacerbating factors: unable to pinpoint exacerbating factors/positions Relieving factors: medications, ice , and heat Interferes with: physical activity, work, walking, sleeping, and ability to participate in ADL's The patient reports 2 hours of uninterrupted sleep per night Reports BL Leg weakness, RIGHT > LEFT The patient denies difficulty with bowel or bladder control. Regarding medications: The following medication(s) were started or modified: Mobic 7.5mg daily PRN basis - this has been helping in combination with Tylenol. She is interested in increasing this medication The following medication(s) were discontinued: none The following medication(s) were continued: Tylenol arthritis OTC PRN Pain Overall, the medication(s) have helped improve pain and ADL's. They are well-tolerated. The following procedures were performed: DATE PROCEDURE IMPROVEMENT none Physical Therapy consult. 0 visits have been attended between 08/06/2022 and 08/27/2022 There have been difficulties scheduling reported. The following new imaging or diagnostic tests were obtained, with relevant findings reported below: X-ray lumbar Notable Events During Course of Treatment: Initial HPI: (Obtained on 08/06/2022) Acacia Bynum is a 61 year old year-old female; who presents having been referred by Luana Podlogion, for evaluation and management of the above-mentioned chief complaint. This has been present for the past couple of years. The onset of symptoms was gradual onset and was without associated trauma. States she has had PT in the past, she continues the HEP with no relief. Pain is constant. States occasionally she has some low back pain. Reports she has difficulty ambulating, RIGHT leg gives out on her with ambulation. Denies previous spine, hip or knee surgeries. Treatments to date include the following: Medications (See below) and Physical Therapy . She did therapy in 2020, about 6 weeks of therapy. Current Status: INTAKE PAIN ASSESSMENT 08/25/2022 08/27/2022 Are you having pain associated with your visit today? Yes, Provider notified Yes, Provider notified Pain Scales - Verbal (Numeric Rating or Visual Analog Scale) Pain Level 7 7 Pain Location Back-Lower Back-Lower Description Shooting;Stiffness Sharp;Aching Duration Amount of Time - - Duration Units - Years Frequency Continuous Continuous Intervention/Comfort measure Medication;Exercise Medication Comments - - Pain Assessment - - Current Anti-Coagulant Use: No PAST Pain Medications (for the chief complaint(s)): None Allergies: ALLERGIES Allergen Reactions Codeine Rash Morphine Itching Penicillins Hives Sulfa (Sulfonamide * GI Upset Data Reviewed: Reviewed personally on today's date Relevant Imaging: X-ray Lumbar Spine 08/2022 No acute fracture or destructive osseous lesion. Grade 1 anterolisthesis of L4 on L5 and L5 on S1. No subluxation with flexion and extension. There is degenerative disc disease at multiple levels of the lumbar spine with endplate sclerosis, intervertebral disc space narrowing and osteophyte formation. Sacroiliac joints appear normal. Vascular calcifications are noted. X-ray Lumbar Spine 12/2019 Counting reference: Lumbosacral junction. For the purposes of this report, L5-S1 is considered the last lumbar-type disc space and L4-5 is considered the level of the iliac crest. 3 Views of the lumbosacral spine with AP, lateral and cone-down radiographs demonstrate scoliotic curvature and multilevel degenerative change with vertebral body osteophytosis. There is intervertebral disc space narrowing at all lumbar levels. There is hypertrophic facet change at the lower 2 levels. There is grade 1 anterior spondylolisthesis of L4 with respect to L5 and L5 on S1. There is no associated pars interarticularis defects and the findings are likely degenerative in etiology. There are no compression fractures and alignment is otherwise well maintained. The soft tissues demonstrate large laminated calcification in the right upper quadrant likely gallstone. X-ray Knee Rt. 09/2018 Standing frontal radiographs of the bilateral knees with a lateral view the right knee show no acute osseous, articular o (more content not included)... [facility]02-10-2023 Miscellaneous Notes* Telephone Encounter - Adele Martinez - 08/14/2022 9:37 AM EST Spoke with patient and advised that she is supposed to schedule her PT and that she can go anywhereshe wants. Adele Martinez documented in this encounterMer[facility] NoteHNO ID: [id number] Author: Cynthia Jimenes, RT(R) Service: Radiology Author Type: Technologist Type: Progress Notes Filed: 08/06/2022 2:41 PM Note Text: Radiology Service Progress Note PATIENT NAME: Acacia Bynum DATE OF SERVICE: August 06, 2022 TIME: 2:26 PM PATIENT IDENTITY VERIFICATION COMPLETED USING TWO (2) IDENTIFIERS: Name and Date of confirmed by patient verbally. FALL SCREENING: Has the patient had 2 falls in the last year or 1 fall with injury or currently using an Ambulatory Assistive Device (Walker, Cane, Wheelchair, Crutches, etc.)? No PATIENT GENDER DATA: Female. status: : No status: NO. PATIENT RELEVANT IMPLANT DATA REVIEWED: Yes RADIOLOGY DEPARTMENT: General X-ray: Exam(s) Completed: Spine X-Ray(s): Lumbar AP / LAT / L5-S1 / FLEX-EXT PERIPHERAL IV DATA: Not applicable SIGNED BY: RT Pito(R) August 06, 2022 2:26 [facility]02-02-2023 NoteHNO ID: [id number] Author: Sheila Saab MA Service: ? Author Type: Operational Assistant Type: Progress Notes Filed: 08/06/2022 2:13 PM Note Text: Review of Systems Constitutional: Negative for activity change, chills, fever and unexpected weight change. Gastrointestinal: Negative for bowel retention or incontinence Genitourinary: Negative for difficulty urinating. Negative for bladder retention or incontinence Musculoskeletal: Positive for arthralgias, back pain, gait problem and myalgias. Negative for joint swelling, neck pain and neck stiffness. Neurological: Positive for weakness and numbness. Negative for headaches. Psychiatric/Behavioral: Positive for sleep disturbance. Negative for dysphoric mood and suicidal ideas. The patient is nervous/anxious.[facility]02-02-2023 NoteHNO ID: [id number] Author: Penny Oneill APRN.[facility] Service: ? Author Type: Nurse Practitioner Type: Progress Notes Filed: 08/06/2022 2:13 PM Note Text: [facility] Today's Date: 08/06/2022 Last Visit: N/A Name: Acacia Bynum : 1960 Purpose: New Patient Consultation Chief complaint: BL Leg pain Interval History: N/A Initial HPI: (Obtained on 08/06/2022) Acacia Bynum is a 61 year old year-old female; who presents having been referred by Luana Podlogion, for evaluation and management of the above-mentioned chief complaint. This has been present for the past couple of years. The onset of symptoms was gradual onset and was without associated trauma. States she has had PT in the past, she continues the HEP with no relief. Pain is constant. States occasionally she has some low back pain. Reports she has difficulty ambulating, RIGHT leg gives out on her with ambulation. Denies previous spine, hip or knee surgeries. Treatments to date include the following: Medications (See below) and Physical Therapy . She did therapy in 2020, about 6 weeks of therapy. Pain Description: Timing: constant Character: Sharp and Aching Primary Location: BL legs, hips and knees Radiation: BL Posterior legs to her feet Exacerbating factors: unable to pinpoint exacerbating factors/positions Relieving factors: medications, ice , and heat Interferes with: physical activity, work, walking, sleeping, and ability to participate in ADL's The patient reports 2 hours of uninterrupted sleep per night Reports BL Leg weakness, RIGHT > LEFT The patient denies difficulty with bowel or bladder control. Current Status: INTAKE PAIN ASSESSMENT 08/03/2022 08/06/2022 Are you having pain associated with your visit today? Yes, Provider notified Yes, Provider notified Pain Scales - Verbal (Numeric Rating or Visual Analog Scale) Pain Level 8 7 Pain Location Other: See Comment Leg-Left Description Aching;Shooting;Stabbing Aching;Sharp Duration Amount of Time - - Duration Units Months Years Frequency Continuous Continuous Intervention/Comfort measure Medication Reposition;Relaxation;Positioning Comments Pain in both legs and knees and lower back - Pain Assessment - - Current Pain Medications: Opioids: NSAIDS:OTC ibuprofen/Motrin (do not help) Anti-depressants: Effexor 37.5 mg Anti-convulsants: Muscle relaxants: Others: OTC Tylenol arthritis Analgesia: not adequate Current Anti-Coagulant Use: No PAST Pain Medications (for the chief complaint(s)): None Allergies: ALLERGIES Allergen Reactions Codeine Rash Morphine Itching Penicillins Hives Sulfa (Sulfonamide * GI Upset Data Reviewed: Reviewed personally on today's date 08/06/2022 Relevant Imaging: XR Lumbar Spine 12/28/21: RESULT: Counting reference: Lumbosacral junction. For the purposes of this report, L5-S1 is considered the last lumbar-type disc space and L4-5 is considered the level of the iliac crest. 3 Views of the lumbosacral spine with AP, lateral and cone-down radiographs demonstrate scoliotic curvature and multilevel degenerative change with vertebral body osteophytosis. There is intervertebral disc space narrowing at all lumbar levels. There is hypertrophic facet change at the lower 2 levels. There is grade 1 anterior spondylolisthesis of L4 with respect to L5 and L5 on S1. There is no associated pars interarticularis defects and the findings are likely degenerative in etiology. There are no compression fractures and alignment is otherwise well maintained. The soft tissues demonstrate large laminated calcification in the right upper quadrant likely gallstone. XR RIGHT knee 09/08/18: RESULT: Standing frontal radiographs of the bilateral knees with a lateral view the right knee show no acute osseous, articular or soft tissue abnormality. Joint spaces are preserved and there is no significant joint fluid. Recent labs: CMP: Glucose 97 06/16/2022 BUN 14 06/16/2022 Creatinine 0.67 06/16/2022 Sodium 141 06/16/2022 Potassium 5.1 06/16/2022 Chloride 103 06/16/2022 CO2 29 06/16/2022 Protein, Total 7.1 06/16/2022 Albumin 4.2 06/16/2022 Calcium 9.4 06/16/2022 Alkaline Phosphatase 113 06/16/2022 Bilirubin, Total 0.3 06/16/2022 AST 29 06/16/2022 ALT 30 06/16/2022 Pain Procedures: DATE PROCEDURE IMPROVEMENT None to date at this practice Compliance: PDMP website checked and validated. All prescriptions have been APPROPRIATELY filled. No suspicious activity was identified. 08/06/2022 by Penny Oneill APRN.ACADEMY DIRECTOR Risk Assessment: LUZ MARIA-7: LUZ MARIA - 7 SCORES 08/06/2022 LUZ MARIA-7 Score 2 (0-4) minimal anxiety, (5-9) mild anxiety, (10-14) moderate anxiety, (15-21) severe anxiety PHQ-9: PHQ-9 08/06/2022 Score 4 (0-4) minimal depression, (5-9) mild depression, (10-14) moderate depression, (15-19) moderately severe depression, (20-27) severe dep (more content not included)...[facility]02-02-2023 History of Present illness Narrative* Cynthia Jimenes, RT(R) - 08/06/2022 2:30 PM EST Radiology Service Progress Note PATIENT NAME: Acacia Bynum DATE OF SERVICE: August 06, 2022 TIME: 2:26 PM PATIENT IDENTITY VERIFICATION COMPLETED USING TWO (2) IDENTIFIERS: Name and Date of confirmedby patient verbally. FALL SCREENING: Has the patient had 2 falls in the last year or 1 fall with injury or currently using an Ambulatory Assistive Device (Walker, Cane, Wheelchair, Crutches, etc.)? No PATIENT GENDER DATA: Female. status: : No status: NO. PATIENT RELEVANT IMPLANT DATA REVIEWED: Yes RADIOLOGY DEPARTMENT: General X-ray: Exam(s) Completed: Spine X-Ray(s): Lumbar AP / LAT / L5-S1 / FLEX-EXT PERIPHERAL IV DATA: Not applicable SIGNED BY: RT Pito(R) August 06, 2022 2:26 PM documented in this encounterMer[facility]02-02-2023 History of Present illness Narrative* Sheila Saab MA - 08/06/2022 1:47 PM EST Review of Systems Constitutional: Negative for activity change, chills, fever and unexpected weight change. Gastrointestinal: Negative for bowel retention or incontinence Genitourinary: Negative for difficulty urinating. Negative for bladder retention or incontinence Musculoskeletal: Positive for arthralgias, back pain, gait problem and myalgias. Negative for jointswelling, neck pain and neck stiffness. Neurological: Positive for weakness and numbness. Negative for headaches. Psychiatric/Behavioral: Positive for sleep disturbance. Negative for dysphoric mood and suicidal ideas. The patient is nervous/anxious. * Penny Oneill APRN.ERIC - 08/06/2022 1:46 PM EST [facility] Today's Date: 08/06/2022 Last Visit: N/A Name: Acacia Bynum : 1960 Purpose: New Patient Consultation Chief complaint: BL Leg pain Interval History: N/A Initial HPI: (Obtained on 08/06/2022) Acacia Bynum is a 61 year old year-old female; who presents havingbeen referred by Luana Podlogion, for evaluation and management of the above-mentioned chief complaint. This has been present for the past couple of years. The onset of symptoms was gradual onset and waswithout associated trauma. States she has had PT in the past, she continues the HEP with no relief.Pain is constant. States occasionally she has some low back pain. Reports she has difficulty ambulating, RIGHT leg gives out on her with ambulation. Denies previous spine, hip or knee surgeries. Treatments to date include the following: Medications (See below) and Physical Therapy . She did therapy in 2020, about 6 weeks of therapy. Pain Description: Timing: constant Character: Sharp and Aching Primary Location: BL legs, hips and knees Radiation: BL Posterior legs to her feet Exacerbating factors: unable to pinpoint exacerbating factors/positions Relieving factors: medications, ice , and heat Interferes with: physical activity, work, walking, sleeping, and ability to participate in ADL's The patient reports 2 hours of uninterrupted sleep per night Reports BL Leg weakness, RIGHT > LEFT The patient denies difficulty with bowel or bladder control. Current Status: INTAKE PAIN ASSESSMENT 08/03/2022 08/06/2022 Are you having pain associated with your visit today? Yes, Provider notified Yes, Provider notified Pain Scales - Verbal (Numeric Rating or Visual Analog Scale) Pain Level 8 7 Pain Location Other: See Comment Leg-Left Description Aching;Shooting;Stabbing Aching;Sharp Duration Amount of Time - - Duration Units Months Years Frequency Continuous Continuous Intervention/Comfort measure Medication Reposition;Relaxation;Positioning Comments Pain in both legs and knees and lower back - Pain Assessment - - Current Pain Medications: Opioids: NSAIDS:OTC ibuprofen/Motrin (do not help) Anti-depressants: Effexor 37.5 mg Anti-convulsants: Muscle relaxants: Others: OTC Tylenol arthritis Analgesia: not adequate Current Anti-Coagulant Use: No PAST Pain Medications (for the chief complaint(s)): None Allergies: ALLERGIES Allergen Reactions Codeine Rash Morphine Itching Penicillins Hives Sulfa (Sulfonamide * GI Upset Data Reviewed: Reviewed personally on today's date 08/06/2022 Relevant Imaging: XR Lumbar Spine 12/28/21: RESULT: Counting reference: Lumbosacral junction. For the purposes of this report, L5-S1 is considered the last lumbar-type disc space and L4-5 is considered the level of the iliac crest. 3 Views of the lumbosacral spine with AP, lateral and cone-down radiographs demonstrate scoliotic curvature and multilevel degenerative change with vertebral body osteophytosis. There is intervertebral disc space narrowing at all lumbar levels. There is hypertrophic facet change at the lower 2 levels. There is grade 1 anterior spondylolisthesis of L4 with respect to L5 and L5 on S1. There is no associated pars interarticularis defects and the findings are likely degenerative in etiology. There are no compression fractures and alignment is otherwise well maintained. The soft tissues demonstrate large laminated calcification in the right upper quadrant likely gallstone. XR RIGHT knee 09/08/18: RESULT: Standing frontal radiographs of the bilateral knees with a lateral view the right knee show no acute osseous, articular or soft tissue abnormality. Joint spaces are preserved and there is no significant joint fluid. Recent labs: CMP: Glucose 97 06/16/2022 BUN 14 06/16/2022 Creatinine 0.67 06/16/2022 Sodium 141 06/16/2022 Potassium 5.1 06/16/2022 Chloride 103 06/16/2022 CO2 29 06/16/2022 Protein, Total 7.1 06/16/2022 Albumin 4.2 06/16/2022 Calcium 9.4 06/16/2022 Alkaline Phosphatase 113 06/16/2022 Bilirubin, Total 0.3 06/16/2022 AST 29 06/16/2022 ALT 30 06/16/2022 Pain Procedures: DATE PROCEDURE IMPROVEMENT None to date at this practice Compliance: PDMP website checked and validated. All prescriptions have been APPROPRIATELY filled. No suspiciousactivity was identified. 08/06/2022 by Penny Oneill APRN.ACADEMY DIRECTOR Risk Assessment: LUZ MARIA-7: LUZ MARIA - 7 SCORES 08/06/2022 LUZ MARIA-7 Score 2 (0-4) minimal anxiety, (5-9) mild anxiety, (10-14) moderate anxiety, (15-21) severe anxiety PHQ-9: PHQ-9 08/06/2022 Score 4 (0-4) minimal depression, (5-9) mild depression, (10-14) moderate depression, (15-19) moderately severe depression, (20-27) severe depression Opioid Risk Tool: Family History of Substance Abuse: 0 - No Personal History of Substance Abuse: 0 - No Age between 16-45: 0 - No History of Pre-Adolescence Sexual Abuse: 0 - No Psychological Disease: 0 - No Risk Total: 0 Total Score Risk Category: Low Risk 0-3 (0-3, low risk or no risk; 4-7, moderate risk, 8+, high risk) Current Medications, Past Medical History, Past Surgical History, Family History, Social History and Review of Systems: On today's date, 08/06/2022, noted above, I have confirmed and edited as necessary, the PFSH and ROS obtained by others. Physical Exam: 08/06/22 1350 Pulse: 83 Resp: 16 SpO2: 97% Constitutional:overweight HEENT: Normal Cephalic, Atraumatic, Non-icteric sclera Eyes: Conjunctiva clear. No discharge from eyes Cardiovascular: Appears well perfused Lymphatic: No visible regional lymphadenopathy Skin: No visible rashes or ecchymosis Psychiatric: Full affect, Alert, Pleasant LUMBAR MUSCULOSKELETAL/NEURO EXAM Inspection: - Symmetric without atrophy Posture: Slouching posture, loss of lordosis Gait: Antalgic, ambulates unassisted Tandem, Walk: Intact Palpation: - Lumbar Paraspinal Tenderness: None in the Bilateral lumbar paraspinals - Paraspinal Spasms: None - Facet Loading: Right-negative; Left-negative - Greater Trochanter: None tenderness Bilateral Strength: LEFT RIGHT Iliopsoas (L2) 5 5 Quadriceps (L3) 5 5 Anterior Tibialis (L4): 5 5 Exten Hallucis Longus (L5) 5 5 Gastrocnemius (S1): 5 5 Muscle Tone: - Normal and symmetric Neural Tension Signs: -Straight Leg Exam Negative Bilateral lower limb(s) -Contralateral Straight Leg Raise Negative Bilateral lower limb(s) Sensation: - intact to light touch in the L2-S2 Bilateral lower limb dermatomes Reflexes: LEFT RIGHT Patellar (L4) Normal 2+ Normal 2+ Achilles (S1) Normal 2+ Normal 2+ Clonus Negative Negative Hip Range of Motion: - Deferred Sacroiliac Maneuvers: - SIJ tenderness: Negative Bilateral Betty's Signs: Deferred Diagnoses: (M54.42, M54.41, G89.29) Chronic bilateral low back pain with bilateral sciatica (primary encounter diagnosis) (M47.816) Lumbar spondylosis (M43.17) Spondylolisthesis at L5-S1 level (M48.062) Spinal stenosis, lumbar region with neurogenic claudication Impression & Plan: 61 year old female with no significant past medical history, who presents with complaint(s) of chronic low back pain and leg pain pain. 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 Reports difficulty with ambulation due to her leg pain and weakness. Her most recent lumbar XR from 2019 demonstrates multilevel DDD and degenerative changes, Grade I spondylolisthesis with PARS defect L5/S1. Acacia Bynum would benefit from the following to decrease pain, improve function and/or work participation, and improve quality of life: Medications: Refill: Requested Prescriptions Pending Prescriptions Disp Refills meloxicam (MOBIC) 7.5 mg tablet 30 tablet 2 Sig: Take 1 tablet by mouth once daily as needed for pain (with food). Continue OTC Tylenol arthritis prn pain LUZ MARIA-7/PHQ-2, and ORT: 08/06/2022 Completed and reviewed, low risk Functional Rastafari: Physical Therapy (Land-based) Additional Studies: Updated Lumbar XR (re-evaluate her spondylolisthesis) Referrals: None Additional: NSAIDS use(s), side effects and risks of long-term side effects were reviewed today. Recommend use of OTC famotidine or PPI if not already taking while using any NSAIDS. Patient with verbalized understanding. Plan for lumbar MRI after PT has been completed Consider IESI vs Spine Surgery consult depending on her MRI results Patient is happy and agreeable with this plan. All questions were answered and patient verbalized understanding. Depending on response to the above plan, consider: Follow-up: 6-8 weeks for evaluation of response to treatment plan and optimization Attribution: In addition to reviewing the information noted above, some elements copied from my most recent clinical note(s), including the physical exam (completed in entirety today), and the impression and plan sections, have been updated where appropriate. All reflect current medical decision making from today's date. Penny Oneill APRN.[facility] Pain Management [facility] documented in this encounterMer[facility]12-14-2022 Miscellaneous Notes* Telephone Encounter - Leslie Calle RN - 06/17/2022 8:26 AM EST Patient returned call and given provider's message below. Rashmi Calle RN * Telephone Encounter - ALINE Cuenca - 06/17/2022 8:10 AM EST TC to patient with no answer. Left message to return call to receive results. ALINE Cuenca * Telephone Encounter - Luana Hutson APRN.CNP - 06/17/2022 7:52 AM EST Please call patient and let her know her total and bad cholesterol have elevated since last check. Work on low fat diet and aim for at least 150 minutes of exercise per week. The rest of her blood work is normal. Luana Hutson APRN.ERIC documented in this encounterMer[facility]10-19-2022 Miscellaneous Notes* Telephone Encounter - Leilani Carballo MA - 04/22/2022 10:54 AM EDT Pt. R/S 06/10. Leilani Carballo MA * Telephone Encounter - Leilani Carballo MA - 04/22/2022 10:35 AM EDT Attempted to reach out to patient. Patient's appt. 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 Unable to reach patient. Please assist patient in rescheduling appointment. Leilani Carballo MA documented in this encounterMercy [facility]10-08-2022 Miscellaneous Notes* Addendum Note - Johnny Newsome MD - 04/11/2022 8:13 AM EDTAddended by: JOHNNY NEWSOME on: 04/11/2022 08:13 AM Modules accepted: Orders documented in this encounterMercy Health [facility]09-26-2022 Instructions* Patient Instructions* Johnny Newsome MD - 03/30/2022 2:39 PM EDT Images from the original note were not included. Thank you for seeing me in clinic today. It was very nice to meet you! As we discussed, my recommendations are as follows: Please see instructions below for a bowel prep clean out. Try drinking 1/2 or all of the bowel preparation to help clear out any residual stool. This will make you have diarrhea, so please make sure you have easy access to a bathroom before starting. You can disregard the colonoscopy/diet related information as this is geared towards patients having a colonoscopy. After a bowel clean out, start taking miralax 17-34 grams (1-2 capfuls) every day. This is meant toprevent constiaption from occurring in the first place, so you can take taking it even if you feel well. You may want to adjust the dose if you start having loose/frequent/watery stools. Start taking Bentyl (dicyclomine) 2 tablets (20 mg) twice daily for 2 weeks. If your pain has improved by >80%, you can continue as is. If you are still having some residual pain, You can start taking Bentyl 2 tablets three times daily. If you are out of your prescription, please send me a message for a refill. Send me a [facility] message in 1 month with an update on your symptoms Please make a follow up visit with me in 3 months If you have any questions about the above treatment plan, please do not hesitate to send me a [facility] message or call the [facility] at [phone] to route me amessage. Bowel Preparation Instructions for: Miralax-Gatorade Preparations IF YOU DO NOT FOLLOW THESE DIRECTIONS, YOUR COLONOSCOPY WILL BE CANCELLED. [place] Instructions: Your bowel must be empty so that your doctor can clearly view your colon. Follow all of the instructions in this handout EXACTLY as they are written. Do NOT eat any solid food the ENTIRE day before your colonoscopy. Buy your bowel preparation at least 5 days before your colonoscopy. Four (4) Dulcolax laxative tablets containing 5mg of bisacodyl each (NOT Dulcolax stool softener) One (1) 8.3oz. bottle Miralax (238 grams) or generic equivalent 2 x 32oz. Bottles of Gatorade (NOT RED) Diabetic Patients: Use G2 (Gatorade 2) TRANSPORTATION on the Day of Your Exam A responsible adult MUST be present with you at Check In prior to your colonoscopy and REMAIN in the endoscopy area until you are discharged. You are NOT ALLOWED to drive, take a taxi or bus, or leave the Endoscopy Center ALONE. If you do not have a responsible bulk truck driver (family member or friend) withyou to take you home, your exam cannot be done with sedation and will be cancelled. Please bring a list of all of your current medications, including any Wgqw-tby-Aghrlft medications with you. Medications If you take insulin, diabetic medications or blood thinners such as Coumadin (warfarin), Plavix (clopidogrel), Ticlid (ticlopidine hydrochloride), Agrylin (anagrelide), Xarelto (Rivaroxaban), Pradaxa(Dabigatran), Eliquis (Apixaban), and Effient (Prasugrel). You MUST call the doctors who orders those medicines for instructions on altering the dosage before your colonoscopy. All other medications should be taken the day of the exam with a sip of water including ASPIRIN. Five (5) Days Before Your Colonoscopy Do NOT take medicines that stop diarrhea - such as Imodium, Kaopectate, or Pepto Bismol. Do NOT take fiber supplements - such as Metamucil, Citrucel, or Perdiem. Do NOT take products that contain iron - such as multi-vitamins (the label lists what is in the products). Three (3) Days Before Your Colonoscopy Do NOT eat high-fiber foods - such as popcorn, beans, seeds (flax, sunflower, quinoa), multigrain bread, nuts, salad/vegetables, or fresh and dried fruit. 1 Bowel Preparation Instructions for: Miralax-Gatorade Preparations One (1) Day Before Your Colonoscopy Only drink clear liquids the ENTIRE DAY before your colonoscopy. Do NOT eat any solid foods. Drink at least 8 ounces of clear liquids every hour after waking up. The clear liquids you can drink include: Clear Liquid (NO RED LIQUIDS) DO NOT DRINK Gatorade, Pedialyte or Powerade Clear broth or bouillon Coffee or tea (no milk or non-dairy creamer) Carbonated and non-carbonated soft drinks Pelon-Aid or other fruit flavored drinks Strained fruit juices (no pulp) Jell-O, popsicles, hard candy Water Alcohol Milk or non-dairy creamers Noodles or vegetables in soup Juice with pulp Liquid you cannot see through Do not use tobacco/vaping products Mix 1/2 of Miralax bottle (119 grams) in each 32 ounces of Gatorade bottle until dissolved. Keep cool in the refrigerator. DO NOT ADD ICE. The bowel preparation solution will be consumed in two parts. Part 1 5:00 PM - Evening before your colonoscopy Take 4 Dulcolax tablets. 6 PM - Evening before your colonoscopy Drink 32 oz. of the mixed solution. Drink an 8 oz. glass of bowel preparation every 15 minutes for a total of 4 glasses. Fifteen (15) minutes later, drink an 8 oz. glass of of clear liquids every 15 minutes for a total of 2 glasses. You may continue to drink clear liquids till midnight. Part 2 On the day of your colonoscopy you may drink clear liquids up to (three) 3 hours prior to procedure. 4 1/2 hours before your colonoscopy Take another 32 oz. bottle of mixed solution. Drink an 8 oz. glass of bowel prep every 15 minutes for a total of 4 glasses. Fifteen (15) minutes later, drink an 8 oz. glass of clear liquids every 15 minutes for a total of 2glasses. You may continue to drink clear liquids up to (three) 3 hours before your exam. 2 06/2019 documented in this encounterMer[facility] History and physical note * Johnny Newsome MD - 03/30/2022 2:00 PM EDT Consultation requested by Dr. Sebastian Sol for an opinion regarding epigastric pain. My final recommendations will be communicated back to the requesting physician by way of shared medical record or fax. REASON FOR VISIT: Epigastric pain HPI: Acacia Bynum is a 61 year old female with a history of chronic constipation and cholecystectomy who isreferred to the GI clinic for evaluation of chronic intermittent epigastric pain. This pain was first noticeable 2 years ago. Described as a throbbing, moderately severe pain. Pain is more likely to occur at night and can be associated with diaphoresis, fatigue, abdominal bloating, nausea and bilious vomiting. Episodes used to occur 2-3x/week, but she has only had 4 episodes over the past 2 months since starting Bentyl 10 mg BID before meals. She had her gallbladder removed in 09/2020, which did show chronic cholecystitis with stones but her pain did not completely improve. EGD with esophageal and gastric biopsies were unremarkable. She was taking daily omeprazole for months after her EGD without noticeable improvement. When taking ibuprofen 2 tabs/day this did not make the pain better. Contrasted CT abd/pelv was also unremarkable. To manage her constipation, she takes miralax 17 g/day which helps somewhat. With this regimen, sheaverages 1-2 hard BMs/day ([place] 2-3). If she stopped miralax, she could go up to 1 week without BMs. She has not tried any prescription laxatives or fiber supplement Past Clinical Work-Up: Component Latest Ref Rng & Units 01/16/2022 Lipase 16 - 61 U/L 25 Upper GI: 10/13/21: for epigastric pain Barium passed through the esophagus into the stomach without obstruction antegrade flow. No stricture, hernia or reflux. Stomach appears normal. No gastric outlet obstruction or filling defect. No gastric or duodenal ulcer. Mild prominence of the post bulbar duodenal folds. IMPRESSION: Mild prominence of the post bulbar duodenal folds. No active ulcer crater is seen. CT abd/pel: w/IV contrast: 09/08/21: Liver: There is diffusely diminished attenuation throughout the liver consistent with hepatic steatosis. Against this background, subtle abnormalities could be concealed but there is no obvious mass lesion. Biliary: No bile duct dilation. Gallbladder is absent. Spleen: No mass. No splenomegaly. Pancreas: No mass or duct dilation. GI tract: No dilation or wall thickening. IMPRESSION: *No acute process. *Hepatic steatosis. EGD: 07/29/21: Dr. Ku: for epigastric pain - Normal examined jejunum. - Duodenitis. - Gastritis. Biopsied. - Normal gastroesophageal junction. - Normal lower third of esophagus. Biopsied. - Normal middle third of esophagus. Biopsied. Path: A. Antrum, biopsy - Antral mucosa with no significant diagnostic alteration. No morphologic evidence of Helicobacter pylori organisms. B. Distal esophagus, biopsy - Mildly inflamed cardiofundic-type mucosa, negative for intestinal metaplasia. Reactive squamous mucosa with no significant inflammation. C. Mid esophagus, biopsy - Squamous mucosa with no significant diagnostic alteration. No evidence of esophagitis or eosinophilia. Colon: 07/29/21: Dr. Ku: for screening - The entire examined colon is normal on direct and retroflexion views. - The examined portion of the ileum was normal. - No specimens collected. Repeat exam recommended in 10 years Component Latest Ref Rng & Units 12/29/2019 08/29/2020 07/01/2021 Protein, Total 6.3 - 8.0 g/dL 7.0 7.2 6.7 Albumin 3.9 - 4.9 g/dL 4.1 4.4 4.3 Calcium 8.5 - 10.2 mg/dL 9.6 9.5 9.4 Bilirubin, Total 0.2 - 1.3 mg/dL 0.2 0.3 0.4 Alkaline Phosphatase 34 - 123 U/L 97 130 (H) 125 (H) AST 13 - 35 U/L 32 34 20 Glucose 74 - 99 mg/dL 94 104 (H) 96 BUN 7 - 21 mg/dL 15 17 13 Creatinine 0.58 - 0.96 mg/dL 0.79 0.76 0.69 Sodium 136 - 144 mmol/L 141 138 138 Potassium 3.7 - 5.1 mmol/L 4.5 3.7 4.2 Chloride 97 - 105 mmol/L 102 101 102 CO2 22 - 30 mmol/L 27 26 25 Anion Gap 9 - 18 mmol/L 12 11 11 ALT 7 - 38 U/L 24 31 13 Component Latest Ref Rng & Units 07/01/2021 WBC 3.70 - 11.00 k/uL 8.55 RBC 3.90 - 5.20 m/uL 4.80 Hemoglobin 11.5 - 15.5 g/dL 14.6 Hematocrit 36.0 - 46.0 % 43.1 MCV 80.0 - 100.0 fL 89.8 MCH 26.0 - 34.0 pG 30.4 MCHC 30.5 - 36.0 g/dL 33.9 RDW-CV 11.5 - 15.0 % 13.5 Platelet Count 150 - 400 k/uL 302 Lap nickolas with IOC: 09/02/20: Dr. Ku: Gallbladder, cholecystectomy - Chronic cholecystitis with cholelithiasis. RUQ US: 01/2020: for epigastric pain --Normal liver echotexture, without focal hepatic lesion. --Cholelithiasis and gallbladder sludge. No convincing sonographic evidence for acute cholecystitis. No biliary dilation. --No splenomegaly or focal splenic mass. ALLERGIES Allergen Reactions Codeine Rash Morphine Itching Penicillins Hives Sulfa (Sulfonamide * GI Upset PAST MEDICAL HISTORY Diagnosis Date Chronic constipation 11/17/2010 COLLES' FRACTURE-CLOSED 08/17/2005 DDD (degenerative disc disease), lumbar History of tobacco use Internal hemorrhoids without mention of complication Overactive bladder 11/17/2010 = PAST SURGICAL HISTORY Procedure Laterality Date ABDOMINAL SURGERY HX BREAST SURGERY HX COLONOSCOPY 07/29/2021 repeat in 10 years COLONOSCOPY FLX DX W/COLLJ SPEC WHEN PFRMD 10/20/2010 EGD 07/29/2021 L'SCOPE CHOLECYSTECTOMY 09/02/2020 LARGSC EXC ANGLE&/STRPG CORDS/EPIGL MCRSCP/TLSCP Left 02/28/2018 removal of polyp PAST SURGICAL HISTORY OF 2004 intersyne for bladder frequency; was surgically removed after PAST SURGICAL HISTORY OF Bilateral 2016 Breast Implants, Dr. Thompson REM LESION NEC,HND,SCAL,FEET,GENITALIA 1.1-2.0CM 09/17/2012 Exc. scalp wens x 3 VAGINAL HYSTERECTOMY VAGINAL HYSTERECTOMY UTERUS 250 GM/< 2000 Hysterectomy, vaginal (endometriosis) FAMILY HISTORY Problem Relation Age of Onset Cancer Mother lung Cancer Father lymphoma None Sister None Brother Diabetes Maternal Grandmother None Sister None Brother None Brother other (Other) Brother accidental No Known Problems Son No Known Problems Daughter Social History Tobacco Use Smoking status: Former Packs/day: 0.50 Years: 20.00 Pack years: 10.00 Types: Cigarettes Quit date: 07/05/2009 Years since quittin.7 Smokeless tobacco: Never Vaping Use Vaping Use: Never used Substance Use Topics Alcohol use: Not Currently Drug use: No Current Outpatient Medications Medication Sig Zinc 50 mg tab Take 50 mg by mouth once daily. COLLAGEN MISC 1 capsule once daily. dicyclomine (BENTYL) 10 mg capsule Take 1 capsule by mouth before meals and at bedtime. venlafaxine (EFFEXOR) 37.5 mg tablet Take 37.5 mg by mouth once daily. peg 3350-Electrolytes (GOLYTELY) 236-22.74-6.74 -5.86 gram suspension Refer to printed prep instructions from your provider. cyanocobalamin (VITAMIN B-12) 1,000 mcg tab Take 0.5 tablets by mouth once daily. CALCIUM CITRATE/VITAMIN D3 (CITRACAL ORAL) Take by mouth once daily. ascorbic acid (VITAMIN C) 500 mg ORAL tablet Take 500 mg by mouth once daily. Magnesium Oxide-Mg AA Chelate (MAGNESIUM) 300 mg ORAL Cap Take 300 mg by mouth once daily. No current facility-administered medications for this visit. I have confirmed and edited, if necessary, the PFSH obtained by others. REVIEW OF SYSTEMS CONSTITUTIONAL: Negative for unintentional weight loss, malaise or fevers HEENT: Negative for frequent/significant headaches, changes in hearing/vision, nose bleeds or othernasal problems RESPIRATORY: Negative for cough, hemoptysis, wheezing or dyspnea CARDIOVASCULAR: Negative for chest pain, palpitations, syncope or lightheadedness GI: See HPI : Negative for dysuria, polyuria, incontinence or hematuria MUSCULOSKELETAL: Negative for arthralgia or myalgia INTEGUMENTARY/SKIN: Negative for rash or skin lesion HEMATOLOGY/LYMPHOLOGY: Negative for prolonged bleeding, easy bruising or swollen nodes ENDOCRINE: Negative for cold/heat intolerance, polydipsia or goiter NEURO: Negative for encephalopathy, tremor or gait abnormality PSYCH: Negative for new changes in mood or affect PHYSICAL EXAM: BP 122/71 Pulse 64 Wt 65.3 kg (143 lb 14.4 oz) BMI 27.19 kg/m Gen: Comfortable in NAD Head: Normocephalic, atraumatic Skin: No jaundice, rashes or skin lesions Eyes: Sclera anicteric, conjunctiva pink Neck: Supple, no palpable lymphadenopathy or goiter Heart: RRR, no murmurs, rubs or gallops Lungs: CTAB, non-labored breathing Abd: Soft, non-distended, non-tender, bowel sounds present, no palpable masses or organomegaly Ext: No lower extremity edema, clubbing or cyanosis. Extremities are warm and well-perfused Neuro: Alert and oriented, no tremor or gross focal motor deficits Psych: Congruent mood and affect, appropriate insight and judgement ASSESSMENT: Acacia Bynum is a 61 year old female with a history of chronic constipation and cholecystectomy (in 09/2020) who is referred to the GI clinic for evaluation of a 2-year history of intermittent episodes of epigastric pain, nausea and vomiting. 1) Dyspepsia (epigastric pain / bloating) 2) Nausea with vomiting 3) Chronic constipation I suspect that she has functional dyspepsia / functional nausea with vomiting based on significant improvement with dicyclomine. She could also be struggling with IBS-C symptoms, which also explains improved symptoms with antispasmodics and when stools are more regular. Her pain did not improve with adequate PPI trial or gallbladder removal. H. Pylori infection has been ruled out. DDx includes celiac disease. Gastroparesis is unlikely based on lack of worsening pain with eating. PLAN: --Miralax/Gatorade bowel prep for clean out --Then start miralax 17-34 g/day --OK to increase Bentyl to 20 mg BID for 2 weeks. If this results in worsening constipation, reducedose to 10 mg BID. --If pain does not improve with bowel regimen and higher dose of Bentyl, will consider trial of either Linzess or Buspar and check lab work (CMP, CBC, celiac screen, CRP) --Currently, she denies reflux, dysphagia and chest pain, so manometry / pH study off PPI may not provide significant additional information. --Patient to send me a [facility] message in 1 month with an update Follow up in 3 months Johnny Newsome MD Associate Staff, Department of Gastroenterology and Hepatology [facility] [place] documented in this encounterMer[facility]07-22-2022 Miscellaneous Notes* Telephone Encounter - Vianca Deluca Ma - 01/23/2022 9:20 AM EDT Patient was notified Vianca Deluca Ma * Telephone Encounter - Sebastian Sol MD - 01/23/2022 9:12 AM EDT She is supposed to take this medication for cramping and bloating symptoms. If she is having symptoms, yes I would have her take it. Can use OTC imodium for diarrhea. * Telephone Encounter - Shahbaz Victoria LPN - 01/23/2022 8:32 AM EDT Patient calling, states she has been taking the Bentyl twice a day since it was prescribed however last night started with cramping and diarrhea so she did not take her dose last night and has not taken one today. Patient is asking if she should continue taking it with her current symptoms. Please advise. documented in this encounterMer[facility]07-15-2022 History of Present illness Narrative* Sebastian Sol MD - 01/16/2022 11:15 AM EDT Chief Complaint Patient presents with: Follow Up HPI Acacia Bynum is a 61 year old female who presents here today for evaluation of abdominal pain with nausea and vomiting. . Patient has has extensive workup through general surgery's office for epigastric pain and vomiting which started more than a year ago. Had gallbladder removed 09/2020 after finding of sludge. Has had EGD and colonoscopy in July which showed gastritis and duodenitis with normal esophagus. Colonoscopy normal. Describes pain as intermittent throbbing in epigastric region. Usually lasts about 2-3 days at a time and occurs about once per month. Associated with nausea and vomiting as well as fatigue, bloating, occasional constipation. No exacerbating factors. Was on Omeprazole for almost a year and after her EGD they told her to stop this medication. Has been taking ibuprofen for pain, up to 2 per day, which does not help with epigastric pain. Unchanged over the last year. Was referred to GI for Ph and Manometry testing which has not been completed yet. Past medical history, appointments, medications, allergies reviewed. Previous Medical History PAST MEDICAL HISTORY Diagnosis Date Chronic constipation 11/17/2010 COLLES' FRACTURE-CLOSED 08/17/2005 DDD (degenerative disc disease), lumbar History of tobacco use Internal hemorrhoids without mention of complication Overactive bladder 11/17/2010 Previous Surgical History PAST SURGICAL HISTORY Procedure Laterality Date ABDOMINAL SURGERY HX BREAST SURGERY HX COLONOSCOPY 07/29/2021 repeat in 10 years COLONOSCOPY FLX DX W/COLLJ SPEC WHEN PFRMD 10/20/2010 EGD 07/29/2021 L'SCOPE CHOLECYSTECTOMY 09/02/2020 LARGSC EXC ANGLE&/STRPG CORDS/EPIGL MCRSCP/TLSCP Left 02/28/2018 removal of polyp PAST SURGICAL HISTORY OF 2004 intersyne for bladder frequency; was surgically removed after PAST SURGICAL HISTORY OF Bilateral 2016 Breast Implants, Dr. Thompson REM LESION NEC,HND,SCAL,FEET,GENITALIA 1.1-2.0CM 09/17/2012 Exc. scalp wens x 3 VAGINAL HYSTERECTOMY VAGINAL HYSTERECTOMY UTERUS 250 GM/< 2000 Hysterectomy, vaginal (endometriosis) Family History FAMILY HISTORY Problem Relation Age of Onset Cancer Mother lung Cancer Father lymphoma None Sister None Brother Diabetes Maternal Grandmother None Sister None Brother None Brother other (Other) Brother accidental No Known Problems Son No Known Problems Daughter Patient Allergies ALLERGIES Allergen Reactions Codeine Rash Morphine Itching Penicillins Hives Sulfa (Sulfonamide * GI Upset Current Medications Current Outpatient Medications on File Prior to Visit Medication Sig Zinc 50 mg tab Take 50 mg by mouth once daily. COLLAGEN MISC 1 capsule once daily. omeprazole (PRILOSEC) 20 mg capsule Take 2 capsules by mouth once daily. venlafaxine (EFFEXOR) 37.5 mg tablet Take 37.5 mg by mouth once daily. cyanocobalamin (VITAMIN B-12) 1,000 mcg tab Take 0.5 tablets by mouth once daily. CALCIUM CITRATE/VITAMIN D3 (CITRACAL ORAL) Take by mouth once daily. ascorbic acid (VITAMIN C) 500 mg ORAL tablet Take 500 mg by mouth once daily. Magnesium Oxide-Mg AA Chelate (MAGNESIUM) 300 mg ORAL Cap Take 300 mg by mouth once daily. peg 3350-Electrolytes (GOLYTELY) 236-22.74-6.74 -5.86 gram suspension Refer to printed prep instructions from your provider. No current facility-administered medications on file prior to visit. Social History Social History Tobacco Use Smoking status: Former Smoker Packs/day: 0.50 Years: 20.00 Pack years: 10.00 Types: Cigarettes Quit date: 07/05/2009 Years since quittin.5 Smokeless tobacco: Never Used Vaping Use Vaping Use: Never used Substance Use Topics Alcohol use: Not Currently Drug use: No Review of Symptoms REVIEW OF SYSTEMS See HPI EXAM: BP 102/60 Pulse 76 Resp 16 Wt 62.4 kg (137 lb 9.6 oz) SpO2 97% BMI 26.00 kg/m General Appearance: Well appearing, alert, in no acute distress, well-hydrated, well nourished.. Skin: Skin color, texture, turgor normal, no suspicious rashes or lesions. Lungs: Lungs clear to auscultation. No wheezing, rhonchi, rales.. Heart: RRR without murmur, gallop, or rubs. No ectopy. Abdomen: Abdomen soft. Bowel sounds normal. No masses, organomegaly, Positive findings: tenderness moderate epigastric and suprapubic. Health Maintenance List COVID-19 VACCINE(1) Never done HIV SCREENING Never done SHINGRIX VACCINE(1 of 2) Never done DEPRESSION SCREENING due on 09/09/2019 MAMMOGRAM due on 03/29/2021 INFLUENZA(1) due on 03/05/2022 LIPID SCREEN due on 02/25/2023 DIABETES SCREEN due on 07/01/2024 DTAP,TDAP,TD(2 - Td or Tdap) due on 01/01/2028 COLORECTAL CANCER SCREENING due on 07/29/2031 HEPATITIS C SCREENING Completed PAP TESTING Discontinued HPV TESTING Discontinued Data reviewed Component Latest Ref Rng & Units 08/29/2020 07/01/2021 WBC 3.70 - 11.00 k/uL 10.08 8.55 RBC 3.90 - 5.20 m/uL 4.50 4.80 Hemoglobin 11.5 - 15.5 g/dL 14.1 14.6 Hematocrit 36.0 - 46.0 % 42.0 43.1 MCV 80.0 - 100.0 fL 93.3 89.8 MCH 26.0 - 34.0 pG 31.3 30.4 MCHC 30.5 - 36.0 g/dL 33.6 33.9 RDW-CV 11.5 - 15.0 % 13.4 13.5 Platelet Count 150 - 400 k/uL 281 302 MPV 9.0 - 12.7 fL 8.3 (L) 8.4 (L) Neut% % 66.1 67.5 Abs Neut (ANC) 1.45 - 7.50 k/uL 6.66 5.78 Lymph% % 21.2 21.1 Abs Lymph 1.00 - 4.00 k/uL 2.14 1.80 Hill% % 8.8 8.3 Abs Hill <0.87 k/uL 0.89 (H) 0.71 Eosin% % 2.8 2.0 Abs Eosin <0.46 k/uL 0.28 0.17 Baso% % 1.1 1.1 Abs Baso <0.11 k/uL 0.11 (H) 0.09 Nucleated Reds 0 /100 WBC 0.0 0.0 Absolute nRBC <0.01 k/uL <0.01 <0.01 Diff Type Auto Diff Auto Diff Protein, Total 6.3 - 8.0 g/dL 7.2 6.7 Albumin 3.9 - 4.9 g/dL 4.4 4.3 Calcium 8.5 - 10.2 mg/dL 9.5 9.4 Bilirubin, Total 0.2 - 1.3 mg/dL 0.3 0.4 Alkaline Phosphatase 34 - 123 U/L 130 (H) 125 (H) AST 13 - 35 U/L 34 20 Glucose 74 - 99 mg/dL 104 (H) 96 BUN 7 - 21 mg/dL 17 13 Creatinine 0.58 - 0.96 mg/dL 0.76 0.69 Sodium 136 - 144 mmol/L 138 138 Potassium 3.7 - 5.1 mmol/L 3.7 4.2 Chloride 97 - 105 mmol/L 101 102 CO2 22 - 30 mmol/L 26 25 Anion Gap 9 - 18 mmol/L 11 11 ALT 7 - 38 U/L 31 13 eGFR- >60 >60 eGFR-All Other Races . >60 >60 ASSESSMENT/PLAN: 1. Epigastric pain - ICD9: 789.06, ICD10: R10.13 (primary diagnosis) Workup thus far is negative. Discussed possible IBS and will start bentyl. Obtain repeat labs to check for chronic pancreatitis. Will refer to GI if symptoms do not improve. Discussed keeping diary of symptoms and possible triggers. Red flags for re-assessment reviewed with patient in detail. - URINALYSIS, WITH MICROSCOPIC - LIPASE BLD - CONSULT TO GASTROENTEROLOGY 2. Nausea and vomiting, unspecified vomiting type - ICD9: 787.01, ICD10: R11.2 See above. - DICYCLOMINE 10 MG CAPSULE Sebastian Sol MD documented in this encounterMer[facility]04-25-2022 History of Present illness Narrative* Obie Man MD - 10/27/2021 1:29 PM EDT DISTANCE HEALTH VISIT This Team Access Model visit is a phone encounter. It required patient-provider interaction for themedical decision making as documented below. Acacia Bynum is a 60 year old female seen for evaluation after recent upper GI. She continues to have the epigastric pain but if not as often and its intermittent. Her upper GI was negative. No acute findings. No hiatal hernia or reflux. She has had quite an extensive work-up for her discomfort including a EGD, colonoscopy, upper GI and had a cholecystectomy. She also had a CT scan. At this point I am not seeing any type of surgical cause for her epigastric discomfort. This was reviewed with her in detail.. HISTORY REVIEWED (electronic chart updated): - medical history - medications - allergies PHYSICAL EXAMINATION: VIDEO EXAM: (if done, performed via video enabled technology) No exam performed ASSESSMENT: (R10.13) Epigastric pain (primary encounter diagnosis) PLAN: ASSESSMENT/PLAN: 1. Epigastric pain - ICD9: 789.06, ICD10: R10.13 -She has had an extensive work-up regarding her discomfort. No obvious surgical cause for her pain at this point in time. Extensive work-up completed. Follow-up as needed. Recommended she return to her PCP regarding her discomfort. She says she would. Total time of telephone encounter: 10 minutes Obie Man MD There are no Patient Instructions on file for this visit. Obie Man MD documented in this encounterMer[facility]03-28-2022 Instructions* Patient Instructions* Obie Man MD - 09/29/2021 3:12 PM EDT Thank you for coming to see me today. It is my pleasure to take care of you. If you have any questions regarding your visit, please don't hesitate to contact us. documented in this encounterMercy [facility]03-28-2022 History of Present illness Narrative* Obie Man MD - 09/29/2021 3:07 PM EDT Acacia Bynum is a 60 year old female who is here for evaluation after CT scan. She still reports the epigastric pain and nausea. Her CT scan was negative except for some mild hepatic steatosis. This wasreviewed with her. She denies any dysphagia. PPI had no effect. There is no food correlation. ALLERGIES Allergen Reactions Codeine Rash Morphine Itching Penicillins Hives Sulfa (Sulfonamide * GI Upset Current Outpatient Medications Medication Sig omeprazole (PRILOSEC) 20 mg capsule Take 2 capsules by mouth once daily. venlafaxine (EFFEXOR) 37.5 mg tablet Take 37.5 mg by mouth once daily. cyanocobalamin (VITAMIN B-12) 1,000 mcg tab Take 0.5 tablets by mouth once daily. CALCIUM CITRATE/VITAMIN D3 (CITRACAL ORAL) Take by mouth once daily. ascorbic acid (VITAMIN C) 500 mg ORAL tablet Take 500 mg by mouth once daily. Magnesium Oxide-Mg AA Chelate (MAGNESIUM) 300 mg ORAL Cap Take 300 mg by mouth once daily. peg 3350-Electrolytes (GOLYTELY) 236-22.74-6.74 -5.86 gram suspension Refer to printed prep instructions from your provider. No current facility-administered medications for this visit. PHYSICAL EXAM: BP 111/62 Pulse 66 Resp 19 Ht 5' 1 (1.55m) Wt 140 lb (63.5kg) BMI 26.47 kg/(m^2). General Appearance: Well appearing, alert, in no acute distress, well-hydrated, well nourished.. Abdomen: Well-healed laparoscopic cholecystectomy incisions. Epigastric tenderness. No obvious hernia on exam.. Assessment: Epigastric pain (primary encounter diagnosis) Plan: ASSESSMENT/PLAN: 1. Epigastric pain - ICD9: 789.06, ICD10: R10.13 -Given her continued discomfort and negative work-up we are going to proceed with an upper GI for reevaluation. Follow-up after upper GI. - XR UPPER GI ROUTINE DOUBLE CONTRAST/AIR I spent a total of 15 minutes on the date of the service which included preparing to see the patient, [id number] patient care, completing clinical documentation, performing a medically appropriate examination, counseling and educating the patient/family/caregiver, ordering medications, tests, or p rocedures and communicating results to the patient/family/caregiver. Obie Man M.D., F.A.C.S. [facility] of Past illness Narrative* Problem Noted Date Resolved Date Sebaceous cyst 08/09/2012 12/31/2017 Overactive bladder 11/17/2010 12/31/2017 Chronic constipation 11/17/2010 12/31/2017 Closed Colles' fracture 08/17/2005 11/18/19 11 documented as of this encounter (statuses as of 09/29/2021) [facility] of Past illness Narrative* Problem Noted Date Resolved Date Sebaceous cyst 08/09/2012 12/31/2017 Overactive bladder 11/17/2010 12/31/2017 Chronic constipation 11/17/2010 12/31/2017 Closed Colles' fracture 08/17/2005 11/18/19 11 documented as of this encounter (statuses as of 10/14/2021) [facility] of Past illness Narrative* Problem Noted Date Resolved Date Sebaceous cyst 08/09/2012 12/31/2017 Overactive bladder 11/17/2010 12/31/2017 Chronic constipation 11/17/2010 12/31/2017 Closed Colles' fracture 08/17/2005 11/18/19 11 documented as of this encounter (statuses as of 10/27/2021) [facility] Narrative* Problem Noted Date Resolved Date Sebaceous cyst 08/09/2012 12/31/2017 Overactive bladder 11/17/2010 12/31/2017 Chronic constipation 11/17/2010 12/31/2017 Closed Colles' fracture 08/17/2005 11/18/19 11 documented as of this encounter (statuses as of 01/16/2022) [facility]arrative* Problem Noted Date Resolved Date Sebaceous cyst 08/09/2012 12/31/2017 Overactive bladder 11/17/2010 12/31/2017 Chronic constipation 11/17/2010 12/31/2017 Closed Colles' fracture 08/17/2005 11/18/19 11 documented as of this encounter (statuses as of 01/23/2022) [facility]arrative* Problem Noted Date Resolved Date Sebaceous cyst 08/09/2012 12/31/2017 Overactive bladder 11/17/2010 12/31/2017 Chronic constipation 11/17/2010 12/31/2017 Closed Colles' fracture 08/17/2005 11/18/19 11 documented as of this encounter (statuses as of 04/11/2022) [facility]arrative* Problem Noted Date Resolved Date Sebaceous cyst 08/09/2012 12/31/2017 Overactive bladder 11/17/2010 12/31/2017 Chronic constipation 11/17/2010 12/31/2017 Closed Colles' fracture 08/17/2005 11/18/19 11 documented as of this encounter (statuses as of 04/20/2022) [facility]arrative* Problem Noted Date Resolved Date Sebaceous cyst 08/09/2012 12/31/2017 Overactive bladder 11/17/2010 12/31/2017 Chronic constipation 11/17/2010 12/31/2017 Closed Colles' fracture 08/17/2005 11/18/19 11 documented as of this encounter (statuses as of 04/22/2022) [facility]arrative* Problem Noted Date Resolved Date Sebaceous cyst 08/09/2012 12/31/2017 Overactive bladder 11/17/2010 12/31/2017 Chronic constipation 11/17/2010 12/31/2017 Closed Colles' fracture 08/17/2005 11/18/19 11 documented as of this encounter (statuses as of 06/17/2022) [facility]arrative* Problem Noted Date Resolved Date Sebaceous cyst 08/09/2012 12/31/2017 Overactive bladder 11/17/2010 12/31/2017 Chronic constipation 11/17/2010 12/31/2017 Closed Colles' fracture 08/17/2005 11/18/19 11 documented as of this encounter (statuses as of 08/06/2022) [facility]* Problem Noted Date Resolved Date Sebaceous cyst 08/09/2012 12/31/2017 Overactive bladder 11/17/2010 12/31/2017 Chronic constipation 11/17/2010 12/31/2017 Closed Colles' fracture 08/17/2005 11/18/19 11 documented as of this encounter (statuses as of 08/14/2022) [facility]* Problem Noted Date Resolved Date Sebaceous cyst 08/09/2012 12/31/2017 Overactive bladder 11/17/2010 12/31/2017 Chronic constipation 11/17/2010 12/31/2017 Closed Colles' fracture 08/17/2005 11/18/19 11 documented as of this encounter (statuses as of 08/27/2022) [facility]ative* Problem Noted Date Resolved Date Sebaceous cyst 08/09/2012 12/31/2017 Overactive bladder 11/17/2010 12/31/2017 Chronic constipation 11/17/2010 12/31/2017 Closed Colles' fracture 08/17/2005 11/18/19 11 documented as of this encounter (statuses as of 09/04/2022) [facility]* Problem Noted Date Resolved Date Sebaceous cyst 08/09/2012 12/31/2017 Overactive bladder 11/17/2010 12/31/2017 Chronic constipation 11/17/2010 12/31/2017 Closed Colles' fracture 08/17/2005 11/18/19 11 documented as of this encounter (statuses as of 09/22/2022) [facility]arrative* Problem Noted Date Resolved Date Sebaceous cyst 08/09/2012 12/31/2017 Overactive bladder 11/17/2010 12/31/2017 Chronic constipation 11/17/2010 12/31/2017 Closed Colles' fracture 08/17/2005 11/18/19 11 documented as of this encounter (statuses as of 09/23/2022) [facility]* Problem Noted Date Resolved Date Sebaceous cyst 08/09/2012 12/31/2017 Overactive bladder 11/17/2010 12/31/2017 Chronic constipation 11/17/2010 12/31/2017 Closed Colles' fracture 08/17/2005 11/18/19 11 documented as of this encounter (statuses as of 09/24/2022) [facility]* Problem Noted Date Resolved Date Sebaceous cyst 08/09/2012 12/31/2017 Overactive bladder 11/17/2010 12/31/2017 Chronic constipation 11/17/2010 12/31/2017 Closed Colles' fracture 08/17/2005 11/18/19 11 documented as of this encounter (statuses as of 09/30/2022) [facility]* Problem Noted Date Resolved Date Sebaceous cyst 08/09/2012 12/31/2017 Overactive bladder 11/17/2010 12/31/2017 Chronic constipation 11/17/2010 12/31/2017 Closed Colles' fracture 08/17/2005 11/18/19 11 documented as of this encounter (statuses as of 10/09/2022) [facility]* Problem Noted Date Resolved Date Sebaceous cyst 08/09/2012 12/31/2017 Overactive bladder 11/17/2010 12/31/2017 Chronic constipation 11/17/2010 12/31/2017 Closed Colles' fracture 08/17/2005 11/18/19 11 documented as of this encounter (statuses as of 10/13/2022) [facility]* Problem Noted Date Resolved Date Sebaceous cyst 08/09/2012 12/31/2017 Overactive bladder 11/17/2010 12/31/2017 Chronic constipation 11/17/2010 12/31/2017 Closed Colles' fracture 08/17/2005 11/18/19 11 documented as of this encounter (statuses as of 11/02/2022) [facility]* Problem Noted Date Resolved Date Sebaceous cyst 08/09/2012 12/31/2017 Overactive bladder 11/17/2010 12/31/2017 Chronic constipation 11/17/2010 12/31/2017 Closed Colles' fracture 08/17/2005 11/18/19 11 documented as of this encounter (statuses as of 12/03/2022) [facility]* Problem Noted Date Resolved Date Sebaceous cyst 08/09/2012 12/31/2017 Overactive bladder 11/17/2010 12/31/2017 Chronic constipation 11/17/2010 12/31/2017 Closed Colles' fracture 08/17/2005 11/18/19 11 documented as of this encounter (statuses as of 12/04/2022) [facility]* Problem Noted Date Resolved Date Sebaceous cyst 08/09/2012 12/31/2017 Overactive bladder 11/17/2010 12/31/2017 Chronic constipation 11/17/2010 12/31/2017 Closed Colles' fracture 08/17/2005 11/18/19 11 documented as of this encounter (statuses as of 12/05/2022) [facility]* Problem Noted Date Resolved Date Sebaceous cyst 08/09/2012 12/31/2017 Overactive bladder 11/17/2010 12/31/2017 Chronic constipation 11/17/2010 12/31/2017 Closed Colles' fracture 08/17/2005 11/18/19 11 documented as of this encounter (statuses as of 12/17/2022) [facility]* Problem Noted Date Resolved Date Sebaceous cyst 08/09/2012 12/31/2017 Overactive bladder 11/17/2010 12/31/2017 Chronic constipation 11/17/2010 12/31/2017 Closed Colles' fracture 08/17/2005 11/18/19 11 documented as of this encounter (statuses as of 01/01/2023) [facility]* Problem Noted Date Resolved Date Sebaceous cyst 08/09/2012 12/31/2017 Overactive bladder 11/17/2010 12/31/2017 Chronic constipation 11/17/2010 12/31/2017 Closed Colles' fracture 08/17/2005 11/18/19 11 documented as of this encounter (statuses as of 01/07/2023) [facility]* Problem Noted Date Diagnosed Date Resolved Date Sebaceous cyst 08/09/2012 12/31/2017 Overactive bladder 11/17/2010 8 Chronic constipation 11/17/2010 018 Closed Colles' fracture 08/17/200511/02 documented as of this encounter (statuses as of 02/18/2023) [facility]* Problem Noted Date Diagnosed Date Resolved Date Sebaceous cyst 08/09/2012 12/31/2017 Overactive bladder 11/17/2010 8 Chronic constipation 11/17/2010 018 Closed Colles' fracture 08/17/200511/02 documented as of this encounter (statuses as of 02/18/2023) [facility]* Problem Noted Date Diagnosed Date Resolved Date Sebaceous cyst 08/09/2012 12/31/2017 Overactive bladder 11/17/2010 8 Chronic constipation 11/17/2010 018 Closed Colles' fracture 08/17/200511/02 documented as of this encounter (statuses as of 02/18/2023) [facility]* Problem Noted Date Diagnosed Date Resolved Date Sebaceous cyst 08/09/2012 12/31/2017 Overactive bladder 11/17/2010 8 Chronic constipation 11/17/2010 018 Closed Colles' fracture 08/17/200511/02 documented as of this encounter (statuses as of 02/19/2023) [facility]* Problem Noted Date Diagnosed Date Resolved Date Sebaceous cyst 08/09/2012 12/31/2017 Overactive bladder 11/17/2010 8 Chronic constipation 11/17/2010 018 Closed Colles' fracture 08/17/200511/02 documented as of this encounter (statuses as of 02/27/2023) [facility]* Problem Noted Date Diagnosed Date Resolved Date Sebaceous cyst 08/09/2012 12/31/2017 Overactive bladder 11/17/2010 8 Chronic constipation 11/17/2010 018 Closed Colles' fracture 08/17/200511/02 documented as of this encounter (statuses as of 03/01/2023) [facility]* Problem Noted Date Diagnosed Date Resolved Date Sebaceous cyst 08/09/2012 12/31/2017 Overactive bladder 11/17/2010 8 Chronic constipation 11/17/2010 018 Closed Colles' fracture 08/17/200511/02 documented as of this encounter (statuses as of 03/03/2023) [facility]* Problem Noted Date Diagnosed Date Resolved Date Sebaceous cyst 08/09/2012 12/31/2017 Overactive bladder 11/17/2010 8 Chronic constipation 11/17/2010 018 Closed Colles' fracture 08/17/200511/02 documented as of this encounter (statuses as of 03/03/2023) [facility]* Problem Noted Date Diagnosed Date Resolved Date Sebaceous cyst 08/09/2012 12/31/2017 Overactive bladder 11/17/2010 8 Chronic constipation 11/17/2010 018 Closed Colles' fracture 08/17/200511/02 documented as of this encounter (statuses as of 03/04/2023) [facility]* Problem Noted Date Diagnosed Date Resolved Date Sebaceous cyst 08/09/2012 12/31/2017 Overactive bladder 11/17/2010 8 Chronic constipation 11/17/2010 018 Closed Colles' fracture 08/17/200511/02 documented as of this encounter (statuses as of 03/10/2023) [facility]* Problem Noted Date Diagnosed Date Resolved Date Sebaceous cyst 08/09/2012 12/31/2017 Overactive bladder 11/17/2010 8 Chronic constipation 11/17/2010 018 Closed Colles' fracture 08/17/200511/02 documented as of this encounter (statuses as of 03/17/2023) [facility]* Problem Noted Date Diagnosed Date Resolved Date Sebaceous cyst 08/09/2012 12/31/2017 Overactive bladder 11/17/2010 8 Chronic constipation 11/17/2010 018 Closed Colles' fracture 08/17/200511/02 documented as of this encounter (statuses as of 03/22/2023) [facility]* Problem Noted Date Diagnosed Date Resolved Date Sebaceous cyst 08/09/2012 12/31/2017 Overactive bladder 11/17/2010 8 Chronic constipation 11/17/2010 018 Closed Colles' fracture 08/17/200511/02 documented as of this encounter (statuses as of 03/29/2023) [facility]* Problem Noted Date Diagnosed Date Resolved Date Sebaceous cyst 08/09/2012 12/31/2017 Overactive bladder 11/17/2010 8 Chronic constipation 11/17/2010 018 Closed Colles' fracture 08/17/200511/02 documented as of this encounter (statuses as of 05/09/2023) [facility]* Problem Noted Date Diagnosed Date Resolved Date Sebaceous cyst 08/09/2012 12/31/2017 Overactive bladder 11/17/2010 8 Chronic constipation 11/17/2010 018 Closed Colles' fracture 08/17/200511/02 documented as of this encounter (statuses as of 05/09/2023) [facility] Diagnosis Epigastric pain- Primary Abdominal pain, epigastric [facility] Diagnosis Epigastric pain Abdominal pain, epigastric [facility] Diagnosis Epigastric pain- Primary Abdominal pain, epigastric [facility] Epigastric pain- Primary Abdominal pain, epigastric Nausea and vomiting, unspecified vomiting type [facility] Diagnosis Epigastric pain- Primary Abdominal pain, epigastric Dyspepsia Dyspepsia and other specified disorders of function of stomach Chronic constipation Unspecified constipation Nausea and vomiting, unspecified vomiting type [facility] Diagnosis Encounter for screening mammogram for [facility] cancer [facility] Diagnosis Chronic bilateral low back pain with bilateral sciatica- Primary Lumbar spondylosis Lumbosacral spondylosis without myelopathy Spondylolisthesis at L5-S1 level Congenital spondylolisthesis Spinal stenosis, lumbar region with neurogenic claudication [facility] Diagnosis Lumbar spondylosis- Primary Lumbosacral spondylosis without myelopathy Spondylolisthesis at L5-S1 level Congenital spondylolisthesis Spinal stenosis of lumbar region with neurogenic claudication Spinal stenosis, lumbar region, with neurogenic claudication [facility] Chronic bilateral low back pain with bilateral sciatica Lumbar spondylosis Lumbosacral spondylosis without myelopathy Spondylolisthesis at L5-S1 level Congenital spondylolisthesis [facility]* Diagnosis Muscle weakness (generalized)- Primary Posture abnormality Abnormal posture [facility] Posture abnormality- Primary Abnormal posture Difficulty walking Difficulty in walking [facility] Diagnosis Lumbar spondylosis- Primary Lumbosacral spondylosis without myelopathy Spondylolisthesis at L5-S1 level Congenital spondylolisthesis Spinal stenosis of lumbar region with neurogenic claudication Spinal stenosis, lumbar region, with neurogenic claudication Chronic bilateral low back pain with bilateral sciatica Primary osteoarthritis of both hips Primary localized osteoarthrosis, pelvic region and thigh Primary osteoarthritis of both knees Primary localized osteoarthrosis, lower leg [facility] Diagnosis Posture abnormality- Primary Abnormal posture Difficulty walking Difficulty in walking [facility] Diagnosis Muscle weakness (generalized)- Primary Difficulty walking Difficulty in walking Posture abnormality Abnormal posture [facility] Diagnosis Muscle weakness (generalized)- Primary Posture abnormality Abnormal posture Difficulty walking Difficulty in walking [facility] Diagnosis Low back pain with sciatica, sciatica laterality unspecified, unspecified back pain laterality, unspecified chronicity- Primary Difficulty walking Difficulty in walking documented in this encounter [facility] Diagnosis Primary osteoarthritis of both hips- Primary Primary localized osteoarthrosis, pelvic region and thigh Spinal stenosis of lumbar region without neurogenic claudication Spinal stenosis, lumbar region, without neurogenic claudication Lumbar spondylosis Lumbosacral spondylosis without myelopathy Chronic bilateral low back pain with bilateral sciatica documented in this encounter [facility]* Diagnosis Primary osteoarthritis of both hips- Primary Primary localized osteoarthrosis, pelvic region and thigh documented in this encounter [facility]* Diagnosis Primary osteoarthritis of both hips- Primary Primary localized osteoarthrosis, pelvic region and thigh Primary osteoarthritis of both hips Primary localized osteoarthrosis, pelvic region and thigh documented in this encounter [facility] note* Diagnosis Primary osteoarthritis of both hips- Primary Primary localized osteoarthrosis, pelvic region and thigh documented in this encounter [facility] note* Diagnosis Primary osteoarthritis of both hips- Primary Primary localized osteoarthrosis, pelvic region and thigh documented in this encounter [facility] note* Diagnosis Primary osteoarthritis of both hips Primary localized osteoarthrosis, pelvic region and thigh documented in this encounter [facility] note* Diagnosis Nausea and vomiting, unspecified vomiting type documented in this encounter [facility] note* Diagnosis Pain in left hip- Primary Pain in joint, pelvic region and thigh Pain in right hip Pain in joint, pelvic region and thigh documented in this encounter [facility] note* Diagnosis Primary osteoarthritis of both hips- Primary Primary localized osteoarthrosis, pelvic region and thigh Pre-op testing Preoperative examination, unspecified documented in this encounter [facility] note* Diagnosis Primary osteoarthritis of left hip- Primary Primary localized osteoarthrosis, pelvic region and thigh Primary osteoarthritis of left hip Primary localized osteoarthrosis, pelvic region and thigh documented in this encounter [facility] note* Diagnosis Pre-operative examination- Primary Preoperative examination, unspecified History of tobacco use Personal history of tobacco use, presenting hazards to health Anxiety and depression Dysthymic disorder Primary osteoarthritis of left hip Primary localized osteoarthrosis, pelvic region and thigh documented in this encounter [facility] note* Diagnosis Encounter for screening mammogram for breast cancer Primary osteoarthritis of left hip Primary localized osteoarthrosis, pelvic region and thigh documented in this encounter [facility] Diagnosis Primary osteoarthritis of both hips- Primary Primary localized osteoarthrosis, pelvic region and thigh Primary osteoarthritis of left hip Primary localized osteoarthrosis, pelvic region and thigh [facility] Status post hip replacement, left- Primary documented in this encounter [facility] Diagnosis Status post hip replacement, left- Primary documented in this encounter [facility] Diagnosis S/P total left hip arthroplasty- Primary documented in this encounter [facility] Diagnosis S/P total left hip arthroplasty- Primary [facility] Diagnosis Primary osteoarthritis of both knees Primary localized osteoarthrosis, lower leg documented in this encounter [facility]* Diagnosis Lumbar spondylosis Lumbosacral spondylosis without myelopathy Spondylolisthesis at L5-S1 level Congenital spondylolisthesis documented in this encounter [facility] Diagnosis Status post hip replacement, left- Primary Primary osteoarthritis of both hips Primary localized osteoarthrosis, pelvic region and thigh documented in this encounter [facility] Diagnosis S/P total left hip arthroplasty- Primary Primary osteoarthritis of both hips Primary localized osteoarthrosis, pelvic region and thigh Pain in right hip Pain in joint, pelvic region and thigh [facility] Diagnosis S/P total left hip arthroplasty- Primary Primary osteoarthritis of both hips Primary localized osteoarthrosis, pelvic region and thigh Pain in right hip Pain in joint, pelvic region and thigh [facility] - [place] Diagnosis Pre-operative examination- Primary Preoperative examination, unspecified Anxiety and depression Dysthymic disorder History of tobacco use Personal history of tobacco use, presenting hazards to health S/P total left hip arthroplasty Malignant melanoma, unspecified site (HCC) Primary osteoarthritis of both hips Primary localized osteoarthrosis, pelvic region and thigh Pain in right hip Pain in joint, pelvic region and thigh [facility] Visit Details Visit Type -OT EVAL Discipline -Occupational Therapy Problems Problem Description Start Date Status Goals Interve ntions Medication Education Disciplines: Skilled Services 04/05/2023 Active 1 goal linked to scheduled/documen eleonora intervention 1 goal intervention scheduled/document ed in this visit Sepsis Disciplines: Skilled Services 04/05/2023 Active 1 goal linked to scheduled/documen eleonora intervention 1 goal intervention scheduled/document ed in this visit OT Referral Disciplines: Skilled Services 04/05/2023 Resolved on 04/06/2023 1 goal linked to scheduled/documen eleonora intervention 1 goal intervention scheduled/document ed in this visit Physician Specific Parameters Disciplines: Skilled Services 04/05/2023 Active 1 goal linked to scheduled/documen eleonora intervention 1 goal intervention scheduled/document ed in this visit Risk for Falls Disciplines: Skilled Services 04/05/2023 Active 1 goal linked to scheduled/documen eleonora intervention 1 goal intervention scheduled/document ed in this visit Pain Disciplines: Skilled Services 04/05/2023 Active 1 goal linked to scheduled/documen eleonora intervention 1 goal intervention scheduled/document ed in this visit High Risk Medications Disciplines: Skilled Services 04/05/2023 Active 1 goal linked to scheduled/documen eleonora intervention 1 goal intervention scheduled/document ed in this visit Discharge Disciplines: Skilled Services 04/05/2023 Active 1 goal linked to scheduled/documen eleonora intervention 1 goal intervention scheduled/document ed in this visit OT Learning Assessment Disciplines: OT 04/06/2023 Resolved on 04/06/2023 1 goal linked to scheduled/documen eleonora intervention 1 goal intervention scheduled/document ed in this visit OT ADLs/IADLs Disciplines: OT 04/06/2023 Resolved on 04/06/2023 1 goal linked to scheduled/documen eleonora intervention 1 goal intervention scheduled/document ed in this visit OT Functional Transfers Disciplines: OT 04/06/2023 Resolved on 04/06/2023 1 goal linked to scheduled/documen eleonora intervention 1 goal intervention scheduled/document ed in this visit OT Orthopedic Post Surgical and/or Non Surgical Condition Disciplines: OT 04/06/2023 Resolved on 04/06/2023 1 goal linked to scheduled/documen eleonora intervention 1 goal intervention scheduled/document ed in this visit Goals Goal Associated Problem Outcome Goal Met? Visit Notes Patient/caregiver will demonstrate ability to obtain, store, identify and administer ordered medications, keep accurate medication list in home, and adhere to medication schedule Description: Patient/caregiver will demonstrate ability to obtain, store, identify and administer ordered medications, keep accurate medication list in home, and adhere to medication schedule by 04/24/23. Medication Education No Patient/caregiver will be able to identify and report symptoms of sepsis Description: Patient/caregiver will be able to identify signs/symptoms of sepsis infection and will verbalize actions to take if suspected by 04/24/23. Sepsis No Patient will be referred to additional discipline as needed OT Referral Completed Yes Patient to maintain parameters within physician-specified ranges throughout certification period Physician Specific Parameters No Manage Risk for falls Description: Patient/caregiver will verbalize knowledge of individualized fall prevention strategies by 04/24/23. Risk for Falls No Manage Pain Description: Patient/caregiver will verbalize knowledge and understanding of appropriate techniques to control pain, including non-pharmacological techniques. Patient will verbalize or demonstrate an acceptable level of pain as evidenced by a pain score of 0-2/10 and improvement in ability to perform activities of daily living to be achieved by 04/24/23. Pain No Patient/caregiver will teach back high risk medication side effect and precaution education High Risk Medications No Manage discharge planning Description: Patient/caregiver will verbalize understanding of ongoing discharge plan provided related to disease management, arrangements for outpatient and/or community services, obtaining medications, supplies, and DME, as needed throughout certification period. Discharge No Demonstrate understanding of education Description: Patient and/or caregiver will understand educational instruction to be achieved by 04/06/23. OT Learning Assessment Completed Yes Improved ADLs/IADLs performance Description: patient will verbalize understanding of instructions improved performance of lower body dressing and bathing to independence as evidenced by improved Jayden ADL Index score to at least 85/100 to be achieved by 04/06/23. OT ADLs/IADLs Completed Yes Improved Functional Transfers Description: patient will demonstrate safe transfers to/from toilet with independent and shower/tub with supervision assistance and no verbal cues with use of DME to be achieved by 04/06/23. OT Functional Transfers Completed Yes Manage Orthopedic Condition Description: Improve patient and/or caregiver understanding of post surgical and/or non-surgical orthopedic intervention management as evidenced by patient and/or caregiver able to verbalize, demonstrate, and teach back instruction with a minimum of two strategies. To be achieved by 04/06/23. OT Orthopedic Post Surgical and/or Non Surgical Condition Completed Yes Interventions Intervention Associated Problem/Goal Status Variance Visit Notes Medication Education Description: Evaluate/instruct patient/caregiver on obtaining, storing, identifying and administering ordered medications as well as keeping accurate medication list in the home and adhereing to medication schedule Problem:Medication Education Goal:Patient/caregive r will demonstrate ability to obtain, store, identify and administer ordered medications, keep accurate medication list in home, and adhere to medication schedule Completed Patient instructed on importance of keeping accurate medication list in home. Risk of Sepsis Description: Patient is at risk for sepsis. Monitor closely for s/s of sepsis. Problem:Sepsis Goal:Patient/caregive r will be able to identify and report symptoms of sepsis Completed OT evaluation and treatment Description: Evaluate and treat for the assessment of functional deficits and establishment of appropriate interventions and education to address: I/ADL training, safety awareness and home safety and falls prevention recommendations. Problem:OT Referral Goal:Patient will be referred to additional discipline as needed Completed SPO2 Description: Notify Dr. Kang if pulse ox is <92% at rest. Problem:Physician Specific Parameters Goal:Patient to maintain parameters within physician-specified ranges throughout certification period Completed Instruct on individual fall risk factors and strategies to prevent falls and injuries caused by falls. Problem:Risk for Falls Goal:Manage Risk for falls Completed OT: Patient instructed on Eliminating Environmental Hazards: Keep pathways clear Instruct on pain and instruct on strategies to control pain Problem:Pain Goal:Manage Pain Completed patient instructed on techniques to control pain including Non-Pharmacological measures; rest. Opioids- educated on high risk medication Problem:High Risk Medications Goal:Patient/caregive r will teach back high risk medication side effect and precaution education Completed patient and caregiver educated on taking medication(s) as prescribed by provider. Do not stop medication or alter doses without speaking with your provider. Discuss medication effectiveness or side effect concerns with your provider and home care team. Only take opioids as prescribed, do not share your medications, and take proper precautions in storing and properly disposing of opioids once no longer needed. Possible side effects of opioid medication including sedation, decreased rate of breathing, and constipation. Report over sedation to prescribing provider and practice deep breathing techniques every hour while awake. Prevent constipation by increasing water and fiber intake, increasing activity as tolerated, and use stool softener(s) as prescribed. Instruct on ongoing discharge plan Problem:Discharge Goal:Manage discharge planning Completed Ongoing Discharge plan: Discharge plan discussed with patient including frequency and duration for home OT and plan for transition to: live independently at home without ongoing services. Instruct and educate on knowledge deficits Problem:OT Learning Assessment Goal:Demonstrate understanding of education Completed Education methods include: verbal cues. Patient/Caregiver require further education to improve knowledge and compliance with fall prevention strategies. ADL/IADLs Training Problem:OT ADLs/IADLs Goal:Improved ADLs/IADLs performance Completed Instruct patient on compensatory strategies, adaptive equipment/DME use and safety and falls prevention and customer equipment engineer, sock aide and shoe horn use to facilite improved performance of lower body dressing with moderate assistance and verbal cues. pt chooses to have cg complete LB dressing. Transfer Training Problem:OT Functional Transfers Goal:Improved Functional Transfers Completed Pt instructed in safe tub transfer technique to safely enter shower with CGA and maintaining hip dislocation precautions and PWB Instruct on orthopedic precautions and weight bearing restrictions Problem:OT Orthopedic Post Surgical and/or Non Surgical Condition Goal:Manage Orthopedic Condition Completed Instruct patient and caregiver on orthopedic precautions including 50 PWB and anterior hip dislocation preacuations. documented in this encounter [facility] Plan of care note* Visit Details Visit Type -PT ROUTINE Discipline -Physical Therapy Problems Problem Description Start Date Status Goals Interve ntions Medication Education Disciplines: Skilled Services 04/05/2023 Active 1 goal linked to scheduled/document ed intervention 1 goal intervention scheduled/document ed in this visit Sepsis Disciplines: Skilled Services 04/05/2023 Active 1 goal linked to scheduled/document ed intervention 1 goal intervention scheduled/document ed in this visit Physician Specific Parameters Disciplines: Skilled Services 04/05/2023 Active 1 goal linked to scheduled/document ed intervention 1 goal intervention scheduled/document ed in this visit Risk for Falls Disciplines: Skilled Services 04/05/2023 Active 1 goal linked to scheduled/document ed intervention 1 goal intervention scheduled/document ed in this visit Pain Disciplines: Skilled Services 04/05/2023 Active 1 goal linked to scheduled/document ed intervention 1 goal intervention scheduled/document ed in this visit High Risk Medications Disciplines: Skilled Services 04/05/2023 Active 1 goal linked to scheduled/document ed intervention 3 goal interventions scheduled/document ed in this visit Discharge Disciplines: Skilled Services 04/05/2023 Active 1 goal linked to scheduled/document ed intervention 1 goal intervention scheduled/document ed in this visit Advance Directives Disciplines: Skilled Services 04/05/2023 Resolved on 04/08/2023 1 goal linked to scheduled/document ed intervention 1 goal intervention scheduled/document ed in this visit PT Impaired Aerobic Capacity Disciplines: PT 04/05/2023 Active 1 goal linked to scheduled/document ed intervention 1 goal intervention scheduled/document ed in this visit PT Impaired muscle performance and/or ROM Disciplines: PT 04/05/2023 Active 1 goal linked to scheduled/document ed intervention 1 goal intervention scheduled/document ed in this visit PT Impaired mobility Disciplines: PT 04/05/2023 Active 2 goals linked to scheduled/document ed interventions 2 goal interventions scheduled/document ed in this visit PT Impaired gait Disciplines: PT 04/05/2023 Active 1 goal linked to scheduled/document ed intervention 1 goal intervention scheduled/document ed in this visit PT Impaired balance Disciplines: PT 04/05/2023 Active 1 goal linked to scheduled/document ed intervention 1 goal intervention scheduled/document ed in this visit PT Orthopedic Condition Disciplines: PT 04/05/2023 Active 1 goal linked to scheduled/document ed intervention 4 goal interventions scheduled/document ed in this visit PT Learning Assessment Disciplines: PT 04/05/2023 Active 1 goal linked to scheduled/document ed intervention 1 goal intervention scheduled/document ed in this visit Goals Goal Associated Problem Outcome Goal Met? Visit Notes Patient/caregiver will demonstrate ability to obtain, store, identify and administer ordered medications, keep accurate medication list in home, and adhere to medication schedule Description: Patient/caregiver will demonstrate ability to obtain, store, identify and administer ordered medications, keep accurate medication list in home, and adhere to medication schedule by 04/24/23. Medication Education No Patient/caregiver will be able to identify and report symptoms of sepsis Description: Patient/caregiver will be able to identify signs/symptoms of sepsis infection and will verbalize actions to take if suspected by 04/24/23. Sepsis No Patient to maintain parameters within physician-specified ranges throughout certification period Physician Specific Parameters No Manage Risk for falls Description: Patient/caregiver will verbalize knowledge of individualized fall prevention strategies by 04/24/23. Risk for Falls No Manage Pain Description: Patient/caregiver will verbalize knowledge and understanding of appropriate techniques to control pain, including non-pharmacological techniques. Patient will verbalize or demonstrate an acceptable level of pain as evidenced by a pain score of 0-2/10 and improvement in ability to perform activities of daily living to be achieved by 04/24/23. Pain No Patient/caregiver will teach back high risk medication side effect and precaution education High Risk Medications No Manage discharge planning Description: Patient/caregiver will verbalize understanding of ongoing discharge plan provided related to disease management, arrangements for outpatient and/or community services, obtaining medications, supplies, and DME, as needed throughout certification period. Discharge No Patient/caregiver will make healthcare providers aware of and any changes to Advance Directives throughout certification period Advance Directives Completed Yes Goal Met Improved Aerobic Capacity Description: LTG: Patient will demonstrate improved aerobic capacity to meet functional goals as evidenced by Rate of Percieved Exertion (RPE) of 0-2/10 during standing activity, to be achieved by 04/24/23. PT Impaired Aerobic Capacity No Improved Muscle Performance and/or ROM Description: LTG: Patient will demonstrate improved muscle performance to meet functional goals as evidenced by ability to tolerate 8 mins of standing activity, to be achieved by 04/24/23. LTG: Patient and/or caregiver will verbalize/demonstrate independence with home exercise program, to improve functional mobility, to be achieved by 04/24/23. PT Impaired muscle performance and/or ROM No Improved Transfers Description: LTG: Patient will demonstrate safe transfers to/from bed, chair and toilet independently with AD, to be achieved by 04/24/23. PT Impaired mobility No Improved Bed Mobility Description: STG: Patient will demonstrate improved ability to position self independently to be achieved by 04/17/23. PT Impaired mobility No Improved Gait Description: LTG: Patient will demonstrate improved gait ability as evidenced by ambulation 200 feet with single point cane independently with AD, to return to safe household ambulation, in order to reach car in the driveway, to be achieved by 04/24/23. PT Impaired gait No Improved Balance Description: LTG: Patient will demonstrate improved standing balance to meet functional goals as evidenced by TUG score of 20 to be achieved by 04/24/23. PT Impaired balance No Manage Orthopedic Condition Description: Improve patient and/or caregiver understanding of post surgical and/or non-surgical orthopedic intervention management as evidenced by patient and/or caregiver able to verbalize, demonstrate, and teach back instruction, to be achieved by 04/24/23. PT Orthopedic Condition No Demonstrate understanding of education Description: Patient and/or caregiver will understand educational instruction to be achieved by 04/24/23. PT Learning Assessment No Interventions Intervention Associated Problem/Goal Status Variance Visit Notes Medication Education Description: Evaluate/instruct patient/caregiver on obtaining, storing, identifying and administering ordered medications as well as keeping accurate medication list in the home and adhereing to medication schedule Problem:Medication Education Goal:Patient/caregive r will demonstrate ability to obtain, store, identify and administer ordered medications, keep accurate medication list in home, and adhere to medication schedule Completed Patient instructed on importance of keeping accurate medication list in home. Risk of Sepsis Description: Patient is at risk for sepsis. Monitor closely for s/s of sepsis. Problem:Sepsis Goal:Patient/caregive r will be able to identify and report symptoms of sepsis Completed SPO2 Description: Notify Dr. Kang if pulse ox is <92% at rest. Problem:Physician Specific Parameters Goal:Patient to maintain parameters within physician-specified ranges throughout certification period Completed Instruct on individual fall risk factors and strategies to prevent falls and injuries caused by falls. Problem:Risk for Falls Goal:Manage Risk for falls Completed PT: Patient instructed on Managing Impaired Functional Mobility: Use assistive device(s): front wheeled walker Managing Pain Instruct on pain and instruct on strategies to control pain Problem:Pain Goal:Manage Pain Completed patient instructed on techniques to control pain including Non-Pharmacological measures; rest, positioning/elevation and mobility/therapeutic exercise. Opioids- educated on high risk medication Problem:High Risk Medications Goal:Patient/caregive r will teach back high risk medication side effect and precaution education Completed patient educated on taking medication(s) as prescribed by provider. Do not stop medication or alter doses without speaking with your provider. Discuss medication effectiveness or side effect concerns with your provider and home care team. Only take opioids as prescribed, do not share your medications, and take proper precautions in storing and properly disposing of opioids once no longer needed. Possible side effects of opioid medication including sedation, decreased rate of breathing, and constipation. Report over sedation to prescribing provider and practice deep breathing techniques every hour while awake. Prevent constipation by increasing water and fiber intake, increasing activity as tolerated, and use stool softener(s) as prescribed. Antiplatelet- educated on high risk medication Problem:High Risk Medications Goal:Patient/caregive r will teach back high risk medication side effect and precaution education Completed patient educated on taking medication(s) as prescribed by provider. Do not stop medication or alter doses without speaking with your provider. Discuss medication effectiveness or side effect concerns with your provider and home care team. Discuss all medications you are taking, even [id number] medicines, with your provider and pharmacist since many drugs can interact with antiplatelet medications. If you forget to take a dose, DO NOT take a double dose. Take the missed dose as soon as possible on the same day. DO NOT take a double dose the next day to make up for the missed dose. Watch for signs of abnormal or excessive bleeding and bruising (refer to Bleeding Precautions education). Call your health care provider right away if you suspect something is wrong. Antibiotic- educated on high risk medication Problem:High Risk Medications Goal:Patient/caregive r will teach back high risk medication side effect and precaution education Completed patient educated on taking medication(s) as prescribed by provider. Do not stop medication or alter doses without speaking with your provider. Discuss medication effectiveness or side effect concerns with your provider and home care team. Take the full dispensed amount even if you start feeling better, as bacteria can become resistant to antibiotic treatment if you do not finish your prescription. Common side effects are upset stomach and diarrhea. Take your antibiotics with food unless otherwise indicated to help with indigestion. Taking an [id number] probiotic or eating yogurt with live and active cultures three times a day can help prevent antibiotic-associated diarrhea. Call your provider immediately if you develop rashes or hives as this could be a delayed allergic reaction. Seek emergency treatment if you develop severe allergic reaction symptoms such as mouth or tongue swelling. Instruct on ongoing discharge plan Problem:Discharge Goal:Manage discharge planning Completed Ongoing Discharge plan: Discharge plan discussed with patient including frequency and duration for home PT and plan for transition to: live independently at home without ongoing services. Determine patient's Advance Directive Status Description: Patient does not have advance directives. Patient/Caregiver requested Advance Directive information. Problem:Advance Directives Goal:Patient/caregive r will make healthcare providers aware of and any changes to Advance Directives throughout certification period Completed Discussed Advance Directives with Patient and/or Caregiver. Referred patient to Home Care handbook for further information on Healthcare DPOA & Living Will. Physical Therapy Aerobic Capacity Training Problem:PT Impaired Aerobic Capacity Goal:Improved Aerobic Capacity Completed patient instructed on utilization of the Rate of Percieved Exertion (RPE) scale, to not exceed 3-6/10 indicating moderate to heavy intensity of activity. Developed, implemented, and instructed patient on physical therapy interventions completing 5 minutes of paced activity. Physical Therapy Therapeutic Exercises Problem:PT Impaired muscle performance and/or ROM Goal:Improved Muscle Performance and/or ROM Completed patient instructed on strengthening and range of motion exercises including ankle pumps, quad sets, glut sets, heel slides, horizontal hip abd, laq with verbal cues for sequence. patient instructed to perform home exercise program twice a day Physical Therapy Transfer Training Problem:PT Impaired mobility Goal:Improved Transfers Completed Transfer training and instruction to patient on safe transfers to and from bed, chair and toilet with supervision and verbal cues for sequence. Physical Therapy Bed Mobility Training Problem:PT Impaired mobility Goal:Improved Bed Mobility Completed Bed mobility training and instruction to patient, including rolling, supine<>sit and repositioning self with supervision and verbal cues for sequence. Physical Therapy Gait Training Problem:PT Impaired gait Goal:Improved Gait Completed Gait training and instruction to patient on safe ambulation with front wheeled walker for 75 feet with supervision, with verbal cues for corrections of gait deviations including sequence. Physical Therapy Balance Training Problem:PT Impaired balance Goal:Improved Balance Completed Developed, implemented, and instructed patient on standing balance exercises including ambulation with fww. Instruct on orthopedic precautions and weight bearing restrictions Description: Orthopedic precautions including left anterior hip: no hip extension past neutral and avoid hip external rotation with extension or in extreme positions. Weight bearing restrictions include: 50% PWB of involved extremity. Problem:PT Orthopedic Condition Goal:Manage Orthopedic Condition Completed patient instructed on orthopedic precautions and weight bearing restrictions. Instruct on management of edema Problem:PT Orthopedic Condition Goal:Manage Orthopedic Condition Completed Instruct patient on management of edema including elevation of bilat LE above the level of the heart. Physical therapy to perform surgical incision/wound management Description: Removal of post-op dressing on 04/08/23. If no drainage is present, leave open to air; if drainage is present, cover with clean dressing and contact provider and PT insurance case manager. Problem:PT Orthopedic Condition Goal:Manage Orthopedic Condition Completed Intervention completed this date. Instruct on self-management of post surgical and/or non-surgical orthopedic intervention Problem:PT Orthopedic Condition Goal:Manage Orthopedic Condition Completed patient instructed on managagement of orthopedic condition, measures to avoid skin breakdown, staying well hydrated and follow provider guidance for showering . Instruct and educate on knowledge deficits Problem:PT Learning Assessment Goal:Demonstrate understanding of education Completed patient verbalize and/or demonstrate understanding of physical therapy education including fall prevention strategies, home safety, functional activity and home exercise program. Education methods include: verbal cues. Further education required to improve knowledge and compliance with orthopedic condition management, surgical precautions and pain management. [facility] Visit Details Visit Type -PT ROUTINE Discipline -Physical Therapy Problems Problem Description Start Date Status Goals Interve ntions Sepsis Disciplines: Skilled Services 04/05/2023 Active 1 goal linked to scheduled/document ed intervention 1 goal intervention scheduled/document ed in this visit Physician Specific Parameters Disciplines: Skilled Services 04/05/2023 Active 1 goal linked to scheduled/document ed intervention 1 goal intervention scheduled/document ed in this visit Risk for Falls Disciplines: Skilled Services 04/05/2023 Active 1 goal linked to scheduled/document ed intervention 1 goal intervention scheduled/document ed in this visit Discharge Disciplines: Skilled Services 04/05/2023 Active 1 goal linked to scheduled/document ed intervention 1 goal intervention scheduled/document ed in this visit PT Impaired Aerobic Capacity Disciplines: PT 04/05/2023 Active 1 goal linked to scheduled/document ed intervention 1 goal intervention scheduled/document ed in this visit PT Impaired muscle performance and/or ROM Disciplines: PT 04/05/2023 Active 1 goal linked to scheduled/document ed intervention 1 goal intervention scheduled/document ed in this visit PT Impaired mobility Disciplines: PT 04/05/2023 Active 2 goals linked to scheduled/document ed interventions 2 goal interventions scheduled/document ed in this visit PT Impaired gait Disciplines: PT 04/05/2023 Active 1 goal linked to scheduled/document ed intervention 1 goal intervention scheduled/document ed in this visit PT Impaired balance Disciplines: PT 04/05/2023 Active 1 goal linked to scheduled/document ed intervention 1 goal intervention scheduled/document ed in this visit PT Orthopedic Condition Disciplines: PT 04/05/2023 Active 1 goal linked to scheduled/document ed intervention 4 goal interventions scheduled/document ed in this visit PT Learning Assessment Disciplines: PT 04/05/2023 Active 1 goal linked to scheduled/document ed intervention 1 goal intervention scheduled/document ed in this visit Goals Goal Associated Problem Outcome Goal Met? Visit Notes Patient/caregiver will be able to identify and report symptoms of sepsis Description: Patient/caregiver will be able to identify signs/symptoms of sepsis infection and will verbalize actions to take if suspected by 04/24/23. Sepsis No Patient to maintain parameters within physician-specified ranges throughout certification period Physician Specific Parameters No Manage Risk for falls Description: Patient/caregiver will verbalize knowledge of individualized fall prevention strategies by 04/24/23. Risk for Falls No Manage discharge planning Description: Patient/caregiver will verbalize understanding of ongoing discharge plan provided related to disease management, arrangements for outpatient and/or community services, obtaining medications, supplies, and DME, as needed throughout certification period. Discharge No Improved Aerobic Capacity Description: LTG: Patient will demonstrate improved aerobic capacity to meet functional goals as evidenced by Rate of Percieved Exertion (RPE) of 0-2/10 during standing activity, to be achieved by 04/24/23. PT Impaired Aerobic Capacity No Improved Muscle Performance and/or ROM Description: LTG: Patient will demonstrate improved muscle performance to meet functional goals as evidenced by ability to tolerate 8 mins of standing activity, to be achieved by 04/24/23. LTG: Patient and/or caregiver will verbalize/demonstrate independence with home exercise program, to improve functional mobility, to be achieved by 04/24/23. PT Impaired muscle performance and/or ROM No Improved Transfers Description: LTG: Patient will demonstrate safe transfers to/from bed, chair and toilet independently with AD, to be achieved by 04/24/23. PT Impaired mobility No Improved Bed Mobility Description: STG: Patient will demonstrate improved ability to position self independently to be achieved by 04/17/23. PT Impaired mobility No Improved Gait Description: LTG: Patient will demonstrate improved gait ability as evidenced by ambulation 200 feet with single point cane independently with AD, to return to safe household ambulation, in order to reach car in the driveway, to be achieved by 04/24/23. PT Impaired gait No Improved Balance Description: LTG: Patient will demonstrate improved standing balance to meet functional goals as evidenced by TUG score of 20 to be achieved by 04/24/23. PT Impaired balance No Manage Orthopedic Condition Description: Improve patient and/or caregiver understanding of post surgical and/or non-surgical orthopedic intervention management as evidenced by patient and/or caregiver able to verbalize, demonstrate, and teach back instruction, to be achieved by 04/24/23. PT Orthopedic Condition No Demonstrate understanding of education Description: Patient and/or caregiver will understand educational instruction to be achieved by 04/24/23. PT Learning Assessment No Interventions Intervention Associated Problem/Goal Status Variance Visit Notes Risk of Sepsis Description: Patient is at risk for sepsis. Monitor closely for s/s of sepsis. Problem:Sepsis Goal:Patient/caregiver will be able to identify and report symptoms of sepsis Completed SPO2 Description: Notify Dr. Kang if pulse ox is <92% at rest. Problem:Physician Specific Parameters Goal:Patient to maintain parameters within physician-specified ranges throughout certification period Completed Instruct on individual fall risk factors and strategies to prevent falls and injuries caused by falls. Problem:Risk for Falls Goal:Manage Risk for falls Completed PT: Patient instructed on Managing Pain Instruct on ongoing discharge plan Problem:Discharge Goal:Manage discharge planning Completed Ongoing Discharge plan: Discharge plan discussed with patient including frequency and duration for home PT and plan for transition to: live independently at home without ongoing services. Physical Therapy Aerobic Capacity Training Problem:PT Impaired Aerobic Capacity Goal:Improved Aerobic Capacity Completed patient instructed on utilization of the Rate of Percieved Exertion (RPE) scale, to not exceed 3-6/10 indicating moderate to heavy intensity of activity. Developed, implemented, and instructed patient on physical therapy interventions completing 5 minutes of paced activity. Physical Therapy Therapeutic Exercises Problem:PT Impaired muscle performance and/or ROM Goal:Improved Muscle Performance and/or ROM Completed patient instructed on strengthening and range of motion exercises including ankle pumps, quad sets, glut sets, slr, heel slides, horizontal hip abd, knee extension with verbal cues for sequence. patient instructed to perform home exercise program twice a day Physical Therapy Transfer Training Problem:PT Impaired mobility Goal:Improved Transfers Completed Transfer training and instruction to patient on safe transfers to and from bed, chair and toilet with supervision and verbal cues for sequence. Physical Therapy Bed Mobility Training Problem:PT Impaired mobility Goal:Improved Bed Mobility Completed Bed mobility training and instruction to patient, including rolling, supine<>sit and repositioning self with supervision and verbal cues for sequence. Physical Therapy Gait Training Problem:PT Impaired gait Goal:Improved Gait Completed Gait training and instruction to patient on safe ambulation with front wheeled walker for 100 feet with supervision, with verbal cues for corrections of gait deviations including sequence. Physical Therapy Balance Training Problem:PT Impaired balance Goal:Improved Balance Completed Developed, implemented, and instructed patient on standing balance exercises including ambulation with fww. Instruct on orthopedic precautions and weight bearing restrictions Description: Orthopedic precautions including left anterior hip: no hip extension past neutral and avoid hip external rotation with extension or in extreme positions. Weight bearing restrictions include: 50% PWB of involved extremity. Problem:PT Orthopedic Condition Goal:Manage Orthopedic Condition Completed patient instructed on orthopedic precautions and weight bearing restrictions. Instruct on management of edema Problem:PT Orthopedic Condition Goal:Manage Orthopedic Condition Completed Instruct patient on management of edema including elevation of bilat LE above the level of the heart. Physical therapy to perform surgical incision/wound management Description: Removal of post-op dressing on 04/08/23. If no drainage is present, leave open to air; if drainage is present, cover with clean dressing and contact provider and PT insurance case manager. Problem:PT Orthopedic Condition Goal:Manage Orthopedic Condition Completed Intervention completed this date. Instruct on self-management of post surgical and/or non-surgical orthopedic intervention Problem:PT Orthopedic Condition Goal:Manage Orthopedic Condition Completed patient instructed on managagement of orthopedic condition. Instruct and educate on knowledge deficits Problem:PT Learning Assessment Goal:Demonstrate understanding of education Completed patient verbalize and/or demonstrate understanding of physical therapy education including fall prevention strategies, home safety, functional activity and home exercise program. Education methods include: verbal cues. Further education required to improve knowledge and compliance with fall prevention strategies, home safety, functional activity and home exercise program. documented in this [facility] Plan of care note* Visit Details Visit Type -PT SOC Discipline -Physical Therapy Problems Problem Description Start Date Status Goals Interve ntions Medication Education Disciplines: Skilled Services 06/19/2023 Active 1 goal linked to scheduled/documen eleonora intervention 1 goal intervention scheduled/document ed in this visit Sepsis Disciplines: Skilled Services 06/19/2023 Active 1 goal linked to scheduled/documen eleonora intervention 1 goal intervention scheduled/document ed in this visit Risk for skin breakdown Disciplines: Skilled Services 06/19/2023 Active 1 goal linked to scheduled/documen eleonora intervention 1 goal intervention scheduled/document ed in this visit Physician Specific Parameters Disciplines: Skilled Services 06/19/2023 Active 1 goal linked to scheduled/documen eleonora intervention 1 goal intervention scheduled/document ed in this visit Risk for Falls Disciplines: Skilled Services 06/19/2023 Active 1 goal linked to scheduled/documen eleonora intervention 1 goal intervention scheduled/document ed in this visit Pain Disciplines: Skilled Services 06/19/2023 Active 1 goal linked to scheduled/documen eleonora intervention 1 goal intervention scheduled/document ed in this visit High Risk Medications Disciplines: Skilled Services 06/19/2023 Active 1 goal linked to scheduled/documen eleonora intervention 3 goal interventions scheduled/document ed in this visit Discharge Disciplines: Skilled Services 06/19/2023 Active 1 goal linked to scheduled/documen eleonora intervention 1 goal intervention scheduled/document ed in this visit Advance Directives Disciplines: Skilled Services 06/19/2023 Resolved on 06/19/2023 1 goal linked to scheduled/documen eleonora intervention 1 goal intervention scheduled/document ed in this visit PT Impaired muscle performance and/or ROM Disciplines: PT 06/19/2023 Active 1 goal linked to scheduled/documen eleonora intervention 1 goal intervention scheduled/document ed in this visit PT Impaired mobility Disciplines: PT 06/19/2023 Active 1 goal linked to scheduled/documen eleonora intervention 1 goal intervention scheduled/document ed in this visit PT Impaired gait Disciplines: PT 06/19/2023 Active 1 goal linked to scheduled/documen eleonora intervention 1 goal intervention scheduled/document ed in this visit PT Orthopedic Condition Disciplines: PT 06/19/2023 Active 1 goal linked to scheduled/documen eleonora intervention 3 goal interventions scheduled/document ed in this visit PT Learning Assessment Disciplines: PT 06/19/2023 Active 1 goal linked to scheduled/documen eleonora intervention 1 goal intervention scheduled/document ed in this visit Declined Referral Disciplines: Skilled Services 06/19/2023 Resolved on 06/19/2023 1 goal linked to scheduled/documen eleonora intervention Goals Goal Associated Problem Outcome Goal Met? Visit Notes Patient/caregiver will demonstrate ability to obtain, store, identify and administer ordered medications, keep accurate medication list in home, and adhere to medication schedule Description: Patient/caregiver will demonstrate ability to obtain, store, identify and administer ordered medications, keep accurate medication list in home, and adhere to medication schedule by 08/17/23. Medication Education No Patient/caregiver will be able to identify and report symptoms of sepsis Description: Patient/caregiver will be able to identify signs/symptoms of sepsis infection and will verbalize actions to take if suspected by 08/17/23. Sepsis No Manage risk for skin breakdown Description: Patient/caregiver will verbalize and demonstrate understanding of the risks and measures to be taken to monitor and prevent skin breakdown by 08/17/23. Risk for skin breakdown No Patient to maintain parameters within physician-specified ranges throughout certification period Physician Specific Parameters No Manage Risk for falls Description: Patient/caregiver will verbalize knowledge of individualized fall prevention strategies by 08/17/23. Risk for Falls No Manage Pain Description: Patient/caregiver will verbalize knowledge and understanding of appropriate techniques to control pain, including pain management and non-pharmacological techniques. Patient will verbalize or demonstrate an acceptable level of pain as evidenced by a pain score of 2/10 or better at rest and improvement in ability to perform activities of daily living to be achieved by 08/17/23. Pain No Patient/caregiver will teach back high risk medication side effect and precaution education High Risk Medications No Manage discharge planning Description: Patient/caregiver will verbalize understanding of ongoing discharge plan provided related to disease management, arrangements for outpatient and/or community services, obtaining medications, supplies, and DME, as needed throughout certification period. Discharge No Patient/caregiver will make healthcare providers aware of and any changes to Advance Directives throughout certification period Advance Directives Completed Yes goal met Improved Muscle Performance and/or ROM Description: continuous churn buttermaker goal 1: Patient will demonstrate improved muscle performance to meet functional goals as evidenced by ability to tolerate 8 min standing to improve ADL/IADL activity, to be achieved by 07/10/23. LTG 2: Patient and/or caregiver will verbalize/demonstrate independence with home exercise program, to improve functional mobility, to be achieved by 07/10/23. PT Impaired muscle performance and/or ROM No Improved Transfers Description: alf goal: Patient will demonstrate safe transfers to/from chair, toilet with mod indep ad car with S, to be achieved by 07/10/23. PT Impaired mobility No Improved Gait Description: LTG: Patient will demonstrate improved gait ability as evidenced by ambulation 150+ feet with independently with least restrictive AD, to return to safe household and community ambulation, in order to improve function, to be achieved by 07/10/23. PT Impaired gait No Manage Orthopedic Condition Description: Improve patient and/or caregiver understanding of post surgical and/or non-surgical orthopedic intervention management as evidenced by patient and/or caregiver able to verbalize, demonstrate, and teach back instruction, to be achieved by 08/17/23. PT Orthopedic Condition No Demonstrate understanding of education Description: Patient and/or caregiver will understand educational instruction to be achieved by 08/17/23. PT Learning Assessment No Patient has declined referred services Declined Referral Completed Yes goal ended Interventions Intervention Associated Problem/Goal Status Variance Visit Notes Medication Education Description: Evaluate/instruct patient/caregiver on obtaining, storing, identifying and administering ordered medications as well as keeping accurate medication list in the home and adhereing to medication schedule Problem:Medication Education Goal:Patient/caregive r will demonstrate ability to obtain, store, identify and administer ordered medications, keep accurate medication list in home, and adhere to medication schedule Completed Patient and Caregiver instructed on importance of keeping accurate medication list in home, adhering to medication schedule, proper storage of medications and med buyer planner set up. Risk of Sepsis Description: Patient is at risk for sepsis. Monitor closely for s/s of sepsis. Problem:Sepsis Goal:Patient/caregive r will be able to identify and report symptoms of sepsis Completed Instruct on the risks and measures to be taken to prevent skin breakdown Description: Patient's Julián Score is: 18. A Julián score <= to 18 indicates risk for skin breakdown. Problem:Risk for skin breakdown Goal:Manage risk for skin breakdown Completed patient and caregiver instructed on maintaining skin integrity including: The need for every 1-2 hour turns, position changes, and maintaining activity as tolerated, Reducing risk of friction and shear, including use of draw sheet as appropriate, Elevating and protecting heels, Incontinence care, Inspecting bony prominences, Routine skin care and Notifying [facility] clinician of changes to skin integrity SPO2 Description: Notify Dr. Kang if pulse ox is <92% at rest. Problem:Physician Specific Parameters Goal:Patient to maintain parameters within physician-specified ranges throughout certification period Completed Instruct on individual fall risk factors and strategies to prevent falls and injuries caused by falls. Problem:Risk for Falls Goal:Manage Risk for falls Completed PT: Patient instructed on Eliminating Environmental Hazards: Keep pathways clear, Keep pets out of pathways, Remove unsafe rugs, Move furniture from pathways, Keep rooms and walkways well lit, Wear supportive shoes or non-skid socks and Keep frequently used items within reach Incontinence Management: Bowel/Bladder program Managing Cognitive Impairment/Depression: Recommended for caregiver to provide Assistance with ambulation, Assistance with transfers and Assistance with ADLS Managing Impaired Functional Mobility: Use assistive device(s): bed rail, front wheeled walker, and Caregiver to provide assist with: Transfers and ADL/IADLs Managing Pain Managing Visual Impairment: proper lighting, wear glasses Reducing Medication Risks: Recommended medication schedule and instructed on management of side effects to minimize fall risk and injuries caused by falls Instruct on pain and instruct on strategies to control pain Problem:Pain Goal:Manage Pain Completed patient instructed on techniques to control pain including Pharmacological measures and Non-Pharmacological measures; rest, positioning/elevation, mobility/therapeutic exercise and use of thermal modalities, apply ice/heat to affected area for the following prescribed frequency: 10-15 min with layer to protect skin, at lease 2-3x/day or upt to hourly prn for pain/edema. Opioids- educated on high risk medication Problem:High Risk Medications Goal:Patient/caregive r will teach back high risk medication side effect and precaution education Completed patient educated on taking medication(s) as prescribed by provider. Do not stop medication or alter doses without speaking with your provider. Discuss medication effectiveness or side effect concerns with your provider and home care team. Only take opioids as prescribed, do not share your medications, and take proper precautions in storing and properly disposing of opioids once no longer needed. Possible side effects of opioid medication including sedation, decreased rate of breathing, and constipation. Report over sedation to prescribing provider and practice deep breathing techniques every hour while awake. Prevent constipation by increasing water and fiber intake, increasing activity as tolerated, and use stool softener(s) as prescribed. Antiplatelet- educated on high risk medication Problem:High Risk Medications Goal:Patient/caregive r will teach back high risk medication side effect and precaution education Completed patient educated on taking medication(s) as prescribed by provider. Do not stop medication or alter doses without speaking with your provider. Discuss medication effectiveness or side effect concerns with your provider and home care team. Discuss all medications you are taking, even [id number] medicines, with your provider and pharmacist since many drugs can interact with antiplatelet medications. If you forget to take a dose, DO NOT take a double dose. Take the missed dose as soon as possible on the same day. DO NOT take a double dose the next day to make up for the missed dose. Watch for signs of abnormal or excessive bleeding and bruising (refer to Bleeding Precautions education). Call your health care provider right away if you suspect something is wrong. Antibiotic- educated on high risk medication Problem:High Risk Medications Goal:Patient/caregive r will teach back high risk medication side effect and precaution education Completed patient educated on taking medication(s) as prescribed by provider. Do not stop medication or alter doses without speaking with your provider. Discuss medication effectiveness or side effect concerns with your provider and home care team. Take the full dispensed amount even if you start feeling better, as bacteria can become resistant to antibiotic treatment if you do not finish your prescription. Common side effects are upset stomach and diarrhea. Take your antibiotics with food unless otherwise indicated to help with indigestion. Taking an [id number] probiotic or eating yogurt with live and active cultures three times a day can help prevent antibiotic-associated diarrhea. Call your provider immediately if you develop rashes or hives as this could be a delayed allergic reaction. Seek emergency treatment if you develop severe allergic reaction symptoms such as mouth or tongue swelling. Instruct on ongoing discharge plan Problem:Discharge Goal:Manage discharge planning Completed Ongoing Discharge plan: Discharge plan discussed with patient and caregiver including frequency and duration for home PT and plan for transition to: live independently at home without ongoing services. Determine patient's Advance Directive Status Description: Advance Directives Discussed Advance Directives with Patient. Patient does not have Advance Directives. Patient verbal wishes are as follows full code. Problem:Advance Directives Goal:Patient/caregive r will make healthcare providers aware of and any changes to Advance Directives throughout certification period Completed Discussed Advance Directives with Patient and/or Caregiver. Referred patient to Home Care handbook for further information on Healthcare DPOA & Living Will. Physical Therapy Therapeutic Exercises Problem:PT Impaired muscle performance and/or ROM Goal:Improved Muscle Performance and/or ROM Completed patient and caregiver instructed on strengthening and range of motion exercises including: Initiated gentle LE strength ex in supine or semi reclined position with AP, QS,GS, 10x ea B. Pt fatigued but denied pain. Issued handout and warned pt to stop if increased pain or if too fatigued that interferes with safety and functional mobility. Instructed patient and/or caregiver to perform HEP three times a day. Physical Therapy Transfer Training Problem:PT Impaired mobility Goal:Improved Transfers Completed Transfer training and instruction to Patient and Caregiver on safe transfers to and from chair , including back up to chair with correct hand placement with sit<>stand to allow increased eccentric control and improved safety. Instructed pt/cg in sit to stand transfers from armed chair with cues maintain NICHOLE precautions and to pause for a few seconds to clear head. Rec pt to sit in higher/firmer chairs with arms to ease sit to stand transfers and to use B UEs to control eccentric drop into seat and decrease pain. Physical Therapy Gait Training Problem:PT Impaired gait Goal:Improved Gait Completed Gait training and instruction to patient and/or caregiver on safe ambulation with wheeled walker and correction of gait deviations for upright posture, prevent FWW from being too far fwd and to remain within frame of AD, especially with turning and changing directions, maintain 50% WB R LE at all times roday. Instructed in hourly walks during day for exercise with AD as able safely, stop if pain or unsteady. Educated in deep breathing and importance of upright posture. Instruct on orthopedic precautions and weight bearing restrictions Description: Orthopedic precautions including right anterior hip: HIP PRECAUTIONS: Anterior Hip -Do not step backwards with surgical leg. No hip extension. -Do not allow surgical leg to externally rotate (turn outwards). -Do not cross your legs. Use a pillow between legs when rolling -Do not bend over past 90 degrees WEIGHT BEARING STATUS: Partial Weight bearing 50% on operative leg with walker all times for 2 weeks Problem:PT Orthopedic Condition Goal:Manage Orthopedic Condition Completed patient instructed on orthopedic precautions and weight bearing restrictions. Instruct on management of edema Problem:PT Orthopedic Condition Goal:Manage Orthopedic Condition Completed Instruct patient and caregiver on management of edema including ice, medication adherence strategies and benefits of activity. Instruct on self-management of post surgical and/or non-surgical orthopedic intervention Problem:PT Orthopedic Condition Goal:Manage Orthopedic Condition Completed patient and caregiver instructed on managagement of orthopedic condition, incision care: per discharge instructions, measures to avoid skin breakdown, staying well hydrated, eating foods with high protein, signs and symptoms of infection, signs and symptoms of DVT/PE, follow provider guidance for showering , instructed on when to call provider and instructed on when to call 911. Instruct and educate on knowledge deficits Problem:PT Learning Assessment Goal:Demonstrate understanding of education Completed patient and caregiver verbalize and/or demonstrate understanding of physical therapy education including home exercise program, orthopedic condition management, weight bearing precautions, surgical precautions, pain management, fall prevention strategies, home safety, integumentary and incision/would care management, infection control precautions and functional activity. Education methods include: verbal cues. Further education required to improve knowledge and compliance with home exercise program, surgical precautions, pain management, fall prevention strategies, home safety, integumentary and incision/would care management, infection control precautions and functional activity. documented in this encounter [facility] for referral (narrative)* Diagnostic Procedure Only (Routine) - Authorized Specialty Diagnoses / Procedures Referred By Contac t Referred To Contact XR IMAGING Diagnoses Epigastric pain Procedures XR UPPER GI ROUTINE DOUBLE CONTRAST/AIR RADIOLOGIC EXAM UPR GI TRC DOUBLE CONTRAST STUDY Obie Man MD [address] [address] Xr Imaging Referral ID Status Reason Start Date Expiration Date Visits Requested Visits Authorized [id number] Authorized Auto-Generat ed Referral 09/29/2021 10/29/2022 [address] [facility] for referral (narrative)* Diagnostic Procedure Only (Routine) - Closed Specialty Diagnoses / Procedures Referred By Contac t Referred To Contact XR IMAGING Diagnoses Epigastric pain Procedures XR UPPER GI ROUTINE DOUBLE CONTRAST/AIR RADIOLOGIC EXAM UPR GI TRC DOUBLE CONTRAST STUDY Obie Man MD [address] [address] Xr Imaging Referral ID Status Reason Start Date Expiration Date V isits Requested Visits Authorized [id number] Closed Auto-Generate d Referral 09/29/2021 10/29/2022 [address] [facility] for referral (narrative)* Diagnostic Procedure Only (Routine) - Pending Review Specialty Diagnoses / Procedures Referred By Contac t Referred To Contact BR IMAGING Diagnoses Encounter for screening mammogram for breast cancer Procedures ERICK SCREENING SCREENING MAMMOGRAPHY BI 2-VIEW BREAST INC CAD Sebastian Sol MD [address] [place] [address] Br Imaging [address] [place] [address] Referral ID Status Reason Start Date Expiration Date Visits Requested Visits Authorized [id number] Pending Review Auto-Generat ed Referral 05/15/2023 [address] [facility] for referral (narrative)* - Pending Review Specialty Diagnoses / Procedures Referred By Contac t Referred To Contact Physical Therapy Diagnoses Chronic bilateral low back pain with bilateral sciatica Lumbar spondylosis Spondylolisthesis at L5-S1 level Procedures CONSULT TO PHYSICAL THERAPY Penny Oneill, PRE SALES TECHNICAL ENGINEER.ACADEMY DIRECTOR [address] [place] [address] Referral ID Status Reason Start Date Expiration Date V isits Requested Visits Authorized [id number] Pending Review 08/06/2022 11/04/2022 1 1 * Diagnostic Procedure Only (Routine) - Closed Specialty Diagnoses / Procedures Referred By Contac t Referred To Contact XR IMAGING Diagnoses Lumbar spondylosis Spondylolisthesis at L5-S1 level Procedures XR LUMBAR MOTION 4V AP/LAT/ FLEX/EXT RADEX SPINE LUMBOSACRAL MINIMUM 4 VIEWS Penny Oneill APRN.ACADEMY DIRECTOR [address] [place] [address] Xr Imaging Referral ID Status Reason Start Date Expiration Date V isits Requested Visits Authorized [id number] Closed Auto-Generate d Referral 08/06/2022 09/05/2023 1 1 [facility] ([facility] Diagnostic Procedure Only (Routine) - Pending Review Specialty Diagnoses / Procedures Referred By Contac t Referred To Contact XR IMAGING Diagnoses Primary osteoarthritis of both knees Procedures XR KNEE GENERAL 4V AP BOTH/PA BOTH/LAT/MERC RIGHT RADIOLOGIC EXAM KNEE COMPLETE 4/MORE VIEWS Bigg Singh MD [address] [place] [address] Xr Imaging Referral ID Status Reason Start Date Expiration Date Visits Requested Visits Authorized [id number] Pending Review Auto-Generat ed Referral 09/24/2022 10/24/2023 1 1 * Diagnostic Procedure Only (Routine) - Pending Review Specialty Diagnoses / Procedures Referred By Contac t Referred To Contact XR IMAGING Diagnoses Primary osteoarthritis of both knees Procedures XR KNEE GENERAL 4V AP BOTH/PA BOTH/LAT/MERC LEFT RADIOLOGIC EXAM KNEE COMPLETE 4/MORE VIEWS Bigg Singh MD [address] [place] [address] Xr Imaging Referral ID Status Reason Start Date Expiration Date Visits Requested Visits Authorized [id number] Pending Review Auto-Generat ed Referral 09/24/2022 10/24/2023 1 1 * Diagnostic Procedure Only (Routine) - Closed Specialty Diagnoses / Procedures Referred By Contac t Referred To Contact XR IMAGING Diagnoses Primary osteoarthritis of both hips Procedures XR PELVIS 1V AP RADIOLOGIC EXAMINATION PELVIS 1/2 VIEWS Bigg Singh MD [address] [place] [address] Xr Imaging Referral ID Status Reason Start Date Expiration Date V isits Requested Visits Authorized [id number] Closed Auto-Generate d Referral 09/24/2022 10/24/2023 [address] [facility] for referral (narrative)* Diagnostic Procedure Only (Routine) - Closed Specialty Diagnoses / Procedures Referred By Contac t Referred To Contact XR IMAGING Diagnoses Pain in left hip Pain in right hip Procedures XR HIP BILATERAL 5V PEL/AP/LAT EACH HIP RADEX HIPS BILATERAL WITH PELVIS MINIMUM 5 VIEWS Olu Atkinson PA-C [address] [address] [place] [id number] Referral ID Status Reason Start Date Expiration Date V isits Requested Visits Authorized [id number] Closed Auto-Generate d Referral 03/03/2023 04/01/2024 [address] [facility] for referral (narrative)* Outpatient Procedure (Routine) - Closed Specialty Diagnoses / Procedures Referred By Contac t Referred To Contact [facility] Diagnoses Pre-operative examination Procedures ECG COMPLETE ECG ROUTINE ECG W/LEAST 12 LDS W/I&R Shahbaz Wesley APRN.ACADEMY DIRECTOR [address] [place] [address] [facility] [address] [place] [address] Referral ID Status Reason Start Date Expiration Date V isits Requested Visits Authorized [id number] Closed Auto-Generate d Referral 03/15/2023 03/14/2024 [address] [facility] for referral (narrative)* Diagnostic Procedure Only (Routine) - Pending Review Specialty Diagnoses / Procedures Referred By Contac t Referred To Contact BR IMAGING Diagnoses Encounter for screening mammogram for breast cancer Procedures ERICK SCREENING SCREENING MAMMOGRAPHY BI 2-VIEW BREAST INC CAD Sebastian Sol MD [address] [place] [address] Br Imaging [address] [place] [address] Referral ID Status Reason Start Date Expiration Date Visits Requested Visits Authorized [id number] Pending Review Auto-Generat ed Referral 03/17/2023 04/15/2024 [address] [facility] for referral (narrative)* Diagnostic Procedure Only (Routine) - Closed Specialty Diagnoses / Procedures [facility] Diagnoses Lumbar spondylosis Spondylolisthesis at L5-S1 level Procedures XR LUMBAR MOTION 4V AP/LAT/ FLEX/EXT RADEX SPINE LUMBOSACRAL MINIMUM 4 VIEWS Penny Oneill, PRE SALES TECHNICAL ENGINEER.ACADEMY DIRECTOR [address] [place] [address] [place] [id number] Referral ID Status Reason Start Date Expiration Date V isits Requested Visits Authorized [id number] Closed Auto-Generate d Referral 08/06/2022 09/05/2023 1 1 [facility] for visit Narrative* Diagnostic Procedure Only (Routine) - Closed Specialty Diagnoses / Procedures Referred By Contac t Referred To Contact XR IMAGING Diagnoses Epigastric pain Procedures XR UPPER GI ROUTINE DOUBLE CONTRAST/AIR RADIOLOGIC EXAM UPR GI TRC DOUBLE CONTRAST STUDY Obie Man MD [address] [address] Xr Imaging Referral ID Status Reason Start Date Expiration Date V isits Requested Visits Authorized [id number] Closed Auto-Generate d Referral 09/29/2021 10/29/2022 [address] [facility] for visit Narrative* Diagnostic Procedure Only (Routine) - Closed Specialty Diagnoses / Procedures Referred By Contac t Referred To Contact XR IMAGING Diagnoses Primary osteoarthritis of both knees Procedures XR KNEE GENERAL 4V AP BOTH/PA BOTH/LAT/MERC RIGHT RADIOLOGIC EXAM KNEE COMPLETE 4/MORE VIEWS Bigg Singh MD [address] [address] [place] [address] Referral ID Status Reason Start Date Expiration Date V isits Requested Visits Authorized [id number] Closed Auto-Generate d Referral 09/24/2022 10/24/2023 [facility] Diagnostic Procedure Only (Routine) - Closed Specialty Diagnoses / Procedures Referred By Contac t Referred To Contact XR IMAGING Diagnoses Lumbar spondylosis Spondylolisthesis at L5-S1 level Procedures XR LUMBAR MOTION 4V AP/LAT/ FLEX/EXT RADEX SPINE LUMBOSACRAL MINIMUM 4 VIEWS Penny Oneill, KIM.ERIC [address] [place] [address] [place] [id number] Referral ID Status Reason Start Date Expiration Date V isits Requested Visits Authorized [id number] Closed Auto-Generate d Referral 08/06/2022 09/05/2023 1 1 [facility] Advance Directives No Advanced Directives Records FoundDocuments on File Type Date Recorded 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 Advance Directive(s) 07/29/2021 9:18 AM Advance Directive(s) 09/02/2020 7:51 AM Advance Directive(s) 08/28/2020 11:46 AM Advance Directive(s) 03/26/2020 9:52 AM Advance Directive(s) 03/15/2020 10:10 AM Advance Directive(s) 02/28/2018 10:56 AM Documents on File Type Date Recorded 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 Advance Directive(s) 07/29/2021 9:18 AM Advance Directive(s) 09/02/2020 7:51 AM Advance Directive(s) 08/28/2020 11:46 AM Advance Directive(s) 03/26/2020 9:52 AM Advance Directive(s) 03/15/2020 10:10 AM Advance Directive(s) 02/28/2018 10:56 AM Latest Code Status on File Code Status Date Activated Date Inactivated Comments Full Code 04/05/2023 7:23 PM Latest Code Status on File Code Status Date Activated Date Inactivated Comments Full Code 04/05/2023 7:23 PM Latest Code Status on File Code Status Date Activated Date Inactivated Comments Full Code 04/05/2023 7:23 PM 06/17/2023 5:54 AM Latest Code Status on File Code Status Date Activated Date Inactivated Comments Full Code 06/19/2023 6:14 PM Code Status History Code Status Date Activated Date Inactivated Comments Full Code 04/05/2023 7:23 PM 06/17/2023 5:54 AM Assessments There may be information available, but it has not been provided by the sender. Review of System There may be information available, but it has not been provided by the sender. Family History There may be information available, but it has not been provided by the sender.No Family History Records FoundNo Family History Records FoundNo Family History Records FoundNo Family History Records Found Summary Purpose Reason for Referral Specialty Diagnoses / Procedures Referred By Contac t Referred To Contact Gastroenterology Diagnoses Epigastric pain Procedures CONSULT TO GASTROENTEROLOGY OFFICE/OUTPATIENT [facility] 60-74 MINUTES Sebastian Sol MD [address] [place] [address] Referral ID Status Reason Start Date Expiration Date Visits Requested Visits Authorized [id number] Authorized PCP Requested Referral 01/16/2022 01/16/2023 1 1 Specialty Diagnoses / Procedures Referred By Contac t Referred To Contact MR IMAGING Diagnoses Spinal stenosis of lumbar region without neurogenic claudication Procedures MRI LUMBAR SPINE WO IVCON MRI SPINAL CANAL LUMBAR W/O CONTRAST MATERIAL PreMichelle lópez, PRE SALES TECHNICAL ENGINEER.ACADEMY DIRECTOR [address] [place] [address] Mr Imaging Referral ID Status Reason Start Date Expiration Date Visits Requested Visits Authorized [id number] Pending Review Auto-Generat ed Referral 12/03/2022 01/02/2024 1 1 Specialty Diagnoses / Procedures Referred By Contac t Referred To Contact Orthopedics Diagnoses Primary osteoarthritis of both hips Procedures CONSULT TO ORTHOPAEDICS OFFICE/OUTPATIENT [facility] 60-74 MINUTES PreMichelle lópez APRN.ACADEMY DIRECTOR [address] [place] [address] Referral ID Status Reason Start Date Expiration Date Visits Requested Visits Authorized [id number] Authorized PCP Requested Referral 02/18/2023 02/18/2024 1 1 Specialty Diagnoses / Procedures Referred By Contac t Referred To Contact Diagnoses Primary osteoarthritis of both hips Pre-op testing Procedures [facility]ACC PRE-SURGICAL PLANNING CONSULT Olu Atkinson PA-C [address] [address] Referral ID Status Reason Start Date Expiration Date Visits Requested Visits Authorized [id number] Ref Not Required PCP Requested Referral 03/03/2023 03/02/2024 1 1 Specialty Diagnoses / Procedures Referred By Contac t Referred To Contact [facility] Diagnoses Status post hip replacement, left Procedures CONSULT TO PHYSICAL THERAPY PHYSICAL THERAPY EVALUATION HIGH COMPLEX 45 MINS Olu Atkinson PA-C [address] [place] [address] [facility] [address] [place] [address] Referral ID Status Reason Start Date Expiration Date Visits Requested Visits Authorized [id number] Pending Review Auto-Generat ed Referral 3 04/15/2024 1 1 Specialty Diagnoses / Procedures Referred By Contac t Referred To Contact Diagnoses Primary osteoarthritis of both hips Procedures REFER TO PACC - PRE ANESTHESIA CONSULTATION CLINIC OFFICE/OUTPATIENT [facility] MDM 60-74 MINUTES Storm Kang MD [address] [place] [address] Referral ID Status Reason Start Date Expiration Date Visits Requested Visits Authorized [id number] Authorized PCP Requested Referral 05/12/2023 05/11/2024 1 1 Medications Administered Section Inactive Administered Medications - up to 3 most recent administrations Medication Order MAR Action Action Date Dose Rate Site iohexol 1 mL IV injection (OMNIPAQUE 300) 1 mL, OTHER, ONCE, 1 dose, On [place]abel 12/17/22 at 1130 Given 12/17/2022 1:40 PM EDT 1 mL lidocaine 10 mg/mL (1 %) 100 mg injection (XYLOCAINE) 100 mg, OTHER, ONCE, 1 dose, On [place] 12/17/22 at 1130 Given 12/17/2022 1:41 PM EDT 100 mg methylPREDNISolone acetate 40 mg injection (DEPO-Medrol) 40 mg, OTHER, ONCE, 1 dose, On [place]abel 12/17/22 at 1130 Given 12/17/2022 1:41 PM EDT 40 mg Additional Source Comments Source Comments (unrecognize d section and content) In the event this informatio n is protected by the Federal Confidentiality of Alcohol and Drug Abuse Patient Records regulations: The Federal rules restrict any use of the information to criminally investigate or prosecute any alcohol or drug abuse patient.[facility] the event this information is protected by the Federal Confidentiality of Alcohol and Drug Abuse Patient Records regulations: The Federal rules restrict any use of the information to criminally investigate or prosecute any alcohol or drug abuse patient.[facility] the event this information is protected by the Federal Confidentiality of Alcohol and Drug Abuse Patient Records regulations: The Federal rules restrict any use of the information to criminally investigate or prosecute any alcohol or drug abuse patient.[facility] the event this information is protected by the Federal Confidentiality of Alcohol and Drug Abuse Patient Records regulations: The Federal rules restrict any use of the information to criminally investigate or prosecute any alcohol or drug abuse patient.[facility] the event this information is protected by the Federal Confidentiality of Alcohol and Drug Abuse Patient Records regulations: The Federal rules restrict any use of the information to criminally investigate or prosecute any alcohol or drug abuse patient.[facility] the event this information is protected by the Federal Confidentiality of Alcohol and Drug Abuse Patient Records regulations: The Federal rules restrict any use of the information to criminally investigate or prosecute any alcohol or drug abuse patient.[facility] the event this information is protected by the Federal Confidentiality of Alcohol and Drug Abuse Patient Records regulations: The Federal rules restrict any use of the information to criminally investigate or prosecute any alcohol or drug abuse patient.[facility] the event this information is protected by the Federal Confidentiality of Alcohol and Drug Abuse Patient Records regulations: The Federal rules restrict any use of the information to criminally investigate or prosecute any alcohol or drug abuse patient.[facility] the event this information is protected by the Federal Confidentiality of Alcohol and Drug Abuse Patient Records regulations: The Federal rules restrict any use of the information to criminally investigate or prosecute any alcohol or drug abuse patient.[facility] Hospital[facility] the event this information is protected by the Federal Confidentiality of Alcohol and Drug Abuse Patient Records regulations: The Federal rules restrict any use of the information to criminally investigate or prosecute any alcohol or drug abuse patient.[facility] the event this information is protected by the Federal Confidentiality of Alcohol and Drug Abuse Patient Records regulations: The Federal rules restrict any use of the information to criminally investigate or prosecute any alcohol or drug abuse patient.[facility] the event this information is protected by the Federal Confidentiality of Alcohol and Drug Abuse Patient Records regulations: The Federal rules restrict any use of the information to criminally investigate or prosecute any alcohol or drug abuse patient.[facility] Hospital[facility] the event this information is protected by the Federal Confidentiality of Alcohol and Drug Abuse Patient Records regulations: The Federal rules restrict any use of the information to criminally investigate or prosecute any alcohol or drug abuse patient.[facility] the event this information is protected by the Federal Confidentiality of Alcohol and Drug Abuse Patient Records regulations: The Federal rules restrict any use of the information to criminally investigate or prosecute any alcohol or drug abuse patient.[facility] Hospital[facility] the event this information is protected by the Federal Confidentiality of Alcohol and Drug Abuse Patient Records regulations: The Federal rules restrict any use of the information to criminally investigate or prosecute any alcohol or drug abuse patient.[facility] Hospital[facility] the event this information is protected by the Federal Confidentiality of Alcohol and Drug Abuse Patient Records regulations: The Federal rules restrict any use of the information to criminally investigate or prosecute any alcohol or drug abuse patient.[facility] Hospital[facility] the event this information is protected by the Federal Confidentiality of Alcohol and Drug Abuse Patient Records regulations: The Federal rules restrict any use of the information to criminally investigate or prosecute any alcohol or drug abuse patient.[facility] Hospital[facility] the event this information is protected by the Federal Confidentiality of Alcohol and Drug Abuse Patient Records regulations: The Federal rules restrict any use of the information to criminally investigate or prosecute any alcohol or drug abuse patient.[facility] Hospital[facility] the event this information is protected by the Federal Confidentiality of Alcohol and Drug Abuse Patient Records regulations: The Federal rules restrict any use of the information to criminally investigate or prosecute any alcohol or drug abuse patient.[facility] HospitalIn the event this information is protected by the Federal Confidentiality of Alcohol and Drug Abuse Patient Records regulations: The Federal rules restrict any use of the information to criminally investigate or prosecute any alcohol or drug abuse patient.[facility] HospitalIn the event this information is protected by the Federal Confidentiality of Alcohol and Drug Abuse Patient Records regulations: The Federal rules restrict any use of the information to criminally investigate or prosecute any alcohol or drug abuse patient.[facility] HospitalIn the event this information is protected by the Federal Confidentiality of Alcohol and Drug Abuse Patient Records regulations: The Federal rules restrict any use of the information to criminally investigate or prosecute any alcohol or drug abuse patient.[facility] HospitalIn the event this information is protected by the Federal Confidentiality of Alcohol and Drug Abuse Patient Records regulations: The Federal rules restrict any use of the information to criminally investigate or prosecute any alcohol or drug abuse patient.[facility] HospitalIn the event this information is protected by the Federal Confidentiality of Alcohol and Drug Abuse Patient Records regulations: The Federal rules restrict any use of the information to criminally investigate or prosecute any alcohol or drug abuse patient.[facility] HospitalIn the event this information is protected by the Federal Confidentiality of Alcohol and Drug Abuse Patient Records regulations: The Federal rules restrict any use of the information to criminally investigate or prosecute any alcohol or drug abuse patient.[facility] HospitalIn the event this information is protected by the Federal Confidentiality of Alcohol and Drug Abuse Patient Records regulations: The Federal rules restrict any use of the information to criminally investigate or prosecute any alcohol or drug abuse patient.[facility] HospitalIn the event this information is protected by the Federal Confidentiality of Alcohol and Drug Abuse Patient Records regulations: The Federal rules restrict any use of the information to criminally investigate or prosecute any alcohol or drug abuse patient.[facility] HospitalIn the event this information is protected by the Federal Confidentiality of Alcohol and Drug Abuse Patient Records regulations: The Federal rules restrict any use of the information to criminally investigate or prosecute any alcohol or drug abuse patient.[facility] HospitalIn the event this information is protected by the Federal Confidentiality of Alcohol and Drug Abuse Patient Records regulations: The Federal rules restrict any use of the information to criminally investigate or prosecute any alcohol or drug abuse patient.[facility] HospitalIn the event this information is protected by the Federal Confidentiality of Alcohol and Drug Abuse Patient Records regulations: The Federal rules restrict any use of the information to criminally investigate or prosecute any alcohol or drug abuse patient.[facility] HospitalIn the event this information is protected by the Federal Confidentiality of Alcohol and Drug Abuse Patient Records regulations: The Federal rules restrict any use of the information to criminally investigate or prosecute any alcohol or drug abuse patient.[facility] HospitalIn the event this information is protected by the Federal Confidentiality of Alcohol and Drug Abuse Patient Records regulations: The Federal rules restrict any use of the information to criminally investigate or prosecute any alcohol or drug abuse patient.[facility] HospitalIn the event this information is protected by the Federal Confidentiality of Alcohol and Drug Abuse Patient Records regulations: The Federal rules restrict any use of the information to criminally investigate or prosecute any alcohol or drug abuse patient.[facility] HospitalIn the event this information is protected by the Federal Confidentiality of Alcohol and Drug Abuse Patient Records regulations: The Federal rules restrict any use of the information to criminally investigate or prosecute any alcohol or drug abuse patient.[facility] HospitalIn the event this information is protected by the Federal Confidentiality of Alcohol and Drug Abuse Patient Records regulations: The Federal rules restrict any use of the information to criminally investigate or prosecute any alcohol or drug abuse patient.[facility] HospitalIn the event this information is protected by the Federal Confidentiality of Alcohol and Drug Abuse Patient Records regulations: The Federal rules restrict any use of the information to criminally investigate or prosecute any alcohol or drug abuse patient.[facility] HospitalIn the event this information is protected by the Federal Confidentiality of Alcohol and Drug Abuse Patient Records regulations: The Federal rules restrict any use of the information to criminally investigate or prosecute any alcohol or drug abuse patient.[facility] HospitalIn the event this information is protected by the Federal Confidentiality of Alcohol and Drug Abuse Patient Records regulations: The Federal rules restrict any use of the information to criminally investigate or prosecute any alcohol or drug abuse patient.[facility] HospitalIn the event this information is protected by the Federal Confidentiality of Alcohol and Drug Abuse Patient Records regulations: The Federal rules restrict any use of the information to criminally investigate or prosecute any alcohol or drug abuse patient.[facility] HospitalIn the event this information is protected by the Federal Confidentiality of Alcohol and Drug Abuse Patient Records regulations: The Federal rules restrict any use of the information to criminally investigate or prosecute any alcohol or drug abuse patient.[facility] HospitalIn the event this information is protected by the Federal Confidentiality of Alcohol and Drug Abuse Patient Records regulations: The Federal rules restrict any use of the information to criminally investigate or prosecute any alcohol or drug abuse patient.[facility] HospitalIn the event this information is protected by the Federal Confidentiality of Alcohol and Drug Abuse Patient Records regulations: The Federal rules restrict any use of the information to criminally investigate or prosecute any alcohol or drug abuse patient.[facility] HospitalIn the event this information is protected by the Federal Confidentiality of Alcohol and Drug Abuse Patient Records regulations: The Federal rules restrict any use of the information to criminally investigate or prosecute any alcohol or drug abuse patient.[facility] HospitalIn the event this information is protected by the Federal Confidentiality of Alcohol and Drug Abuse Patient Records regulations: The Federal rules restrict any use of the information to criminally investigate or prosecute any alcohol or drug abuse patient.[facility] HospitalIn the event this information is protected by the Federal Confidentiality of Alcohol and Drug Abuse Patient Records regulations: The Federal rules restrict any use of the information to criminally investigate or prosecute any alcohol or drug abuse patient.[facility] HospitalIn the event this information is protected by the Federal Confidentiality of Alcohol and Drug Abuse Patient Records regulations: The Federal rules restrict any use of the information to criminally investigate or prosecute any alcohol or drug abuse patient.[facility] HospitalIn the event this information is protected by the Federal Confidentiality of Alcohol and Drug Abuse Patient Records regulations: The Federal rules restrict any use of the information to criminally investigate or prosecute any alcohol or drug abuse patient.[facility] HospitalIn the event this information is protected by the Federal Confidentiality of Alcohol and Drug Abuse Patient Records regulations: The Federal rules restrict any use of the information to criminally investigate or prosecute any alcohol or drug abuse patient.[facility] HospitalIn the event this information is protected by the Federal Confidentiality of Alcohol and Drug Abuse Patient Records regulations: The Federal rules restrict any use of the information to criminally investigate or prosecute any alcohol or drug abuse patient.[facility] HospitalIn the event this information is protected by the Federal Confidentiality of Alcohol and Drug Abuse Patient Records regulations: The Federal rules restrict any use of the information to criminally investigate or prosecute any alcohol or drug abuse patient.[facility] HospitalIn the event this information is protected by the Federal Confidentiality of Alcohol and Drug Abuse Patient Records regulations: The Federal rules restrict any use of the information to criminally investigate or prosecute any alcohol or drug abuse patient.[facility] HospitalIn the event this information is protected by the Federal Confidentiality of Alcohol and Drug Abuse Patient Records regulations: The Federal rules restrict any use of the information to criminally investigate or prosecute any alcohol or drug abuse patient.[facility] HospitalIn the event this information is protected by the Federal Confidentiality of Alcohol and Drug Abuse Patient Records regulations: The Federal rules restrict any use of the information to criminally investigate or prosecute any alcohol or drug abuse patient.[facility] HospitalIn the event this information is protected by the Federal Confidentiality of Alcohol and Drug Abuse Patient Records regulations: The Federal rules restrict any use of the information to criminally investigate or prosecute any alcohol or drug abuse patient.[facility] HospitalIn the event this information is protected by the Federal Confidentiality of Alcohol and Drug Abuse Patient Records regulations: The Federal rules restrict any use of the information to criminally investigate or prosecute any alcohol or drug abuse patient.[facility] HospitalIn the event this information is protected by the Federal Confidentiality of Alcohol and Drug Abuse Patient Records regulations: The Federal rules restrict any use of the information to criminally investigate or prosecute any alcohol or drug abuse patient.[facility] HospitalIn the event this information is protected by the Federal Confidentiality of Alcohol and Drug Abuse Patient Records regulations: The Federal rules restrict any use of the information to criminally investigate or prosecute any alcohol or drug abuse patient.[facility] HospitalIn the event this information is protected by the Federal Confidentiality of Alcohol and Drug Abuse Patient Records regulations: The Federal rules restrict any use of the information to criminally investigate or prosecute any alcohol or drug abuse patient.[facility] HospitalIn the event this information is protected by the Federal Confidentiality of Alcohol and Drug Abuse Patient Records regulations: The Federal rules restrict any use of the information to criminally investigate or prosecute any alcohol or drug abuse patient.[facility] HospitalIn the event this information is protected by the Federal Confidentiality of Alcohol and Drug Abuse Patient Records regulations: The Federal rules restrict any use of the information to criminally investigate or prosecute any alcohol or drug abuse patient.[facility] HospitalIn the event this information is protected by the Federal Confidentiality of Alcohol and Drug Abuse Patient Records regulations: The Federal rules restrict any use of the information to criminally investigate or prosecute any alcohol or drug abuse patient.[facility] Reason for Visit (unrecogniz ed section and content) Specialty Diagnoses / Procedures Referred By Contac t Referred To Contact Physical Therapy / PHYSICAL THERAPY Diagnoses Chronic bilateral low back pain with bilateral sciatica Lumbar spondylosis Spondylolisthesis at L5-S1 level Procedures CONSULT TO PHYSICAL THERAPY Penny Oneill, PRE SALES TECHNICAL ENGINEER.ACADEMY DIRECTOR [address] [place] [address] Geena Romano, PT Referral ID Status Reason Start Date Expiration Date V isits Requested Visits Authorized [id number] Authorized 08/06/2022 07/02/2023 1 30 Reason Comments Physical Therapy Reason Comments PT Eval Reason Comments PT Progress Note Reason Comments Established Patient HBC FOLLOW UP CT ABD /PEL Reason Comments Abdominal Pain Reason Comments Follow Up Reason Comments Medication Question Reason Comments Abdominal Pain Epigastric pain, giv en rx for dicyclomine Vomiting Specialty Diagnoses / Procedures Referred By Contac t Referred To Contact Gastroenterology Diagnoses Epigastric pain Procedures CONSULT TO GASTROENTEROLOGY OFFICE/OUTPATIENT [facility] MDM 60-74 MINUTES Sebastian Sol MD [address] [place] [address] Referral ID Status Reason Start Date Expiration Date V isits Requested Visits Authorized [id number] Closed PCP Requested Referral 01/16/2022 01/16/2023 1 1 Reason Comments Appointment Rescheduled Reason Comments Results Reason Comments New Patient Evaluation Leg Pain Bilateral Hip Pain Bilateral Right Knee Pain Bilateral Specialty Diagnoses / Procedures Referred By Contac t Referred To Contact Pain Management Diagnoses Chronic bilateral low back pain with bilateral sciatica Procedures CONSULT TO PAIN MGT OFFICE/OUTPATIENT [facility] 60-74 MINUTES Luana Hutson APRN.ACADEMY DIRECTOR [address] [place] [address] Referral ID Status Reason Start Date Expiration Date V isits Requested Visits Authorized [id number] Closed PCP Requested Referral 06/15/2022 06/15/2023 1 1 Reason Comments Low Back Pain Knee Pain Hip Pain Reason Comments Follow Up Rx Refills Meloxicam Back Pain Lower Reason Comments Follow Up Discuss getting MRI Back Pain Hip Pain Knee Pain Reason Comments Injections Reason Comments Procedure Specialty Diagnoses / Procedures Referred By Contac t Referred To Contact Pain Management / PAIN MANAGEMENT Diagnoses Bilateral primary osteoarthritis of hip Bilateral intra articular hip steroid injection under ultrasound guidance. Procedures ARTHROCENTESIS ASPIR&/INJ MAJOR JT/BURSA W/US ARTHROCNT ASPIR&/INJ SMALL JT/BURSAW/US REC RPRT ARTHROCENTESIS ASPIR&/INJ INTERM JT/BURS W/US PROCEDURE 20 PreMichelle lópez APRN.ACADEMY DIRECTOR [address] [facility] [place] [address] Tolu Friedman MD [address] [place] [address] Referral ID Status Reason Start Date Expiration Date Visits Re quested Visits Authorized [id number] Closed 07/05/2022 07/04/2023 1 1 Reason Comments Follow Up After bilateral hip injections Reason Comments Patient Update Reason Comments Referral Reason Comments Follow Up Hip Pain Left Back Pain Reason Onset Date Comments Refill Request 02/18/2023 Reason Comments Patient Question Reason Onset Date Comments Refill Request 03/01/2023 Reason Comments New Pain Specialty Diagnoses / Procedures Referred By Contac t Referred To Contact Orthopedics Diagnoses Primary osteoarthritis of both hips Procedures CONSULT TO ORTHOPAEDICS OFFICE/OUTPATIENT NEW [facility] MDM 60-74 MINUTES Michelle Rivers APRN.ACADEMY DIRECTOR [address] [place] [address] Referral ID Status Reason Start Date Expiration Date V isits Requested Visits Authorized [id number] Closed PCP Requested Referral 02/18/2023 02/18/2024 1 1 Reason Comments Pre-Op Teaching Reason Comments Consult Reason Comments New Pre-Op Visit Pain Reason Comments Home Care Confirmation call Reason Comments Refill Request Reason Comments Post Op Hip Replacement Reason Comments Hip Replacement Post Op Reason Comments Consult Reason Comments Home Care Confirmation call at tempt Reason Comments Home Care PT SOC/POC/deferring OT Care Teams (unrecognized sec tion and content) [facility] Relationship Specialty Start Date End Date Sebastian Slo MD [address] [place] [address] PCP - General Family Practice 03/21/20 [facility] Relationship Specialty Start Date End Date Sebastian Sol MD [address] [place] [address] PCP - General Family Practice 03/21/20 [facility] Relationship Specialty Start Date End Date Sebastian Sol MD [address] [place] [address] PCP - General Family Practice 03/21/20 [facility] Relationship Specialty Start Date End Date Sebastian Sol MD [address] [place] [address] PCP - General Family Practice 03/21/20 [facility] Relationship Specialty Start Date End Date Sebastian Sol MD [address] [place] [address] PCP - General Family Medicine 03/21/20 [facility] Relationship Specialty Start Date End Date Sebastian Sol MD [address] [place] [address] PCP - General Family Medicine 03/21/20 [facility] Relationship Specialty Start Date End Date Sebastian Sol MD [address] [place] [address] PCP - General Family Medicine 03/21/20 [facility] Relationship Specialty Start Date End Date Sebastian Sol MD [address] [place] [address] PCP - General Family Medicine 03/21/20 [facility] Relationship Specialty Start Date End Date Sebastian Sol MD [address] [place] [address] PCP - General Family Medicine 03/21/20 [facility] Relationship Specialty Start Date End Date Sebastian Sol MD [address] [place] [address] PCP - General Family Medicine 03/21/20 [facility] Relationship Specialty Start Date End Date Sebastian Sol MD [address] [place] [address] PCP - General Family Medicine 03/21/20 [facility] Relationship Specialty Start Date End Date Sebastian Sol MD [address] [place] [address] PCP - General Family Medicine 03/21/20 [facility] Relationship Specialty Start Date End Date Sebastian Sol MD [address] [place] [address] PCP - General Family Medicine 03/21/20 [facility] Relationship Specialty Start Date End Date Sebastian Sol MD [address] [place] [address] PCP - General Family Medicine 03/21/20 [facility] Relationship Specialty Start Date End Date Sebastian Sol MD [address] [place] [address] PCP - General Family Medicine 03/21/20 [facility] Relationship Specialty Start Date End Date Sebastian Sol MD [address] [place] [address] PCP - General Family Medicine 03/21/20 [facility] Relationship Specialty Start Date End Date Sebastian Sol MD [address] [place] [address] PCP - General Family Medicine 03/21/20 [facility] Relationship Specialty Start Date End Date Sebastian Sol MD [address] [place] [address] PCP - General Family Medicine 03/21/20 [facility] Relationship Specialty Start Date End Date Sebastian Sol MD [address] [place], [place] [address] PCP - General Family Medicine 03/21/20 [facility] Relationship Specialty Start Date End Date Sebastian Sol MD [address] [place], [place] [phone] PCP - General Family Medicine 03/21/20 [facility] Relationship Specialty Start Date End Date Sebastian Sol MD [address] [place], [place] [address] [phone] PCP - General Family Medicine 03/21/20 [facility] Relationship Specialty Start Date End Date Sebastian Sol MD [address] [place] [address] PCP - General Family Medicine 03/21/20 [facility] Relationship Specialty Start Date End Date Sebastian Sol MD [address] [place] [address] PCP - General Family Medicine 03/21/20 [facility] Relationship Specialty Start Date End Date Sebastian Sol MD [address] [place] [address] PCP - General Family Medicine 03/21/20 Michelle Rivers APRN.ACADEMY DIRECTOR [facility] [place] [address] Referring Pain Management 03/01/23 [facility] Relationship Specialty Start Date End Date Sebastian Sol MD [address] [place], [place] [address] PCP - General Family Medicine 03/21/20 Michelle Rivers APRN.ACADEMY DIRECTOR [address] [place] [address] Referring Pain Management 03/01/23 [facility] Relationship Specialty Start Date End Date Sebastian Sol MD [address], [place] [address] PCP - General Family Medicine 03/21/20 Michelle Rivers APRN.ACADEMY DIRECTOR [address] [place] [address] Referring Pain Management 03/01/23 [facility] Relationship Specialty Start Date End Date Sebastian Sol MD [address] [place], [place] [address] PCP - General Family Medicine 03/21/20 Michelle Rivers, KIM.ACADEMY DIRECTOR [address] [place] [address] Referring Pain Management 03/01/23 Vineet Duran [facility] [address] [place] [address] Specialty Slot Tag Inserter Orthopedics 03/04/23 05/09/23 [facility] Relationship Specialty Start Date End Date Sebastian Sol MD [address] [place], [place] [address] PCP - General Family Medicine 03/21/20 Michelle Rivers APRN.ACADEMY DIRECTOR [address] [place] [address] Referring Pain Management 03/01/23 SisVineet covarrubias, PSS [facility] [address] [place] [address] Specialty Slot Tag Inserter Orthopedics 03/04/23 05/09/23 [facility] Relationship Specialty Start Date End Date Sebastian Sol MD [address] [place], [place] [address] PCP - General Family Medicine 03/21/20 Michelle Rivers PRE SALES TECHNICAL ENGINEER.ACADEMY DIRECTOR [address] [place] [address] Referring Pain Management 03/01/23 Vineet uDran, PSS [facility] [address] [place] [address] Specialty Slot Tag Inserter Orthopedics 03/04/23 05/09/23 [facility] Relationship Specialty Start Date End Date Sebastian Sol MD [address] [place] [address] PCP - General Family Medicine 03/21/20 Michelle Rivers, PRE SALES TECHNICAL ENGINEER.ACADEMY DIRECTOR [address] [place] [address] Referring Pain Management 03/01/23 Vineet Duran, PSS [facility] [address] [place] [address] Specialty Slot Tag Inserter Orthopedics 03/04/23 05/09/23 [facility] Relationship Specialty Start Date End Date Sebastian Sol MD [address] [place], [place] [address] PCP - General Family Medicine 03/21/20 Michelle Rivers, PRE SALES TECHNICAL ENGINEER.ACADEMY DIRECTOR [address] [place] [address] Referring Pain Management 03/01/23 Vineet Duran, PSS [facility] [address] [place] [address] Specialty Slot Tag Inserter Orthopedics 03/04/23 05/09/23 [facility] Relationship Specialty Start Date End Date Sebastian Sol MD [address] [place] [address] PCP - General Family Medicine 03/21/20 Michelle Rivers APRN.ACADEMY DIRECTOR [address] [place] [address] Referring Pain Management 03/01/23 SissenVineet, PSS [facility] [address] [place] [address] Specialty Slot Tag Inserter Orthopedics 03/04/23 05/09/23 Storm Kang MD [address] [place] [address] Home Care Provider Orthopedics 04/02/23 Storm Kang MD [address] [place] [address] Referring Orthopedics 04/02/23 Julio Cevallos, PT [address] [place], [place] [id number] Prison Keeper Post Acute Care 04/02/23 [facility] Relationship Specialty Start Date End Date Sebastian Sol MD [address], [place] [address] PCP - General Family Medicine 03/21/20 Michelle Rivers APRN.ACADEMY DIRECTOR [address] [place] [address] Referring Pain Management 03/01/23 SissenVineet, PSS [facility] [address] [place] [address] Specialty Slot Tag Inserter Orthopedics 03/04/23 05/09/23 Storm Kang MD [address] [place] [address] Home Care Provider Orthopedics 04/02/23 Storm Kang MD [address] [place] [address] Referring Orthopedics 04/02/23 Julio Cevallos, PT [address] [place], [place] [id number] Prison Keeper Post Acute Care 04/02/23 [facility] Relationship Specialty Start Date End Date Sebastian Sol MD [address] [place] [address] PCP - General Family Medicine 03/21/20 Michelle Rivers APRN.ACADEMY DIRECTOR [facility] [place] [address] Referring Pain Management 03/01/23 Vineet Duran, [facility] [address] [place] [address] Specialty Slot Tag Inserter Orthopedics 03/04/23 05/09/23 Storm Kang MD [address] [place] [address] [phone] Home Care Provider Orthopedics 04/02/23 Storm Kang MD [address] [place] [address] 35691 Referring Orthopedics 04/02/23 Julio Cevallos, PT [address] [place], [place] [id number] Prison Keeper Post Acute Care 04/02/23 Cashier Tube Room Relationship Specialty Start Date End Date Sebastian Sol MD [address] [place], [place] [id number] PCP - General Family Medicine 03/21/20 Michelle Rivers APRN.ACADEMY DIRECTOR [address] [place] [address] Referring Pain Management 03/01/23 SissenEranin, PSS [facility] [address] [place] [address] Specialty Slot Tag Inserter Orthopedics 03/04/23 05/09/23 Storm Kang MD [address] [place] [address] 25410 Home Care Provider Orthopedics 04/02/23 Storm Kang MD [address] [place] [address] 85694 Referring Orthopedics 04/02/23 Julio Cevallos, PT [address] [place] [address] Prison Keeper Post Acute Care 04/02/23 Cashier Tube Room Relationship Specialty Start Date End Date Sebastian Sol MD [address] [place] [address] PCP - General Family Medicine 03/21/20 Michelle Rivers, KIM.ACADEMY DIRECTOR [address] [place] [address] Referring Pain Management 03/01/23 SissenEranin, PSS [facility] [address] [place] [address] Specialty Slot Tag Inserter Orthopedics 03/04/23 05/09/23 Storm Kang MD [address] [place] [address] Home Care Provider Orthopedics 04/02/23 Storm Kang MD [address] [place] [address] Referring Orthopedics 04/02/23 Julio Cevallos, PT [address] [place] [address] Prison Keeper Post Acute Care 04/02/23 Cashier Tube Room Relationship Specialty Start Date End Date Sebastian Sol MD [address] [place] [address] PCP - General Family Medicine 03/21/20 Michelle Rivers APRN.ACADEMY DIRECTOR [facility] [place] [address] Referring Pain Management 03/01/23 Vineet Duran [facility] [address] [place] [address] Specialty Slot Tag Inserter Orthopedics 03/04/23 05/09/23 Storm Kang MD [address] [place] [address] Home Care Provider Orthopedics 04/02/23 Storm Kang MD [address] [place] [address] Referring Orthopedics 04/02/23 uJlio Cevallos, PT [address] [place] [address] Prison Keeper Post Acute Care 04/02/23 Cashier Tube Room Relationship Specialty Start Date End Date Sebastian Sol MD [address] [place] [address] PCP - General Family Medicine 03/21/20 Michelle Rivers APRN.ACADEMY DIRECTOR [address] [place] [address] Referring Pain Management 03/01/23 Vineet Duran, PSS [facility] [address] [place] [address] Specialty Slot Tag Inserter Orthopedics 03/04/23 05/09/23 Storm Kang MD [address] [place] [address] 26935 Home Care Provider Orthopedics 04/02/23 Storm Kang MD [address] [place] [address] 13559 Referring Orthopedics 04/02/23 Julio Cevallos, PT [address] [place] [address] Prison Keeper Post Acute Care 04/02/23 Cashier Tube Room Relationship Specialty Start Date End Date Sebastian Sol MD [address] [place], [place] [address] PCP - General Family Medicine 03/21/20 Michelle Rivers APRN.ACADEMY DIRECTOR [address] [place] [address] Referring Pain Management 03/01/23 Vineet Duran, PSS [facility] [address] [place] [address] Specialty Slot Tag Inserter Orthopedics 03/04/23 05/09/23 Storm Kang MD [address] [place] [address] 24174 Home Care Provider Orthopedics 04/02/23 Storm Kang MD [address] [place] [address] Referring Orthopedics 04/02/23 Julio Cevallos, PT [address] [place] [address] Prison Keeper Post Acute Care 04/02/23 Cashier Tube Room Relationship Specialty Start Date End Date Sebastian Sol MD [address] [place] [address] PCP - General Family Medicine 03/21/20 Cashier Tube Room Relationship Specialty Start Date End Date Sebastian Sol MD [address] [place] [address] PCP - General Family Medicine 03/21/20 Cashier Tube Room Relationship Specialty Start Date End Date Sebastian Sol MD [address], [place] [id number] PCP - General Family Medicine 03/21/20 Michelle Rivers APRN.ACADEMY DIRECTOR [address] [place] [address] Referring Pain Management 03/01/23 Storm Kang MD [address] [place] [address] Home Care Provider Orthopedics 04/02/23 Storm Kang MD [address] [place] [address] Referring Orthopedics 04/02/23 Julio Cevallos, PT [address] [place] [address] Prison Keeper Post Acute Care 04/02/23 Cashier Tube Room Relationship Specialty Start Date End Date Sebastian Sol MD [address] [place] [address] PCP - General Family Medicine 03/21/20 Michelle Rivers APRN.ACADEMY DIRECTOR [address] [place] [address] Referring Pain Management 03/01/23 Vineet Duran, PSS [facility] [address] [place] [address] Specialty Slot Tag Inserter Orthopedics 03/04/23 07/29/23 Storm Kang MD [address] [place] [address] 27166 Home Care Provider Orthopedics 04/02/23 Storm Kang MD [address] [place] [address] 38137 Referring Orthopedics 04/02/23 Julio Cevallos, PT [address] [place] [address] Prison Keeper Post Acute Care 04/02/23 Cashier Tube Room Relationship Specialty Start Date End Date Sebastian Sol MD [address] [place], [place] [address] PCP - General Family Medicine 03/21/20 Michelle Rivers APRN.ACADEMY DIRECTOR [address] [place] [address] Referring Pain Management 03/01/23 Vineet Duran, PSS [facility] [address] [place] [address] Specialty Slot Tag Inserter Orthopedics 03/04/23 07/29/23 Storm Kang MD [address] [place] [address] 23281 Home Care Provider Orthopedics 04/02/23 Storm Kang MD [address] [place] [address] 24836 Referring Orthopedics 04/02/23 Julio Cevallos, PT [address] [place] [address] Prison Keeper Post Acute Care 04/02/23 Cashier Tube Room Relationship Specialty Start Date End Date Sebastian Sol MD [address] [place] [address] PCP - General Family Medicine 03/21/20 Michelle Rivers APRN.ACADEMY DIRECTOR [address] [place] [address] Referring Pain Management 03/01/23 Vineet Duran, [facility] [address] [place] [address] Specialty Slot Tag Inserter Orthopedics 03/04/23 07/29/23 Storm Kang MD [address] [place] [address] 19090 Home Care Provider Orthopedics 04/02/23 Storm Kang MD [address] [place] [address] 40135 Referring Orthopedics 04/02/23 Julio Cevallos, PT [address] [place] [address] Prison Keeper Post Acute Care 04/02/23 Cashier Tube Room Relationship Specialty Start Date End Date Sebastian Sol MD [address] [place], [place] [address] PCP - General Family Medicine 03/21/20 Michelle Rivers APRN.ACADEMY DIRECTOR [address] [place] [address] Referring Pain Management 03/01/23 SissenVineet, PSS [facility] [address] [place] [address] Specialty Slot Tag Inserter Orthopedics 03/04/23 07/29/23 Storm Kang MD [address] [place] [address] 48275 Home Care Provider Orthopedics 04/02/23 Storm Kang MD [address] [place] [address] 94033 Referring Orthopedics 04/02/23 Julio Cevallos, PT [address] [place] [address] Prison Keeper Post Acute Care 04/02/23 Cashier Tube Room Relationship Specialty Start Date End Date Sebastian Sol MD [address] [place] [address] PCP - General Family Medicine 03/21/20 Michelle Rivers APRN.ACADEMY DIRECTOR [address] [place] [address] Referring Pain Management 03/01/23 SissenEranin, PSS [facility] [address] [place] [address] Specialty Slot Tag Inserter Orthopedics 03/04/23 07/29/23 Storm Kang MD [address] [place] [address] Home Care Provider Orthopedics 06/17/23 Storm Kang MD [address] [place] [address] Referring Orthopedics 06/17/23 Cashier Tube Room Relationship Specialty Start Date End Date Sebastian Sol MD [address] [place], [place] [address] PCP - General Family Medicine 03/21/20 Michelle Rivers APRN.ACADEMY DIRECTOR [address] [place] [address] Referring Pain Management 03/01/23 Vineet Duran [facility] [address] [place] [address] Specialty Slot Tag Inserter Orthopedics 03/04/23 07/29/23 Storm Kang MD [address] [place] [address] 8[address] Home Care Provider Orthopedics 06/17/23 Storm Kang MD [address] [place] [address] 72367 Referring Orthopedics 06/17/23 Julio Cevallos, PT [address] [place] [address] Prison Keeper Post Acute Care 06/18/23 Cashier Tube Room Relationship Specialty Start Date End Date Sebastian Sol MD [address] [place], [place] [address] PCP - General Family Medicine 03/21/20 Michelle Rivers APRN.ACADEMY DIRECTOR [address] [place] [address] Referring Pain Management 03/01/23 Sissen, Vineet, PSS [facility] [address] [place] [address] Specialty Slot Tag Inserter Orthopedics 03/04/23 07/29/23 Storm Kang MD [address] [place] [address] 95352 Home Care Provider Orthopedics 06/17/23 Storm Kang MD [address] [place] [address] 10431 Referring Orthopedics 06/17/23 Julio Cevallos, PT [address] [place] [address] Prison Keeper Post Acute Care 06/18/23 Cashier Tube Room Relationship Specialty Start Date End Date Sebastian Sol MD [address] [place] [address] PCP - General Family Medicine 03/21/20 Michelle Rivers APRN.ACADEMY DIRECTOR [address] [place] [address] Referring Pain Management 03/01/23 SisEran covarrubiasin, PSS [facility] [address] [place] [address] Specialty Slot Tag Inserter Orthopedics 03/04/23 07/29/23 Storm Kang MD [address] [place] [address] 11889 Home Care Provider Orthopedics 06/17/23 Storm Kang MD [facility] [place] [address] Referring Orthopedics 06/17/23 Julio Cevallos, PT [address] [place] [address] Prison Keeper Post Acute Care 06/18/23 INFORMATION SOURCE (unrecogn ized section and content) DATE CREATED AUTHOR AUTHOR'S ORGANIZ ATION 03/01/2023 [facility] DATE CREATED AUTHOR AUTHOR'S ORGANIZ ATION 07/11/2023 [facility] DATE CREATED AUTHOR AUTHOR'S ORGANIZ ATION 07/31/2023 [facility] FOR RECORDS PERTAINING TO PATIENTS WHO ARE OR HAVE BEEN ENROLLED IN A CHEMICAL DEPENDENCY/SUBSTANCEABUSE PROGRAM, SOME INFORMATION MAY BE OMITTED. This clinical summary was aggregated from multiple sources. Caution should be exercised in using it in the provision of clinical care. This summary normalizes information from multiple sources, and as a consequence, information in this document may materially change the coding, format and clinical context of patient data. In addition, data may be omitted in some cases. CLINICAL DECISIONS SHOULD BE BASED ON THE PRIMARY CLINICAL RECORDS. [employer] [facility]. provides no warranty or guarantee of the accuracy or completeness of information in this document.
== END | disposition home or self-care (01) ==
LOC: OPBI 12:16
PROVIDERS: PCP Family Medicine; Referring Provider Nurse Practitioner Women's Health; Visit Provider Nurse Practitioner Women's Health
DX: Z12.31 Encounter for screening mammogram for malignant neoplasm of breast (principal)
CPT/HCPCS: 77063; 77067

== ENCOUNTER → 2024-08-03 | Outpatient (CLI) | payer MEDICARE, SELFPAY ==
--- NOTE | 2024-08-03 13:11 | BI_ITS ---
PROCEDURE: SCRN MAMM (CAD)W/TAMIA BILAT REASON FOR EXAM: F, Age 63 y/o, routine mammographic study. Prior breast implants. TECHNIQUE: Bilateral screening digital breast tomosynthesis with 2D and 3D images. Computer aided detection. COMPARISON: Prior exam(s) dating back to August 02, 2023.. FINDINGS: The breasts are heterogeneously dense which may obscure small masses. Stable appearance of the bilateral breast implants with evidence of calcification along its anterior margins. No suspicious masses, areas of developing architectural distortion, or suspicious calcifications. BI/SCRN MAMM (CAD)W/TAMIA BILAT IMPRESSION: BI-RADS 2: BENIGN. RECOMMEND ANNUAL MAMMOGRAPHIC SCREENING. Follow-up code: Routine Follow-up The patient will be notified of the results by letter. Reading Location: [place] [address]
== END | disposition home or self-care (01) ==
PROVIDERS: PCP Family Medicine; Referring Provider Nurse Practitioner Women's Health; Visit Provider Nurse Practitioner Women's Health
DX: Z12.31 Encounter for screening mammogram for malignant neoplasm of breast (principal)
CPT/HCPCS: 77063; 77067